=== PATIENT | female | born 1945 | race Caucasian/White ===

== ENCOUNTER 2017-06-11 15:49 | Observation (INO) | payer MEDICARE, MEDICAID, SELFPAY ==
--- NOTE | 2017-06-11 16:01 | XR_ITS ---
XR chest 2V HISTORY: ITS.REASON: cough ORDERING PHYSICIAN: Earl Fung MD PATIENT AGE: 72 years COMPARISON: 02/22/2016 FINDINGS: There is mild cardiomegaly without failure.. The lungs are clear without infiltrates, suspicious nodules, or pleural effusions. No acute bony abnormalities. IMPRESSION: Mild cardiomegaly. No change with no acute finding
[2017-06-11 16:34] VITALS: BMI 22.1
[2017-06-11 16:35] VITALS: BP 109/37; PULSE 67; RESP 20; TEMP 36.6; O2SAT 98
[2017-06-11 17:04] LABS: Adenovirus,PCR Not Detected (NotDetected); Bordetella Pertussis Not Detected (NotDetected); Chlamydophila Pneumoniae, PCR Not Detected (NotDetected); Coronavirus 229E Not Detected (NotDetected); Coronavirus NL63 Not Detected (NotDetected); Coronavirus OC43 Not Detected (NotDetected); Coronovirus HKU1,PCR Not Detected (NotDetected); Human Metapneumovirus Not Detected (NotDetected); Influenza A, PCR Not Detected (NotDetected); Influenza AH1, 2009 Not Detected (NotDetected); Influenza AH1, PCR Not Detected (NotDetected); Influenza AH3,PCR Not Detected (NotDetected); Influenza B, PCR Not Detected (NotDetected); Mycoplasma Pneumoniae, PCR Not Detected (NotDected); Parainfluenza 1, PCR Not Detected (NotDetected); Parainfluenza 2, PCR Not Detected (NotDetected); Parainfluenza 3, PCR Not Detected (NotDetected); Parainfluenza 4, PCR Not Detected (NotDetected); Respiratory Syncytial Virus Not Detected (NotDetected); Rhinovirus/Enterovirus Not Detected (NotDetected)
--- NOTE | 2017-06-11 17:50 | HMH.HP ---
*Admission Date: 06/11/17 *Chief complaint: dizziness, cough *History of present illness: 72 year old female with a significant history of emphysema presented to PCP office with a 3 day history of anterior chest tightness, cough, malaise and dizziness. She reported low blood pressures at home, as well. No fevers. She has had some body aches. In the office, she was found to be orthostatic with SBP 80's. Patient was admitted for IV hydration and further evaluation. [facility] History Medical History: Reports:: Cancer, Congestive Heart Failure, Chronic Obstructive Pulmonary Disease (COPD), Coronary Artery Disease, Hypertension, Myocardial Infarction, Seizures, Transient Ischemic Attacks (TIA) Other Medical History: Reports: Hypothyroidism Laterality Cases: Left: Total Hip Replacement Other Surgeries: Yes: Cancer Surgery, Colonoscopy, Skin Cancer Excision Amputation: No Fractures: No - *Social History Tobacco Type: cigarettes Review of Systems - Constitutional Reports body ache(s), Reports chills, Reports fatigue, Reports malaise, Reports weakness - Eyes Reports double vision, Denies blurry vision, Denies discharge - ENT Reports dizziness, Reports dry mouth, Reports sinus pain, Denies abnormal hearing, Denies ear discharge, Denies ear pain, Denies headache(s), Denies nose pain, Denies sinus pressure, Denies sore throat - *Cardiovascular Denies chest pain with activity, Denies irregular heart rhythm, Denies leg swelling, Denies rapid, pounding, or irregular heartbeat, Denies foot swelling, Denies fast heart rate - *Respiratory Reports cough, Reports wheezing, Denies chest congestion, Denies shortness of breath - *Gastrointestinal Denies change in stools, Denies loose stools, Denies bright, red blood in stools, Denies vomiting - *Genitourinary Reports blood in urine, Denies dribbling after urination - *Musculoskeletal Reports body aches, Denies joint pain, Denies muscle cramps - Integumentary/Breasts Denies rash - *Neurologic Reports unsteadiness, Reports dizziness, Denies abnormal movements, Denies confusion, Denies localized weakness, Denies tingling/numbness/burning sensations, Denies seizure-like activity, Denies fainting - Psychiatric Denies memory loss, Denies mood swings, Denies thoughts of hurting/killing yourself - Endocrine Denies rapid, pounding, or irregular heartbeat - Hematologic/Lymphatic Denies enlarged lymph nodes Meds Allergies Allergy/AdvReac Type Severity Reaction Status Date / Time metoclopramide [From REGLAN] Allergy Unknown Unverified 05/22/17 14:08 Exam Vital signs and Labs for Last 24 Hours: Temp Pulse Resp BP Pulse Ox 97.9 F 67 20 109/37 98 06/11/17 16:35 06/11/17 16:35 06/11/17 16:35 06/11/17 16:35 06/11/17 16:35 Narrative: Pleasant, no acute distress. Alert and oriented x3. Rate and rhythm regular. No LE edema. Pulses 2+ bilaterally. Lung sounds with scattered rhonchi and crackles RLL. TM normal bilaterally. Nose clear. Mucous membranes dry. No dysuria or hematuria. No unilateral weakness of neurological deficits. Abdomen soft and nontender. Normoactive Bowel Sounds. Assessment and Plan (1) Dehydration Current visit: Yes Status: Acute Category: Medical Code(s): E86.0 - Dehydration (2) Orthostatic hypotension Current visit: Yes Status: Acute Category: Medical Code(s): I95.1 - Orthostatic hypotension (3) Acute URI Current visit: Yes Status: Acute Category: Medical Code(s): J06.9 - Acute upper respiratory infection, unspecified - Assessment and plan all Dx Assessment and Plan for all problems:: Admit for IV hydration. Hold antihypertensives and Lasix. CXR, Respiratory PCR and labs. Start Duonebs. Will evaluate labs/x-ray and treat as indicated.
[2017-06-11 17:53] LABS: Basophils % 0.4 % (0.1-2.0); Eosinophils # 0.1 K/mm3 (0.0-0.4); Hematocrit 31.6 % (37.0-47.0); Hemoglobin 10.2 g/dL (12.2-16.2); Lymphocytes # 1.8 K/mm3 (0.7-4.5); Mean Corpuscular HGB Conc 32.2 g/dL (31.8-35.4); Mean Corpuscular Volume 77.4 fl (81-99); Monocytes # 0.3 K/mm3 (0.1-1.0); Neutrophils # 4.2 K/mm3 (1.8-7.8); Neutrophils % 65.6 % (37.0-80.0); Platelet Count 196 K/mm3 (142-424); Red Blood Count 4.08 M/mm3 (4.20-5.40); Red Cell Distribution Width 16.9 % (11.5-17.5); White Blood Count 6.4 K/mm3 (4.8-10.8)
--- NOTE | 2017-06-11 17:54 | P.HP_ITS ---
*Admission Date: 06/11/17 *Chief complaint: dizziness, cough *History of present illness: 72 year old female with a significant history of emphysema presented to PCP office with a 3 day history of anterior chest tightness, cough, malaise and dizziness. She reported low blood pressures at home, as well. No fevers. She has had some body aches. In the office, she was found to be orthostatic with SBP 80's. Patient was admitted for IV hydration and further evaluation. [facility] History Medical History: Reports:: Cancer, Congestive Heart Failure, Chronic Obstructive Pulmonary Disease (COPD), Coronary Artery Disease, Hypertension, Myocardial Infarction, Seizures, Transient Ischemic Attacks (TIA) Other Medical History: Reports: Hypothyroidism Laterality Cases: Left: Total Hip Replacement Other Surgeries: Yes: Cancer Surgery, Colonoscopy, Skin Cancer Excision Amputation: No Fractures: No - *Social History Tobacco Type: cigarettes Review of Systems - Constitutional Reports body ache(s), Reports chills, Reports fatigue, Reports malaise, Reports weakness - Eyes Reports double vision, Denies blurry vision, Denies discharge - ENT Reports dizziness, Reports dry mouth, Reports sinus pain, Denies abnormal hearing, Denies ear discharge, Denies ear pain, Denies headache(s), Denies nose pain, Denies sinus pressure, Denies sore throat - *Cardiovascular Denies chest pain with activity, Denies irregular heart rhythm, Denies leg swelling, Denies rapid, pounding, or irregular heartbeat, Denies foot swelling, Denies fast heart rate - *Respiratory Reports cough, Reports wheezing, Denies chest congestion, Denies shortness of breath - *Gastrointestinal Denies change in stools, Denies loose stools, Denies bright, red blood in stools , Denies vomiting - *Genitourinary Reports blood in urine, Denies dribbling after urination - *Musculoskeletal Reports body aches, Denies joint pain, Denies muscle cramps - Integumentary/Breasts Denies rash - *Neurologic Reports unsteadiness, Reports dizziness, Denies abnormal movements, Denies confusion, Denies localized weakness, Denies tingling/numbness/burning sensations, Denies seizure-like activity, Denies fainting - Psychiatric Denies memory loss, Denies mood swings, Denies thoughts of hurting/killing yourself - Endocrine Denies rapid, pounding, or irregular heartbeat - Hematologic/Lymphatic Denies enlarged lymph nodes Meds Allergies Allergy/AdvReac Type Severity Reaction Status Date / Time metoclopramide [From REGLAN] Allergy Unknown Unverified 05/22/17 14:08 Exam Vital signs and Labs for Last 24 Hours: Temp Pulse Resp BP Pulse Ox 97.9 F 67 20 109/37 98 06/11/17 16:35 06/11/17 16:35 06/11/17 16:35 06/11/17 16:35 06/11/17 16:35 Narrative: Pleasant, no acute distress. Alert and oriented x3. Rate and rhythm regular. No LE edema. Pulses 2+ bilaterally. Lung sounds with scattered rhonchi and crackles RLL. TM normal bilaterally. Nose clear. Mucous membranes dry. No dysuria or hematuria. No unilateral weakness of neurological deficits. Abdomen soft and nontender. Normoactive Bowel Sounds. Assessment and Plan (1) Dehydration Current visit: Yes Status: Acute Category: Medical Code(s): E86.0 - Dehydration (2) Orthostatic hypotension Current visit: Yes Status: Acute Category: Medical Code(s): I95.1 - Orthostatic hypotension (3) Acute URI Current visit: Yes Status: Acute Category: Medical
[2017-06-11 18:05] LABS: Alanine Aminotransferase 10 U/L (12-78); Albumin Level 4.1 gm/dL (3.4-5.0); Alkaline Phosphatase 82 U/L (46-116); Anion Gap 9.7 mEq/L (5-15); Aspartate Amino Transferase 17 U/L (15-37); Bilirubin,Total 0.6 mg/dL (0.2-1.0); Blood Urea Nitrogen 35 mg/dL (7-18); Calcium 9.5 mg/dL (8.5-10.1); Carbon Dioxide 32 mmol/L (21.0-32.0); Chloride 83 mmol/L (98-107); Creatinine Clearance Estimated 27 mL/min (0-300); Creatinine,Serum 1.59 mg/dL (0.55-1.02); Estimated Glomerular Filt Rate 32 ml/min (>60); GFR (African American) 39 ML/MIN (>60); Globulin 4.2 gm/dl (1.3-3.2); Glucose 115 mg/dL (74-106); Potassium 3.7 mmoL/L (3.5-5.1); Sodium 121 mmol/L (136-145); Total Protein,Serum 8.3 gm/dL (6.4-8.2)
[2017-06-11 19:20] VITALS: O2SAT 97
[2017-06-11 21:00] VITALS: BP 145/51; PULSE 73; RESP 18; TEMP 36.4; O2SAT 97
--- NOTE | 2017-06-11 21:03 | PC.NURSE ---
BP OF 145/51 REPORTED TO ALEX
[2017-06-11 23:05] VITALS: PULSE 67; PULSE 69
--- NOTE | 2017-06-12 04:06 | PC.NURSE ---
LAYING IN BED RESTING AT THIS TIME. HAS REST ON AND OFF. IV HAS INFILTRATED IN RIGHT FR, ELEVATED ON A PILLOW. IV OUT, TIP INTACT. HAS RHONCHI BILAT. RESP EVEN AND NONLABORED. HAS BEEN UP TO RESTROOM SEVERAL TIMES. STATES HAS NO NEEDS AT THIS TIME. WILL CONTINUE TO MONITOR. BED LOCKED IN LOW POSITION SIDE RALES UP X 2. CALL LIGHT WITHIN REACH.
--- NOTE | 2017-06-12 04:29 | PC.NURSE ---
PATIENT REFUSED TEDS, EDUCATED ON WHY IT WAS IMPORTANT TO WEAR THEM. PATIENT SAID NO.
[2017-06-12 04:43] VITALS: BP 124/54; BP 130/49; PULSE 60; PULSE 74; RESP 18; TEMP 36.5; O2SAT 95
[2017-06-12 04:44] VITALS: BP 131/53; PULSE 74
[2017-06-12 05:42] VITALS: PULSE 60; PULSE 64
[2017-06-12 08:25] LABS: Blood Urea Nitrogen 29 mg/dL (7-18); Carbon Dioxide 28 mmol/L (21.0-32.0); Creatinine Clearance Estimated 31 mL/min (0-300); Creatinine,Serum 1.39 mg/dL (0.55-1.02); Estimated Glomerular Filt Rate 37 ml/min (>60); GFR (African American) 45 ML/MIN (>60); Glucose 127 mg/dL (74-106)
[2017-06-12 08:27] VITALS: BP 121/54; PULSE 69; RESP 18; TEMP 36.6; O2SAT 95
[2017-06-12 08:34] LABS: Chloride 92 mmol/L (98-107); Sodium 131 mmol/L (136-145)
--- NOTE | 2017-06-12 13:22 | HMH.DCSUM ---
General - General Admission date: 06/11/17 Discharge date: 06/12/17 HPI HPI: 72 year old female with a significant history of emphysema presented to PCP office with a 3 day history of anterior chest tightness, cough, malaise and dizziness. She reported low blood pressures at home, as well. No fevers. She has had some body aches. In the office, she was found to be orthostatic with SBP 80's. Patient was admitted for IV hydration and further evaluation. Objective Vital signs: Temp Pulse Resp BP Pulse Ox 97.9 F 69 18 121/54 95 06/12/17 08:27 06/12/17 08:27 06/12/17 08:27 06/12/17 08:27 06/12/17 08:27 Hospital Course Hospital Course: Patient was admitted for observation. She was found to have + orthostasis and hyponatremia. She was given normal saline infusions. CXR was unremarkable. Upper respiratory PCR was negative. She was re-hydrated through the night with significant improvement of dizziness and hyponatremia. She is tolerating oral intake well and able to ambulate without assistance. Discharge home. D/C HCTZ. Hold Lasix and potassium until FU. See medication reconcilation for complete list. FU with myself in [place] office on Sunday. Results Labs on day of discharge: Labs from last 24 hours 06/12/17 06/11/17 06/11/17 08:00 17:30 17:30 WBC 6.4 RBC 4.08 L Hgb 10.2 L Hct 31.6 L MCV 77.4 L MCH 25.0 L MCHC 32.2 RDW 16.9 Plt Count 196 MPV 9.0 Neut % (Auto) 65.6 Lymph % (Auto) 28.0 [place] % (Auto) 5.0 Eos % (Auto) 1.0 Baso % (Auto) 0.4 Neut # (Auto) 4.2 Lymph # (Auto) 1.8 [place] # (Auto) 0.3 Eos # (Auto) 0.1 Baso # (Auto) 0.0 Sodium 131 L 121 L Potassium 4.0 3.7 Chloride 92 L 83 L Carbon Dioxide 28 32 Anion Gap 15.0 9.7 BUN 29 H 35 H Creatinine 1.39 H 1.59 H Estimated Creat Clear 31 27 Estimated GFR 37 L 32 L Est GFR ( Amer) 45 L 39 L Glucose 127 H 115 H Calcium 9.5 Total Bilirubin 0.6 AST 17 ALT 10 L Alkaline Phosphatase 82 Total Protein 8.3 H Albumin 4.1 Globulin 4.2 H Albumin/Globulin Ratio 1.0 L Chlamy pneumoniae PCR Adenovirus (PCR) B.parapertussis DNA PCR Coronavirus OC43 (PCR) Coronavirus HKU1 (PCR) Coronavirus 229E (PCR) Coronavirus NL63 (PCR) Human Metapneumovir PCR Influenza A (H1) PCR Influ A (H1N1/09) PCR Influenza A (H3) PCR Influenza Type A (PCR) Influenza Type B (PCR) M. pneumoniae (PCR) Parainfluenza 1 (PCR) Parainfluenza 2 (PCR) Parainfluenza 3 (PCR) Parainfluenza 4 (PCR) RSV (PCR) Entero/Rhino (PCR) 06/11/17 17:00 WBC RBC Hgb Hct MCV MCH MCHC RDW Plt Count MPV Neut % (Auto) Lymph % (Auto) [place] % (Auto) Eos % (Auto) Baso % (Auto) Neut # (Auto) Lymph # (Auto) [place] # (Auto) Eos # (Auto) Baso # (Auto) Sodium Potassium Chloride Carbon Dioxide Anion Gap BUN Creatinine Estimated Creat Clear Estimated GFR Est GFR ( Amer) Glucose Calcium Total Bilirubin AST ALT Alkaline Phosphatase Total Protein Albumin Globulin Albumin/Globulin Ratio Chlamy pneumoniae PCR Not detected Adenovirus (PCR) Not detected B.parapertussis DNA PCR Not detected Coronavirus OC43 (PCR) Not detected Coronavirus HKU1 (PCR) Not detected Coronavirus 229E (PCR) Not detected Coronavirus NL63 (PCR) Not detected Human Metapneumovir PCR Not detected Influenza A (H1) PCR Not detected Influ A (H1N1/09) PCR Not detected Influenza A (H3) PCR Not detected Influenza Type A (PCR) Not detected Influenza Type B (PCR) Not detected M. pneumoniae (PCR) Not detected Parainfluenza 1 (PCR) Not detected Parainfluenza 2 (PCR) Not detected Parainfluenza 3 (PCR) Not detected Parainfluenza 4 (PCR) Not detected RSV (PCR) Not detected Entero/Rhino (PCR) Not detected DS: Diagnosis - Discharge Diagnosis (1)
--- NOTE | 2017-06-12 13:26 | P.DS_ITS ---
General - General Admission date: 06/11/17 Discharge date: 06/12/17 HPI HPI: 72 year old female with a significant history of emphysema presented to PCP office with a 3 day history of anterior chest tightness, cough, malaise and dizziness. She reported low blood pressures at home, as well. No fevers. She has had some body aches. In the office, she was found to be orthostatic with SBP 80's. Patient was admitted for IV hydration and further evaluation. Objective Vital signs: Temp Pulse Resp BP Pulse Ox 97.9 F 69 18 121/54 95 06/12/17 08:27 06/12/17 08:27 06/12/17 08:27 06/12/17 08:27 06/12/17 08:27 Hospital Course Hospital Course: Patient was admitted for observation. She was found to have + orthostasis and hyponatremia. She was given normal saline infusions. CXR was unremarkable. Upper respiratory PCR was negative. She was re-hydrated through the night with significant improvement of dizziness and hyponatremia. She is tolerating oral intake well and able to ambulate without assistance. Discharge home. D/C HCTZ. Hold Lasix and potassium until FU. See medication reconcilation for complete list. FU with myself in [place] office on Sunday. Results Labs on day of discharge: Labs from last 24 hours 06/12/17 06/11/17 06/11/17 08:00 17:30 17:30 WBC 6.4 RBC 4.08 L Hgb 10.2 L Hct 31.6 L MCV 77.4 L MCH 25.0 L MCHC 32.2 RDW 16.9 Plt Count 196 MPV 9.0 Neut % (Auto) 65.6 Lymph % (Auto) 28.0 [place] % (Auto) 5.0 Eos % (Auto) 1.0 Baso % (Auto) 0.4 Neut # (Auto) 4.2 Lymph # (Auto) 1.8 [place] # (Auto) 0.3 Eos # (Auto) 0.1 Baso # (Auto) 0.0 Sodium 131 L 121 L Potassium 4.0 3.7 Chloride 92 L 83 L Carbon Dioxide 28 32 Anion Gap 15.0 9.7 BUN 29 H 35 H Creatinine 1.39 H 1.59 H Estimated Creat Clear 31 27 Estimated GFR 37 L 32 L Est GFR ( Amer) 45 L 39 L Glucose 127 H 115 H Calcium 9.5 Total Bilirubin 0.6 AST 17 ALT 10 L Alkaline Phosphatase 82 Total Protein 8.3 H Albumin 4.1 Globulin 4.2 H Albumin/Globulin Ratio 1.0 L Chlamy pneumoniae PCR Adenovirus (PCR) B.parapertussis DNA PCR Coronavirus OC43 (PCR) Coronavirus HKU1 (PCR) Coronavirus 229E (PCR) Coronavirus NL63 (PCR) Human Metapneumovir PCR Influenza A (H1) PCR Influ A (H1N1/09) PCR Influenza A (H3) PCR Influenza Type A (PCR) Influenza Type B (PCR) M. pneumoniae (PCR) Parainfluenza 1 (PCR) Parainfluenza 2 (PCR) Parainfluenza 3 (PCR) Parainfluenza 4 (PCR) RSV (PCR) Entero/Rhino (PCR) 06/11/17 17:00 WBC RBC Hgb Hct MCV MCH MCHC RDW Plt Count MPV Neut % (Auto) Lymph % (Auto) [place] % (Auto) Eos % (Auto) Baso % (Auto) Neut # (Auto) Lymph # (Auto)
== END 2017-06-12 10:55 | disposition home or self-care (01) ==
PROVIDERS: Nurse Practitioner Family; Admitting Provider Internal Medicine Adolescent Medicine; Family Provider Internal Medicine Adolescent Medicine; PCP Internal Medicine Adolescent Medicine; Visit Provider Internal Medicine Adolescent Medicine
DX: E86.0 Dehydration (principal); I95.1 Orthostatic hypotension; I50.9 Heart failure, unspecified; J44.9 Chronic obstructive pulmonary disease, unspecified; R53.83 Other fatigue
CPT/HCPCS: 71046; 80048; 80053; 85025; 87486; 87581; 87633; 87798; 94640; G0378

== ENCOUNTER → 2017-08-10 15:36 | Outpatient (CLI) | payer MEDICARE, MEDICAID, SELFPAY ==
--- NOTE | 2017-08-10 15:55 | XR_ITS ---
XR chest 2V Ordering Physician: Abimbola Shi Patient Age: 72 years: Female HISTORY: ITS.REASON: COPD EXACERBATION TECHNIQUE: PA and lateral chest COMPARISON :PA and lateral chest 06/11/2017. Also February 2016 FINDINGS Hyperexpansion. COPD. Normal pulmonary vascularity Minor focal linear density at left lung base just lateral to the left cardiac apex.. Most likely this reflects linear atelectasis or possibly minimal scarring with this appearance. No focal pneumonia. No pleural effusion. No pneumothorax. No acute cardiothoracic findings otherwise seen. Heart upper normal in size/borderline cardiomegaly. Minor tortuosity of the slightly calcified descending aortaMild apical pleural scarring. Chest wall and T-spine intact. IVC filter incidentally noted at the upper abdomen. IMPRESSION: No focal pneumonia. No significant acute cardiac pulmonary findings. COPD. Hyperexpansion. Minor linear atelectasis or scarring left lung base, most likely accounts for minimal linear density just lateral to the cardiac apex.
[2017-08-10 15:58] LABS: Basophils % 0.1 % (0.1-2.0); Hematocrit 34.7 % (37.0-47.0); Hemoglobin 10.5 g/dL (12.2-16.2); Lymphocytes # 0.7 K/mm3 (0.7-4.5); Lymphocytes % 11.1 K/mm3 (10-50); Mean Corpuscular HGB Conc 30.3 g/dL (31.8-35.4); Mean Corpuscular Hemoglobin 24.6 pg (27.0-31.2); Mean Corpuscular Volume 81.3 fl (81-99); Mean Platelet Volume 8.9 fl (7.4-10.4); Monocytes # 0.1 K/mm3 (0.1-1.0); Monocytes % 1.6 % (1.7-9.3); Neutrophils % 87.1 % (37.0-80.0); Platelet Count 229 K/mm3 (142-424); Red Blood Count 4.27 M/mm3 (4.20-5.40); Red Cell Distribution Width 16.8 % (11.5-17.5); White Blood Count 5.8 K/mm3 (4.8-10.8)
[2017-08-10 16:10] LABS: MANUAL DIFFERENTIAL MANUAL DIFFERENTIAL (MANUAL DIFF)
[2017-08-10 16:41] LABS: Lymphocytes % 11 % (10-50); Monocytes % 1 % (2-9); Neutrophils % 88 % (42-76); Total Cells Counted 100
[2017-08-10 16:43] LABS: Platelet Estimate Normal; RBC Morphology Normal
[2017-08-10 16:49] LABS: Alanine Aminotransferase 14 U/L (12-78); Albumin Level 3.5 gm/dL (3.4-5.0); Albumin/Globulin Ratio 0.7 (1.1-1.8); Alkaline Phosphatase 89 U/L (46-116); Anion Gap 13.2 mEq/L (5-15); Aspartate Amino Transferase 16 U/L (15-37); Bilirubin,Total 0.7 mg/dL (0.2-1.0); Blood Urea Nitrogen 67 mg/dL (7-18); Calcium 9.5 mg/dL (8.5-10.1); Carbon Dioxide 29 mmol/L (21.0-32.0); Chloride 96 mmol/L (98-107); Creatinine,Serum 1.79 mg/dL (0.55-1.02); Estimated Glomerular Filt Rate 28 ml/min (>60); GFR (African American) 34 ML/MIN (>60); Globulin 4.7 gm/dl (1.3-3.2); Glucose 153 mg/dL (74-106); Potassium 3.2 mmoL/L (3.5-5.1); Sodium 135 mmol/L (136-145); Total Protein,Serum 8.2 gm/dL (6.4-8.2)
== END ==
PROVIDERS: Visit Provider Nurse Practitioner Family
DX: J44.1 Chronic obstructive pulmonary disease with (acute) exacerbation (principal)
CPT/HCPCS: 36415; 71046; 80053; 85007; 85025

== ENCOUNTER 2017-08-24 15:00 | Outpatient (RCR) | payer MEDICARE, MEDICAID, SELFPAY | END 2017-09-19 16:52 | disposition home or self-care (01) | LOC: PT 15:00 | PROVIDERS: Family Provider Internal Medicine Adolescent Medicine; PCP Internal Medicine Adolescent Medicine; Visit Provider Orthopaedic Surgery Adult Reconstructive Orthopaedic Surgery | DX: M70.62 Trochanteric bursitis, left hip (principal) | CPT/HCPCS: 97033; 97035; 97110; 97124; 97164 ==

== ENCOUNTER → 2017-10-05 11:32 | Outpatient (CLI) | payer MEDICARE, MEDICAID, SELFPAY ==
[2017-10-05 14:57] LABS: Basophils % 0.3 % (0.1-2.0); Eosinophils # 0.1 K/mm3 (0.0-0.4); Hematocrit 30.3 % (37.0-47.0); Hemoglobin 9.7 g/dL (12.2-16.2); Lymphocytes # 1.6 K/mm3 (0.7-4.5); Lymphocytes % 24.1 K/mm3 (10-50); Mean Corpuscular HGB Conc 32.1 g/dL (31.8-35.4); Mean Corpuscular Hemoglobin 25.1 pg (27.0-31.2); Mean Corpuscular Volume 78.3 fl (81-99); Mean Platelet Volume 8.3 fl (7.4-10.4); Monocytes # 0.4 K/mm3 (0.1-1.0); Monocytes % 5.3 % (1.7-9.3); Neutrophils # 4.5 K/mm3 (1.8-7.8); Neutrophils % 68.3 % (37.0-80.0); Platelet Count 313 K/mm3 (142-424); Red Blood Count 3.87 M/mm3 (4.20-5.40); Red Cell Distribution Width 16.2 % (11.5-17.5); White Blood Count 6.5 K/mm3 (4.8-10.8)
[2017-10-05 16:06] LABS: Alanine Aminotransferase 14 U/L (12-78); Albumin Level 3.8 gm/dL (3.4-5.0); Alkaline Phosphatase 90 U/L (46-116); Anion Gap 14.9 mEq/L (5-15); Aspartate Amino Transferase 20 U/L (15-37); Bilirubin,Total 1.2 mg/dL (0.2-1.0); Blood Urea Nitrogen 39 mg/dL (7-18); Calcium 9.5 mg/dL (8.5-10.1); Carbon Dioxide 33 mmol/L (21.0-32.0); Chloride 85 mmol/L (98-107); Estimated Glomerular Filt Rate 37 ml/min (>60); GFR (African American) 45 ML/MIN (>60); Glucose 92 mg/dL (74-106); Sodium 130 mmol/L (136-145); Total Protein,Serum 7.8 gm/dL (6.4-8.2)
[2017-10-05 16:43] LABS: Potassium 2.9 mmoL/L (3.5-5.1)
== END ==
PROVIDERS: Visit Provider Nurse Practitioner Family
DX: R53.1 Weakness (principal); R29.6 Repeated falls
CPT/HCPCS: 36415; 80053; 85025

== ENCOUNTER → 2017-10-12 10:13 | Outpatient (CLI) | payer MEDICARE, MEDICAID, SELFPAY ==
[2017-10-12 14:22] LABS: Alanine Aminotransferase 11 U/L (12-78); Albumin Level 3.2 gm/dL (3.4-5.0); Albumin/Globulin Ratio 0.9 (1.1-1.8); Alkaline Phosphatase 83 U/L (46-116); Anion Gap 12.8 mEq/L (5-15); Aspartate Amino Transferase 19 U/L (15-37); Bilirubin,Total 0.7 mg/dL (0.2-1.0); Blood Urea Nitrogen 27 mg/dL (7-18); Calcium 9.5 mg/dL (8.5-10.1); Carbon Dioxide 31 mmol/L (21.0-32.0); Chloride 96 mmol/L (98-107); Creatinine,Serum 1.25 mg/dL (0.55-1.02); Estimated Glomerular Filt Rate 42 ml/min (>60); GFR (African American) 51 ML/MIN (>60); Globulin 3.6 gm/dl (1.3-3.2); Glucose 112 mg/dL (74-106); Potassium 3.8 mmoL/L (3.5-5.1); Sodium 136 mmol/L (136-145); Total Protein,Serum 6.8 gm/dL (6.4-8.2)
== END ==
PROVIDERS: Visit Provider Nurse Practitioner Family
DX: E87.6 Hypokalemia (principal)
CPT/HCPCS: 36415; 80053

== ENCOUNTER → 2017-10-19 09:29 | Outpatient (CLI) | payer MEDICARE, MEDICAID, SELFPAY ==
--- NOTE | 2017-10-19 09:35 | US_ITS ---
ULTRASOUND THYROID PROCEDURE: Multiple sagittal & transverse ultrasound images of the thyroid. MW HISTORY: Thyroid enlarged clinically. Difficulty swallowing. COMPARISON: None ----- FINDINGS: RIGHT LOBE:... 3.5 cm length x 1.4 cm wide x 0.8 cm AP. Nodule A: Small mainly cystic area anterior upper pole measuring 3.5 mm length x 3 mm. X 1.5 mm. Tiny target-like echogenic area at its inferior aspect . LEFT LOBE: 3.7 cm length x 1 cm AP x 1.3 cm wide Nodule A: Cystic area 9.4 mm length x 8.3 mm wide and 6 mm AP Nodule B:. Solid nodule lower pole measures 7.3 mm x 4.8 mm. X 6.9 mm. Suggestion slight increased Doppler flow. Consider follow-up 6-9 months. . ISTHMUS: Normal thickness. Measuring 2.5 mm AP. IMPRESSION Thyroid normal in size. . Left lobe with cyst and small solid nodule Right lobe with small cystic area
--- NOTE | 2017-10-19 09:36 | CT_ITS ---
CT lung screening EXAM: CT LUNG LOW DOSE WO CONTRAST HISTORY: Asymptomatic previous smoker ITS.REASON: NICOTINE DEPENDENCE ORDERING PHYSICIAN: Abimbola Shi PATIENT AGE: 72 years COMPARISON: None TECHNIQUE: The exam was performed on a GE Light Speed [address] scanner using 2.90 mGy CTDI. A low dose helical CT CHEST was performed on a multi-detector scanner. All CT scans at the facility use one or more dose reduction, viz: automated exposure control; ma/kV adjustment per patient size (including targeted exams where dose is matched to indication; i.e. head); or iterative reconstruction technique. The LDCT was performed in a facility that meets the criteria for the screening program. Data regarding this exam was submitted to ACR which is an approved registry. The order for this exam indicates that it came as a result of a lung cancer screening counseling shard decision-making visit that included all the elements required of such a visit including smoking cessation. The radiologist interpreting this exam meets the CMS criteria for the LDCT lung cancer screening program. The exam is reported using the Lung-RADS classification scale and reported to the ACR registry. NOTE: This study was performed for the specific purposes of lung cancer screening and is not an alternative to diagnostic chest CT. RADIATION DOSE: CTDI vol(CT dose Index-volume) = 2.90mG DLP (Dose Length Product) = 98.73 mGcm FINDINGS: Centrilobular and paraseptal emphysema. 3 mm subpleural nodule right lower lobe posteriorly. Mild biapical pleural-parenchymal changes. Fibrotic changes present in the lung bases. Calcified granuloma left lower lobe. No obvious suspicious lesions. There are coronary artery calcifications. Small hiatal hernia. IMPRESSION: 1. Lung RADS Category: 2, benign 2. Other findings: Centrilobular emphysema with scattered areas of fibrosis Coronary artery calcification RECOMMENDATIONS: 12 month LDCT follow-up
== END ==
PROVIDERS: Family Provider Internal Medicine Adolescent Medicine; PCP Internal Medicine Adolescent Medicine; Visit Provider Nurse Practitioner Family
DX: E87.6 Hypokalemia (principal); Z87.891 Personal history of nicotine dependence; Z12.2 Encounter for screening for malignant neoplasm of respiratory organs
CPT/HCPCS: 76536

== ENCOUNTER 2017-11-07 13:19 | Inpatient (IN) ==
--- NOTE | 2017-11-07 15:20 | History & Physical Report ---
*Admission Date: 11/07/17 *Chief complaint: Pain and swelling in foot *History of present illness: 72 yr old female with advanced COPD, physical debility, visual disturbance and history of MRSA presented to clinic today with complaint of relatively new onset pain in her right second toe. This has been present for several days but because of her visual impairment she was not aware that a wound was present until her grandaughter inspected the toe for her. She does report multiple falls at home over a several week period, with multiple skin tears and bruising but cannot recall specific injury to the right foot. At time of exam in our office her right second toe was edematous, erythematous, with active discharge and wound that appeared to be tunneling. She was admitted for IV antibiotics, podiatry consult and imaging to evaluate for possible osteomyelitis. She does have a history of amputation of the left second toe which she reports was secondary to chronic/recurring infection due to hammer toe deformity and friction with adjacent toes. [facility] History I have reviewed the patient's past medical history: Yes Medical History: Reports:: Cancer, Congestive Heart Failure, Chronic Obstructive Pulmonary Disease (COPD), Coronary Artery Disease, Deep Vein Thrombosis, Hypertension, Myocardial Infarction, Seizures, Transient Ischemic Attacks (TIA) Denies:: Diabetes Mellitus Type 1, Diabetes Mellitus Type 2, MRSA Other Medical History: Reports: Anemia, Arthritis, Cataracts, Glaucoma, Hypothyroidism, Thyroid Disease Laterality Cases: Left: Total Hip Replacement, Bilateral: Tonsillectomy Other Surgeries: Yes: Angiogram, Cancer Surgery, Cardiac Catheterization, Colonoscopy, Coronary Stent, Hysterectomy-Total, Skin Cancer Excision Amputation: Yes (left second toe) Fractures: No - *Social History Smoking Status: Current some day smoker Tobacco Type: cigarettes # Packs/Day (cigarettes): 1 #Yrs smoked (if former smoker): 57 Alcohol Intake: never Occupational Status: disabled Housing: assisted living facility Household Members: none *Family Hx:: Cancer, Coronary Artery Disease, Diabetes, Heart Attack, Hyperlipidemia, Hypertension, Kidney Disease, Stroke, Thyroid Disorder Review of Systems - Review of Systems Review of systems:: pertinent systems reviewed and negative unless documented below - Constitutional Reports anorexia, Reports weakness, Reports weight loss - Eyes Reports blurry vision Comments: chronic but getting worse, surgery in May and hasn't been able to get to follow-up appointments because of transportation difficulty - *Cardiovascular Reports shortness of breath - *Respiratory Reports cough, Reports shortness of breath Meds Home Medications Medication Instructions Recorded Confirmed Type Brimonidine Tartrate/Timolol 1 drop EYE-BOTH BID 06/11/17 06/11/17 History [Combigan 0.2%-0.5% Eye Drops] Carvedilol [Carvedilol 25mg Tab] 25 mg PO DAILY 06/11/17 06/11/17 History Esomeprazole Magnesium [Nexium] 40 mg PO BID 06/11/17 06/11/17 History Latanoprost [Xalatan 0.005% Ophth 1 drop EYE-BOTH HS 06/11/17 06/11/17 History Soln 2.5mL] Levothyroxine Sodium 50 mcg PO DAILY 06/11/17 06/11/17 History [Levothyroxine 50mcg (0.05mg) Tab] Losartan Potassium 100 mg PO DAILY 06/11/17 06/11/17 History PARoxetine HCl [Paroxetine HCl] 40 mg PO DAILY 06/11/17 06/11/17 History Trazodone HCl 100 mg PO HS MDD 100MG 06/11/17 06/11/17 History Allergies Allergy/AdvReac Type Severity Reaction Status Date / Time metoclopramide [From REGLAN] Allergy Unknown Verified 06/11/17 21:44 Exam I & O for Last 24 hours: Intake & Output 11/05/17 11/06/17 11/07/17 11/08/17 11:59 11:59 11:59 11:59 Weight 104 lb 7 oz Narrative: Pleasant female in no acute distress. She appears chronically ill and ambulates with assistance of a walker. She is alert and oriented, able to move all extremities. ENT exam reveals poor dentition with decay. Heart rhythm is clear, no murmurs appreciated. No peripheral edema. Pedal pulses are palpable. She has poor air movement in her lungs bilaterally with some rhonchi on the left that clear with cough. Abdomen is thin, soft, NT/ND. Lower extremities have palpable pulses, mildly delayed capillary refill. Amputation left second toe noted. Right second toe with diffuse erythema, edema and warmth and wound on the medial aspect that is macerated around the open area, scant discharge, positive for pain with palpation. H&P: Result - Imaging and Cardiology Chest x-ray Status: final report Additional comments: lingular pneumonia TESTING Status: final report Additional comments: right foot with displaced fracture right second toe proximal phalanx, osteoarthritis Assessment and Plan (1) Cellulitis of toe of right foot Current visit: Yes Status: Acute Category: Medical Code(s): L03.031 - Cellulitis of right toe (2) Disp fx proximal phalanx lesser toe right foot w/delayed healing Current visit: Yes Status: Acute Category: Medical Code(s): S92.511G - Displaced fracture of proximal phalanx of right lesser toe(s), subsequent encounter for fracture with delayed healing (3) Lingular pneumonia Current visit: Yes Status: Acute Category: Medical Code(s): J18.9 - Pneumonia, unspecified organism (4) Recurrent falls Current visit: Yes Status: Acute Category: Medical Code(s): R29.6 - Repeated falls (5) Visual disturbance Current visit: Yes Status: Chronic Category: Medical Code(s): H53.9 - Unspecified visual disturbance (6) COPD (chronic obstructive pulmonary disease) Current visit: Yes Status: Acute Category: Medical Code(s): J44.9 - Chronic obstructive pulmonary disease, unspecified - Assessment and plan all Dx Assessment and Plan for all problems:: Blood cultures and inflammatory markers ordered and pending at this time. Consult podiatry Start IV antibiotics with vancomycin and unasyn Nebulizer therapy/pulmonary toilet for COPD with lingular pnuemonia Consult care management to evaluate need for subacute rehabilitation following discharge
--- NOTE | 2017-11-07 15:31 | Pharmacy Consult Notes ---
- Pharmacy Consult Date: 11/07/17 Time: 15:27 Referring provider: DR. MILNER Reason for Consult:: VANCOMYCIN DOSING Allergies and ADEs:: Allergies Allergy/AdvReac Type Severity Reaction Status Date / Time metoclopramide [From REGLAN] Allergy Unknown Verified 06/11/17 21:44 Home Medications:: Home Medications Medication Instructions Recorded Confirmed Type Brimonidine Tartrate/Timolol 1 drop EYE-BOTH BID 06/11/17 06/11/17 History [Combigan 0.2%-0.5% Eye Drops] Carvedilol [Carvedilol 25mg Tab] 25 mg PO DAILY 06/11/17 06/11/17 History Esomeprazole Magnesium [Nexium] 40 mg PO BID 06/11/17 06/11/17 History Latanoprost [Xalatan 0.005% Ophth 1 drop EYE-BOTH HS 06/11/17 06/11/17 History Soln 2.5mL] Levothyroxine Sodium 50 mcg PO DAILY 06/11/17 06/11/17 History [Levothyroxine 50mcg (0.05mg) Tab] Losartan Potassium 100 mg PO DAILY 06/11/17 06/11/17 History PARoxetine HCl [Paroxetine HCl] 40 mg PO DAILY 06/11/17 06/11/17 History Trazodone HCl 100 mg PO HS MDD 100MG 06/11/17 06/11/17 History Height: 1.52 m Weight: 47.372 kg Laboratory Results:: N Medical History: Reports:: Cancer, Congestive Heart Failure, Chronic Obstructive Pulmonary Disease (COPD), Coronary Artery Disease, Deep Vein Thrombosis, Hypertension, Myocardial Infarction, Seizures, Transient Ischemic Attacks (TIA) Denies:: Diabetes Mellitus Type 1, Diabetes Mellitus Type 2, MRSA Assessment and Plan - Assessment and plan all Dx Assessment and Plan for all problems:: BASED ON PATIENT'S FACTORS, RECOMMEND STARTING WITH VANCOMYCIN 1000 MG Q24H AT THIS TIME. PHARMACY WILL FOLLOW DAILY AND ADJUST APPROPRIATE. PADMINI BENDER, EMILYD
[2017-11-07 17:58] LABS: Basophils % 0.1 % (0.1-2.0); Eosinophils % 0.2 % (0.1-12.0); Hematocrit 26.9 % (37.0-47.0); Hemoglobin 8.1 g/dL (12.2-16.2); Lymphocytes # 0.8 K/mm3 (0.7-4.5); Lymphocytes % 15.4 K/mm3 (10-50); Mean Corpuscular HGB Conc 30.2 g/dL (31.8-35.4); Mean Corpuscular Hemoglobin 22.4 pg (27.0-31.2); Mean Corpuscular Volume 74.1 fl (81-99); Monocytes # 0.3 K/mm3 (0.1-1.0); Monocytes % 5.7 % (1.7-9.3); Neutrophils % 78.5 % (37.0-80.0); Platelet Count 194 K/mm3 (142-424); Red Blood Count 3.63 M/mm3 (4.20-5.40); Red Cell Distribution Width 15.5 % (11.5-17.5); White Blood Count 5.1 K/mm3 (4.8-10.8)
[2017-11-07 18:17] LABS: Albumin Level 2.9 gm/dL (3.4-5.0); Albumin/Globulin Ratio 0.7 (1.1-1.8); Anion Gap 9.2 mEq/L (5-15); Bilirubin,Total 0.8 mg/dL (0.2-1.0); Calcium 9.2 mg/dL (8.5-10.1); Globulin 4.2 gm/dl (1.3-3.2); Total Protein,Serum 7.1 gm/dL (6.4-8.2)
[2017-11-07 18:23] LABS: C-Reactive Protein 13.2 mg/L (0.0-0.9); Potassium 2.2 mmoL/L (3.5-5.1)
[2017-11-07 19:06] LABS: Erythrocyte Sedimentation Rate 58 mm/hr (0-30)
[2017-11-07 20:28] LABS: Microscopic, Urine URINE MICROSCOPIC (MICROSCOPIC)
[2017-11-07 20:29] LABS: Appearance,Urine SL CLOUDY (Clear); Bilirubin,Urine Negative (Negative); Blood, Urine Negative (Negative); Color,Urine YELLOW (Yellow); Glucose,Urine (UA) Negative (Negative); Ketones,Urine Negative (Negative); Leukocyte Esterase,Urine Negative (Negative); Protein,Urine Negative (Negative); Urobilinogen,Urine 0.2 EU/dl (0.2)
[2017-11-07 20:38] LABS: Amphetamine/Metha Screen,Urine Negative ng/mL (<1000); Barbiturates Screen,Urine Negative ng/mL (<200); Benzodiazepines Screen,Urine Negative ng/mL (200); Cannabinoid Screen,Urine Negative ng/mL (<50); Cocaine Screen,Urine Negative ng/g (<300); Methadone Screen,Urine Negative ng/mL (<300); Opiate Screen,Urine Positive ng/mL (<300); Phencyclidine Screen,Urine Negative ng/mL (<25)
[2017-11-07 20:49] LABS: Bacteria,Urine 2+ /lpf; Hyaline Casts,Urine Occasional #/lpf (0); RBC,Urine Occasional #/hpf (0-3); Squamous Epithelial Cell,Urine 20-50 #/hpf (0-5); Yeast,Urine 2+ /lpf
[2017-11-08 05:52] LABS: Basophils % 0.3 % (0.1-2.0); Hematocrit 24.3 % (37.0-47.0); Lymphocytes # 0.7 K/mm3 (0.7-4.5); Mean Corpuscular HGB Conc 30.3 g/dL (31.8-35.4); Mean Corpuscular Hemoglobin 22.6 pg (27.0-31.2); Mean Corpuscular Volume 74.6 fl (81-99); Mean Platelet Volume 7.7 fl (7.4-10.4); Monocytes # 0.2 K/mm3 (0.1-1.0); Monocytes % 5.8 % (1.7-9.3); Neutrophils # 2.7 K/mm3 (1.8-7.8); Neutrophils % 72.9 % (37.0-80.0); Platelet Count 180 K/mm3 (142-424); Red Blood Count 3.26 M/mm3 (4.20-5.40); Red Cell Distribution Width 15.5 % (11.5-17.5); White Blood Count 3.7 K/mm3 (4.8-10.8)
[2017-11-08 05:57] LABS: Anion Gap 6.6 mEq/L (5-15)
[2017-11-08 06:01] LABS: Hemoglobin 7.4 g/dL (12.2-16.2); Potassium 2.6 mmoL/L (3.5-5.1)
--- NOTE | 2017-11-08 07:26 | Pharmacy Consult Notes ---
[facility] Pharmacy VTE Monitoring - Patient Demographics Admission date: 11/08/17 Report Date: 11/08/17 Time: 07:26 Allergies/Adverse Reactions: Patient Allergies metoclopramide [From REGLAN] Allergy (Unknown, Verified 06/11/17 21:44) Height: 1.52 m Weight: 52.248 kg Patient Problems: Current Active Problems Cellulitis of toe of right foot (Acute) Disp fx proximal phalanx lesser toe right foot w/delayed healing (Acute) Lingular pneumonia (Acute) Recurrent falls (Acute) Visual disturbance (Chronic) COPD (chronic obstructive pulmonary disease) (Acute) - VTE Risk Labs: VTE Related Lab Results Hgb 7.4 g/dL (12.2-16.2) L* 11/08/17 05:10 Hct 24.3 % (37.0-47.0) L 11/08/17 05:10 Plt Count 180 K/mm3 (142-424) 11/08/17 05:10 BUN 34 mg/dL (7-18) H 11/08/17 05:10 Creatinine 1.29 mg/dL (0.55-1.02) H 11/08/17 05:10 Estimated Creat Clear 30 mL/min (0-300) 11/08/17 05:10 Was VTE Risk Assessment Performed: Yes VTE Score: 2 VTE Risk Level: Low Risk Clinical Trial Participant: No - Prophylaxis VTE Prophylaxis Ordered?: Yes Types of VTE Prophylaxis: TEDS Knee High
--- NOTE | 2017-11-08 07:37 | Consult Report ---
*Admission Date: 11/08/17 *Chief complaint: R 2nd toe cellulitis, open fracture *History of present illness: Ms. Veloz is a 72 yr old female with advanced COPD, physical debility, visual disturbance and history of MRSA presented to clinic yesterday with complaints of relatively new onset pain in her right second toe. This has been present for several days but because of her visual impairment she was not aware that a wound was present until her grandaughter inspected the toe for her. She does report multiple falls at home over a several week period, with multiple skin tears and bruising but cannot recall specific injury to the right foot. At time of exam in our office her right second toe was edematous, erythematous, with active discharge and wound that appeared to be tunneling. She was admitted for IV antibiotics, podiatry consult and imaging to evaluate for possible osteomyelitis. She does have a history of amputation of the left second toe which she reports was secondary to chronic/recurring infection due to hammer toe deformity and friction with adjacent toes. Review of Systems - Review of Systems Review of systems:: pertinent systems reviewed and negative unless documented below - Constitutional Denies chills, Denies fever(s) - Eyes Reports blurry vision, Reports change in vision - ENT Denies abnormal hearing - *Cardiovascular Denies chest pain, Denies shortness of breath with activity - *Respiratory Denies shortness of breath - *Gastrointestinal Denies abdominal pain, Denies bright, red blood in stools - *Genitourinary Reports absent period, Denies abnormal periods - *Musculoskeletal Reports joint pain (right 2nd toe) - Integumentary/Breasts Reports dry skin - *Neurologic Reports weakness, Denies abnormal walking - Endocrine Reports cold intolerance [facility] History I have reviewed the patient's past medical history: Yes Medical History: Reports:: Cancer, Congestive Heart Failure, Chronic Obstructive Pulmonary Disease (COPD), Coronary Artery Disease, Deep Vein Thrombosis, Hypertension, Myocardial Infarction, Seizures, Transient Ischemic Attacks (TIA) Denies:: Diabetes Mellitus Type 1, Diabetes Mellitus Type 2, MRSA Other Medical History: Reports: Anemia, Arthritis, Cataracts, Glaucoma, Hypothyroidism, Thyroid Disease Laterality Cases: Left: Total Hip Replacement, Bilateral: Tonsillectomy Other Surgeries: Yes: Angiogram, Cancer Surgery, Cardiac Catheterization, Colonoscopy, Coronary Stent, Hysterectomy-Total, Skin Cancer Excision Amputation: Yes (left second toe) Fractures: No - *Social History Educational Level: Completed High School Smoking Status: Current some day smoker Tobacco Type: cigarettes # Packs/Day (cigarettes): 1 #Yrs smoked (if former smoker): 57 Alcohol Intake: never Occupational Status: disabled Housing: assisted living facility Household Members: none - Psychiatric History Expresses thoughts of harming self/others: None Suicide Plan Description: No Plan *Family Hx:: Cancer, Coronary Artery Disease, Diabetes, Heart Attack, Hyperlipidemia, Hypertension, Kidney Disease, Stroke, Thyroid Disorder Meds Home Medications Medication Instructions Recorded Confirmed Type Brimonidine Tartrate/Timolol 1 drop EYE-BOTH BID 06/11/17 11/07/17 History [Combigan 0.2%-0.5% Eye Drops] Carvedilol [Carvedilol 25mg Tab] 25 mg PO BID 06/11/17 11/07/17 History Esomeprazole Magnesium [Nexium] 40 mg PO BID 06/11/17 11/07/17 History Latanoprost [Xalatan 0.005% Ophth 1 drop EYE-BOTH HS 06/11/17 11/07/17 History Soln 2.5mL] Levothyroxine Sodium 50 mcg PO DAILY 06/11/17 11/07/17 History [Levothyroxine 50mcg (0.05mg) Tab] PARoxetine HCl [Paroxetine HCl] 40 mg PO DAILY 06/11/17 11/07/17 History Trazodone HCl 100 mg PO HS MDD 100MG 06/11/17 11/07/17 History Allergies Allergy/AdvReac Type Severity Reaction Status Date / Time metoclopramide [From REGLAN] Allergy Unknown Verified 06/11/17 21:44 Exam Vital signs and Labs for Last 24 Hours: Temp Pulse Resp BP Pulse Ox 98.9 F 69 16 93/39 90 L 11/08/17 04:00 11/08/17 04:00 11/08/17 04:00 11/08/17 04:00 11/08/17 04:00 Laboratory Results - last 24 hr 11/07/17 17:45: Plasma/Serum Alcohol 0 11/07/17 17:46: WBC 5.1, RBC 3.63 L, Hgb 8.1 L, Hct 26.9 L, MCV 74.1 L, MCH 22.4 L, MCHC 30.2 L, RDW 15.5, Plt Count 194, MPV 8.0, Neut % (Auto) 78.5, Lymph % (Auto) 15.4, [place]er % (Auto) 5.7, Eos % (Auto) 0.2, Baso % (Auto) 0.1, Neut # (Auto) 4.0, Lymph # (Auto) 0.8, Miner # (Auto) 0.3, Eos # (Auto) 0.0, Baso # (Auto) 0.0, ESR 58 H 11/07/17 17:46: Sodium 123 L, Potassium 2.2 L*, Chloride 82 L, Carbon Dioxide 34 H, Anion Gap 9.2, BUN 33 H, Creatinine 1.28 H, Estimated Creat Clear 30, Estimated GFR 41 L, Est GFR ( Amer) 50 L, Glucose 154 H, Calcium 9.2, Total Bilirubin 0.8, AST 13 L, ALT 8 L, Alkaline Phosphatase 86, C-Reactive Protein 13.2 H, Total Protein 7.1, Albumin 2.9 L, Globulin 4.2 H, Albumin/ Globulin Ratio 0.7 L 11/07/17 20:20: Urine Opiates Screen Positive H, Ur Barbituates Screen Negative , Ur Phencyclidine Scrn Negative, Ur Amphetamines Screen Negative, U Methamphetamines Scrn Negative, U Benzodiazepines Scrn Negative, Urine Cocaine Screen Negative, U Marijuana (THC) Screen Negative 11/07/17 20:20: Urine Color Yellow, Urine Appearance Sl cloudy, Urine pH 6.0, Ur Specific [place] 1.010, Urine Protein Negative, Urine Glucose (UA) Negative, Urine Ketones Negative, Urine Blood Negative, Urine Nitrate Negative, Urine Bilirubin Negative, Urine Urobilinogen 0.2, Ur Leukocyte Esterase Negative, Urine RBC Occasional, Urine WBC 3-5, Ur Squamous Epith Cells 20-50, Urine Bacteria 2+, Hyaline Casts Occasional, Urine Yeast 2+ 11/08/17 05:10: WBC 3.7 L D, RBC 3.26 L, Hgb 7.4 L*, Hct 24.3 L, MCV 74.6 L, MCH 22.6 L, MCHC 30.3 L, RDW 15.5, Plt Count 180, MPV 7.7, Neut % (Auto) 72.9, Lymph % (Auto) 20.0, Miner % (Auto) 5.8, Eos % (Auto) 1.0, Baso % (Auto) 0.3, Neut # (Auto) 2.7, Lymph # (Auto) 0.7, Miner # (Auto) 0.2, Eos # (Auto) 0.0, Baso # (Auto) 0.0 11/08/17 05:10: Sodium 127 L, Potassium 2.6 L*, Chloride 88 L, Carbon Dioxide 35 H, Anion Gap 6.6, BUN 34 H, Creatinine 1.29 H, Estimated Creat Clear 30, Estimated GFR 41 L, Est GFR ( Amer) 49 L, Glucose 87 D, Calcium 9.0 I & O for Last 24 hours: Intake & Output 11/05/17 11/06/17 11/07/17 11/08/17 11:59 11:59 11:59 11:59 Intake Total 700 / 700 Output Total 400 / 400 Balance 300 / 300 Weight 115 lb 3 oz Microbiology Reports for the Last 24 Hours: Microbiology 11/07/17 20:20 Urine,Clean Catch Urine Culture - Preliminary Gram Negative Rods 11/07/17 15:10 Toe,Right Great Gram Stain - Final - *Routine HEENT Exam Head: Present: normocephalic - *Routine Neck Exam Present: supple. Absent: JVD - *Routine Respiratory Exam Absent: respiratory distress - *Routine Cardiovascular Exam Absent: JVD - *Routine Abdominal Exam Present: soft - *Routine Rectal Exam Patient deferred: visual exam - *Routine Exam Patient deferred: external exam - *Routine Extremities Exam Present: edema (R 2nd toe ), pulses intact (b/l DP, PT palpable), amputation ( left 2nd toe). Absent: normal capillary refill (<4 seconds) - *Routine Skin Exam Present: erythema (right 2nd toe), warm, wounds (right 2nd toe). Absent: gangrene - *Routine Neurological Exam Present: alert, oriented X3, moving all extremities - Detailed Lower Extremity Exam Foot/Toes: Left amputation (prior left 2nd toe amp-well healed), Right erythema (right 2nd toe), Right hammer toe, Right swelling (R2), Right tenderness (R2), Right wound (medial R2 at PIPJ), Right decreased ROM, Right pain with active ROM , Right pain with passive ROM, Bilateral bunion Top foot image: 1 - Right 2nd toe medial wound, open displaced fracture Comments: Palpable pedal pulses noted b/l DP and PT. CFT wnl. Skin temp wnl proximal to distal b/l LE. The right 2nd toe has increased warmth. No varicosities noted. Positive erythema and edema noted to right 2nd toe. Right 2nd toe medial wound, open displaced fracture. Wound over PIPJ and probes directly to bone, into proximal phalanx fracture. Minimal purulent drainage expressed. Pain to palpation. Non palpable lymph nodes. Left 2nd toe amputation, well healed incision. B/l hallux valgus with crepitus and decreased 1st MPJ ROM. Results - Labs Result Diagrams: 11/08/17 05:10 11/08/17 05:10 Labs: Abnormal lab results 11/07/17 11/07/17 11/07/17 Range/Units 17:46 17:46 20:20 WBC (4.8-10.8) K/mm3 RBC 3.63 L (4.20-5.40) M/mm3 Hgb 8.1 L (12.2-16.2) g/dL Hct 26.9 L (37.0-47.0) % MCV 74.1 L (81-99) fl MCH 22.4 L (27.0-31.2) pg MCHC 30.2 L (31.8-35.4) g/dL ESR 58 H (0-30) mm/hr Sodium 123 L (136-145) mmol/L Potassium 2.2 L* (3.5-5.1) mmoL/L Chloride 82 L (98-107) mmol/L Carbon Dioxide 34 H (21.0-32.0) mmol/L BUN 33 H (7-18) mg/dL Creatinine 1.28 H (0.55-1.02) mg/dL Estimated GFR 41 L (>60) ml/min Est GFR ( Amer) 50 L (>60) ML/MIN Glucose 154 H (74-106) mg/dL AST 13 L (15-37) U/L ALT 8 L (12-78) U/L C-Reactive Protein 13.2 H (0.0-0.9) mg/L Albumin 2.9 L (3.4-5.0) gm/dL Globulin 4.2 H (1.3-3.2) gm/dl Albumin/Globulin Ratio 0.7 L (1.1-1.8) Urine Opiates Screen Positive H (<300) ng/mL 11/08/17 11/08/17 Range/Units 05:10 05:10 WBC 3.7 L D (4.8-10.8) K/mm3 RBC 3.26 L (4.20-5.40) M/mm3 Hgb 7.4 L* (12.2-16.2) g/dL Hct 24.3 L (37.0-47.0) % MCV 74.6 L (81-99) fl MCH 22.6 L (27.0-31.2) pg MCHC 30.3 L (31.8-35.4) g/dL ESR (0-30) mm/hr Sodium 127 L (136-145) mmol/L Potassium 2.6 L* (3.5-5.1) mmoL/L Chloride 88 L (98-107) mmol/L Carbon Dioxide 35 H (21.0-32.0) mmol/L BUN 34 H (7-18) mg/dL Creatinine 1.29 H (0.55-1.02) mg/dL Estimated GFR 41 L (>60) ml/min Est GFR ( Amer) 49 L (>60) ML/MIN Glucose (74-106) mg/dL AST (15-37) U/L ALT (12-78) U/L C-Reactive Protein (0.0-0.9) mg/L Albumin (3.4-5.0) gm/dL Globulin (1.3-3.2) gm/dl Albumin/Globulin Ratio (1.1-1.8) Urine Opiates Screen (<300) ng/mL H & H 11/07/17 11/08/17 Range/Units 17:46 05:10 Hgb 8.1 L 7.4 L* (12.2-16.2) g/dL Hct 26.9 L 24.3 L (37.0-47.0) % All other labs normal. - Diagnostic results Ankle/Foot x-ray: report reviewed, image reviewed (right 2nd proximal phalanx displaced fracture) Assessment and Plan (1) Cellulitis of toe of right foot Current visit: Yes Status: Acute Category: Medical Code(s): L03.031 - Cellulitis of right toe (2) Disp fx proximal phalanx lesser toe right foot w/delayed healing Current visit: Yes Status: Acute Category: Medical Code(s): S92.511G - Displaced fracture of proximal phalanx of right lesser toe(s), subsequent encounter for fracture with delayed healing (3) Lingular pneumonia Current visit: Yes Status: Acute Category: Medical Code(s): J18.9 - Pneumonia, unspecified organism (4) Recurrent falls Current visit: Yes Status: Acute Category: Medical Code(s): R29.6 - Repeated falls (5) Visual disturbance Current visit: Yes Status: Chronic Category: Medical Code(s): H53.9 - Unspecified visual disturbance (6) COPD (chronic obstructive pulmonary disease) Current visit: Yes Status: Acute Category: Medical Code(s): J44.9 - Chronic obstructive pulmonary disease, unspecified - Assessment and plan all Dx Assessment and Plan for all problems:: Right 2nd proximal phalanx open fracture, cellulitis, wound: X-rays evaluated by myself. 3 views of right foot show a displaced proximal phalanx fracture. X-rays discussed with the patient. Conservative treatment discussed but not recommended. DOI: unknown. We discussed conservative versus surgical treatment options. Conservative treatment options include local wound care, oral and IV antibiotics, change in shoe wear, taping/padding, and off-loading. We discussed surgical intervention for amputation of the right 2nd toe. Patient understands that there is a chance that the toes can migrate to fill the gap or the foot may change shape after surgery. Patient also understands that they could have wound healing complications including delayed healing and infection. We discussed that if the wound does not heal, it is possible that they may need a more proximal amputation and could result in further loss of digits, loss of partial foot or loss of leg. We discussed the risks and benefits in great detail. Other surgical risks include: prolonged pain and swelling, further infection requiring oral or IV antibiotics, delay in healing of soft tissue or bone, nerve or blood vessel damage, CRPS/RSD, DVT, anesthesia complications, and even . All questions were answered. Written and verbal consent given by the patient. Labs reviewed: ESR 58, CRP 13.2, glucose 87, CBC 3.7 (5.1), Na 127, K 2.6 (2.2) , CXR PICC in place Patient granted medical clearance by Dr. Fung 1. NPO since midnight 2. Discussed with Dr. Fung, K+ ordered 3. Stat EKG 4. Continue IV Abx 5. Plan surgery for right 2nd toe amputation today
--- NOTE | 2017-11-08 08:00 | Progress Note ---
Internal Medicine - PN: Subj *Date: 11/08/17 *Time: 07:58 Interval history: Patient did well overnight. Pain noted in the foot. Exam Vital signs and Labs for Last 24 Hours: Temp Pulse Resp BP Pulse Ox 97.2 F L 74 16 102/44 96 11/08/17 07:54 11/08/17 07:54 11/08/17 07:54 11/08/17 07:54 11/08/17 07:54 Laboratory Results - last 24 hr 11/07/17 17:45: Plasma/Serum Alcohol 0 11/07/17 17:46: WBC 5.1, RBC 3.63 L, Hgb 8.1 L, Hct 26.9 L, MCV 74.1 L, MCH 22.4 L, MCHC 30.2 L, RDW 15.5, Plt Count 194, MPV 8.0, Neut % (Auto) 78.5, Lymph % (Auto) 15.4, [place] % (Auto) 5.7, Eos % (Auto) 0.2, Baso % (Auto) 0.1, Neut # (Auto) 4.0, Lymph # (Auto) 0.8, [place] # (Auto) 0.3, Eos # (Auto) 0.0, Baso # (Auto) 0.0, ESR 58 H 11/07/17 17:46: Sodium 123 L, Potassium 2.2 L*, Chloride 82 L, Carbon Dioxide 34 H, Anion Gap 9.2, BUN 33 H, Creatinine 1.28 H, Estimated Creat Clear 30, Estimated GFR 41 L, Est GFR ( Amer) 50 L, Glucose 154 H, Calcium 9.2, Total Bilirubin 0.8, AST 13 L, ALT 8 L, Alkaline Phosphatase 86, C-Reactive Protein 13.2 H, Total Protein 7.1, Albumin 2.9 L, Globulin 4.2 H, Albumin/ Globulin Ratio 0.7 L 11/07/17 20:20: Urine Opiates Screen Positive H, Ur Barbituates Screen Negative , Ur Phencyclidine Scrn Negative, Ur Amphetamines Screen Negative, U Methamphetamines Scrn Negative, U Benzodiazepines Scrn Negative, Urine Cocaine Screen Negative, U Marijuana (THC) Screen Negative 11/07/17 20:20: Urine Color Yellow, Urine Appearance Sl cloudy, Urine pH 6.0, Ur Specific [place] 1.010, Urine Protein Negative, Urine Glucose (UA) Negative, Urine Ketones Negative, Urine Blood Negative, Urine Nitrate Negative, Urine Bilirubin Negative, Urine Urobilinogen 0.2, Ur Leukocyte Esterase Negative, Urine RBC Occasional, Urine WBC 3-5, Ur Squamous Epith Cells 20-50, Urine Bacteria 2+, Hyaline Casts Occasional, Urine Yeast 2+ 11/08/17 05:10: WBC 3.7 L D, RBC 3.26 L, Hgb 7.4 L*, Hct 24.3 L, MCV 74.6 L, MCH 22.6 L, MCHC 30.3 L, RDW 15.5, Plt Count 180, MPV 7.7, Neut % (Auto) 72.9, Lymph % (Auto) 20.0, [place] % (Auto) 5.8, Eos % (Auto) 1.0, Baso % (Auto) 0.3, Neut # (Auto) 2.7, Lymph # (Auto) 0.7, [place] # (Auto) 0.2, Eos # (Auto) 0.0, Baso # (Auto) 0.0 11/08/17 05:10: Sodium 127 L, Potassium 2.6 L*, Chloride 88 L, Carbon Dioxide 35 H, Anion Gap 6.6, BUN 34 H, Creatinine 1.29 H, Estimated Creat Clear 30, Estimated GFR 41 L, Est GFR ( Amer) 49 L, Glucose 87 D, Calcium 9.0 I & O for Last 24 hours: Intake & Output 11/05/17 11/06/17 11/07/17 11/08/17 11:59 11:59 11:59 11:59 Intake Total 700 / 700 Output Total 400 / 400 Balance 300 / 300 Weight 115 lb 3 oz Microbiology Reports for the Last 24 Hours: Microbiology 11/07/17 15:10 Toe,Right Great Gram Stain - Final 11/07/17 15:10 Toe,Right Great Wound Culture - Preliminary 11/07/17 20:20 Urine,Clean Catch Urine Culture - Preliminary Gram Negative Rods Narrative: Lungs have rhonchi, essentially at her baseline however. Heart rate regular. Foot exam as noted per admission H&P and per podiatry. Assessment and Plan (1) Cellulitis of toe of right foot Current visit: Yes Status: Acute Category: Medical Code(s): L03.031 - Cellulitis of right toe (2) Disp fx proximal phalanx lesser toe right foot w/delayed healing Current visit: Yes Status: Acute Category: Medical Code(s): S92.511G - Displaced fracture of proximal phalanx of right lesser toe(s), subsequent encounter for fracture with delayed healing (3) Lingular pneumonia Current visit: Yes Status: Acute Category: Medical Code(s): J18.9 - Pneumonia, unspecified organism (4) Recurrent falls Current visit: Yes Status: Acute Category: Medical Code(s): R29.6 - Repeated falls (5) Visual disturbance Current visit: Yes Status: Chronic Category: Medical Code(s): H53.9 - Unspecified visual disturbance (6) COPD (chronic obstructive pulmonary disease) Current visit: Yes Status: Acute Category: Medical Code(s): J44.9 - Chronic obstructive pulmonary disease, unspecified (7) Hypokalemia Current visit: Yes Status: Acute Category: Medical Code(s): E87.6 - Hypokalemia Replace potassium as noted. Discussed case with podiatry. Agree with surgical approach. Patient may require only local anesthesia. (8) Anemia Current visit: Yes Status: Acute Category: Medical Code(s): D64.9 - Anemia , unspecified Transfuse 1 unit of packed cells today.
--- NOTE | 2017-11-08 13:02 | Operative Note ---
Date of procedure: 11/08/17 Pre-op Diagnosis:: Right 2nd toe cellulitis Right 2nd toe ulcer secondary to open displaced proximal phalanx fracture Right 2nd digit osteomyelitis Post-op Diagnosis:: Right 2nd toe cellulitis Right 2nd toe ulcer secondary to open displaced proximal phalanx fracture Right 2nd digit osteomyelitis Procedure performed:: Right 2nd toe amputation Surgeon:: Gisele Neumann DPM [employer] SUPERVISOR:: Casey Kasper Anesthesia: local (0.5% marcaine plain 20cc), LMA Estimated blood loss (mL): 5 Clinical Note:: Right 2nd proximal phalanx open fracture, cellulitis, wound: X-rays evaluated by myself. 3 views of right foot show a displaced proximal phalanx fracture. X-rays discussed with the patient. Conservative treatment discussed but not recommended. DOI: unknown. We discussed conservative versus surgical treatment options. Conservative treatment options include local wound care, oral and IV antibiotics, change in shoe wear, taping/padding, and off-loading. We discussed surgical intervention for amputation of the right 2nd toe. Patient understands that there is a chance that the toes can migrate to fill the gap or the foot may change shape after surgery. Patient also understands that they could have wound healing complications including delayed healing and infection. We discussed that if the wound does not heal, it is possible that they may need a more proximal amputation and could result in further loss of digits, loss of partial foot or loss of leg. We discussed the risks and benefits in great detail. Other surgical risks include: prolonged pain and swelling, further infection requiring oral or IV antibiotics, delay in healing of soft tissue or bone, nerve or blood vessel damage, CRPS/RSD, DVT, anesthesia complications, and even . All questions were answered. Written and verbal consent given by the patient. Labs reviewed: ESR 58, CRP 13.2, glucose 87, CBC 3.7 (5.1), Na 127, K 2.6 (2.2) , CXR PICC in place Patient granted medical clearance by Dr. Fung 1. NPO since midnight 2. Discussed with Dr. Fung, K+ ordered 3. Stat EKG - wnl 4. Continue IV Abx 5. Plan surgery for right 2nd toe amputation today Operative findings:: Right medial wound noted over the open proximal phalanx fracture site. Bone visible and probes thru the wound. Toe has edema and erythema noted. No signs of deep infection. 2nd met head appeared hard and cartilage intact, normal color. No malodor or purulence expressed. Operative note:: On this date and time patient was deemed an appropriate surgical candidate. With informed consent signed, the patient was taken to the operating theater. The patient was positioned supine. LMA anesthesia was induced. No tourniquet used. Pre-op right second toe block given with 10 cc 0.5% marcaine plain. Right 2nd irrigation and debridement, digit amputation: The right lower extremity was prepped and drapped in normal sterile fashion. Medial ulcer noted over the PIPJ of the 2nd toe. Wound probed directly to the bone and fracture noted. Intra-operatively, no purulence expressed. A fish mouth incision was mapped out. Utilizing a 15 blade dissection was carried down sharply to the level of the bone around the proximal phalanx which was disarticulated from the metatarsal head. The proximal phalanx was fracture into 4 pieces in a spiral oblique fashion. The distal phalanx bone was soft. The head of the proximal phalanx head was transected and sent for bone culture. The proximal phalanx base was sent as bone culture and bone pathology. The 2nd met head was intact with no cortical erosions, discoloration or obvious signs of osteomyelitis. Next 3 L of bacitracin irrigation was used to flush the wound with pulse lavage. The wound was reexplored and no further signs of infection noted. Bleeding controlled. No vessels ligated with electrocautery or tied as there was minimal to no blood loss. 3-0 Prolene was used to close skin in an interrupted simple suture fashion. The wounds were cleansed. Right second toe block given with the remaining 10 cc 0.5% marcaine plain. Xeroform, betadine, dry sterile dressing was then applied to the right foot. The patient was awoken from anesthesia and transferred to recovery with vital signs stable and neurovascular status intact. Materials: 3-0 Prolene Discharge/Plan: Transfer back to the floor. Patient is to maintain dressing clean dry and intact. Continue antibiotics. Partial weight bearing to the right lower extremity with DME assistance (walker , wheelchair). Obtain post op films, right foot, 3 views. Plan for dressing change tomorrow by myself. Tourniquet time (min): 0 Condition: stable Disposition: floor Specimens:: Right 2nd toe wound culture Right 2nd toe distal bone culture Right 2nd toe proximal phalanx bone culture Right 2nd toe proximal phalanx bone path Complications:: None
--- NOTE | 2017-11-08 13:08 | Progress Note ---
[facility] Anesthesia Record Part II Discharge Time: 13:30 Destination: floor PACU nurse assessment reviewed?: Yes Patient Condition:: Good Anesthesia Complications:: None
--- NOTE | 2017-11-08 13:08 | Progress Note ---
[facility] Anesthesia Record Part I Intake, IV Amount: 1,000 Estimated blood loss (mL): 0 Urine output (mL): 0 Blood Pressure: 121/68 SaO2: 100 Pulse Rate: 98 Respiratory Rate: 12 Temperature: 98.6 F Patient is:: Awake, Stable Stable to PACU at:: 13:00
--- NOTE | 2017-11-08 14:21 | Progress Note ---
[facility] Anesthesia Checklist - Structural Data Admitted From: Home Planned Operative Procedure/s: r 2nd toe amputation Consent for Planned Operative Procedure(s) Verified: Yes Verified Documents: Surgical Consent - Airway Assessment C-Spine Mobility Assessed: Yes TMJ Mobility Assessed: Yes Dentition: Partials - Neurological Assessment Level of Consciousness: Awake, Alert, Appropriate - Anesthesia Plan Anesthesia Risk discussed: Yes Anesthesia Plan: Verified ASA Class: II Anesthesia Type: General [facility] Anesthesia HX I have reviewed the patient's past medical history: Yes Medical History: Reports:: Cancer, Congestive Heart Failure, Chronic Obstructive Pulmonary Disease (COPD), Coronary Artery Disease, Deep Vein Thrombosis, Hypertension, Myocardial Infarction, Seizures, Transient Ischemic Attacks (TIA) Denies:: Diabetes Mellitus Type 1, Diabetes Mellitus Type 2, MRSA Other Medical History: Reports: Anemia, Arthritis, Cataracts, Glaucoma, Hypothyroidism, Thyroid Disease Laterality Cases: Left: Total Hip Replacement, Bilateral: Tonsillectomy Other Surgeries: Yes: Angiogram, Cancer Surgery, Cardiac Catheterization, Colonoscopy, Coronary Stent, Hysterectomy-Total, Skin Cancer Excision Amputation: Yes (left second toe) Fractures: No *Family Hx:: Cancer, Coronary Artery Disease, Diabetes, Heart Attack, Hyperlipidemia, Hypertension, Kidney Disease, Stroke, Thyroid Disorder
[2017-11-09 06:41] LABS: Basophils % 0.2 % (0.1-2.0); Eosinophils % 1.1 % (0.1-12.0); Hematocrit 24.6 % (37.0-47.0); Hemoglobin 8.6 g/dL (12.2-16.2); Lymphocytes # 0.9 K/mm3 (0.7-4.5); Lymphocytes % 24.3 K/mm3 (10-50); Mean Corpuscular Hemoglobin 27.7 pg (27.0-31.2); Mean Corpuscular Volume 79.3 fl (81-99); Mean Platelet Volume 7.7 fl (7.4-10.4); Monocytes # 0.2 K/mm3 (0.1-1.0); Monocytes % 5.8 % (1.7-9.3); Neutrophils # 2.4 K/mm3 (1.8-7.8); Neutrophils % 68.6 % (37.0-80.0); Platelet Count 164 K/mm3 (142-424); Red Cell Distribution Width 16.2 % (11.5-17.5); White Blood Count 3.6 K/mm3 (4.8-10.8)
[2017-11-09 06:53] LABS: Albumin/Globulin Ratio 0.6 (1.1-1.8); Anion Gap 7.7 mEq/L (5-15); Bilirubin,Total 0.5 mg/dL (0.2-1.0); Calcium 8.4 mg/dL (8.5-10.1); Globulin 3.4 gm/dl (1.3-3.2); Potassium 3.7 mmoL/L (3.5-5.1); Total Protein,Serum 5.4 gm/dL (6.4-8.2)
--- NOTE | 2017-11-09 08:04 | Progress Note ---
Subjective Date: 11/09/17 Time: 07:40 Principal diagnosis: R 2nd toe osteomyelitis, cellulitis, open proximal phalanx fracture Interval history: Patient was admitted 11/07/17 for right second toe cellulitis and infection workup. Patient is postop day 1 right second toe amputation. Patient is resting comfortably in bed. She states pain is controlled. PN: Obj Ex Vital signs: Temp Pulse Resp BP Pulse Ox 98.5 F 89 16 131/83 93 L 11/09/17 04:00 11/09/17 04:00 11/09/17 04:00 11/09/17 04:00 11/09/17 04:00 - Constitutional no acute distress, thin - Routine HEENT Exam Head: Present: normocephalic - Routine Respiratory Exam Absent: respiratory distress - Detailed Lower Extremity Exam Foot/Toes: Right swelling (resolving), Bilateral amputation (2nd toe) Comments: Dressing clean dry and intact to the right foot. Dressing removed. Sutures are clean dry and intact to the right second toe amputation site. There is no pain to palpation. No ascending cellulitis noted. At the incision line there is no erythema and minimal edema. Nonpalpable lymph nodes. No calf or thigh pain noted bilaterally. Progress Note: A&P (1) Cellulitis of toe of right foot Status: Acute Current Visit: Yes (2) Disp fx proximal phalanx lesser toe right foot w/delayed healing Status: Acute Current Visit: Yes (3) Lingular pneumonia Status: Acute Current Visit: Yes (4) Recurrent falls Status: Acute Current Visit: Yes (5) Visual disturbance Status: Chronic Current Visit: Yes (6) COPD (chronic obstructive pulmonary disease) Status: Acute Current Visit: Yes (7) Hypokalemia Status: Acute Current Visit: Yes (8) Anemia Status: Acute Current Visit: Yes Assessment and Plan for All Diagnoses:: S/p right 2nd toe amputation, 11/08/17 POD # 1 Wound culture 11/07/17: MRSA Intra-Op bone cultures and pathology 11/08/17: Pending The surgical dressing was changed by myself this morning. No new signs of infection. It appears that the infection was isolated to the digit and likely have a surgical cure as the entire proximal phalanx resected. Recommend broad- spectrum antibiotics until bone cultures finalize. I educated patient on postop management. Minimize weightbearing. She can partial weight-bear to the right heel in a postop shoe with a walker. 1. IV antibiotics per Dr. Flores 2. Partial weightbearing to right heel and postop shoe with walker 3. Maintain dressing clean dry and intact 4. Follow up in 5-7 days with podiatry for dressing change The SNF does not need to do dressing changes as it is a closed wound with sutures intact no packing required. If the dressing should get wet or come off , a new dressing would need to be put on. Betadine soaked 4 x 4 followed by a dry sterile dressing is adequate.
--- NOTE | 2017-11-09 08:19 | Progress Note ---
Internal Medicine - PN: Subj *Date: 11/09/17 *Time: 08:18 Interval history: Patient did well with surgery yesterday. Continues to have some pain. Potassium supplementation has succeeded in normalizing her potassium levels this morning. Exam Vital signs and Labs for Last 24 Hours: Temp Pulse Resp BP Pulse Ox 97.9 F 87 18 124/60 99 11/09/17 08:00 11/09/17 08:00 11/09/17 08:00 11/09/17 08:00 11/09/17 08:00 Laboratory Results - last 24 hr 11/08/17 08:50: Blood Type O Positive, Antibody Screen Negative, Crossmatch ([facility] ) See Detail 11/08/17 21:22: Lactic Acid 1.6 11/09/17 06:30: WBC 3.6 L, RBC 3.10 L, Hgb 8.6 L, Hct 24.6 L, MCV 79.3 L, MCH 27.7, MCHC 35.0, RDW 16.2, Plt Count 164, MPV 7.7, Neut % (Auto) 68.6, Lymph % ( Auto) 24.3, [place] % (Auto) 5.8, Eos % (Auto) 1.1, Baso % (Auto) 0.2, Neut # (Auto ) 2.4, Lymph # (Auto) 0.9, [place] # (Auto) 0.2, Eos # (Auto) 0.0, Baso # (Auto) 0.0 11/09/17 06:30: Sodium 136, Potassium 3.7 D, Chloride 99, Carbon Dioxide 33 H, Anion Gap 7.7, BUN 19 H D, Creatinine 0.91 D, Estimated Creat Clear 44, Estimated GFR 61, Est GFR ( Amer) 74 D, Glucose 90, Calcium 8.4 L, Total Bilirubin 0.5, AST 14 L, ALT 7 L, Alkaline Phosphatase 74, Total Protein 5.4 L, Albumin 2.0 L, Globulin 3.4 H, Albumin/Globulin Ratio 0.6 L I & O for Last 24 hours: Intake & Output 11/06/17 11/07/17 11/08/17 11/09/17 11:59 11:59 11:59 11:59 Intake Total 700 / 700 1000 / 1000 Output Total 400 / 400 725 / 725 Balance 300 / 300 275 / 275 Weight 115 lb 3 oz 120 lb 5.958 oz Microbiology Reports for the Last 24 Hours: Microbiology 11/07/17 15:10 Toe,Right Great Gram Stain - Final 11/07/17 15:10 Toe,Right Great Wound Culture - Final Staphylococcus aureus 11/07/17 20:20 Urine,Clean Catch Urine Culture - Final Escherichia coli 11/08/17 22:14 Toe,Second Right Gram Stain - Final Narrative: Dressing on the right foot is clean and dry and intact. Recently changed by podiatry. Second toe is now absent. Heart rate regular, lungs are clear. Patient is alert and pleasant. Assessment and Plan (1) Cellulitis of toe of right foot Current visit: Yes Status: Acute Category: Medical Code(s): L03.031 - Cellulitis of right toe (2) Disp fx proximal phalanx lesser toe right foot w/delayed healing Current visit: Yes Status: Acute Category: Medical Code(s): S92.511G - Displaced fracture of proximal phalanx of right lesser toe(s), subsequent encounter for fracture with delayed healing (3) Lingular pneumonia Current visit: Yes Status: Acute Category: Medical Code(s): J18.9 - Pneumonia, unspecified organism (4) Recurrent falls Current visit: Yes Status: Acute Category: Medical Code(s): R29.6 - Repeated falls (5) Visual disturbance Current visit: Yes Status: Chronic Category: Medical Code(s): H53.9 - Unspecified visual disturbance (6) COPD (chronic obstructive pulmonary disease) Current visit: Yes Status: Acute Category: Medical Code(s): J44.9 - Chronic obstructive pulmonary disease, unspecified (7) Hypokalemia Current visit: Yes Status: Acute Category: Medical Code(s): E87.6 - Hypokalemia (8) Anemia Current visit: Yes Status: Acute Category: Medical Code(s): D64.9 - Anemia , unspecified - Assessment and plan all Dx Assessment and Plan for all problems:: Patient has stabilized. Urine culture shows E. coli, pansensitive. Wound culture showed MRSA. Currently on vancomycin. Plan will be to transfer to patient to skilled care tomorrow for antibiotics and PT. Hopefully antibiotics can be discontinued once cultures from surgical intervention come back and we see if the surgical procedure was curative for her osteomyelitis.
--- NOTE | 2017-11-09 08:24 | Discharge Summary ---
General - General Admission date:: 11/07/17 Discharge date: 11/10/17 HPI HPI: Ms. Veloz is a 72 yr old female with advanced COPD, physical debility, visual disturbance and history of MRSA presented to clinic yesterday with complaints of relatively new onset pain in her right second toe. This has been present for several days but because of her visual impairment she was not aware that a wound was present until her grandaughter inspected the toe for her. She does report multiple falls at home over a several week period, with multiple skin tears and bruising but cannot recall specific injury to the right foot. At time of exam in our office her right second toe was edematous, erythematous, with active discharge and wound that appeared to be tunneling. She was admitted for IV antibiotics, podiatry consult and imaging to evaluate for possible osteomyelitis. She does have a history of amputation of the left second toe which she reports was secondary to chronic/recurring infection due to hammer toe deformity and friction with adjacent toes. Hospital Course Hospital Course: Patient was admitted, placed on vancomycin and Unasyn. She was found to have a urinary tract infection with E. coli, pansensitive to all antibiotics tested. MRSA was cultured from her toe wound. Given her fracture on x-ray and significant evidence of osteomyelitis podiatry was involved and subjected her to toe amputation yesterday, 11/08/17. This went well and she tolerated the procedure well. Cultures from that procedure are pending. PICC line was placed on the night of admission because of poor IV access. She tolerated this well and continues to receive vancomycin and Unasyn through this device. She was found to be hypokalemic, replaced orally and this morning her potassium is normal. If electrolytes and blood counts are acceptable tomorrow, she will be transferred to skilled care for vancomycin and Unasyn for 10 more days at current dosage. She will need PT/OT/dietary consult for her new toe amputation status, weakness and fall risk and poor nutritional status respectively. She will need a CBC, CMP and sed rate in 4 days from admission to the custodial. She will see podiatry next week. Antibiotics may be stopped at that point if intraoperative cultures are negative. Objective Vital signs: Temp Pulse Resp BP Pulse Ox 97.9 F 87 18 124/60 99 11/09/17 08:00 11/09/17 08:00 11/09/17 08:00 11/09/17 08:00 11/09/17 08:00 Narrative: Please see previous physical exam notes. Results Labs on day of discharge: Labs from last 24 hours 11/09/17 11/09/17 11/08/17 06:30 06:30 21:22 WBC 3.6 L RBC 3.10 L Hgb 8.6 L Hct 24.6 L MCV 79.3 L MCH 27.7 MCHC 35.0 RDW 16.2 Plt Count 164 MPV 7.7 Neut % (Auto) 68.6 Lymph % (Auto) 24.3 [place] % (Auto) 5.8 Eos % (Auto) 1.1 Baso % (Auto) 0.2 Neut # (Auto) 2.4 Lymph # (Auto) 0.9 [place] # (Auto) 0.2 Eos # (Auto) 0.0 Baso # (Auto) 0.0 Sodium 136 Potassium 3.7 D Chloride 99 Carbon Dioxide 33 H Anion Gap 7.7 BUN 19 H D Creatinine 0.91 D Estimated Creat Clear 44 Estimated GFR 61 Est GFR ( Amer) 74 D Glucose 90 Lactic Acid 1.6 Calcium 8.4 L Total Bilirubin 0.5 AST 14 L ALT 7 L Alkaline Phosphatase 74 Total Protein 5.4 L Albumin 2.0 L Globulin 3.4 H Albumin/Globulin Ratio 0.6 L Blood Type Antibody Screen Crossmatch ([facility]) 11/08/17 08:50 WBC RBC Hgb Hct MCV MCH MCHC RDW Plt Count MPV Neut % (Auto) Lymph % (Auto) [place] % (Auto) Eos % (Auto) Baso % (Auto) Neut # (Auto) Lymph # (Auto) [place] # (Auto) Eos # (Auto) Baso # (Auto) Sodium Potassium Chloride Carbon Dioxide Anion Gap BUN Creatinine Estimated Creat Clear Estimated GFR Est GFR ( Amer) Glucose Lactic Acid Calcium Total Bilirubin AST ALT Alkaline Phosphatase Total Protein Albumin Globulin Albumin/Globulin Ratio Blood Type O Positive Antibody Screen Negative Crossmatch ([facility]) See Detail DS: Diagnosis - Discharge Diagnosis (1) Cellulitis of toe of right foot Status: Acute (2) Disp fx proximal phalanx lesser toe right foot w/delayed healing Status: Acute (3) Lingular pneumonia Status: Acute (4) Recurrent falls Status: Acute (5) Visual disturbance Status: Chronic (6) COPD (chronic obstructive pulmonary disease) Status: Acute (7) Hypokalemia Status: Acute (8) Anemia Status: Acute Discharge Plan - Patient Discharge Instructions ACTIVITY: Ambulate as tolerated, Limited activity DIET: continue same diet - Follow up Plan Follow up with: Abimbola Shi APRN [Nurse Practitioner] - 1 week Disposition: [facility] Home Medications: Home Medications Medication Instructions Recorded Confirmed Type Brimonidine Tartrate/Timolol 1 drop EYE-BOTH BID 06/11/17 11/07/17 History [Combigan 0.2%-0.5% Eye Drops] Carvedilol [Carvedilol 25mg Tab] 25 mg PO BID 06/11/17 11/07/17 History Esomeprazole Magnesium [Nexium] 40 mg PO BID 06/11/17 11/07/17 History Latanoprost [Xalatan 0.005% Ophth 1 drop EYE-BOTH HS 06/11/17 11/07/17 History Soln 2.5mL] Levothyroxine Sodium 50 mcg PO DAILY 06/11/17 11/07/17 History [Levothyroxine 50mcg (0.05mg) Tab] Trazodone HCl 100 mg PO HS 06/11/17 11/07/17 History Fluoxetine HCl [Prozac 20mg 20 mg PO DAILY 11/08/17 11/08/17 History Capsule] Losartan Potassium 100 mg PO DAILY 11/08/17 11/08/17 History Potassium Chloride [Pot Chlor 20 20 meq PO BID 11/08/17 11/08/17 History mEq Tab] Sucralfate [Carafate 1gm/10ml Oral 10 ml PO QID 11/08/17 11/08/17 History Susp] hydroCHLOROthiazide [HCTZ 25mg 25 mg PO DAILY 11/08/17 11/08/17 History tab] Prescriptions/Medication Reconciliation: New Ampicillin/Sulbactam [Unasyn 3gm Vial] 3 gm IV Q6H #10 vial Vancomycin HCl [Vancomycin 1000mg Adv] 1,000 mg IV Q36H #10 vial.port Hydrocod/Acet 5/325 mg [[place] 5/325mg tablet] 1 - 2 tab PO Q6HP PRN #30 tab PRN Reason: Moderate To Severe Pain Continue Carvedilol [Carvedilol 25mg Tab] 25 mg PO BID Levothyroxine Sodium [Levothyroxine 50mcg (0.05mg) Tab] 50 mcg PO DAILY Latanoprost [Xalatan 0.005% Ophth Soln 2.5mL] 1 drop EYE-BOTH HS Brimonidine Tartrate/Timolol [Combigan 0.2%-0.5% Eye Drops] 1 drop EYE-BOTH BID Esomeprazole Magnesium [Nexium] 40 mg PO BID hydroCHLOROthiazide [HCTZ 25mg tab] 25 mg PO DAILY Fluoxetine HCl [Prozac 20mg Capsule] 20 mg PO DAILY Potassium Chloride [Pot Chlor 20 mEq Tab] 20 meq PO BID Trazodone HCl 100 mg PO HS Sucralfate [Carafate 1gm/10ml Oral Susp] 10 ml PO QID Losartan Potassium 100 mg PO DAILY
--- NOTE | 2017-11-10 07:07 | Progress Note ---
Internal Medicine - PN: Subj *Date: 11/10/17 *Time: 07:06 Interval history: Patient has done well overnight. She complains of some pain originating from the foot but it is tolerable. Her appetite is improving. She denies any shortness of breath this morning. Exam Vital signs and Labs for Last 24 Hours: Temp Pulse Resp BP Pulse Ox 98.8 F 87 18 143/64 95 11/10/17 04:00 11/10/17 04:00 11/10/17 04:00 11/10/17 04:00 11/10/17 04:00 I & O for Last 24 hours: Intake & Output 11/07/17 11/08/17 11/09/17 11/10/17 11:59 11:59 11:59 11:59 Intake Total 700 / 700 1000 / 1000 3236 / 3236 Output Total 400 / 400 2325 / 2325 2420 / 2420 Balance 300 / 300 -1325 / -1325 816 / 816 Weight 115 lb 3 oz 120 lb 5.958 oz 123 lb 10.869 oz Microbiology Reports for the Last 24 Hours: Microbiology 11/08/17 22:14 Toe,Second Right Gram Stain - Final 11/08/17 22:14 Toe,Second Right Surgical Biopsy Culture - Preliminary NO GROWTH AFTER 24 HOURS 11/08/17 22:14 Toe,Second Right Gram Stain - Final 11/08/17 22:14 Toe,Second Right Surgical Biopsy Culture - Preliminary NO GROWTH AFTER 24 HOURS 11/08/17 22:14 Toe,Second Right Gram Stain - Final 11/08/17 22:14 Toe,Second Right Abscess Culture - Preliminary NO GROWTH AFTER 24 HOURS 11/07/17 14:57 Blood Blood Culture - Preliminary NO GROWTH AFTER 24 HOURS 11/07/17 17:46 Blood Blood Culture - Preliminary NO GROWTH AFTER 24 HOURS 11/07/17 15:10 Toe,Right Great Gram Stain - Final 11/07/17 15:10 Toe,Right Great Wound Culture - Final Staphylococcus aureus 11/07/17 20:20 Urine,Clean Catch Urine Culture - Final Escherichia coli Narrative: She is in no distress. Lungs are clear to auscultation. Heart has a regular rate and rhythm. PICC line is in place in the left upper extremity. Foot is heavily bandaged Assessment and Plan (1) Cellulitis of toe of right foot Current visit: Yes Status: Acute Category: Medical Code(s): L03.031 - Cellulitis of right toe (2) Disp fx proximal phalanx lesser toe right foot w/delayed healing Current visit: Yes Status: Acute Category: Medical Code(s): S92.511G - Displaced fracture of proximal phalanx of right lesser toe(s), subsequent encounter for fracture with delayed healing (3) Lingular pneumonia Current visit: Yes Status: Acute Category: Medical Code(s): J18.9 - Pneumonia, unspecified organism (4) Recurrent falls Current visit: Yes Status: Acute Category: Medical Code(s): R29.6 - Repeated falls (5) Visual disturbance Current visit: Yes Status: Chronic Category: Medical Code(s): H53.9 - Unspecified visual disturbance (6) COPD (chronic obstructive pulmonary disease) Current visit: Yes Status: Acute Category: Medical Code(s): J44.9 - Chronic obstructive pulmonary disease, unspecified (7) Hypokalemia Current visit: Yes Status: Acute Category: Medical Code(s): E87.6 - Hypokalemia (8) Anemia Current visit: Yes Status: Acute Category: Medical Code(s): D64.9 - Anemia , unspecified - Assessment and plan all Dx Assessment and Plan for all problems:: Discharge to [facility] today to continue IV antibiotics for osteomyelitis
[2017-11-10 07:24] LABS: Basophils % 0.2 % (0.1-2.0); Eosinophils # 0.1 K/mm3 (0.0-0.4); Eosinophils % 2.2 % (0.1-12.0); Hematocrit 30.1 % (37.0-47.0); Lymphocytes # 0.8 K/mm3 (0.7-4.5); Lymphocytes % 15.9 K/mm3 (10-50); Mean Corpuscular HGB Conc 29.9 g/dL (31.8-35.4); Mean Corpuscular Volume 80.3 fl (81-99); Mean Platelet Volume 7.3 fl (7.4-10.4); Monocytes # 0.2 K/mm3 (0.1-1.0); Monocytes % 4.2 % (1.7-9.3); Neutrophils # 3.7 K/mm3 (1.8-7.8); Neutrophils % 77.4 % (37.0-80.0); Platelet Count 186 K/mm3 (142-424); Red Blood Count 3.76 M/mm3 (4.20-5.40); Red Cell Distribution Width 16.2 % (11.5-17.5); White Blood Count 4.7 K/mm3 (4.8-10.8)
[2017-11-10 07:29] LABS: Anion Gap 9.1 mEq/L (5-15); Calcium 8.5 mg/dL (8.5-10.1); Potassium 4.1 mmoL/L (3.5-5.1)
== END 2017-11-10 08:32 ==
LOC: 2ND 13:19 → INTOOBSV 13:19 → OBSVTOIN 14:15 → 2ND 14:17
PROVIDERS: ADMIT Internal Medicine Adolescent Medicine; ATTEND Internal Medicine Adolescent Medicine

== ENCOUNTER 2017-11-13 13:00 | Outpatient (CLI) | payer MEDICARE, MEDICAID, SELFPAY ==
[2017-11-13 13:45] VITALS: BMI 20.2
--- NOTE | 2017-11-13 13:59 | XR_ITS ---
XR chest portable HISTORY: Evaluate PICC line ITS.REASON: picc line ORDERING PHYSICIAN: Earl Fung MD PATIENT AGE: 72 years COMPARISON: 11/12/2017 FINDINGS: Left upper history PICC line has been inserted. The tip is in good position in the region of the superior vena cava. There are increased markings in the left lower lobe suggesting atelectasis or infiltrate with small effusion once again noted. IMPRESSION: Good placement of PICC line with possible left lower lobe infiltrate with effusion
== END 2017-11-13 14:15 | disposition home or self-care (01) ==
LOC: INF 13:57
PROVIDERS: Family Provider Internal Medicine Adolescent Medicine; PCP Internal Medicine Adolescent Medicine; Visit Provider Internal Medicine Adolescent Medicine
DX: L03.031 Cellulitis of right toe (principal)
CPT/HCPCS: 36569; 71045; C1751

== ENCOUNTER → 2017-11-20 11:24 | Outpatient (CLI) | payer MEDICARE, SELFPAY ==
[2017-11-20 12:38] LABS: Alanine Aminotransferase 13 U/L (12-78); Albumin Level 2.9 gm/dL (3.4-5.0); Albumin/Globulin Ratio 0.7 (1.1-1.8); Alkaline Phosphatase 71 U/L (46-116); Anion Gap 14.6 mEq/L (5-15); Aspartate Amino Transferase 24 U/L (15-37); Bilirubin,Total 0.4 mg/dL (0.2-1.0); Blood Urea Nitrogen 10 mg/dL (7-18); C-Reactive Protein 0.7 mg/L (0.0-0.9); Calcium 9.2 mg/dL (8.5-10.1); Carbon Dioxide 27 mmol/L (21.0-32.0); Chloride 95 mmol/L (98-107); Creatinine,Serum 0.79 mg/dL (0.55-1.02); Estimated Glomerular Filt Rate 72 ml/min (>60); GFR (African American) 87 ML/MIN (>60); Globulin 3.9 gm/dl (1.3-3.2); Glucose 96 mg/dL (74-106); Potassium 3.6 mmoL/L (3.5-5.1); Sodium 133 mmol/L (136-145); Total Protein,Serum 6.8 gm/dL (6.4-8.2)
[2017-11-20 12:43] LABS: Erythrocyte Sedimentation Rate 41 mm/hr (0-30)
== END ==
PROVIDERS: Visit Provider Podiatrist
DX: R06.02 Shortness of breath (principal); R60.0 Localized edema
CPT/HCPCS: 80053; 83880; 85651; 86140; 87070; 87205

== ENCOUNTER 2017-12-09 13:03 | Observation (INO) ==
--- NOTE | 2017-12-09 13:35 | Emergency Department Note ---
ED Disposition Clinical Impression: Cellulitis of foot Disposition: Admitted as Observation Condition on Discharge: Fair Time of Disposition: 17:15 - Critical Care Critical Care Time: No Attestation: On 12/09/17, the high probability of a clinically significant, sudden or life threatening deterioration of the following system(s) required my full and direct attention, intervention and personal management. The time I documented below is in addition to time spent performing reported procedures but includes the following listed in this critical care notation. Medical Decision Making - Medical Records Medical records reviewed: Yes: I reviewed the patient's medical records. - Serg Inquiry Pt receiving controlled substance: Yes Serg was queried for this patient: Yes (9 presc in past year) Reference #:: [id number] Risks and benefits of using a controlled substance: were discussed with pt by me Vital Signs: 12/09/17 13:04 12/09/17 13:53 12/09/17 15:24 Temperature 98.9 F 97.7 F Temperature Source Oral Oral Pulse Rate [Right Radial] 94 H 75 78 Respiratory Rate 20 18 20 Blood Pressure [Right Arm] 125/75 117/66 130/76 Blood Pressure Mean [Right Arm] 91 83 94 Blood Pressure Source [Right Arm] Automatic Cuff Automatic Cuff Automatic Cuff Blood Pressure Position [Right Arm] Sitting Sitting Sitting 02 Sat by Pulse Oximetry 94 L 98 96 Oxygen Delivery Method Room Air Room Air Room Air 12/09/17 16:42 Temperature Temperature Source Pulse Rate [Right Radial] 71 Respiratory Rate 20 Blood Pressure [Right Arm] 135/68 Blood Pressure Mean [Right Arm] 90 Blood Pressure Source [Right Arm] Automatic Cuff Blood Pressure Position [Right Arm] Sitting 02 Sat by Pulse Oximetry 97 Oxygen Delivery Method Room Air - Lab Data Lab results reviewed: Yes: I reviewed the patient's lab results. Lab Results 12/09/17 14:20: WBC 4.4 L, RBC 3.59 L, Hgb 8.5 L, Hct 28.0 L, MCV 78.1 L, MCH 23.6 L, MCHC 30.2 L, RDW 18.4 H, Plt Count 160, MPV 8.2, Neut % (Auto) 64.6, Lymph % (Auto) 26.3, [place] % (Auto) 6.5, Eos % (Auto) 2.5, Baso % (Auto) 0.2, Neut # (Auto) 2.9, Lymph # (Auto) 1.2, [place] # (Auto) 0.3, Eos # (Auto) 0.1, Baso # (Auto) 0.0 12/09/17 14:20: PT 10.7, INR 1.04 12/09/17 14:20: Sodium 141, Potassium 3.3 L, Chloride 103, Carbon Dioxide 29, Anion Gap 12.3, BUN 11, Creatinine 1.01, Estimated Creat Clear 39, Estimated GFR 54 L, Est GFR ( Amer) 65, Glucose 106, Calcium 8.6, Total Bilirubin 0.5, AST 21, ALT 12, Alkaline Phosphatase 69, Total Protein 7.1, Albumin 3.1 L, Globulin 4.0 H, Albumin/Globulin Ratio 0.8 L 12/09/17 15:14: Urine Color Yellow, Urine Appearance Sl cloudy, Urine pH 6.0, Ur Specific [place] 1.010, Urine Protein Negative, Urine Glucose (UA) Negative, Urine Ketones Negative, Urine Blood Negative, Urine Nitrate Negative, Urine Bilirubin Negative, Urine Urobilinogen 0.2, Ur Leukocyte Esterase Negative, Urine WBC Occasional, Ur Squamous Epith Cells Occasional, Urine Bacteria 1+ Result diagrams: 12/09/17 14:20 12/09/17 14:20 Orders (Tests/Meds): ED MEDICATIONS Discontinued Medications Generic Name Dose Route Start Last Admin Trade Name Henryq PRN Reason Stop Dose Admin Sodium Chloride 1,000 mls @ 999 mls/hr 12/09/17 14:00 12/09/17 14:14 Sod Chlor 0.9% 1000ml Bag IV 12/09/17 15:00 999 mls/hr .Q1H1M KAIDEN Administration Morphine Sulfate 4 mg 12/09/17 13:50 12/09/17 14:14 Morphine 4mg/Ml Syringe IV 12/09/17 13:51 4 mg ONCE ONE Administration Morphine Sulfate 4 mg 12/09/17 16:52 Morphine 4mg/Ml Syringe IV 12/09/17 16:53 ONCE ONE Ondansetron HCl 4 mg 12/09/17 13:50 12/09/17 14:14 Zofran 4mg/2ml Vial IV 12/09/17 13:51 4 mg ONCE ONE Administration Potassium Chloride 40 meq 12/09/17 16:51 Klor-Con 20meq Tablet PO 12/09/17 16:52 ONCE ONE ORDERS Category Date Time Status Lactic Acid Stat Lab 12/09/17 13:46 Ordered Blood Culture Stat Micro 12/09/17 13:47 Ordered - Radiology Data #1 Image(s): Tib/Fib, Foot/Toes Image Reviewed: Yes I reviewed the patient's radiology results ? gas producing infection in dorsum of right foot Wound/Laceration HPI - General Chief Complaint: Wound/Laceration Stated Complaint: Swelling legs and feet; ulcer on left knee Time Seen by Provider: 12/09/17 13:31 Mode of Arrival: Wheelchair Limitations: Physical Limitations Description of Symptoms (Recalled from ER Triage Doc. by RN): Pt had second toe on right side amputated two weeks ago and developed osteomylitis of bilateral lower extremities. pt was on iv atb's following surgery for these problems. pt here today with c/o of pain in BLE, swelling and numbness in feet. busted blisters on left foot and single blister on left knee. - History of Present Illness HPI narrative: Pt recently had 2nd toe right foot amputated and had Osteomyelitis and took IV antibiotics at [place] for about 4 weeks. Went home Sunday 1 week ago and now comes to the ED with worsening pain and swelling in both feet and lower legs but denies fever. She has a small blister on left knee and had blisters on left foot also but those seem to be better. Comes to the ED because the pain in her legs is unbearable. She is not running any fever today - Related Data Home Medications Medication Instructions Recorded Confirmed Brimonidine Tartrate/Timolol 1 drop EYE-BOTH BID 06/11/17 11/12/17 [Combigan 0.2%-0.5% Eye Drops] Carvedilol [Carvedilol 25mg Tab] 25 mg PO BID 06/11/17 11/12/17 Esomeprazole Magnesium [Nexium] 40 mg PO BID 06/11/17 11/12/17 Latanoprost [Xalatan 0.005% Ophth 1 drop EYE-BOTH HS 06/11/17 11/12/17 Soln 2.5mL] Levothyroxine Sodium 50 mcg PO DAILY 06/11/17 11/12/17 [Levothyroxine 50mcg (0.05mg) Tab] Trazodone HCl 100 mg PO HS 06/11/17 11/12/17 Fluoxetine HCl [Prozac 20mg 20 mg PO DAILY 11/08/17 11/12/17 Capsule] Losartan Potassium 100 mg PO DAILY 11/08/17 11/12/17 Potassium Chloride [Pot Chlor 20 20 meq PO BID 11/08/17 11/12/17 mEq Tab] Sucralfate [Carafate 1gm/10ml Oral 10 ml PO QID 11/08/17 11/12/17 Susp] hydroCHLOROthiazide [HCTZ 25mg 25 mg PO DAILY 11/08/17 11/12/17 tab] Ampicillin/Sulbactam [Unasyn 3gm 3 gm IV Q6H 11/12/17 11/12/17 Vial] Vancomycin HCl [Vancomycin 1000mg 1,000 mg IV Q36H 11/12/17 11/12/17 Adv] Previous Rx's Medication Instructions Recorded Hydrocod/Acet 5/325 mg [[place] 1 - 2 tab PO Q6HP PRN #30 tab 11/09/17 5/325mg tablet] Allergies Allergy/AdvReac Type Severity Reaction Status Date / Time metoclopramide [From REGLAN] Allergy Unknown Verified 12/09/17 13:17 [facility] History I have reviewed the patient's past medical history: Yes Medical History: Reports:: Cancer (squamous cell carcinoma, ovarian cancer), Congestive Heart Failure, Chronic Obstructive Pulmonary Disease (COPD), Coronary Artery Disease, Deep Vein Thrombosis, Hypertension, Myocardial Infarction, Seizures, Transient Ischemic Attacks (TIA) Denies:: Diabetes Mellitus Type 1, Diabetes Mellitus Type 2, MRSA Other Medical History: Reports: Anemia, Arthritis, Cataracts, Glaucoma, Hypothyroidism, Thyroid Disease Laterality Cases: Left: Total Hip Replacement, Bilateral: Tonsillectomy Other Surgeries: Yes: Angiogram, Cancer Surgery, Cardiac Catheterization, Colonoscopy, Coronary Stent, Hysterectomy-Total, Skin Cancer Excision Amputation: Yes (second toe on bilateral feet) Fractures: No - Social History Smoking Status: Current every day smoker Tobacco Type: cigarettes # Packs/Day (cigarettes): 1 #Yrs smoked (if former smoker): 57 Alcohol Intake: never Alcohol Intake Frequency:: other Occupational Status: disabled Housing: assisted living facility Household Members: spouse - Psychiatric History Expresses thoughts of harming self/others: None Suicide Plan Description: No Plan Family Hx:: Cancer, Coronary Artery Disease, Diabetes, Heart Attack, Hyperlipidemia, Hypertension, Kidney Disease, Stroke, Thyroid Disorder ROS Obtained: Yes All systems reviewed & no additional complaints - Constitutional Constitutional: Reports system reviewed and no additional complaints, except as docu - Musculoskeletal Musculoskeletal: Reports system reviewed and no additional complaints, except as docu - Integumentary/Breasts Skin/Breast: Reports system reviewed and no additional complaints, except as docu - Neurologic Neurologic: Reports system reviewed and no additional complaints, except as docu Physical Exam - General General appearance: alert, in distress - Head Head exam: atraumatic - Eye Eye exam: Present: normal appearance - ENT ENT exam: Present: normal exam - Neck Neck exam: Present: normal inspection - Respiratory Respiratory exam: Present: normal lung sounds bilaterally - Cardiovascular Cardiovascular exam: Present: regular rate, normal rhythm - Abdominal Exam Abdominal exam: Present: soft - Extremities Exam Extremities exam: Present: other (swelling bilaterally) - Neurological Exam Neurological exam: Present: alert, oriented X3 - Psychiatric Psychiatric exam: Present: normal affect
[2017-12-09 14:29] LABS: Basophils % 0.2 % (0.1-2.0); Eosinophils # 0.1 K/mm3 (0.0-0.4); Eosinophils % 2.5 % (0.1-12.0); Hemoglobin 8.5 g/dL (12.2-16.2); Lymphocytes # 1.2 K/mm3 (0.7-4.5); Lymphocytes % 26.3 K/mm3 (10-50); Mean Corpuscular HGB Conc 30.2 g/dL (31.8-35.4); Mean Corpuscular Hemoglobin 23.6 pg (27.0-31.2); Mean Corpuscular Volume 78.1 fl (81-99); Mean Platelet Volume 8.2 fl (7.4-10.4); Monocytes # 0.3 K/mm3 (0.1-1.0); Monocytes % 6.5 % (1.7-9.3); Neutrophils # 2.9 K/mm3 (1.8-7.8); Neutrophils % 64.6 % (37.0-80.0); Platelet Count 160 K/mm3 (142-424); Red Blood Count 3.59 M/mm3 (4.20-5.40); Red Cell Distribution Width 18.4 % (11.5-17.5); White Blood Count 4.4 K/mm3 (4.8-10.8)
[2017-12-09 14:40] LABS: INR 1.04 (0.9-1.1); Prothrombin Time 10.7 seconds (9.4-11.8)
[2017-12-09 14:50] LABS: Albumin Level 3.1 gm/dL (3.4-5.0); Albumin/Globulin Ratio 0.8 (1.1-1.8); Anion Gap 12.3 mEq/L (5-15); Bilirubin,Total 0.5 mg/dL (0.2-1.0); Calcium 8.6 mg/dL (8.5-10.1); Potassium 3.3 mmoL/L (3.5-5.1); Total Protein,Serum 7.1 gm/dL (6.4-8.2)
[2017-12-09 15:16] LABS: Appearance,Urine SL CLOUDY (Clear); Bilirubin,Urine Negative (Negative); Blood, Urine Negative (Negative); Color,Urine YELLOW (Yellow); Glucose,Urine (UA) Negative (Negative); Ketones,Urine Negative (Negative); Leukocyte Esterase,Urine Negative (Negative); Microscopic, Urine URINE MICROSCOPIC (MICROSCOPIC); Protein,Urine Negative (Negative); Urobilinogen,Urine 0.2 EU/dl (0.2)
[2017-12-09 15:24] LABS: Bacteria,Urine 1+ /lpf; Squamous Epithelial Cell,Urine Occasional #/hpf (0-5); WBC,Urine Occasional #/hpf (0-3)
[2017-12-10 06:04] LABS: Basophils % 0.2 % (0.1-2.0); Eosinophils # 0.1 K/mm3 (0.0-0.4); Eosinophils % 3.6 % (0.1-12.0); Lymphocytes # 0.8 K/mm3 (0.7-4.5); Mean Corpuscular HGB Conc 31.7 g/dL (31.8-35.4); Mean Corpuscular Hemoglobin 25.3 pg (27.0-31.2); Mean Corpuscular Volume 79.7 fl (81-99); Mean Platelet Volume 8.6 fl (7.4-10.4); Monocytes # 0.1 K/mm3 (0.1-1.0); Monocytes % 6.1 % (1.7-9.3); Neutrophils # 1.2 K/mm3 (1.8-7.8); Neutrophils % 54.2 % (37.0-80.0); Platelet Count 104 K/mm3 (142-424); Red Blood Count 2.79 M/mm3 (4.20-5.40); Red Cell Distribution Width 18.3 % (11.5-17.5); White Blood Count 2.2 K/mm3 (4.8-10.8)
[2017-12-10 06:09] LABS: Anion Gap 10.2 mEq/L (5-15); Potassium 4.2 mmoL/L (3.5-5.1)
[2017-12-10 06:11] LABS: Hemoglobin 7.1 g/dL (12.2-16.2)
[2017-12-10 06:12] LABS: Hematocrit 22.3 % (37.0-47.0)
--- NOTE | 2017-12-10 07:22 | Pharmacy Consult Notes ---
[facility] Pharmacy VTE Monitoring - Patient Demographics Admission date: 12/09/17 Report Date: 12/10/17 Time: 07:22 Allergies/Adverse Reactions: Patient Allergies metoclopramide [From REGLAN] Allergy (Unknown, Verified 12/09/17 13:17) Height: 1.52 m Weight: 57.663 kg Patient Problems: Current Active Problems Cellulitis of foot (Acute) - VTE Risk Labs: VTE Related Lab Results Hgb 7.1 g/dL (12.2-16.2) L* 12/10/17 05:30 Hct 22.3 % (37.0-47.0) L* 12/10/17 05:30 Plt Count 104 K/mm3 (142-424) L D 12/10/17 05:30 PT 10.7 seconds (9.4-11.8) 12/09/17 14:20 INR 1.04 (0.9-1.1) 12/09/17 14:20 BUN 9 mg/dL (7-18) 12/10/17 05:30 Creatinine 0.93 mg/dL (0.55-1.02) 12/10/17 05:30 Estimated Creat Clear 43 mL/min (0-300) 12/10/17 05:30 VTE Score: 4 VTE Risk Level: Low Risk - Prophylaxis VTE Prophylaxis Ordered?: Yes Types of VTE Prophylaxis: Pharmacological Pharmacologic Type: Enoxaparin - VTE Diagnosis Confirmed Treatment or plan recommended: Continue Current Treatment
--- NOTE | 2017-12-10 07:53 | History & Physical Report ---
*Admission Date: 12/09/17 *Chief complaint: B/l LE edema *History of present illness: Ms. Veloz is a 72 y/o female who presents for b/l LE pain and swelling. Patient states since she left the hospital, both legs have been giving her pain and swelling. She was last seen outpatient in my clinic 11/28/17 and had improving b/ l LE swelling and blisters with no infection noted. 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 Abx d/c and PICC pulled . She was at the SNF in [place]. [facility] History Medical History: Reports:: Cancer (OVARIAN), Congestive Heart Failure, Chronic Obstructive Pulmonary Disease (COPD), Coronary Artery Disease, Deep Vein Thrombosis, Hypertension, Myocardial Infarction, Seizures, Transient Ischemic Attacks (TIA) Denies:: Diabetes Mellitus Type 1, Diabetes Mellitus Type 2, MRSA Other Medical History: Reports: Anemia, Arthritis, Cataracts, Glaucoma, Hypothyroidism, Thyroid Disease Laterality Cases: Left: Total Hip Replacement, Bilateral: Tonsillectomy Other Surgeries: Yes: Angiogram, Cancer Surgery, Cardiac Catheterization, Colonoscopy, Coronary Stent, Hysterectomy-Total, Skin Cancer Excision Amputation: Yes (second toe on bilateral feet) Fractures: No - *Social History Educational Level: Completed High School Smoking Status: Current every day smoker Tobacco Type: cigarettes # Packs/Day (cigarettes): 1 #Yrs smoked (if former smoker): 56 Alcohol Intake: never Alcohol Intake Frequency:: other Occupational Status: disabled Housing: apartment Household Members: none - Psychiatric History Expresses thoughts of harming self/others: None Suicide Plan Description: No Plan *Family Hx:: Cancer, Coronary Artery Disease, Diabetes, Heart Attack, Hyperlipidemia, Hypertension, Kidney Disease, Stroke, Thyroid Disorder Review of Systems - Constitutional Denies anorexia, Denies chills - Eyes Denies blurry vision - *Cardiovascular Denies shortness of breath - *Respiratory Denies shortness of breath - *Gastrointestinal Denies abdominal pain - *Genitourinary Denies abnormal periods - *Musculoskeletal Denies muscle cramps, Denies body aches - *Neurologic Denies confusion - Psychiatric Denies anxiety - Hematologic/Lymphatic Denies easy bleeding Meds Home Medications Medication Instructions Recorded Confirmed Type Brimonidine Tartrate/Timolol 1 drop EYE-BOTH BID 06/11/17 12/09/17 History [Combigan 0.2%-0.5% Eye Drops] Carvedilol [Carvedilol 25mg Tab] 25 mg PO BID 06/11/17 12/09/17 History Esomeprazole Magnesium [Nexium] 40 mg PO BID 06/11/17 12/09/17 History Latanoprost [Xalatan 0.005% Ophth 1 drop EYE-BOTH HS 06/11/17 12/09/17 History Soln 2.5mL] Levothyroxine Sodium 50 mcg PO DAILY 06/11/17 12/09/17 History [Levothyroxine 50mcg (0.05mg) Tab] Fluoxetine HCl [Prozac 20mg 20 mg PO DAILY 11/08/17 12/09/17 History Capsule] Losartan Potassium 100 mg PO DAILY 11/08/17 12/09/17 History Sucralfate [Carafate 1gm/10ml Oral 10 ml PO QID 11/08/17 12/09/17 History Susp] hydroCHLOROthiazide [HCTZ 25mg 25 mg PO DAILY 11/08/17 12/09/17 History tab] Furosemide [Furosemide 20mg Tab] 20 mg PO BID 12/10/17 12/10/17 History Potassium Chloride [Klor-con 20 20 meq PO BID 12/10/17 12/10/17 History mEq tablet] Trazodone HCl 100 mg PO HS 12/10/17 12/10/17 History Allergies Allergy/AdvReac Type Severity Reaction Status Date / Time metoclopramide [From REGLAN] Allergy Unknown Verified 12/09/17 13:17 Exam Vital signs and Labs for Last 24 Hours: Temp Pulse Resp BP Pulse Ox 97.9 F 84 18 158/70 94 L 12/10/17 07:46 12/10/17 07:46 12/10/17 07:46 12/10/17 07:46 12/10/17 07:46 Laboratory Results - last 24 hr 12/09/17 14:20: WBC 4.4 L, RBC 3.59 L, Hgb 8.5 L, Hct 28.0 L, MCV 78.1 L, MCH 23.6 L, MCHC 30.2 L, RDW 18.4 H, Plt Count 160, MPV 8.2, Neut % (Auto) 64.6, Lymph % (Auto) 26.3, [place] % (Auto) 6.5, Eos % (Auto) 2.5, Baso % (Auto) 0.2, Neut # (Auto) 2.9, Lymph # (Auto) 1.2, [place] # (Auto) 0.3, Eos # (Auto) 0.1, Baso # (Auto) 0.0 12/09/17 14:20: PT 10.7, INR 1.04 12/09/17 14:20: Sodium 141, Potassium 3.3 L, Chloride 103, Carbon Dioxide 29, Anion Gap 12.3, BUN 11, Creatinine 1.01, Estimated Creat Clear 39, Estimated GFR 54 L, Est GFR ( Amer) 65, Glucose 106, Calcium 8.6, Total Bilirubin 0.5, AST 21, ALT 12, Alkaline Phosphatase 69, Total Protein 7.1, Albumin 3.1 L, Globulin 4.0 H, Albumin/Globulin Ratio 0.8 L 12/09/17 15:14: Urine Color Yellow, Urine Appearance Sl cloudy, Urine pH 6.0, Ur Specific [place] 1.010, Urine Protein Negative, Urine Glucose (UA) Negative, Urine Ketones Negative, Urine Blood Negative, Urine Nitrate Negative, Urine Bilirubin Negative, Urine Urobilinogen 0.2, Ur Leukocyte Esterase Negative, Urine WBC Occasional, Ur Squamous Epith Cells Occasional, Urine Bacteria 1+ 12/09/17 17:40: Lactic Acid 0.5 12/10/17 05:30: WBC 2.2 L D, RBC 2.79 L, Hgb 7.1 L*, Hct 22.3 L*, MCV 79.7 L, MCH 25.3 L, MCHC 31.7 L, RDW 18.3 H, Plt Count 104 L D, MPV 8.6, Neut % (Auto) 54.2, Lymph % (Auto) 36.0, [place] % (Auto) 6.1, Eos % (Auto) 3.6, Baso % (Auto) 0.2, Neut # (Auto) 1.2 L, Lymph # (Auto) 0.8, [place] # (Auto) 0.1, Eos # (Auto) 0.1, Baso # (Auto) 0.0 12/10/17 05:30: Sodium 145, Potassium 4.2 D, Chloride 112 H, Carbon Dioxide 27 , Anion Gap 10.2, BUN 9, Creatinine 0.93, Estimated Creat Clear 43, Estimated GFR 59, Est GFR ( Amer) 72, Glucose 83 D, Calcium 8.0 L, Magnesium 1.2 L I & O for Last 24 hours: Intake & Output 12/07/17 12/08/17 12/09/17 12/10/17 11:59 11:59 11:59 11:59 Output Total 600 / 600 Balance -600 / -600 Weight 127 lb 2 oz - *Routine HEENT Exam Head: Present: normocephalic - *Routine Neck Exam Absent: JVD - *Routine Respiratory Exam Absent: respiratory distress - *Routine Cardiovascular Exam Present: RRR - *Routine Abdominal Exam Absent: distended, rigid - *Routine Rectal Exam Patient deferred: visual exam - *Routine Exam Patient deferred: external exam - *Routine Extremities Exam Present: pulses intact. Absent: calf tenderness - *Routine Skin Exam Absent: erythema, gangrene - *Routine Neurological Exam Present: alert. Absent: motor deficit, altered mental status - Detailed Lower Extremity Exam Comments: Palpable pedal pulses noted bilaterally. Capillary refill time within normal limits. Skin temperature within normal limits. No varicosities noted. Right 2nd toe amputation site, has no SOI. No drainage noted. Blisters resolved to b/ l feet, no peeling skin with no erythema. No ascending cellulitis or SOI noted. Edema noted to b/l LE. Pain to both feet extending to ankles. Pain to left foot extending to left hip. Abrasions noted to anterior left knee. No crepitus or increased pain directly over right midfoot (the area that was suspicious on the x-ray has no clinical correlation) Results - Labs Result Diagrams: 12/10/17 05:30 12/10/17 05:30 Labs: Abnormal lab results 12/09/17 12/09/17 12/10/17 Range/Units 14:20 14:20 05:30 WBC 4.4 L 2.2 L D (4.8-10.8) K/mm3 RBC 3.59 L 2.79 L (4.20-5.40) M/mm3 Hgb 8.5 L 7.1 L* (12.2-16.2) g/dL Hct 28.0 L 22.3 L* (37.0-47.0) % MCV 78.1 L 79.7 L (81-99) fl MCH 23.6 L 25.3 L (27.0-31.2) pg MCHC 30.2 L 31.7 L (31.8-35.4) g/dL RDW 18.4 H 18.3 H (11.5-17.5) % Plt Count 104 L D (142-424) K/mm3 Neut # (Auto) 1.2 L (1.8-7.8) K/mm3 Potassium 3.3 L (3.5-5.1) mmoL/L Chloride (98-107) mmol/L Estimated GFR 54 L (>60) ml/min Calcium (8.5-10.1) mg/dL Magnesium (1.4-2.2) mg/dL Albumin 3.1 L (3.4-5.0) gm/dL Globulin 4.0 H (1.3-3.2) gm/dl Albumin/Globulin Ratio 0.8 L (1.1-1.8) 12/10/17 Range/Units 05:30 WBC (4.8-10.8) K/mm3 RBC (4.20-5.40) M/mm3 Hgb (12.2-16.2) g/dL Hct (37.0-47.0) % MCV (81-99) fl MCH (27.0-31.2) pg MCHC (31.8-35.4) g/dL RDW (11.5-17.5) % Plt Count (142-424) K/mm3 Neut # (Auto) (1.8-7.8) K/mm3 Potassium (3.5-5.1) mmoL/L Chloride 112 H (98-107) mmol/L Estimated GFR (>60) ml/min Calcium 8.0 L (8.5-10.1) mg/dL Magnesium 1.2 L (1.4-2.2) mg/dL Albumin (3.4-5.0) gm/dL Globulin (1.3-3.2) gm/dl Albumin/Globulin Ratio (1.1-1.8) H & H 12/09/17 12/10/17 Range/Units 14:20 05:30 Hgb 8.5 L 7.1 L* (12.2-16.2) g/dL Hct 28.0 L 22.3 L* (37.0-47.0) % Coagulation 12/09/17 Range/Units 14:20 INR 1.04 (0.9-1.1) All other labs normal. Assessment and Plan (1) Bilateral leg and foot pain Current visit: Yes Status: Acute Category: Medical Code(s): M79.604 - Pain in right leg; M79.605 - Pain in left leg; M79.671 - Pain in right foot; M79.672 - Pain in left foot - Assessment and plan all Dx Assessment and Plan for all problems:: BILATERAL FOOT PAIN: Reviewed Dr. Fung's noted. I agree that from the PE standpoint, the foot looks good, better than last few visits. X-rays reviewed of bilateral foot and ankles. I do not see any evidence of soft tissue gas. There was some increased fluid related to edema noted to the dorsal aspect of the right foot. X-ray report was reviewed which indicated possible gas infection. This does not correlate clinically with the patient's physical exam. There is no increased pain or crepitus over the right foot. In fact the patient complains of more pain to the left foot extending to the hip than the right. However patient is having pain so recommend MRI of the right to rule out any underlying or recurrent osteomyelitis. Agree that the labs also do not seem to be indicative of some type of infection. Unsure of the etiology of the b/l LE pain and swelling. Plan: 1. MRI ordered for right foot with and without contrast to rule out recurrent osteomyelitis 2. No plans for surgery at this time 3. Continue to monitor 4. Await MRI
--- NOTE | 2017-12-10 08:10 | History & Physical Report ---
*Admission Date: 12/09/17 *Chief complaint: Foot pain and swelling *History of present illness: 72-year-old white female with multiple medical problems, including recurrent osteomyelitis with surgical debridement of the second toe of the right foot, and recent debridement of the left fourth toe because of osteomyelitis, who came to the emergency department with significant pain and blistering of her feet. After her most recent debridement she had been at the correction for a couple of weeks, treated for swelling and ongoing cellulitis and physical therapy, and had improved nicely. In fact, I saw her in my office last week and she was doing well with some skin sloughing from swelling resolution but otherwise minimal pain and no redness. Debridement/stump sites look great. She came to the emergency department yesterday with pain, had no fever or white count but the thought from the ER physician was that she might have recurrent infection or osteomyelitis and she was admitted to hospital for IV antibiotics. This morning she complains bitterly of pain in her left foot going up into the ankle. She is "I know something is wrong." [facility] History I have reviewed the patient's past medical history: Yes Medical History: Reports:: Cancer (OVARIAN), Congestive Heart Failure, Chronic Obstructive Pulmonary Disease (COPD), Coronary Artery Disease, Deep Vein Thrombosis, Hypertension, Myocardial Infarction, Seizures, Transient Ischemic Attacks (TIA) Denies:: Diabetes Mellitus Type 1, Diabetes Mellitus Type 2, MRSA Other Medical History: Reports: Anemia, Arthritis, Cataracts, Glaucoma, Hypothyroidism, Thyroid Disease Laterality Cases: Left: Total Hip Replacement, Bilateral: Tonsillectomy Other Surgeries: Yes: Angiogram, Cancer Surgery, Cardiac Catheterization, Colonoscopy, Coronary Stent, Hysterectomy-Total, Skin Cancer Excision Amputation: Yes (second toe on bilateral feet) Fractures: No - *Social History Educational Level: Completed High School Smoking Status: Current every day smoker Tobacco Type: cigarettes # Packs/Day (cigarettes): 1 #Yrs smoked (if former smoker): 56 Alcohol Intake: never Alcohol Intake Frequency:: other Occupational Status: disabled Housing: apartment Household Members: none - Psychiatric History Expresses thoughts of harming self/others: None Suicide Plan Description: No Plan *Family Hx:: Cancer, Coronary Artery Disease, Diabetes, Heart Attack, Hyperlipidemia, Hypertension, Kidney Disease, Stroke, Thyroid Disorder Review of Systems - Review of Systems Review of systems:: pertinent systems reviewed and negative unless documented below - Constitutional Denies anorexia, Denies body ache(s) - Eyes Denies blind spots - ENT Denies abnormal hearing - *Cardiovascular Denies chest pain, Denies chest pain at rest, Denies shortness of breath, Denies irregular heart rhythm - *Respiratory Denies change in phlegm color, Denies chest congestion - *Gastrointestinal Denies abdominal pain - *Musculoskeletal Reports abnormal walking, Reports joint pain, Reports numbness, Reports radiating pain into limb - Integumentary/Breasts Denies acne, Denies hair loss - *Neurologic Denies abnormal walking - Endocrine Denies cold intolerance, Denies excessive sweating Meds Home Medications Medication Instructions Recorded Confirmed Type Brimonidine Tartrate/Timolol 1 drop EYE-BOTH BID 06/11/17 12/09/17 History [Combigan 0.2%-0.5% Eye Drops] Carvedilol [Carvedilol 25mg Tab] 25 mg PO BID 06/11/17 12/09/17 History Esomeprazole Magnesium [Nexium] 40 mg PO BID 06/11/17 12/09/17 History Latanoprost [Xalatan 0.005% Ophth 1 drop EYE-BOTH HS 06/11/17 12/09/17 History Soln 2.5mL] Levothyroxine Sodium 50 mcg PO DAILY 06/11/17 12/09/17 History [Levothyroxine 50mcg (0.05mg) Tab] Fluoxetine HCl [Prozac 20mg 20 mg PO DAILY 11/08/17 12/09/17 History Capsule] Losartan Potassium 100 mg PO DAILY 11/08/17 12/09/17 History Sucralfate [Carafate 1gm/10ml Oral 10 ml PO QID 11/08/17 12/09/17 History Susp] hydroCHLOROthiazide [HCTZ 25mg 25 mg PO DAILY 11/08/17 12/09/17 History tab] Potassium Chloride [Klor-con 20 20 meq PO BID 12/10/17 12/10/17 History mEq tablet] Trazodone HCl 100 mg PO HS 12/10/17 12/10/17 History Allergies Allergy/AdvReac Type Severity Reaction Status Date / Time [facility]oclopramide [[facility]] Allergy Unknown Verified 12/09/17 13:17 Exam Vital signs and Labs for Last 24 Hours: Temp Pulse Resp BP Pulse Ox 97.9 F 84 18 158/70 94 L 12/10/17 07:46 12/10/17 07:46 12/10/17 07:46 12/10/17 07:46 12/10/17 07:46 Laboratory Results - last 24 hr 12/09/17 14:20: WBC 4.4 L, RBC 3.59 L, Hgb 8.5 L, Hct 28.0 L, MCV 78.1 L, MCH 23.6 L, MCHC 30.2 L, RDW 18.4 H, Plt Count 160, MPV 8.2, Neut % (Auto) 64.6, Lymph % (Auto) 26.3, [place] % (Auto) 6.5, Eos % (Auto) 2.5, Baso % (Auto) 0.2, Neut # (Auto) 2.9, Lymph # (Auto) 1.2, [place] # (Auto) 0.3, Eos # (Auto) 0.1, Baso # (Auto) 0.0 12/09/17 14:20: PT 10.7, INR 1.04 12/09/17 14:20: Sodium 141, Potassium 3.3 L, Chloride 103, Carbon Dioxide 29, Anion Gap 12.3, BUN 11, Creatinine 1.01, Estimated Creat Clear 39, Estimated GFR 54 L, Est GFR ( Amer) 65, Glucose 106, Calcium 8.6, Total Bilirubin 0.5, AST 21, ALT 12, Alkaline Phosphatase 69, Total Protein 7.1, Albumin 3.1 L, Globulin 4.0 H, Albumin/Globulin Ratio 0.8 L 12/09/17 15:14: Urine Color Yellow, Urine Appearance Sl cloudy, Urine pH 6.0, Ur Specific [place] 1.010, Urine Protein Negative, Urine Glucose (UA) Negative, Urine Ketones Negative, Urine Blood Negative, Urine Nitrate Negative, Urine Bilirubin Negative, Urine Urobilinogen 0.2, Ur Leukocyte Esterase Negative, Urine WBC Occasional, Ur Squamous Epith Cells Occasional, Urine Bacteria 1+ 12/09/17 17:40: Lactic Acid 0.5 12/10/17 05:30: WBC 2.2 L D, RBC 2.79 L, Hgb 7.1 L*, Hct 22.3 L*, MCV 79.7 L, MCH 25.3 L, MCHC 31.7 L, RDW 18.3 H, Plt Count 104 L D, MPV 8.6, Neut % (Auto) 54.2, Lymph % (Auto) 36.0, [place] % (Auto) 6.1, Eos % (Auto) 3.6, Baso % (Auto) 0.2, Neut # (Auto) 1.2 L, Lymph # (Auto) 0.8, [place] # (Auto) 0.1, Eos # (Auto) 0.1, Baso # (Auto) 0.0 12/10/17 05:30: Sodium 145, Potassium 4.2 D, Chloride 112 H, Carbon Dioxide 27 , Anion Gap 10.2, BUN 9, Creatinine 0.93, Estimated Creat Clear 43, Estimated GFR 59, Est GFR ( Amer) 72, Glucose 83 D, Calcium 8.0 L, Magnesium 1.2 L I & O for Last 24 hours: Intake & Output 12/07/17 12/08/17 12/09/17 12/10/17 11:59 11:59 11:59 11:59 Output Total 600 / 600 Balance -600 / -600 Weight 127 lb 2 oz Narrative: Patient is awake and alert, complains of pain and is very averse to any kind of touching or manipulation of the left foot. Cardiopulmonary exam unchanged. Abdomen soft. She is alert and oriented 3. Right foot is absent the second toe, some exudate on the stump site, left foot has evidence of residual peeling but no active blistering, swelling is vastly improved, and is absent the fourth toe. She has exquisite tenderness in the foot, but the exam of the foot from inspection and palpation actually looks pretty good and is improved from my exam of her 1 week ago. H&P: Result - Labs Labs: Short CBC 12/09/17 12/10/17 Range/Units 14:20 05:30 WBC 4.4 L 2.2 L D (4.8-10.8) K/mm3 Hgb 8.5 L 7.1 L* (12.2-16.2) g/dL Hct 28.0 L 22.3 L* (37.0-47.0) % Plt Count 160 104 L D (142-424) K/mm3 BMP 12/09/17 12/10/17 14:20 05:30 Sodium 141 145 Potassium 3.3 L 4.2 D Chloride 103 112 H Carbon Dioxide 29 27 BUN 11 9 Creatinine 1.01 0.93 Glucose 106 83 D Calcium 8.6 8.0 L Liver Function 12/09/17 Range/Units 14:20 Total Bilirubin 0.5 (0.2-1.0) mg/dL AST 21 (15-37) U/L ALT 12 (12-78) U/L Alkaline Phosphatase 69 (46-116) U/L Albumin 3.1 L (3.4-5.0) gm/dL Urine 12/09/17 Range/Units 15:14 Urine Color Yellow (Yellow) Urine Appearance Sl cloudy (Clear) Urine pH 6.0 (5.0-8.5) Ur Specific [place] 1.010 (1.005-1.030) Urine Protein Negative (Negative) Urine Glucose (UA) Negative (Negative) Assessment and Plan (1) Pain in left foot Current visit: Yes Status: Acute Category: Medical Code(s): M79.672 - Pain in left foot I am unsure of the etiology of this pain. From an exam standpoint the foot looks pretty good. Her labs also do not seem to be indicative of some type of infection, podiatry has seen [id number] ordered for today. (2) Anemia Current visit: No Status: Acute Category: Medical Code(s): D64.9 - Anemia , unspecified History of recurrent anemia from history of chronic gastritis and chronic disease issues. Blood transfusion today. Check labs.
--- NOTE | 2017-12-10 08:57 | Pharmacy Consult Notes ---
- Pharmacy Consult Date: 12/10/17 Time: 08:55 Referring provider: DR. MILNER Reason for Consult:: VANCOMYCIN DOSING Allergies and ADEs:: Allergies Allergy/AdvReac Type Severity Reaction Status Date / Time metoclopramide [From [facility]] Allergy Unknown Verified 12/09/17 13:17 Home Medications:: Home Medications Medication Instructions Recorded Confirmed Type Brimonidine Tartrate/Timolol 1 drop EYE-BOTH BID 06/11/17 12/09/17 History [Combigan 0.2%-0.5% Eye Drops] Carvedilol [Carvedilol 25mg Tab] 25 mg PO BID 06/11/17 12/09/17 History Esomeprazole Magnesium [Nexium] 40 mg PO BID 06/11/17 12/09/17 History Latanoprost [Xalatan 0.005% Ophth 1 drop EYE-BOTH HS 06/11/17 12/09/17 History Soln 2.5mL] Levothyroxine Sodium 50 mcg PO DAILY 06/11/17 12/09/17 History [Levothyroxine 50mcg (0.05mg) Tab] Fluoxetine HCl [Prozac 20mg 20 mg PO DAILY 11/08/17 12/09/17 History Capsule] Losartan Potassium 100 mg PO DAILY 11/08/17 12/09/17 History Sucralfate [Carafate 1gm/10ml Oral 10 ml PO QID 11/08/17 12/09/17 History Susp] hydroCHLOROthiazide [HCTZ 25mg 25 mg PO DAILY 11/08/17 12/09/17 History tab] Potassium Chloride [Klor-con 20 20 meq PO BID 12/10/17 12/10/17 History mEq tablet] Trazodone HCl 100 mg PO HS 12/10/17 12/10/17 History Height: 1.52 m Weight: 57.663 kg Laboratory Results:: Laboratory Results - last 24 hr 12/09/17 14:20: WBC 4.4 L, RBC 3.59 L, Hgb 8.5 L, Hct 28.0 L, MCV 78.1 L, MCH 23.6 L, MCHC 30.2 L, RDW 18.4 H, Plt Count 160, MPV 8.2, Neut % (Auto) 64.6, Lymph % (Auto) 26.3, [place] % (Auto) 6.5, Eos % (Auto) 2.5, Baso % (Auto) 0.2, Neut # (Auto) 2.9, Lymph # (Auto) 1.2, [place] # (Auto) 0.3, Eos # (Auto) 0.1, Baso # (Auto) 0.0 12/09/17 14:20: PT 10.7, INR 1.04 12/09/17 14:20: Sodium 141, Potassium 3.3 L, Chloride 103, Carbon Dioxide 29, Anion Gap 12.3, BUN 11, Creatinine 1.01, Estimated Creat Clear 39, Estimated GFR 54 L, Est GFR ( Amer) 65, Glucose 106, Calcium 8.6, Total Bilirubin 0.5, AST 21, ALT 12, Alkaline Phosphatase 69, Total Protein 7.1, Albumin 3.1 L, Globulin 4.0 H, Albumin/Globulin Ratio 0.8 L 12/09/17 15:14: Urine Color Yellow, Urine Appearance Sl cloudy, Urine pH 6.0, Ur Specific [place] 1.010, Urine Protein Negative, Urine Glucose (UA) Negative, Urine Ketones Negative, Urine Blood Negative, Urine Nitrate Negative, Urine Bilirubin Negative, Urine Urobilinogen 0.2, Ur Leukocyte Esterase Negative, Urine WBC Occasional, Ur Squamous Epith Cells Occasional, Urine Bacteria 1+ 12/09/17 17:40: Lactic Acid 0.5 12/10/17 05:30: WBC 2.2 L D, RBC 2.79 L, Hgb 7.1 L*, Hct 22.3 L*, MCV 79.7 L, MCH 25.3 L, MCHC 31.7 L, RDW 18.3 H, Plt Count 104 L D, MPV 8.6, Neut % (Auto) 54.2, Lymph % (Auto) 36.0, [place] % (Auto) 6.1, Eos % (Auto) 3.6, Baso % (Auto) 0.2, Neut # (Auto) 1.2 L, Lymph # (Auto) 0.8, [place] # (Auto) 0.1, Eos # (Auto) 0.1, Baso # (Auto) 0.0 12/10/17 05:30: Sodium 145, Potassium 4.2 D, Chloride 112 H, Carbon Dioxide 27 , Anion Gap 10.2, BUN 9, Creatinine 0.93, Estimated Creat Clear 43, Estimated GFR 59, Est GFR ( Amer) 72, Glucose 83 D, Calcium 8.0 L, Magnesium 1.2 L Medical History: Reports:: Cancer (OVARIAN), Congestive Heart Failure, Chronic Obstructive Pulmonary Disease (COPD), Coronary Artery Disease, Deep Vein Thrombosis, Hypertension, Myocardial Infarction, Seizures, Transient Ischemic Attacks (TIA) Denies:: Diabetes Mellitus Type 1, Diabetes Mellitus Type 2, MRSA Assessment and Plan - Assessment and plan all Dx Assessment and Plan for all problems:: BASED ON PATIENT'S FACTORS, RECOMMEND PATIENT CONTINUE WITH VANCOMYCIN 1 MG Q24H AT THIS TIME. PHARMACY WILL FOLLOW DAILY AND ADJUST APPROPRIATE. PADMINI BENDER, PHARMD
[2017-12-10 20:47] LABS: Hemoglobin 10.8 g/dL (12.2-16.2)
[2017-12-11 06:08] LABS: Basophils % 0.3 % (0.1-2.0); Eosinophils # 0.1 K/mm3 (0.0-0.4); Eosinophils % 3.5 % (0.1-12.0); Hematocrit 37.3 % (37.0-47.0); Hemoglobin 11.2 g/dL (12.2-16.2); Lymphocytes # 1.1 K/mm3 (0.7-4.5); Lymphocytes % 30.6 K/mm3 (10-50); Mean Corpuscular Hemoglobin 24.6 pg (27.0-31.2); Mean Corpuscular Volume 81.9 fl (81-99); Monocytes # 0.3 K/mm3 (0.1-1.0); Monocytes % 7.8 % (1.7-9.3); Neutrophils # 2.1 K/mm3 (1.8-7.8); Neutrophils % 57.8 % (37.0-80.0); Platelet Count 120 K/mm3 (142-424); Red Blood Count 4.56 M/mm3 (4.20-5.40); Red Cell Distribution Width 17.1 % (11.5-17.5); White Blood Count 3.6 K/mm3 (4.8-10.8)
[2017-12-11 06:51] LABS: Albumin Level 2.9 gm/dL (3.4-5.0); Albumin/Globulin Ratio 0.7 (1.1-1.8); Anion Gap 10.8 mEq/L (5-15); Bilirubin,Total 0.6 mg/dL (0.2-1.0); C-Reactive Protein 1.6 mg/L (0.0-0.9); Potassium 3.8 mmoL/L (3.5-5.1); Total Protein,Serum 6.9 gm/dL (6.4-8.2)
[2017-12-11 07:09] LABS: Calcium 8.9 mg/dL (8.5-10.1)
[2017-12-11 07:36] VITALS: BP 177/85
--- NOTE | 2017-12-11 07:56 | Progress Note ---
Internal Medicine - PN: Subj *Date: 12/11/17 *Time: 16:07 Interval history: Patient states "my feet hurt a lot." Reports bilateral LE pain, left greater than right. She requests hydrocodone be switched to oxycodone as it "works better and doesn't make me itch." Alert and oriented x3. Rate and rhythm regular. Lung sounds with faint scattered wheezes. Abdomen soft and nontender. 1+ BLE edema. Pulses 1+ bilaterally. Right 2nd toe amputation site with no s/s infection. No drainage noted. Blisters healing to bilateral feet Exam Vital signs and Labs for Last 24 Hours: Temp Pulse Resp BP Pulse Ox 98.0 F 82 18 177/85 97 12/11/17 07:33 12/11/17 07:33 12/11/17 07:33 12/11/17 07:33 12/11/17 07:33 Laboratory Results - last 24 hr 12/10/17 08:40: Blood Type O Positive, Antibody Screen Negative, Crossmatch (AHG ) See Detail 12/10/17 20:00: Hgb 10.8 L D, Hct 35.0 L 12/10/17 22:37: POC Glucose 95 12/11/17 05:20: WBC 3.6 L D, RBC 4.56 D, Hgb 11.2 L, Hct 37.3, MCV 81.9, MCH 24.6 L, MCHC 30.0 L, RDW 17.1, Plt Count 120 L, MPV 8.0, Neut % (Auto) 57.8, Lymph % (Auto) 30.6, [place] % (Auto) 7.8, Eos % (Auto) 3.5, Baso % (Auto) 0.3, Neut # (Auto) 2.1, Lymph # (Auto) 1.1, [place] # (Auto) 0.3, Eos # (Auto) 0.1, Baso # (Auto) 0.0 12/11/17 05:20: Sodium 138, Potassium 3.8, Chloride 104, Carbon Dioxide 27, Anion Gap 10.8, BUN 7, Creatinine 0.87, Estimated Creat Clear 44, Estimated GFR 64, Est GFR ( Amer) 78, Glucose 89, Calcium 8.9 D, Total Bilirubin 0.6, AST 41 H D, ALT 25 D, Alkaline Phosphatase 80, C-Reactive Protein 1.6 H, Total Protein 6.9, Albumin 2.9 L, Globulin 4.0 H, Albumin/Globulin Ratio 0.7 L 12/11/17 05:20: ESR 25 12/11/17 06:17: POC Glucose 85 I & O for Last 24 hours: Intake & Output 12/08/17 12/09/17 12/10/17 12/11/17 11:59 11:59 11:59 11:59 Intake Total 0 / 0 1320 / 1320 Output Total 600 / 600 4800 / 4800 Balance -600 / -600 -3480 / -3480 Weight 127 lb 2 oz 120 lb 3 oz Assessment and Plan (1) Bilateral leg and foot pain Status: Acute Category: Medical Code(s): M79.604 - Pain in right leg; M79.605 - Pain in left leg; M79.671 - Pain in right foot; M79.672 - Pain in left foot - Assessment and plan all Dx Assessment and Plan for all problems:: See podiatry note. Discharge home on clindamycin with short term FU with Dr. Fung in [address] Neumann in one week. Wiley 5/325 mg po TID prn severe pain, 15 tablets provided. No further narcotics.
--- NOTE | 2017-12-11 08:02 | Progress Note ---
Subjective Date: 12/11/17 Time: 07:45 Principal diagnosis: B/L LE Edema, foot pain Interval history: Patient is resting comfortably in bed, NAD. She complains of bilateral lower extremity pain and swelling. Still complaining of pain on the left side radiating up to the hip. Patient is upset because she is not getting "my IV pain medication" PN: Obj Ex Vital signs: Temp Pulse Resp BP Pulse Ox 98.0 F 82 18 177/85 97 12/11/17 07:33 12/11/17 07:33 12/11/17 07:33 12/11/17 07:33 12/11/17 07:33 Narrative: Patient denies N/V, F/C, SOB/CP. - Constitutional no acute distress - Routine HEENT Exam Head: Present: normocephalic - Routine Neck Exam Absent: JVD - Routine Respiratory Exam Absent: respiratory distress - Detailed Lower Extremity Exam Comments: Unchanged from yesterday. No open lesions or interdigital macerations. Skin peeling to left dorsal foot from previous blister. No ascending cellulitis. No pain to specific area palpation, no crepitus. There is diffuse non pitting edema noted to b/l LE, improved from 2-3+ pitting at its worst. No blisters or fluid drainage. Progress Note: A&P (1) Bilateral leg and foot pain Status: Acute Current Visit: Yes Assessment and Plan for All Diagnoses:: BILATERAL FOOT PAIN: MRI right foot 12/10/17: no soft tissue gas infection noted. There are some bone edema changes noted to the plantar 2nd met head. Could be suspicious for osteomyelitis. No diffuse 2nd met OM cortical erosions or shaft changes. Discussed with Dr. Fung. I agree that from the PE standpoint, the foot looks good, better than last few visits. X-rays reviewed of bilateral foot and ankles. I do not see any evidence of soft tissue gas. There was some increased fluid related to edema noted to the dorsal aspect of the right foot. X-ray report was reviewed which indicated possible gas infection. This does not correlate clinically with the patient's physical exam. There is no increased pain or crepitus over the right foot. In fact the patient complains of more pain to the left foot extending to the hip than the right. Agree that the labs also do not seem to be indicative of some type of infection. The b/l LE pain and swelling do not correlate with the physical exam or imaging. Patient was very upset when she found out that her morphine had been discontinued. The nurse and I explained that when she goes home she will be on oral medication and it needs to be controlled and IVs are not necessary at this point. Patient was not happy. I explained that if her pain was so severe she may need to be referred to pain management doctor outpatient but I do not recommend her continuing to take scheduled narcotics. Plan: 1. D/c with Dr. Fung 2. No plans for surgery at this time 3. IV Abx prior to discharge 4. Possible pain mgmt evaluation 5. Discussed with the patient doing compression therapy with Berenice Reeves 6. Follow up out patient
--- NOTE | 2017-12-11 13:33 | Pharmacy Consult Notes ---
- Pharmacy Consult Date: 12/11/17 Time: 13:31 Referring provider: ALMA Reason for Consult:: FOLLOW UP ON VANCOMYCIN TROUGH LEVELS Allergies and ADEs:: Allergies Allergy/AdvReac Type Severity Reaction Status Date / Time metoclopramide [From [facility]] Allergy Unknown Verified 12/09/17 13:17 Home Medications:: Home Medications Medication Instructions Recorded Confirmed Type Brimonidine Tartrate/Timolol 1 drop EYE-BOTH BID 06/11/17 12/09/17 History [Combigan 0.2%-0.5% Eye Drops] Carvedilol [Carvedilol 25mg Tab] 25 mg PO BID 06/11/17 12/09/17 History Esomeprazole Magnesium [Nexium] 40 mg PO BID 06/11/17 12/09/17 History Latanoprost [Xalatan 0.005% Ophth 1 drop EYE-BOTH HS 06/11/17 12/09/17 History Soln 2.5mL] Levothyroxine Sodium 50 mcg PO DAILY 06/11/17 12/09/17 History [Levothyroxine 50mcg (0.05mg) Tab] Fluoxetine HCl [Prozac 20mg 20 mg PO DAILY 11/08/17 12/09/17 History Capsule] Losartan Potassium 100 mg PO DAILY 11/08/17 12/09/17 History Sucralfate [Carafate 1gm/10ml Oral 10 ml PO ACHS 11/08/17 12/10/17 History Susp] hydroCHLOROthiazide [HCTZ 25mg 25 mg PO DAILY 11/08/17 12/09/17 History tab] Furosemide [Furosemide 20mg Tab] 20 mg PO BID 12/10/17 12/10/17 History Potassium Chloride [Klor-con 20 20 meq PO BID 12/10/17 12/10/17 History mEq tablet] Trazodone HCl 100 mg PO HS 12/10/17 12/10/17 History Height: 1.52 m Weight: 54.516 kg Laboratory Results:: Laboratory Results - last 24 hr 12/10/17 08:40: Blood Type O Positive, Antibody Screen Negative, Crossmatch (AHG ) See Detail 12/10/17 20:00: Hgb 10.8 L D, Hct 35.0 L 12/10/17 22:37: POC Glucose 95 07/10/18 05:20: WBC 3.6 L D, RBC 4.56 D, Hgb 11.2 L, Hct 37.3, MCV 81.9, MCH 24.6 L, MCHC 30.0 L, RDW 17.1, Plt Count 120 L, MPV 8.0, Neut % (Auto) 57.8, Lymph % (Auto) 30.6, [place] % (Auto) 7.8, Eos % (Auto) 3.5, Baso % (Auto) 0.3, Neut # (Auto) 2.1, Lymph # (Auto) 1.1, [place] # (Auto) 0.3, Eos # (Auto) 0.1, Baso # (Auto) 0.0 12/11/17 05:20: Sodium 138, Potassium 3.8, Chloride 104, Carbon Dioxide 27, Anion Gap 10.8, BUN 7, Creatinine 0.87, Estimated Creat Clear 44, Estimated GFR 64, Est GFR ( Amer) 78, Glucose 89, Calcium 8.9 D, Total Bilirubin 0.6, AST 41 H D, ALT 25 D, Alkaline Phosphatase 80, C-Reactive Protein 1.6 H, Total Protein 6.9, Albumin 2.9 L, Globulin 4.0 H, Albumin/Globulin Ratio 0.7 L 12/11/17 05:20: ESR 25 12/11/17 06:17: POC Glucose 85 12/11/17 12:40: Vancomycin Trough 9.8 L Medical History: Reports:: Cancer (OVARIAN), Congestive Heart Failure, Chronic Obstructive Pulmonary Disease (COPD), Coronary Artery Disease, Deep Vein Thrombosis, Hypertension, Myocardial Infarction, Seizures, Transient Ischemic Attacks (TIA) Denies:: Diabetes Mellitus Type 1, Diabetes Mellitus Type 2, MRSA Assessment and Plan (1) Bilateral leg and foot pain Current visit: Yes Status: Acute Category: Medical Code(s): M79.604 - Pain in right leg; M79.605 - Pain in left leg; M79.671 - Pain in right foot; M79.672 - Pain in left foot - Assessment and plan all Dx Assessment and Plan for all problems:: VANCOMYCIN TROUGH = 9.8. WILL INCREASE DOSE TO 1500MG EVERY 24 HOURS TO TRY AND ACHIEVE SLIGHTLY HIGHER TROUGH. PHARMACY WILL CONTINUE TO MONITOR DAILY. THANKS,
--- NOTE | 2017-12-11 16:14 | Discharge Summary ---
General - General Admission date:: 12/09/17 Discharge date: 12/11/17 HPI HPI: Ms. Veloz is a 72 y/o female who presents for b/l LE pain and swelling. Patient states since she left the hospital, both legs have been giving her pain and swelling. She was last seen outpatient in my clinic 11/28/17 and had improving b/ l LE swelling and blisters with no infection noted. 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 Abx d/c and PICC pulled . She was at the SNF in [place]. Hospital Course Hospital Course: Patient was admitted for IV antibiotics and pain control. Podiatry was consulted who obtained x-ray films and MRI of right foot. See podiatry note from 12/11. Although MRI showed suspected osteo of right 2nd metatarsal head it is not at all consistent with her exam. Patient has had issues with narcotics in the past and become angry when her IV Morphine was discontinued. Discussed POC with Dr. Neumann who agrees with plan to discharge patient home with home health on oral clindamycin based on previous culture. Discharge home on clindamycin 300 mg po TID x 14 days. [place] 5/325 mg po TID prn severe pain, 15 tablets provided. See medication reconciliation for complete list. No further narcotics will be provided. Pain management referral suggested, patient declined. Objective Vital signs: Temp Pulse Resp BP Pulse Ox 98.0 F 82 18 177/85 94 L 12/11/17 07:33 12/11/17 07:33 12/11/17 07:33 12/11/17 07:33 12/11/17 08:00 Narrative: See progress note from this morning. Results Labs on day of discharge: Labs from last 24 hours 12/11/17 12/11/17 12/11/17 12:40 06:17 05:20 WBC RBC Hgb Hct MCV MCH MCHC RDW Plt Count MPV Neut % (Auto) Lymph % (Auto) [place] % (Auto) Eos % (Auto) Baso % (Auto) Neut # (Auto) Lymph # (Auto) [place] # (Auto) Eos # (Auto) Baso # (Auto) ESR 25 Sodium Potassium Chloride Carbon Dioxide Anion Gap BUN Creatinine Estimated Creat Clear Estimated GFR Est GFR ( Amer) Glucose POC Glucose 85 Calcium Total Bilirubin AST ALT Alkaline Phosphatase C-Reactive Protein Total Protein Albumin Globulin Albumin/Globulin Ratio Vancomycin Trough 9.8 L Blood Type Antibody Screen Crossmatch ([facility]) 12/11/17 12/11/17 12/10/17 05:20 05:20 22:37 WBC 3.6 L D RBC 4.56 D Hgb 11.2 L Hct 37.3 MCV 81.9 MCH 24.6 L MCHC 30.0 L RDW 17.1 Plt Count 120 L MPV 8.0 Neut % (Auto) 57.8 Lymph % (Auto) 30.6 [place] % (Auto) 7.8 Eos % (Auto) 3.5 Baso % (Auto) 0.3 Neut # (Auto) 2.1 Lymph # (Auto) 1.1 [place] # (Auto) 0.3 Eos # (Auto) 0.1 Baso # (Auto) 0.0 ESR Sodium 138 Potassium 3.8 Chloride 104 Carbon Dioxide 27 Anion Gap 10.8 BUN 7 Creatinine 0.87 Estimated Creat Clear 44 Estimated GFR 64 Est GFR ( Amer) 78 Glucose 89 POC Glucose 95 Calcium 8.9 D Total Bilirubin 0.6 AST 41 H D ALT 25 D Alkaline Phosphatase 80 C-Reactive Protein 1.6 H Total Protein 6.9 Albumin 2.9 L Globulin 4.0 H Albumin/Globulin Ratio 0.7 L Vancomycin Trough Blood Type Antibody Screen Crossmatch ([facility]) 12/10/17 12/10/17 20:00 08:40 WBC RBC Hgb 10.8 L D Hct 35.0 L MCV MCH MCHC RDW Plt Count MPV Neut % (Auto) Lymph % (Auto) [place] % (Auto) Eos % (Auto) Baso % (Auto) Neut # (Auto) Lymph # (Auto) [place] # (Auto) Eos # (Auto) Baso # (Auto) ESR Sodium Potassium Chloride Carbon Dioxide Anion Gap BUN Creatinine Estimated Creat Clear Estimated GFR Est GFR ( Amer) Glucose POC Glucose Calcium Total Bilirubin AST ALT Alkaline Phosphatase C-Reactive Protein Total Protein Albumin Globulin Albumin/Globulin Ratio Vancomycin Trough Blood Type O Positive Antibody Screen Negative Crossmatch ([facility]) See Detail DS: Diagnosis - Discharge Diagnosis (1) Bilateral leg and foot pain Status: Acute Discharge Plan - Patient Discharge Instructions ACTIVITY: Continue current activity DIET: continue same diet Patient Instructions: DI for Cellulitis -- Adult - Follow up Plan Follow up with: Earl Fung MD [Primary Care Provider] - 2 days Unknown provider or service follow up:: 12/11/17 13:48 Dr. Neumann in one week Disposition: Home Health Service Home Medications: Home Medications Medication Instructions Recorded Confirmed Type Brimonidine Tartrate/Timolol 1 drop EYE-BOTH BID 06/11/17 12/09/17 History [Combigan 0.2%-0.5% Eye Drops] Carvedilol [Carvedilol 25mg Tab] 25 mg PO BID 06/11/17 12/09/17 History Esomeprazole Magnesium [Nexium] 40 mg PO BID 06/11/17 12/09/17 History Latanoprost [Xalatan 0.005% Ophth 1 drop EYE-BOTH HS 06/11/17 12/09/17 History Soln 2.5mL] Levothyroxine Sodium 50 mcg PO DAILY 06/11/17 12/09/17 History [Levothyroxine 50mcg (0.05mg) Tab] Fluoxetine HCl [Prozac 20mg 20 mg PO DAILY 11/08/17 12/09/17 History Capsule] Losartan Potassium 100 mg PO DAILY 11/08/17 12/09/17 History Sucralfate [Carafate 1gm/10ml Oral 10 ml PO ACHS 11/08/17 12/10/17 History Susp] hydroCHLOROthiazide [HCTZ 25mg 25 mg PO DAILY 11/08/17 12/09/17 History tab] Furosemide [Furosemide 20mg Tab] 20 mg PO BID 12/10/17 12/10/17 History Potassium Chloride [Klor-con 20 20 meq PO BID 12/10/17 12/10/17 History mEq tablet] Trazodone HCl 100 mg PO HS 12/10/17 12/10/17 History Prescriptions/Medication Reconciliation: New Hydrocod/Acet 5/325 mg [[place] 5/325mg tablet] 1 tab PO TIDP PRN #15 tablet PRN Reason: Moderate To Severe Pain Clindamycin HCl 300 mg PO TID 14 Days #42 cap Continue Carvedilol [Carvedilol 25mg Tab] 25 mg PO BID Levothyroxine Sodium [Levothyroxine 50mcg (0.05mg) Tab] 50 mcg PO DAILY Latanoprost [Xalatan 0.005% Ophth Soln 2.5mL] 1 drop EYE-BOTH HS Brimonidine Tartrate/Timolol [Combigan 0.2%-0.5% Eye Drops] 1 drop EYE-BOTH BID Esomeprazole Magnesium [Nexium] 40 mg PO BID hydroCHLOROthiazide [HCTZ 25mg tab] 25 mg PO DAILY Fluoxetine HCl [Prozac 20mg Capsule] 20 mg PO DAILY Potassium Chloride [Klor-con 20 mEq tablet] 20 meq PO BID Trazodone HCl 100 mg PO HS Furosemide [Furosemide 20mg Tab] 20 mg PO BID Sucralfate [Carafate 1gm/10ml Oral Susp] 10 ml PO ACHS Losartan Potassium 100 mg PO DAILY
== END 2017-12-11 14:15 | disposition home health service (06) ==
LOC: ER 13:03 → 2ND 13:03
PROVIDERS: ADMIT Family Medicine; ATTEND Internal Medicine Adolescent Medicine
CPT/HCPCS: 36415; 71020; 71046; 73590; 73630; 73718; 80048; 80053; 80202; 81001; 82962; 83605; 83735; 85014; 85018; 85025; 85610; 85651; 86140; 86850; 87040; 96365; 96367; 96375; 96376; 99285; A9576; G0378; J2405; J3370; P9016

== ENCOUNTER → 2018-03-07 08:15 | Outpatient (CLI) | payer MEDICARE, MEDICAID, SELFPAY ==
[2018-03-07 13:47] LABS: Alanine Aminotransferase 11 U/L (12-78); Albumin Level 3.2 gm/dL (3.4-5.0); Albumin/Globulin Ratio 0.9 (1.1-1.8); Alkaline Phosphatase 78 U/L (46-116); Anion Gap 12.2 mEq/L (5-15); Aspartate Amino Transferase 18 U/L (15-37); Bilirubin,Total 0.5 mg/dL (0.2-1.0); Blood Urea Nitrogen 20 mg/dL (7-18); Calcium 8.9 mg/dL (8.5-10.1); Carbon Dioxide 31 mmol/L (21.0-32.0); Chloride 98 mmol/L (98-107); Creatinine,Serum 1.15 mg/dL (0.55-1.02); Estimated Glomerular Filt Rate 47 ml/min (>60); GFR (African American) 56 ML/MIN (>60); Globulin 3.6 gm/dl (1.3-3.2); Glucose 83 mg/dL (74-106); Potassium 3.2 mmoL/L (3.5-5.1); Sodium 138 mmol/L (136-145); Thyroid Stimulating Hormone 0.89 uIU/ml (0.358-3.740); Total Protein,Serum 6.8 gm/dL (6.4-8.2)
[2018-03-07 14:16] LABS: Basophils % 0.2 % (0.1-2.0); Eosinophils # 0.1 K/mm3 (0.0-0.4); Eosinophils % 1.8 % (0.1-12.0); Hematocrit 31.1 % (37.0-47.0); Lymphocytes # 1.1 K/mm3 (0.7-4.5); Lymphocytes % 23.9 K/mm3 (10-50); Mean Corpuscular HGB Conc 32.3 g/dL (31.8-35.4); Mean Corpuscular Hemoglobin 26.8 pg (27.0-31.2); Mean Corpuscular Volume 83.2 fl (81-99); Monocytes # 0.3 K/mm3 (0.1-1.0); Monocytes % 5.7 % (1.7-9.3); Neutrophils # 3.1 K/mm3 (1.8-7.8); Neutrophils % 68.4 % (37.0-80.0); Platelet Count 147 K/mm3 (142-424); Red Blood Count 3.74 M/mm3 (4.20-5.40); Red Cell Distribution Width 15.5 % (11.5-17.5); White Blood Count 4.6 K/mm3 (4.8-10.8)
[2018-03-08 17:29] LABS: Vitamin D 25 Hydroxy 37.1 ng/mL (30.0-100.0)
== END ==
PROVIDERS: PCP Nurse Practitioner Family; Visit Provider Nurse Practitioner Family
DX: I10 Essential (primary) hypertension (principal); R29.6 Repeated falls; E03.9 Hypothyroidism, unspecified; Z86.2 Personal history of diseases of the blood and blood-forming organs and certain disorders involving the immune mechanism; Z68.1 Body mass index [BMI] 19.9 or less, adult
CPT/HCPCS: 36415; 80053; 82652; 84443; 85025

== ENCOUNTER → 2018-03-28 10:30 | Outpatient (CLI) | payer MEDICARE, MEDICAID, SELFPAY ==
--- NOTE | 2018-03-28 10:34 | MM_ITS ---
MM Dig screening mamm BI w/CAD ORDERING PHYSICIAN : Earl Fung MD PATIENT AGE: 72 years GENDER: Female COMPARISON: Outside films from [facility] have arrived-dated October There are also previous studies from 2009 INDICATION: ITS.REASON: SCREENING no hormones. No new complaints Patient has had ovarian cancer. Also squamous cell cancer head. Noncontributory family history TECHNIQUE: Standard CC and MLO images were obtained. R2 CAD reviewed. FINDINGS: Moderate density breast for age. The previous 2014 study is helpful and shows that there is a stable glandular pattern on right and left. No focal new areas of significant concern when the modest differences in technique considered.. Stable skin mole seen at the lateral right breast. . IMPRESSION: . No significant new findings. Moderately breast density for age, age but no new areas of significant concern. Stable mild asymmetry Bilateral follow-up in one year recommended and should be emphasized/encourage to further confirm stability BI-RADS Category: 2 Benign Finding(s) RECOMMENDED FOLLOW-UP: 1YR 1 YEAR FOLLOW-UP (A letter has been sent to the patient regarding results of the study.)
--- NOTE | 2018-03-28 10:34 | XR_ITS ---
XR DEXA axial skeleton HISTORY: ITS.REASON: POST MENOPAUSAL ORDERING PHYSICIAN: Earl Fung MD PATIENT AGE: 72 years COMPARISON: FINDINGS: The BMD measured at the Total femoral neck is 0.599 g/cm squared with a T score of -3.2. This is considered Osteoporotic according to the World Health Organization criteria. Fracture risk is High. Treatment is advised. IMPRESSION: Osteoporosis with high fracture risk. Treatment is advised. Suggest follow-up exam March 2019 to monitor response to treatment
== END ==
PROVIDERS: PCP Internal Medicine Adolescent Medicine; Visit Provider Internal Medicine Adolescent Medicine
DX: Z78.0 Asymptomatic menopausal state (principal); Z13.820 Encounter for screening for osteoporosis; Z12.31 Encounter for screening mammogram for malignant neoplasm of breast
CPT/HCPCS: 77067; 77080

== ENCOUNTER 2018-06-07 13:02 | Observation (INO) ==
[2018-06-07 14:22] LABS: Alanine Aminotransferase 10 U/L (12-78); Albumin/Globulin Ratio 1.1 (1.1-1.8); Alkaline Phosphatase 60 U/L (46-116); Anion Gap 14.6 mEq/L (5-15); Aspartate Amino Transferase 17 U/L (15-37); Bilirubin,Total 1.1 mg/dL (0.2-1.0); Blood Urea Nitrogen 35 mg/dL (7-18); Calcium 7.9 mg/dL (8.5-10.1); Carbon Dioxide 28 mmol/L (21.0-32.0); Chloride 90 mmol/L (98-107); Globulin 3.6 gm/dl (1.3-3.2); Glucose 105 mg/dL (74-106); Sodium 130 mmol/L (136-145); Thyroid Stimulating Hormone 0.45 uIU/ml (0.358-3.740); Total Protein,Serum 7.6 gm/dL (6.4-8.2)
[2018-06-07 14:26] LABS: Basophils % 0.5 % (0.1-2.0); Eosinophils % 0.5 % (0.1-12.0); Lymphocytes # 1.3 K/mm3 (0.7-4.5); Lymphocytes % 25.7 % (10-50); Mean Corpuscular HGB Conc 28.4 g/dL (31.8-35.4); Mean Corpuscular Hemoglobin 21.8 pg (27.0-31.2); Mean Corpuscular Volume 76.8 fl (81-99); Mean Platelet Volume 8.6 fl (7.4-10.4); Monocytes # 0.3 K/mm3 (0.1-1.0); Monocytes % 5.3 % (1.7-9.3); Neutrophils # 3.5 K/mm3 (1.8-7.8); Neutrophils % 68.1 % (37.0-80.0); Platelet Count 223 K/mm3 (142-424); Potassium 2.6 mmoL/L (3.5-5.1); Red Blood Count 3.09 M/mm3 (4.20-5.40); Red Cell Distribution Width 17.3 % (11.5-17.5); White Blood Count 5.2 K/mm3 (4.8-10.8)
[2018-06-07 14:47] LABS: Hemoglobin 6.7 g/dL (12.2-16.2)
[2018-06-07 14:48] LABS: Hematocrit 23.7 % (37.0-47.0)
--- NOTE | 2018-06-07 15:42 | Pharmacy Consult Notes ---
[facility] Pharmacy VTE Monitoring - Patient Demographics Admission date: 06/07/18 Report Date: 06/07/18 Time: 15:42 Allergies/Adverse Reactions: Patient Allergies metoclopramide [From REGLAN] Allergy (Unknown, Verified 12/09/17 13:17) - VTE Risk Labs: VTE Related Lab Results Hgb 6.7 g/dL (12.2-16.2) L* 06/07/18 13:09 Hct 23.7 % (37.0-47.0) L* 06/07/18 13:09 Plt Count 223 K/mm3 (142-424) 06/07/18 13:09 BUN 35 mg/dL (7-18) H 06/07/18 13:09 Creatinine 1.83 mg/dL (0.55-1.02) H 06/07/18 13:09 - Prophylaxis VTE Prophylaxis Ordered?: Yes Types of VTE Prophylaxis: TEDS Knee High Location of Applied Device: Bilateral Lower Extremeties - VTE Diagnosis Confirmed Treatment or plan recommended: Continue Current Treatment
--- NOTE | 2018-06-07 18:58 | History & Physical Report ---
*Admission Date: 06/07/18 *Chief complaint: Fatigue and anemia *History of present illness: Ms. Veloz is a 73-year-old female with recent history of weight loss, fatigue. She presented to clinic yesterday in [place] where she was noted to have lost 13 pounds in 6 weeks. Reported worsening fatigue, shortness of breath with exertion, exercise intolerance, and being very thirsty. Her home health nurse was concerned that she was dehydrated due to some tenting skin. Additionally she reports that for the past month she is having worsening sensation of food getting stuck in her esophagus. Difficulty swallowing solids, missed an EGD last week. Extensive history with GI at for esophageal dilatation, fundoplication. Decision was made to obtain CT chest and abdomen with contrast and lab work prior to imaging. She presented day, due to transportation issues, for for her imaging. Lab work noted to have acute injury, clinically significant anemia, hyponatremia, hypokalemia, hypochloremia. Unable to perform CT. Decision was made to admit for transfusion, fluid resuscitation, and monitoring. Patient denies nausea and vomiting, diarrhea, rash, syncope, confusion, active bleeding per rectum or melenic stools. Complains of worsening thoracic chest wall pain, fatigue. [facility] History I have reviewed the patient's past medical history: Yes Medical History: Reports:: Cancer (skin), Congestive Heart Failure, Chronic Obstructive Pulmonary Disease (COPD), Coronary Artery Disease, Deep Vein Thrombosis, Hypertension, Myocardial Infarction, Seizures, Transient Ischemic Attacks (TIA) Denies:: Diabetes Mellitus Type 1, Diabetes Mellitus Type 2, MRSA Other Medical History: Reports: Anemia, Arthritis, Cataracts, Glaucoma, Hypothyroidism, Thyroid Disease Laterality Cases: Left: Total Hip Replacement, Bilateral: Tonsillectomy Other Surgeries: Yes: Angiogram, Cancer Surgery, Cardiac Catheterization, Colonoscopy, Coronary Stent, Hysterectomy-Total, Skin Cancer Excision Amputation: Yes (second toe on bilateral feet) Fractures: No - *Social History Educational Level: Completed High School Smoking Status: Current every day smoker Tobacco Type: cigarettes # Packs/Day (cigarettes): 15 #Yrs smoked (if former smoker): 56 Alcohol Intake: never Alcohol Intake Frequency:: other Occupational Status: disabled Housing: apartment Household Members: none - Psychiatric History Expresses thoughts of harming self/others: None Suicide Plan Description: No Plan *Family Hx:: Cancer, Coronary Artery Disease, Diabetes, Heart Attack, Hyperlipidemia, Hypertension, Kidney Disease, Stroke, Thyroid Disorder Review of Systems - Review of Systems Review of systems:: pertinent systems reviewed and negative unless documented below Meds Home Medications Medication Instructions Recorded Confirmed Type Brimonidine Tartrate/Timolol 1 drop EYE-BOTH BID 06/11/17 12/09/17 History [Combigan 0.2%-0.5% Eye Drops] Carvedilol [Carvedilol 25mg Tab] 25 mg PO BID 06/11/17 12/09/17 History Esomeprazole Magnesium [Nexium] 40 mg PO BID 06/11/17 12/09/17 History Latanoprost [Xalatan 0.005% Ophth 1 drop EYE-BOTH HS 06/11/17 12/09/17 History Soln 2.5mL] Levothyroxine Sodium 50 mcg PO DAILY 06/11/17 12/09/17 History [Levothyroxine 50mcg (0.05mg) Tab] Fluoxetine HCl [Prozac 20mg 20 mg PO DAILY 11/08/17 12/09/17 History Capsule] Losartan Potassium 100 mg PO DAILY 11/08/17 12/09/17 History Sucralfate [Carafate 1gm/10ml Oral 10 ml PO ACHS 11/08/17 12/10/17 History Susp] hydroCHLOROthiazide [HCTZ 25mg 25 mg PO DAILY 11/08/17 12/09/17 History tab] Furosemide [Furosemide 20mg Tab] 20 mg PO BID 12/10/17 12/10/17 History Potassium Chloride [Klor-con 20 20 meq PO BID 12/10/17 12/10/17 History mEq tablet] Trazodone HCl 100 mg PO HS 12/10/17 12/10/17 History Clindamycin HCl [Clindamycin HCl 300 mg PO TID 14 Days #42 cap 12/11/17 Rx 300mg Cap] Hydrocod/Acet 5/325 mg [[place] 1 tab PO TIDP PRN #15 tablet 12/11/17 Rx 5/325mg tablet] Allergies Allergy/AdvReac Type Severity Reaction Status Date / Time metoclopramide [From REGLAN] Allergy Unknown Verified 12/09/17 13:17 Exam Vital signs and Labs for Last 24 Hours: Temp Pulse Resp BP Pulse Ox 97.5 F L 78 18 143/63 H 99 06/07/18 16:01 06/07/18 16:01 06/07/18 16:01 06/07/18 16:01 06/07/18 16:01 Laboratory Results - last 24 hr 06/07/18 13:09: Sodium 130 L, Potassium 2.6 L*, Chloride 90 L, Carbon Dioxide 28, Anion Gap 14.6, BUN 35 H, Creatinine 1.83 H, Estimated GFR 27 L, Est GFR ( Amer) 33 L, Glucose 105, Calcium 7.9 L, Total Bilirubin 1.1 H, AST 17, ALT 10 L, Alkaline Phosphatase 60, Total Protein 7.6, Albumin 4.0, Globulin 3.6 H, Albumin/Globulin Ratio 1.1, TSH 0.45 D 06/07/18 13:09: WBC 5.2, RBC 3.09 L, Hgb 6.7 L*, Hct 23.7 L*, MCV 76.8 L, MCH 21.8 L, MCHC 28.4 L, RDW 17.3, Plt Count 223, MPV 8.6, Neut % (Auto) 68.1, Lymph % (Auto) 25.7, [place] % (Auto) 5.3, Eos % (Auto) 0.5, Baso % (Auto) 0.5, Neut # (Auto) 3.5, Lymph # (Auto) 1.3, [place] # (Auto) 0.3, Eos # (Auto) 0.0, Baso # (Auto) 0.0 06/07/18 15:50: Blood Type O Positive, Antibody Screen Negative, Crossmatch ([facility]) See Detail I & O for Last 24 hours: Intake & Output 06/04/18 06/05/18 06/06/18 06/07/18 23:59 23:59 23:59 23:59 Intake Total 360 / 360 Balance 360 / 360 Weight 46.975 kg - Constitutional mild distress, cachectic, chronically ill appearing - *Routine HEENT Exam Head: Present: normocephalic, atraumatic Eye: Present: EOMI, PERRL ENT: Present: mucous membranes moist Comments: Bitemporal wasting - *Routine Neck Exam Present: supple. Absent: JVD, carotid bruit Comments: Centimeter nodule right AC chain, firm, slightly mobile - Routine Chest/Breast/Axilla Exam Chest wall: Present: tenderness - *Routine Respiratory Exam Present: CTA bilaterally. Absent: prolonged expiratory phase, wheezes, crackles - *Routine Cardiovascular Exam Present: RRR, Normal S1, Normal S2. Absent: murmur - *Routine Abdominal Exam Present: soft, normoactive bowel sounds. Absent: tenderness - *Routine Rectal Exam Patient deferred: visual exam - *Routine Exam Patient deferred: external exam - *Routine Extremities Exam Absent: cyanosis, clubbing, edema Comments: Muscle wasting, - *Routine Skin Exam Present: intact, dry. Absent: cyanosis, erythema - *Routine Neurological Exam Present: alert, oriented X3. Absent: altered mental status - Routine Psychiatric Exam Present: anxious Assessment and Plan (1) Hyponatremia Current visit: Yes Status: Acute Category: Medical Code(s): E87.1 - Hypo- osmolality and hyponatremia Suspect due to hypovolemia and poor p.o. intake -IV fluid resuscitation, monitor with repeat labs in the (2) Hypokalemia Current visit: Yes Status: Acute Category: Medical Code(s): E87.6 - Hypokalemia Suspect due to dehydration, diuretic use -Replace via IV -Reassess in the morning (3) Acute kidney injury Current visit: Yes Status: Acute Category: Medical Code(s): N17.9 - Acute kidney failure, unspecified Acute on chronic, baseline 1.1 in March -Monitor improvement with fluid resuscitation -If resolves, consider CT chest -Avoid nephrotoxic's and NSAIDs (4) Anemia Current visit: No Status: Acute Qualifiers: Anemia type: unspecified type Qualified Code(s): D64.9 - Anemia, unspecified Category: Medical Code(s): D64.9 - Anemia, unspecified No active bleeding, unclear allergy at this time. Suspect patient has underlying disease process causing blood loss -Typed and screened, transfused 2 units. -Suspect this is directly related to her fatigue as well (5) Atypical chest pain Current visit: No Status: Acute Category: Medical Code(s): R07.89 - Other chest pain Subacute, in current setting unclear etiology, obtain CT chest able. Would prefer with contrast if kidney function resolves. If remains abnormal tomorrow and prohibitive to contrast, will obtain chest CT without contrast. Given patient's history of lung nodules, nodule in neck, concern for malignant process. Chest wall tender on exam, low suspicion for cardiac etiology. Pain control with hydrocodone overnight, wean as tolerated due to history of dependence (6) Dysphagia Current visit: Yes Status: Acute Qualifiers: Dysphagia type: esophageal phase Qualified Code(s): R13.10 - Dysphagia, unspecified Category: Medical Code(s): R13.10 - Dysphagia, unspecified Patient has sensation of food getting stuck, worse with solids. Extensive history of GI issues including need for dilation. With extensive history history of smoking and tobacco dependence, concern for abnormality in the esophagus such as cancer. CT to assess in the morning. If unable to perform CT, will obtain upper GI series. Regular diet as tolerated (7) Fatigue associated with anemia Current visit: Yes Status: Acute Category: Medical Code(s): D64.9 - Anemia, unspecified - Assessment and plan all Dx Assessment and Plan for all problems:: Patient has severe debility. Condition is tenuous. Have strong suspicion for malignant process and overall concern for poor prognosis. Require inpatient management.
[2018-06-08 08:16] LABS: Basophils % 0.3 % (0.1-2.0); Eosinophils % 1.2 % (0.1-12.0); Hematocrit 29.1 % (37.0-47.0); Lymphocytes # 1.1 K/mm3 (0.7-4.5); Mean Corpuscular HGB Conc 30.7 g/dL (31.8-35.4); Mean Corpuscular Hemoglobin 24.2 pg (27.0-31.2); Mean Corpuscular Volume 78.8 fl (81-99); Monocytes # 0.2 K/mm3 (0.1-1.0); Monocytes % 8.2 % (1.7-9.3); Neutrophils # 1.6 K/mm3 (1.8-7.8); Neutrophils % 54.2 % (37.0-80.0); Platelet Count 155 K/mm3 (142-424); Red Blood Count 3.69 M/mm3 (4.20-5.40); Red Cell Distribution Width 17.4 % (11.5-17.5)
[2018-06-08 08:20] LABS: Albumin Level 3.2 gm/dL (3.4-5.0); Albumin/Globulin Ratio 0.9 (1.1-1.8); Bilirubin,Total 1.1 mg/dL (0.2-1.0); Calcium 7.4 mg/dL (8.5-10.1); Globulin 3.4 gm/dl (1.3-3.2); Phosphorous 3.1 mg/dL (2.4-4.9); Total Protein,Serum 6.6 gm/dL (6.4-8.2)
--- NOTE | 2018-06-08 13:19 | Progress Note ---
Internal Medicine - PN: Subj *Date: 06/08/18 *Time: 10:00 Interval history: Improved overnight with blood and lip placement along with fluid repletion. Complains of headache this morning. Had a reaction to second unit of blood prompting cessation of transfusion and cross-matching for another unit. Labs improved today. Creatinine still dated two-point that CT with contrast cannot be performed. Tolerating diet, able to swallow somewhat with her regular diet, however has requested regular diet. Trial, hemodynamically stable Exam Vital signs and Labs for Last 24 Hours: Temp Pulse Resp BP Pulse Ox 98.1 F 66 16 124/59 L 98 06/08/18 07:20 06/08/18 07:20 06/08/18 07:20 06/08/18 07:20 06/08/18 07:52 Laboratory Results - last 24 hr 06/07/18 13:09: Sodium 130 L, Potassium 2.6 L*, Chloride 90 L, Carbon Dioxide 28, Anion Gap 14.6, BUN 35 H, Creatinine 1.83 H, Estimated GFR 27 L, Est GFR ( Amer) 33 L, Glucose 105, Calcium 7.9 L, Total Bilirubin 1.1 H, AST 17, ALT 10 L, Alkaline Phosphatase 60, Total Protein 7.6, Albumin 4.0, Globulin 3.6 H, Albumin/Globulin Ratio 1.1, TSH 0.45 D 06/07/18 13:09: WBC 5.2, RBC 3.09 L, Hgb 6.7 L*, Hct 23.7 L*, MCV 76.8 L, MCH 21.8 L, MCHC 28.4 L, RDW 17.3, Plt Count 223, MPV 8.6, Neut % (Auto) 68.1, Lymph % (Auto) 25.7, [place] % (Auto) 5.3, Eos % (Auto) 0.5, Baso % (Auto) 0.5, Neut # (Auto) 3.5, Lymph # (Auto) 1.3, [place] # (Auto) 0.3, Eos # (Auto) 0.0, Baso # (Auto) 0.0 06/07/18 15:50: Blood Type O Positive, Antibody Screen Negative, Crossmatch ([facility]) See Detail 06/08/18 07:30: WBC 3.0 L D, RBC 3.69 L, Hgb 9.0 L D, Hct 29.1 L, MCV 78.8 L, MCH 24.2 L, MCHC 30.7 L, RDW 17.4, Plt Count 155 D, MPV 9.0, Neut % (Auto) 54.2, Lymph % (Auto) 36.0, [place] % (Auto) 8.2, Eos % (Auto) 1.2, Baso % (Auto) 0.3, Neut # (Auto) 1.6 L, Lymph # (Auto) 1.1, [place] # (Auto) 0.2, Eos # (Auto) 0.0, Baso # (Auto) 0.0 06/08/18 07:30: Sodium 135 L, Potassium 3.0 L, Chloride 99, Carbon Dioxide 29, Anion Gap 10.0, BUN 34 H, Creatinine 1.57 H, Estimated Creat Clear 25, Estimated GFR 32 L, Est GFR ( Amer) 39 L, Glucose 95, Calcium 7.4 L, Phosphorus 3.1, Magnesium 2.0, Total Bilirubin 1.1 H, AST 14 L, ALT 10 L, Alkaline Phosphatase 56, Total Protein 6.6, Albumin 3.2 L D, Globulin 3.4 H, Albumin/Globulin Ratio 0.9 L I & O for Last 24 hours: Intake & Output 06/05/18 06/06/18 06/07/18 06/08/18 23:59 23:59 23:59 23:59 Intake Total 460 / 460 1069 / 1069 Balance 460 / 460 1069 / 1069 Weight 46.975 kg 48.223 kg Narrative: - Constitutional No acute distress, cachectic, chronically ill appearing - *Routine HEENT Exam Head: Present: normocephalic, atraumatic Eye: Present: EOMI, PERRL ENT: Present: mucous membranes moist Comments: Bitemporal wasting - *Routine Neck Exam Present: supple. Absent: JVD, carotid bruit Comments: Centimeter nodule right AC chain, firm, slightly mobile - Routine Chest/Breast/Axilla Exam Chest wall: Present: tenderness - *Routine Respiratory Exam Present: CTA bilaterally. Absent: prolonged expiratory phase, wheezes, crackles - *Routine Cardiovascular Exam Present: RRR, Normal S1, Normal S2. Absent: murmur - *Routine Abdominal Exam Present: soft, normoactive bowel sounds. Absent: tenderness - *Routine Rectal Exam Patient deferred: visual exam - *Routine Exam Patient deferred: external exam - *Routine Extremities Exam Absent: cyanosis, clubbing, edema Comments: Muscle wasting, - *Routine Skin Exam Present: intact, dry. Absent: cyanosis, erythema - *Routine Neurological Exam Present: alert, oriented X3. Absent: altered mental status - Routine Psychiatric Exam Present: anxious Assessment and Plan (1) Hyponatremia Current visit: Yes Status: Resolved Category: Medical Code(s): E87.1 - Hypo-osmolality and hyponatremia (2) Hypokalemia Current visit: Yes Status: Acute Category: Medical Code(s): E87.6 - Hypokalemia Improving, continue repletion repeat labs in the morning (3) Acute kidney injury Current visit: Yes Status: Acute Category: Medical Code(s): N17.9 - Acute kidney failure, unspecified (4) Anemia Current visit: No Status: Acute Qualifiers: Anemia type: unspecified type Qualified Code(s): D64.9 - Anemia, unspecified Category: Medical Code(s): D64.9 - Anemia, unspecified (5) Atypical chest pain Current visit: No Status: Acute Category: Medical Code(s): R07.89 - Other chest pain (6) Dysphagia Current visit: Yes Status: Acute Qualifiers: Dysphagia type: esophageal phase Qualified Code(s): R13.10 - Dysphagia, unspecified Category: Medical Code(s): R13.10 - Dysphagia, unspecified (7) Fatigue associated with anemia Current visit: Yes Status: Acute Category: Medical Code(s): D64.9 - Anemia , unspecified (8) Hypocalcemia Current visit: Yes Status: Acute Category: Medical Code(s): E83.51 - Hypocalcemia Unclear etiology, made worse after blood transfusions. Replete today, repeat labs in the morning. Further workup pending imaging results - Assessment and plan all Dx Assessment and Plan for all problems:: Ms. Veloz continues to remain fragile. Addressing pain with Tylenol and hydrocodone, minimizing doses due to concern for dependence in the past. Avoiding NSAIDs at this time due to kidney injury. Kidney injury improving however not improved enough T with contrast. Continue fluids and electrolyte replacement. Repeat lab work in the morning. Anticipate imaging tomorrow with a contrast pending kidney improvement. Continues to require inpatient management for multiple comorbidities, fragility, electrolyte disturbances.
[2018-06-09 07:01] LABS: Basophils % 0.3 % (0.1-2.0); Eosinophils # 0.1 K/mm3 (0.0-0.4); Eosinophils % 1.6 % (0.1-12.0); Lymphocytes # 0.9 K/mm3 (0.7-4.5); Mean Corpuscular HGB Conc 30.5 g/dL (31.8-35.4); Mean Corpuscular Hemoglobin 24.3 pg (27.0-31.2); Mean Corpuscular Volume 79.6 fl (81-99); Mean Platelet Volume 8.6 fl (7.4-10.4); Monocytes # 0.3 K/mm3 (0.1-1.0); Monocytes % 9.3 % (1.7-9.3); Neutrophils # 1.6 K/mm3 (1.8-7.8); Neutrophils % 55.7 % (37.0-80.0); Platelet Count 163 K/mm3 (142-424); Red Blood Count 3.69 M/mm3 (4.20-5.40); Red Cell Distribution Width 17.4 % (11.5-17.5); White Blood Count 2.8 K/mm3 (4.8-10.8)
[2018-06-09 07:02] LABS: Hematocrit 29.4 % (37.0-47.0)
[2018-06-09 07:15] LABS: Albumin Level 2.9 gm/dL (3.4-5.0); Albumin/Globulin Ratio 0.9 (1.1-1.8); Bilirubin,Total 0.9 mg/dL (0.2-1.0); Globulin 3.1 gm/dl (1.3-3.2); Phosphorous 2.8 mg/dL (2.4-4.9)
[2018-06-09 07:17] LABS: Calcium 8.2 mg/dL (8.5-10.1)
--- NOTE | 2018-06-09 10:44 | Discharge Summary ---
General - General Admission date:: 06/07/18 Discharge date: 06/09/18 HPI HPI: Ms. Veloz is a 73-year-old female with recent history of weight loss, fatigue. She presented to clinic yesterday in [place] where she was noted to have lost 13 pounds in 6 weeks. Reported worsening fatigue, shortness of breath with exertion, exercise intolerance, and being very thirsty. Her home health nurse was concerned that she was dehydrated due to some tenting skin. Additionally she reports that for the past month she is having worsening sensation of food getting stuck in her esophagus. Difficulty swallowing solids, missed an EGD last week. Extensive history with GI at for esophageal dilatation, fundoplication. Decision was made to obtain CT chest and abdomen with contrast and lab work prior to imaging. She presented day, due to transportation issues, for for her imaging. Lab work noted to have acute injury, clinically significant anemia, hyponatremia, hypokalemia, hypochloremia. Unable to perform CT. Decision was made to admit for transfusion, fluid resuscitation, and monitoring. Patient denies nausea and vomiting, diarrhea, rash, syncope, confusion, active bleeding per rectum or melenic stools. Complains of worsening thoracic chest wall pain, fatigue. Objective Vital signs: Temp Pulse Resp BP Pulse Ox 98.7 F 68 18 128/59 L 97 06/09/18 08:00 06/09/18 08:00 06/09/18 08:00 06/09/18 08:00 06/09/18 08:00 Results Labs on day of discharge: Labs from last 24 hours 06/09/18 06/09/18 06:46 06:46 WBC 2.8 L RBC 3.69 L Hgb 9.0 L Hct 29.4 L MCV 79.6 L MCH 24.3 L MCHC 30.5 L RDW 17.4 Plt Count 163 MPV 8.6 Neut % (Auto) 55.7 Lymph % (Auto) 33.0 [place] % (Auto) 9.3 Eos % (Auto) 1.6 Baso % (Auto) 0.3 Neut # (Auto) 1.6 L Lymph # (Auto) 0.9 [place] # (Auto) 0.3 Eos # (Auto) 0.1 Baso # (Auto) 0.0 Sodium 140 Potassium 3.0 L Chloride 102 Carbon Dioxide 29 Anion Gap 12.0 BUN 27 H Creatinine 1.28 H Estimated Creat Clear 31 Estimated GFR 41 L Est GFR ( Amer) 50 L D Glucose 102 Calcium 8.2 L D Phosphorus 2.8 Magnesium 1.6 D Total Bilirubin 0.9 AST 16 ALT 10 L Alkaline Phosphatase 49 Total Protein 6.0 L Albumin 2.9 L Globulin 3.1 Albumin/Globulin Ratio 0.9 L DS: Diagnosis - Discharge Diagnosis (1) Hyponatremia Status: Resolved (2) Hypokalemia Status: Acute (3) Acute kidney injury Status: Acute (4) Anemia Status: Acute (5) Atypical chest pain Status: Acute (6) Dysphagia Status: Acute (7) Fatigue associated with anemia Status: Acute (8) Hypocalcemia Status: Acute Discharge Plan - Patient Discharge Instructions Patient Instructions: Anemia, DI for Blood Transfusion, DI for Fatigue, DI for Hypokalemia, DI for Hyponatremia, Peripherally Inserted Central Catheter, Central Line-Associated Bloodstream Infections, DI for Muscle Weakness - Follow up Plan Home Medications: Home Medications Medication Instructions Recorded Confirmed Type Carvedilol [Carvedilol 25mg Tab] 25 mg PO BID 06/11/17 06/08/18 History Esomeprazole Magnesium [Nexium] 40 mg PO BID 06/11/17 06/08/18 History Latanoprost [Xalatan 0.005% Ophth 1 drop EYE-BOTH 06/11/17 06/08/18 History Soln 2.5mL] Levothyroxine Sodium 50 mcg PO DAILY 06/11/17 06/08/18 History [Levothyroxine 50mcg (0.05mg) Tab] hydroCHLOROthiazide [HCTZ 25mg 25 mg PO DAILY 11/08/17 06/08/18 History tab] Potassium Chloride [Klor-con 20 20 meq PO BID 12/10/17 06/08/18 History mEq tablet] Trazodone HCl 100 mg PO HS 12/10/17 06/08/18 History Furosemide [Furosemide 40MG tAB] 40 mg PO DAILY 06/08/18 06/08/18 History Losartan Potassium 100 mg PO DAILY 06/08/18 06/08/18 History Prescriptions/Medication Reconciliation: No Action Carvedilol [Carvedilol 25mg Tab] 25 mg PO BID Levothyroxine Sodium [Levothyroxine 50mcg (0.05mg) Tab] 50 mcg PO DAILY Latanoprost [Xalatan 0.005% Ophth Soln 2.5mL] 1 drop EYE-BOTH HS Esomeprazole Magnesium [Nexium] 40 mg PO BID hydroCHLOROthiazide [HCTZ 25mg tab] 25 mg PO DAILY Potassium Chloride [Klor-con 20 mEq tablet] 20 meq PO BID Trazodone HCl 100 mg PO HS Losartan Potassium 100 mg PO DAILY Furosemide [Furosemide 40MG tAB] 40 mg PO DAILY
== END 2018-06-09 14:51 | disposition home or self-care (01) ==
LOC: RAD 13:02 → 2ND 14:50 → INTOOBSV 14:50
PROVIDERS: ADMIT Internal Medicine Adolescent Medicine; ATTEND Internal Medicine Adolescent Medicine
DX: Z79.890 Hormone replacement therapy; Z79.899 Other long term (current) drug therapy; E87.6 Hypokalemia; Z82.49 Family history of ischemic heart disease and other diseases of the circulatory system; Z90.710 Acquired absence of both cervix and uterus; I25.10 Atherosclerotic heart disease of native coronary artery without angina pectoris; Z86.73 Personal history of transient ischemic attack (TIA), and cerebral infarction without residual deficits; E03.9 Hypothyroidism, unspecified; I11.0 Hypertensive heart disease with heart failure; Z82.3 Family history of stroke; Z86.718 Personal history of other venous thrombosis and embolism; Z95.5 Presence of coronary angioplasty implant and graft; Z83.438 Family history of other disorder of lipoprotein metabolism and other lipidemia; R07.89 Other chest pain; Z89.421 Acquired absence of other right toe(s); T80.92XA Unspecified transfusion reaction, initial encounter; Z88.8 Allergy status to other drugs, medicaments and biological substances; D64.9 Anemia, unspecified; Z83.49 Family history of other endocrine, nutritional and metabolic diseases; N17.9 Acute kidney failure, unspecified; E83.51 Hypocalcemia; Z80.9 Family history of malignant neoplasm, unspecified; R63.4 Abnormal weight loss; Z89.422 Acquired absence of other left toe(s); Z68.21 Body mass index [BMI] 21.0-21.9, adult; Z83.3 Family history of diabetes mellitus; F17.210 Nicotine dependence, cigarettes, uncomplicated; J44.9 Chronic obstructive pulmonary disease, unspecified; I50.9 Heart failure, unspecified; I25.2 Old myocardial infarction; Z85.828 Personal history of other malignant neoplasm of skin; Z84.1 Family history of disorders of kidney and ureter; R51 Headache; R13.10 Dysphagia, unspecified; E87.1 Hypo-osmolality and hyponatremia; Z79.891 Long term (current) use of opiate analgesic
CPT/HCPCS: 36415; 36569; 70491; 71010; 71045; 71260; 74177; 80053; 83735; 84100; 84443; 85025; 86850; C1751; G0378; P9016; Q9967

== ENCOUNTER → 2018-07-09 10:15 | Outpatient (POV) | payer MEDICARE, MEDICAID, SELFPAY | PROVIDERS: Visit Provider Dermatology | DX: Z00.00 Encounter for general adult medical examination without abnormal findings (principal) ==

== ENCOUNTER 2018-12-24 11:06 | Observation (INO) ==
--- NOTE | 2018-12-24 11:29 | Emergency Department Note ---
ED Disposition Clinical Impression: Anemia Qualifiers: Anemia type: unspecified type Qualified Code(s): D64.9 - Anemia, unspecified UTI (urinary tract infection) Qualifiers: Urinary tract infection type: acute cystitis Hematuria presence: without hematuria Qualified Code(s): N30.00 - Acute cystitis without hematuria CHF (congestive heart failure) Qualifiers: Heart failure type: unspecified Heart failure chronicity: acute on chronic Qualified Code(s): I50.9 - Heart failure, unspecified Disposition: Admitted as Observation Condition on Discharge: Fair - Critical Care Critical Care Time: No Attestation: On , the high probability of a clinically significant, sudden or life threatening deterioration of the following system(s) required my full and direct attention, intervention and personal management. The time I documented below is in addition to time spent performing reported procedures but includes the following listed in this critical care notation. Medical Decision Making - Serg Inquiry Pt receiving controlled substance: Yes Serg was queried for this patient: Yes Reference #:: [id number] Risks and benefits of using a controlled substance: were not discussed with pt by me Comment: 8 rxs. last rx gabapentin Vital Signs: 12/24/18 11:27 Temperature 98.4 F Temperature Source Oral Pulse Rate [Right Brachial] 76 Respiratory Rate 18 Blood Pressure [Right Arm] 134/59 L Blood Pressure Mean [Right Arm] 84 Blood Pressure Source [Right Arm] Automatic Cuff Blood Pressure Position [Right Arm] Supine 02 Sat by Pulse Oximetry 99 Oxygen Delivery Method Room Air - Lab Data Lab Results 12/24/18 12:15: WBC 3.5 L, RBC 3.46 L, Hgb 6.6 L*, Hct 23.8 L*, MCV 68.8 L, MCH 19.0 L, MCHC 27.6 L, RDW 21.2 H, Plt Count 145, MPV 8.1, Neut % (Auto) 67.3, Lymph % (Auto) 23.3, [place] % (Auto) 8.9, Eos % (Auto) 0.4, Baso % (Auto) 0.2, Neut # (Auto) 2.4, Lymph # (Auto) 0.8, [place] # (Auto) 0.3, Eos # (Auto) 0.0, Baso # (Auto) 0.0, ESR 47 H 12/24/18 12:15: Sodium 139, Potassium 3.6, Chloride 102, Carbon Dioxide 29, A nion Gap 11.6, BUN 10, Creatinine 1.03 H, Estimated Creat Clear 38, Estimated GFR 53 L, Est GFR ( Amer) 64, Glucose 99, Calcium 8.3 L, Total Bilirubin 0.6, AST 13 L, ALT 14, Alkaline Phosphatase 67, Troponin I < 0.02, C-Reactive Protein 7.8 H, Total Protein 6.8, Albumin 2.6 L, Globulin 4.2 H, Albumin/Vicky bulin Ratio 0.6 L, TSH 0.42, Free T4 1.57 H 12/24/18 12:15: B-Natriuretic Peptide 831 H 12/24/18 12:25: Urine Color Yellow, Urine Appearance Sl cloudy, Urine pH 6.0, Ur Specific [place] 1.010, Urine Protein Negative, Urine Glucose (UA) Negative, Urine Ketones Negative, Urine Blood Negative, Urine Nitrate Positive, Urine Bilirubin Negative, Urine Urobilinogen 0.2, Ur Leukocyte Esterase 1+ A, Urine RBC Occasional, Urine WBC 10-20, Ur Squamous Epith Cells 5-10, Urine Bacteria 3+ Result diagrams: 12/24/18 12:15 12/24/18 12:15 Orders (Tests/Meds): ED MEDICATIONS Generic Name Dose Route Start Last Admin Trade Name Freq PRN Reason Stop Dose Admin Ceftriaxone Sodium 1 gm/ 50 mls @ 100 mls/hr 12/24/18 14:00 Sodium Chloride IV 01/07/19 13:59 Q24H KAIDEN Protocol Discontinued Medications Generic Name Dose Route Start Last Admin Trade Name Freq PRN Reason Stop Dose Admin Furosemide 40 mg 12/24/18 13:58 Lasix 40mg/4ml Vial IV 12/24/18 13:59 ONCE ONE Morphine Sulfate 4 mg 12/24/18 13:59 Morphine 4mg/Ml Syringe IV 12/24/18 14:00 ONCE ONE ORDERS Category Date Time Status Urine Culture Stat Micro 12/24/18 12:25 Received - Radiology Data #1 Image(s): Chest Image Reviewed: Yes I reviewed the patient's radiology image, Yes I have reviewed radiologist's interpretation IMPRESSION: Persistent stable hazy right lung base density suggests scar. Possible small right lateral posterior pleural effusion. Dictated By: Suleman Belle MD [id number] - ECG Data Tracing #1 EKG interpreted by Amrit Bowman MD: Rhythm: sinus Rate: 76 [place]: normal Ectopy: none Conduction: normal ST Segment Changes: none T Wave Changes: none Q Waves: none No evidence of acute ischemia or injury Poor R wave progression Prior electrocardiagrams reviewed. No change from prior tracings. - Physician Consults Physician Consulted: Haris Time: 12:35 Reason -: Pt condition Comment/Response: He states he did address the patient's concern about "infection" with her at her office visit. If work-up unremarkable, discharged for outpatient follow-up. Additional Consult: Haris Time: 14:00 Reason -: Admission Comment/Response: Agrees to admit the patient to the hospital. We discussed the patient's clinical information, including history, exam, laboratory and radiology results and ED course. Per hospital procedure, I will write temporary bridge inpatient orders on the patient. Specific orders requested by the admitting physician: Lasix 40 mg IV x1, type and cross 2 units, transfuse 1 unit, IV Rocephin. General Adult HPI - General Stated complaint: leg weakness nausea Time Seen by Provider: 12/24/18 11:33 - History of Present Illness HPI narrative: Complains of bilateral leg and feet swelling and pain for a couple months. States she feels swollen all the way up into her abdomen. Has a sore on her right small finger for 3 weeks. Has a sore on her left ear pinna for quite some time, longer than [address] Carballo in the office a couple of weeks ago and she says he diagnosed her with peripheral edema. She is afraid that she has an infection in her bone or in her body. 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 States that she does not remember whether she mentioned the sores on her finger and ear to Dr. Carballo. She takes Lasix 40 mg every other day. - Related Data Home Medications Medication Instructions Recorded Confirmed Esomeprazole Magnesium [Nexium] 40 mg PO BID 06/11/17 12/24/18 Latanoprost [Xalatan 0.005% Ophth 1 drop EYE-BOTH HS 06/11/17 12/24/18 Soln 2.5mL] Levothyroxine Sodium 50 mcg PO DAILY 06/11/17 12/24/18 [Levothyroxine 50mcg (0.05mg) Tab] Potassium Chloride [Klor-con 20 20 meq PO BID 12/10/17 12/24/18 mEq tablet] Trazodone HCl 100 mg PO HS 12/10/17 12/24/18 Losartan Potassium 100 mg PO DAILY 06/08/18 12/24/18 Previous Rx's Medication Instructions Recorded Carvedilol [Carvedilol 25mg Tab] 12.5 mg PO BID #0 06/09/18 Hydrocod/Acet 5/325 mg [[place] 1 tab PO TIDP PRN #9 tablet 06/09/18 5/325mg tablet] Allergies Allergy/AdvReac Type Severity Reaction Status Date / Time brimonidine [From Combigan] Allergy Intermediate Rash Verified 06/08/18 10:51 timolol [From Combigan] Allergy Intermediate Rash Verified 06/08/18 10:51 metoclopramide [From REGLAN] Allergy Unknown Unknown Verified 06/08/18 10:51 allergy reaction [facility] History - Hepatitis A Screen Attestation statement:: This patient has been screened for Hepatitis A risk factors. I have reviewed the patient's past medical history: Yes Medical History: Reports:: Cancer (skin), Congestive Heart Failure, Chronic Obstructive Pulmonary Disease (COPD), Coronary Artery Disease, Deep Vein Thrombosis, Hypertension, Myocardial Infarction, Seizures, Transient Ischemic Attacks (TIA) Denies:: Diabetes Mellitus Type 1, Diabetes Mellitus Type 2, MRSA Other Medical History: Reports: Anemia, Arthritis, Cataracts, Glaucoma, Hypothyroidism, Thyroid Disease Laterality Cases: Left: Total Hip Replacement, Bilateral: Tonsillectomy Other Surgeries: Yes: Angiogram, Cancer Surgery, Cardiac Catheterization, Colonoscopy, Coronary Stent, Hysterectomy-Total, Skin Cancer Excision Amputation: Yes (second toe on bilateral feet) Fractures: No - Social History Smoking Status: Current every day smoker Tobacco Type: cigarettes # Packs/Day (cigarettes): 15 #Yrs smoked (if former smoker): 56 Alcohol Intake: never Alcohol Intake Frequency:: other Occupational Status: disabled Housing: apartment Household Members: none Family Hx:: Cancer, Coronary Artery Disease, Diabetes, Heart Attack, Hyperlipidemia, Hypertension, Kidney Disease, Stroke, Thyroid Disorder ROS Obtained: Yes All systems reviewed & no additional complaints - Constitutional Constitutional: Denies fever(s) - Cardiovascular Cardiovascular: Denies chest pain, Reports edema - Respiratory Respiratory: No dyspnea - Gastrointestinal Gastrointestingal: Reports: nausea. Denies: abdominal pain - Musculoskeletal Musculoskeletal: Reports as per HPI Physical Exam - General General appearance: alert, in no apparent distress, anxious - Head Head exam: atraumatic, normocephalic - Eye Eye exam: Present: normal appearance, EOMI - ENT ENT exam: Present: mucous membranes moist - Neck Neck exam: Present: normal inspection, full ROM, trachea midline - Chest Chest inspection: Present: normal inspection, symmetric chest wall rise - Respiratory Respiratory exam: Present: normal lung sounds bilaterally. Absent: respiratory distress - Cardiovascular Cardiovascular exam: Present: regular rate, normal rhythm, normal heart sounds - Abdominal Exam Abdominal exam: Present: soft, normal bowel sounds. Absent: distention, tenderness - Extremities Exam Extremities exam: Present: other (2-3+ pretibial and pedal edema bilaterally symmetric) - Neurological Exam Neurological exam: Present: alert, oriented X3 - Other Other exam information: 1 cm lesion on right small finger PIP joint area that appears to be a ruptured vesicle without signs of infection. Scab on helix of left pinna, 1 cm.
[2018-12-24 12:32] LABS: Microscopic, Urine URINE MICROSCOPIC (MICROSCOPIC)
[2018-12-24 12:34] LABS: Appearance,Urine SL CLOUDY (Clear); Bilirubin,Urine Negative (Negative); Blood, Urine Negative (Negative); Color,Urine YELLOW (Yellow); Glucose,Urine (UA) Negative (Negative); Ketones,Urine Negative (Negative); Leukocyte Esterase,Urine 1+ (Negative); Protein,Urine Negative (Negative); Urobilinogen,Urine 0.2 EU/dl (0.2)
[2018-12-24 12:44] LABS: Basophils % 0.2 % (0.1-2.0); Eosinophils % 0.4 % (0.1-12.0); Lymphocytes # 0.8 K/mm3 (0.7-4.5); Lymphocytes % 23.3 % (10-50); Mean Corpuscular HGB Conc 27.6 g/dL (31.8-35.4); Mean Corpuscular Volume 68.8 fl (81-99); Mean Platelet Volume 8.1 fl (7.4-10.4); Monocytes # 0.3 K/mm3 (0.1-1.0); Monocytes % 8.9 % (1.7-9.3); Neutrophils # 2.4 K/mm3 (1.8-7.8); Neutrophils % 67.3 % (37.0-80.0); Platelet Count 145 K/mm3 (142-424); Red Blood Count 3.46 M/mm3 (4.20-5.40); Red Cell Distribution Width 21.2 % (11.5-17.5); White Blood Count 3.5 K/mm3 (4.8-10.8)
[2018-12-24 12:49] LABS: Bacteria,Urine 3+ /lpf; RBC,Urine Occasional #/hpf (0-3)
[2018-12-24 12:51] LABS: Hematocrit 23.8 % (37.0-47.0); Hemoglobin 6.6 g/dL (12.2-16.2)
[2018-12-24 12:54] LABS: Alanine Aminotransferase 14 U/L (12-78); Albumin Level 2.6 gm/dL (3.4-5.0); Albumin/Globulin Ratio 0.6 (1.1-1.8); Alkaline Phosphatase 67 U/L (46-116); Anion Gap 11.6 mEq/L (5-15); Aspartate Amino Transferase 13 U/L (15-37); Bilirubin,Total 0.6 mg/dL (0.2-1.0); Blood Urea Nitrogen 10 mg/dL (7-18); C-Reactive Protein 7.8 mg/L (0.0-0.9); Calcium 8.3 mg/dL (8.5-10.1); Carbon Dioxide 29 mmol/L (21.0-32.0); Chloride 102 mmol/L (98-107); Free T4 (Free Thyroxine) 1.57 ng/dl (0.76-1.46); Globulin 4.2 gm/dl (1.3-3.2); Glucose 99 mg/dL (74-106); Sodium 139 mmol/L (136-145); Thyroid Stimulating Hormone 0.42 uIU/ml (0.358-3.740); Total Protein,Serum 6.8 gm/dL (6.4-8.2)
[2018-12-24 13:15] LABS: Erythrocyte Sedimentation Rate 47 mm/hr (0-30)
--- NOTE | 2018-12-24 15:13 | Pharmacy Consult Notes ---
[facility] Pharmacy VTE Monitoring - Patient Demographics Admission date: 12/24/18 Report Date: 12/24/18 Time: 15:12 Allergies/Adverse Reactions: Patient Allergies brimonidine [From Combigan] Allergy (Intermediate, Verified 06/08/18 10:51) Rash timolol [From Combigan] Allergy (Intermediate, Verified 06/08/18 10:51) Rash metoclopramide [From REGLAN] Allergy (Unknown, Verified 06/08/18 10:51) Unknown allergy reaction Height: 1.55 m Weight: 50.349 kg Patient Problems: Current Active Problems (Updated 12/24/18 @ 14:02 by Amrit Bowman MD) Anemia (Acute) UTI (urinary tract infection) (Acute) CHF (congestive heart failure) (Acute) - VTE Risk Labs: VTE Related Lab Results Hgb 6.6 g/dL (12.2-16.2) L* 12/24/18 12:15 Hct 23.8 % (37.0-47.0) L* 12/24/18 12:15 Plt Count 145 K/mm3 (142-424) 12/24/18 12:15 BUN 10 mg/dL (7-18) 12/24/18 12:15 Creatinine 1.03 mg/dL (0.55-1.02) H 12/24/18 12:15 Estimated Creat Clear 38 mL/min (50-200) 12/24/18 12:15 VTE Score: 4 VTE Risk Level: Low Risk - Prophylaxis VTE Prophylaxis Ordered?: Yes Types of VTE Prophylaxis: TEDS Knee High Location of Applied Device: Bilateral Lower Extremeties
--- NOTE | 2018-12-24 17:29 | History & Physical Report ---
*Admission Date: 12/24/18 *Chief complaint: fatigue, patient reports being "concerned for an infection" *History of present illness: Ms. Veloz is a 73-year-old female with extensive medical history including CHF who presents with worsening edema, lower extremity pain, and symptomatic anemia. She came to the ER due to concern for fatigue and worsening swelling in her legs. The swelling is causing significant pain. She was concerned about having an infection and wanted to be assessed which is what brought her to the emergency room. Denies fevers, chest pain, shortness of breath, nausea or vomiting, diarrhea. Has noted swelling worsening even in the setting of taking Lasix every other day. Initial work-up was concerning for hemoglobin of 6.6. Admitted to medicine for further management including transfusion and diuresis [facility] History I have reviewed the patient's past medical history: Yes Medical History: Reports:: Congestive Heart Failure, Chronic Obstructive Pulmonary Disease (COPD), Coronary Artery Disease, Deep Vein Thrombosis, Hypertension, Myocardial Infarction, Seizures, Transient Ischemic Attacks (TIA) Denies:: Cancer, Diabetes Mellitus Type 1, Diabetes Mellitus Type 2, MRSA *Have you ever received a pneumonia vaccine?: Yes *Have you received a flu vaccine this season?: Yes Other Medical History: Reports: Anemia, Arthritis, Cataracts, Glaucoma, Hypothyroidism, Thyroid Disease Laterality Cases: Left: Total Hip Replacement, Bilateral: Tonsillectomy Other Surgeries: Yes: Angiogram, Cancer Surgery, Cardiac Catheterization, Colonoscopy, Coronary Stent, Hysterectomy-Total, Skin Cancer Excision Amputation: Yes (second toe on bilateral feet) Fractures: No - *Social History Educational Level: Completed High School Smoking Status: Current every day smoker Tobacco Type: cigarettes # Packs/Day (cigarettes): 1 #Yrs smoked (if former smoker): 56 Alcohol Intake: never Alcohol Intake Frequency:: other *Occupational Status:: disabled Housing: apartment Household Members: none *Travel in the last 8 weeks: None - Psychiatric History Expresses thoughts of harming self/others: None Suicide Plan Description: No Plan Family Hx:: Cancer, Coronary Artery Disease, Diabetes, Heart Attack, Hyperlipidemia, Hypertension, Kidney Disease, Stroke, Thyroid Disorder Review of Systems - Review of Systems Review of systems:: pertinent systems reviewed and negative unless documented below Meds Home Medications Medication Instructions Recorded Confirmed Type Esomeprazole Magnesium [Nexium] 40 mg PO BID 06/11/17 12/24/18 History Latanoprost [Xalatan 0.005% Ophth 1 drop EYE-BOTH HS 06/11/17 12/24/18 History Soln 2.5mL] Levothyroxine Sodium 50 mcg PO DAILY 06/11/17 12/24/18 History [Levothyroxine 50mcg (0.05mg) Tab] Potassium Chloride [Klor-con 20 40 meq PO BID 12/10/17 12/24/18 History mEq tablet] Trazodone HCl 100 mg PO HS 12/10/17 12/24/18 History Atorvastatin Calcium [Atorvastatin 20 mg PO HS 12/24/18 12/24/18 History 20mg Tab] Carvedilol [Coreg 25mg Tablet] 25 mg PO BID 12/24/18 12/24/18 History Denosumab [Denosumab 60mg/mL 60 mg SQ .EVERY 6 MONTHS 12/24/18 12/24/18 History syringe] Fluoxetine HCl [Prozac 20mg 20 mg PO DAILY 12/24/18 12/24/18 History Capsule] Furosemide [Furosemide 40MG tAB] 40 mg PO Q48H 12/24/18 12/24/18 History Gabapentin [Gabapentin 400mg Cap] 400 mg PO TID 12/24/18 12/24/18 History Sucralfate [Carafate 1gm/10mL 1 gm PO ACHS 12/24/18 12/24/18 History Susp] Allergies Allergy/AdvReac Type Severity Reaction Status Date / Time brimonidine [From Combigan] Allergy Intermediate Rash Verified 06/08/18 10:51 timolol [From Combigan] Allergy Intermediate Rash Verified 06/08/18 10:51 metoclopramide [From REGLAN] Allergy Unknown Unknown Verified 06/08/18 10:51 allergy reaction Exam Vital signs and Labs for Last 24 Hours: Temp Pulse Resp BP Pulse Ox 98.2 F 72 20 158/54 H 100 12/24/18 15:00 12/24/18 15:00 12/24/18 15:00 12/24/18 15:00 12/24/18 15:00 Laboratory Results - last 24 hr 12/24/18 12:15: WBC 3.5 L, RBC 3.46 L, Hgb 6.6 L*, Hct 23.8 L*, MCV 68.8 L, MCH 19.0 L, MCHC 27.6 L, RDW 21.2 H, Plt Count 145, MPV 8.1, Neut % (Auto) 67.3, Lymph % (Auto) 23.3, [place] % (Auto) 8.9, Eos % (Auto) 0.4, Baso % (Auto) 0.2, Neut # (Auto) 2.4, Lymph # (Auto) 0.8, [place] # (Auto) 0.3, Eos # (Auto) 0.0, Baso # (Auto) 0.0, ESR 47 H 12/24/18 12:15: Sodium 139, Potassium 3.6, Chloride 102, Carbon Dioxide 29, Anion Gap 11.6, BUN 10, Creatinine 1.03 H, Estimated Creat Clear 38, Estimated GFR 53 L, Est GFR ( Amer) 64, Glucose 99, Calcium 8.3 L, Total Bilirubin 0.6, AST 13 L, ALT 14, Alkaline Phosphatase 67, Troponin I < 0.02, C-Reactive Protein 7.8 H, Total Protein 6.8, Albumin 2.6 L, Globulin 4.2 H, Albumin/Globulin Ratio 0.6 L, TSH 0.42, Free T4 1.57 H 12/24/18 12:15: B-Natriuretic Peptide 831 H 12/24/18 12:25: Urine Color Yellow, Urine Appearance Sl cloudy, Urine pH 6.0, Ur Specific [place] 1.010, Urine Protein Negative, Urine Glucose (UA) Negative, Urine Ketones Negative, Urine Blood Negative, Urine Nitrate Positive, Urine Bilirubin Negative, Urine Urobilinogen 0.2, Ur Leukocyte Esterase 1+ A, Urine RBC Occasional, Urine WBC 10-20, Ur Squamous Epith Cells 5-10, Urine Bacteria 3+ 12/24/18 15:07: Crossmatch (AHG) See Detail I & O for Last 24 hours: Intake & Output 12/21/18 12/22/18 12/23/18 12/24/18 23:59 23:59 23:59 23:59 Weight 50.349 kg Narrative: - Constitutional No acute distress, cachectic, chronically ill appearing - *Routine HEENT Exam Head: Present: normocephalic, atraumatic Eye: Present: EOMI, PERRL ENT: Present: mucous membranes moist Comments: Bitemporal wasting - *Routine Respiratory Exam Present: Good air entry bilaterally, bibasilar crackles in posterior lung f ields. Absent: prolonged expiratory phase, wheezes - *Routine Cardiovascular Exam Present: RRR, Normal S1, Normal S2. Absent: murmur - *Routine Abdominal Exam Present: soft, normoactive bowel sounds. Absent: tenderness - *Routine Extremities Exam Absent: cyanosis, clubbing Comments: Muscle wasting, 2+ edema to knees bilaterally - *Routine Skin Exam Present: intact, dry. Absent: cyanosis, erythema - *Routine Neurological Exam Present: alert, oriented X3. Absent: altered mental status - Routine Psychiatric Exam Present: anxious Assessment and Plan (1) Edema Current visit: Yes Status: Chronic Category: Medical Code(s): R60.9 - Edema, unspecified Likely due to anemias, poor nutrition, and CHF. Will diuresis. Monitor ins and outs. Will treat associated pain (2) Anemia Current visit: Yes Status: Chronic Qualifiers: Anemia type: iron deficiency Iron deficiency anemia type: unspecified iron deficiency Qualified Code(s): D50.9 - Iron deficiency anemia, unspecified Category: Medical Code(s): D64.9 - Anemia, unspecified Symptomatic anemia. Due to iron deficiency with microcytosis. Cross type two units. Transfuse 1 with repeat H&H afterwards. Monitor for active bleeding. (3) CHF (congestive heart failure) Current visit: Yes Status: Chronic Qualifiers: Heart failure type: unspecified Heart failure chronicity: acute on chronic Qualified Code(s): I50.9 - Heart failure, unspecified Category: Medical Code(s): I50.9 - Heart failure, unspecified (4) UTI (urinary tract infection) Current visit: Yes Status: Acute Qualifiers: Urinary tract infection type: acute cystitis Hematuria presence: without hematuria Qualified Code(s): N30.00 - Acute cystitis without hematuria Category: Medical Code(s): N39.0 - Urinary tract infection, site not specified Ceftriaxone as ordered. Urine culture pending. Incentive to oral therapy when appropriate. (5) Bilateral leg and foot pain Current visit: No Status: Acute Category: Medical Code(s): M79.604 - Pain in right leg; M79.605 - Pain in left leg; M79.671 - Pain in right foot; M79.672 - Pain in left foot Suspected due to edema. Will treat with tramadol and Tylenol for now. Anticipate improvement with diuresis and decrease in edema. Recommended JAYA hose to patient. (6) Fatigue associated with anemia Current visit: No Status: Acute Category: Medical Code(s): D64.9 - Anemia, unspecified - Assessment and plan all Dx Assessment and Plan for all problems:: Monitor for improvement with transfusion and diuresis. Continues to require inpatient management. Will reassess in the morning. His symptoms improving, transition to oral antibiotics and plan for discharge tomorrow.
[2018-12-24 22:14] LABS: Hematocrit 24.2 % (37.0-47.0)
[2018-12-24 22:30] LABS: Hemoglobin 7.3 g/dL (12.2-16.2)
[2018-12-25 07:06] LABS: Anion Gap 10.4 mEq/L (5-15); Calcium 8.1 mg/dL (8.5-10.1)
[2018-12-25 07:12] LABS: Lymphocytes % 34.4 % (10-50)
[2018-12-25 07:30] LABS: Basophils % 0.6 % (0.1-2.0); Eosinophils % 0.6 % (0.1-12.0); Hematocrit 32.2 % (37.0-47.0); Mean Corpuscular HGB Conc 30.9 g/dL (31.8-35.4); Mean Corpuscular Volume 72.7 fl (81-99); Mean Platelet Volume 8.7 fl (7.4-10.4); Monocytes # 0.3 K/mm3 (0.1-1.0); Monocytes % 10.8 % (1.7-9.3); Neutrophils # 1.5 K/mm3 (1.8-7.8); Neutrophils % 53.7 % (37.0-80.0); Platelet Count 130 K/mm3 (142-424); Red Blood Count 4.43 M/mm3 (4.20-5.40); Red Cell Distribution Width 20.6 % (11.5-17.5); White Blood Count 2.8 K/mm3 (4.8-10.8)
--- NOTE | 2018-12-25 08:05 | Discharge Summary ---
General - General Admission date:: 12/24/18 Discharge date: 12/25/18 HPI HPI: Ms. Veloz is a 73-year-old female with extensive medical history including CHF who presents with worsening edema, lower extremity pain, and symptomatic anemia. She came to the ER due to concern for fatigue and worsening swelling in her legs. The swelling is causing significant pain. She was concerned about having an infection and wanted to be assessed which is what brought her to the emergency room. Denies fevers, chest pain, shortness of breath, nausea or vomiting, diarrhea. Has noted swelling worsening even in the setting of taking Lasix every other day. Initial work-up was concerning for hemoglobin of 6.6. Admitted to medicine for further management including transfusion and diuresis Hospital Course Hospital Course: Patient was admitted, found to have severe anemia with dyspnea, and was admitted for transfusion. 1 unit was given which brought her hemoglobin up to 7.8, given her persistent symptoms and ongoing chronic disease it was decided to transfuse the second unit over last night. This morning she is feeling much better, hemoglobin is greater than 10 g and her breathlessness has resolved. She will be discharged home to follow her normal medicines and we will follow her in our office on Sunday. Patient also has evidence of a urinary tract infection, we will discharge on Omnice. Culture pending. Objective Vital signs: Temp Pulse Resp BP Pulse Ox 97.7 F 72 18 136/72 92 L 12/25/18 03:15 12/25/18 03:15 12/25/18 03:15 12/25/18 03:15 12/25/18 03:15 Narrative: Patient smells heavily of nicotine smoke although she denies smoking. Lungs have good air movement, heart rate regular. She is overly tanned as previously noted. Low BMI noted with evidence of her protein calorie malnutrition. No edema or clubbing in the hands. Trace ankle edema. Neurologic exam intact. Abdomen soft and nontender. Results Labs on day of discharge: Labs from last 24 hours 12/25/18 12/25/18 12/24/18 06:13 06:13 22:10 WBC 2.8 L RBC 4.43 D Hgb 10.0 L D 7.3 L* Hct 32.2 L 24.2 L MCV 72.7 L MCH 22.5 L MCHC 30.9 L RDW 20.6 H Plt Count 130 L MPV 8.7 Neut % (Auto) 53.7 Lymph % (Auto) 34.4 Barber % (Auto) 10.8 H Eos % (Auto) 0.6 Baso % (Auto) 0.6 Neut # (Auto) 1.5 L Lymph # (Auto) 1.0 Barber # (Auto) 0.3 Eos # (Auto) 0.0 Baso # (Auto) 0.0 ESR Sodium 141 Potassium 3.4 L Chloride 104 Carbon Dioxide 30 Anion Gap 10.4 BUN 8 Creatinine 0.97 Estimated Creat Clear 36 Estimated GFR 56 L Est GFR ( Amer) 68 Glucose 80 Calcium 8.1 L Total Bilirubin AST ALT Alkaline Phosphatase Troponin I C-Reactive Protein B-Natriuretic Peptide Total Protein Albumin Globulin Albumin/Globulin Ratio TSH Free T4 Urine Color Urine Appearance Urine pH Ur Specific [place] Urine Protein Urine Glucose (UA) Urine Ketones Urine Blood Urine Nitrate Urine Bilirubin Urine Urobilinogen Ur Leukocyte Esterase Urine RBC Urine WBC Ur Squamous Epith Cells Urine Bacteria Blood Type Antibody Screen Crossmatch ([facility]) 12/24/18 12/24/18 12/24/18 15:07 12:25 12:15 WBC RBC Hgb Hct MCV MCH MCHC RDW Plt Count MPV Neut % (Auto) Lymph % (Auto) Barber % (Auto) Eos % (Auto) Baso % (Auto) Neut # (Auto) Lymph # (Auto) Barber # (Auto) Eos # (Auto) Baso # (Auto) ESR Sodium Potassium Chloride Carbon Dioxide Anion Gap BUN Creatinine Estimated Creat Clear Estimated GFR Est GFR ( Amer) Glucose Calcium Total Bilirubin AST ALT Alkaline Phosphatase Troponin I C-Reactive Protein B-Natriuretic Peptide 831 H Total Protein Albumin Globulin Albumin/Globulin Ratio TSH Free T4 Urine Color Yellow Urine Appearance Sl cloudy Urine pH 6.0 Ur Specific [place] 1.010 Urine Protein Negative Urine Glucose (UA) Negative Urine Ketones Negative Urine Blood Negative Urine Nitrate Positive Urine Bilirubin Negative Urine Urobilinogen 0.2 Ur Leukocyte Esterase 1+ A Urine RBC Occasional Urine WBC 10-20 Ur Squamous Epith Cells 5-10 Urine Bacteria 3+ Blood Type O Positive Antibody Screen Negative Crossmatch ([facility]) See Detail 12/24/18 12/24/18 12:15 12:15 WBC 3.5 L RBC 3.46 L Hgb 6.6 L* Hct 23.8 L* MCV 68.8 L MCH 19.0 L MCHC 27.6 L RDW 21.2 H Plt Count 145 MPV 8.1 Neut % (Auto) 67.3 Lymph % (Auto) 23.3 Barber % (Auto) 8.9 Eos % (Auto) 0.4 Baso % (Auto) 0.2 Neut # (Auto) 2.4 Lymph # (Auto) 0.8 Barber # (Auto) 0.3 Eos # (Auto) 0.0 Baso # (Auto) 0.0 ESR 47 H Sodium 139 Potassium 3.6 Chloride 102 Carbon Dioxide 29 Anion Gap 11.6 BUN 10 Creatinine 1.03 H Estimated Creat Clear 38 Estimated GFR 53 L Est GFR ( Amer) 64 Glucose 99 Calcium 8.3 L Total Bilirubin 0.6 AST 13 L ALT 14 Alkaline Phosphatase 67 Troponin I < 0.02 C-Reactive Protein 7.8 H B-Natriuretic Peptide Total Protein 6.8 Albumin 2.6 L Globulin 4.2 H Albumin/Globulin Ratio 0.6 L TSH 0.42 Free T4 1.57 H Urine Color Urine Appearance Urine pH Ur Specific [place] Urine Protein Urine Glucose (UA) Urine Ketones Urine Blood Urine Nitrate Urine Bilirubin Urine Urobilinogen Ur Leukocyte Esterase Urine RBC Urine WBC Ur Squamous Epith Cells Urine Bacteria Blood Type Antibody Screen Crossmatch ([facility]) Preliminary micro results at discharge 12/24/18 12:25 Urine Culture - Preliminary Urine,Random Gram Negative Rods DS: Diagnosis - Discharge Diagnosis (1) Edema Status: Chronic (2) Anemia Status: Chronic (3) CHF (congestive heart failure) Status: Chronic (4) UTI (urinary tract infection) Status: Acute (5) Bilateral leg and foot pain Status: Resolved (6) Fatigue associated with anemia Status: Resolved Discharge Plan - Patient Discharge Instructions ACTIVITY: Continue current activity DIET: continue same diet Patient Instructions: Anemia, DI for Heart Failure, DI for Urinary Tract Infection (UTI) - Follow up Plan Follow up with: Telly Carballo MD [Primary Care Provider] - 12/30/18 Disposition: Home, Self-Senior Living Medications: Home Medications Medication Instructions Recorded Confirmed Type Esomeprazole Magnesium [Nexium] 40 mg PO BID 06/11/17 12/24/18 History Latanoprost [Xalatan 0.005% Ophth 1 drop EYE-BOTH HS 06/11/17 12/24/18 History Soln 2.5mL] Levothyroxine Sodium 50 mcg PO DAILY 06/11/17 12/24/18 History [Levothyroxine 50mcg (0.05mg) Tab] Potassium Chloride [Klor-con 20 40 meq PO BID 12/10/17 12/24/18 History mEq tablet] Trazodone HCl 100 mg PO HS 12/10/17 12/24/18 History Atorvastatin Calcium [Atorvastatin 20 mg PO HS 12/24/18 12/24/18 History 20mg Tab] Carvedilol [Coreg 25mg Tablet] 25 mg PO BID 12/24/18 12/24/18 History Denosumab [Denosumab 60mg/mL 60 mg SQ .EVERY 6 MONTHS 12/24/18 12/24/18 History syringe] Fluoxetine HCl [Prozac 20mg 20 mg PO DAILY 12/24/18 12/24/18 History Capsule] Furosemide [Furosemide 40MG tAB] 40 mg PO Q48H 12/24/18 12/24/18 History Gabapentin [Gabapentin 400mg Cap] 400 mg PO TID 12/24/18 12/24/18 History Sucralfate [Carafate 1gm/10mL 1 gm PO ACHS 12/24/18 12/24/18 History Susp] Cefdinir [Omnicef 300mg Capsule] 300 mg PO BID #14 cap 12/25/18 Rx Prescriptions/Medication Reconciliation: New Cefdinir [Omnicef 300mg Capsule] 300 mg PO BID #14 cap Continued Levothyroxine Sodium [Levothyroxine 50mcg (0.05mg) Tab] 50 mcg PO DAILY Latanoprost [Xalatan 0.005% Ophth Soln 2.5mL] 1 drop EYE-BOTH HS Esomeprazole Magnesium [Nexium] 40 mg PO BID Potassium Chloride [Klor-con 20 mEq tablet] 40 meq PO BID Trazodone HCl 100 mg PO HS Carvedilol [Coreg 25mg Tablet] 25 mg PO BID Denosumab [Denosumab 60mg/mL syringe] 60 mg SQ .EVERY 6 MONTHS Fluoxetine HCl [Prozac 20mg Capsule] 20 mg PO DAILY Furosemide [Furosemide 40MG tAB] 40 mg PO Q48H Atorvastatin Calcium [Atorvastatin 20mg Tab] 20 mg PO HS Gabapentin [Gabapentin 400mg Cap] 400 mg PO TID Sucralfate [Carafate 1gm/10mL Susp] 1 gm PO ACHS
== END 2018-12-25 09:13 | disposition home or self-care (01) ==
LOC: ER 11:06 → 2ND 11:06
PROVIDERS: ADMIT Internal Medicine Adolescent Medicine; ATTEND Internal Medicine Adolescent Medicine
DX: Z79.890 Hormone replacement therapy; L98.9 Disorder of the skin and subcutaneous tissue, unspecified; Z85.828 Personal history of other malignant neoplasm of skin; E03.9 Hypothyroidism, unspecified; I11.0 Hypertensive heart disease with heart failure; Z82.49 Family history of ischemic heart disease and other diseases of the circulatory system; M79.605 Pain in left leg; Z86.718 Personal history of other venous thrombosis and embolism; N30.00 Acute cystitis without hematuria; Z89.422 Acquired absence of other left toe(s); Z84.1 Family history of disorders of kidney and ureter; Z95.5 Presence of coronary angioplasty implant and graft; J44.9 Chronic obstructive pulmonary disease, unspecified; Z96.642 Presence of left artificial hip joint; Z80.9 Family history of malignant neoplasm, unspecified; I50.9 Heart failure, unspecified; Z88.8 Allergy status to other drugs, medicaments and biological substances; H40.9 Unspecified glaucoma; Z79.899 Other long term (current) drug therapy; I25.2 Old myocardial infarction; Z68.1 Body mass index [BMI] 19.9 or less, adult; E46 Unspecified protein-calorie malnutrition; Z82.3 Family history of stroke; M79.604 Pain in right leg; Z90.710 Acquired absence of both cervix and uterus; F17.210 Nicotine dependence, cigarettes, uncomplicated; Z83.3 Family history of diabetes mellitus; Z86.73 Personal history of transient ischemic attack (TIA), and cerebral infarction without residual deficits; D50.9 Iron deficiency anemia, unspecified; Z83.438 Family history of other disorder of lipoprotein metabolism and other lipidemia; Z83.49 Family history of other endocrine, nutritional and metabolic diseases; Z89.421 Acquired absence of other right toe(s); I25.10 Atherosclerotic heart disease of native coronary artery without angina pectoris
CPT/HCPCS: 36415; 71020; 71046; 80048; 80053; 81001; 83880; 84439; 84443; 84484; 85014; 85018; 85025; 85651; 86140; 86850; 87086; 87088; 87186; 93005; 96367; 96374; 96375; 99284; G0378; P9016

== ENCOUNTER → 2019-01-23 08:40 | Outpatient (CLI) | payer MEDICARE, MEDICAID, SELFPAY ==
--- NOTE | 2019-01-23 08:46 | CA_ITS ---
APPROVED REPORT Bilateral Lower Extremity Venous Study for DVT. Executive Administrative Asst: EN Indications Lower Extremity Pain: Bilateral Lower Extremity Edema: Bilateral History of Smoking Risk Factors Current Smoker CAD Vein Imaging CFV (R): compressive, spontaneous, phasic, augmentation FEM (R): compressive, spontaneous, phasic, augmentation POP (R): compressive, spontaneous, phasic, augmentation PTV (R): Compressible GSV (R): Compressible Peroneals (R):Compressible GAS (R): Compressible CFV (L): compressive, spontaneous, phasic, augmentation FEM (L): compressive, spontaneous, phasic, augmentation POP (L): compressive, spontaneous, phasic, augmentation PTV (L): Compressible GSV (L): Compressible Peroneals (L):Compressible GAS (L): Compressible Findings No evidence of DVT or superficial thrombophlebitis in the veins scanned of the right lower extremity. No evidence of DVT or superficial thrombophlebitis in the veins scanned of the left lower extremity. Conclusion NEGATIVE FOR DVT OR SVT Electronically signed by : Shayne Vegas MD 01/23/2019 11:16:14
--- NOTE | 2019-01-23 08:47 | US_ITS ---
APPROVED REPORT Exam Type: Lower Extremity Segmental Pressures Keyboard Operator: Luda Car RDCS Indications Claudication: Rest Pain: Edema Current Smoker History of Smoking CAD Risk Factors CAD Current Smoker Pressures/Indices Right Indices Left Indices Brachial 165.00 mmHg Brachial 178.00 mmHg Low Thigh 181.00 mmHg 1.02 Low Thigh 124.00 mmHg 0.70 Calf 162.00 mmHg 0.91 Calf 188.00 mmHg 1.06 Ankle(PT) 189.00 mmHg 1.06 Ankle(PT) 181.00 mmHg 1.02 Ankle(DP) 176.00 mmHg 0.99 Ankle(DP) 175.00 mmHg 0.98 Digit 147.00 mmHg 0.83 Digit 149.00 mmHg 0.84 Findings R MIKEL 1.1 L MIKEL 1.0 R TBI .8 L TBI .8 DIMINISHED PULSES NORMAL WAVEFORMS Electronically signed by : Shayne Vegas MD 01/23/2019 11:17:11
== END ==
PROVIDERS: PCP Internal Medicine Adolescent Medicine; Visit Provider Internal Medicine Adolescent Medicine
DX: R60.1 Generalized edema (principal); I70.213 Atherosclerosis of native arteries of extremities with intermittent claudication, bilateral legs
CPT/HCPCS: 93923; 93970

== ENCOUNTER → 2019-02-28 08:44 | Outpatient (CLI) | payer MEDICARE, MEDICAID, SELFPAY ==
[2019-02-28 10:01] LABS: Basophils % 0.3 % (0.1-2.0); Eosinophils % 1.1 % (0.1-12.0); Hematocrit 26.9 % (37.0-47.0); Hemoglobin 8.2 g/dL (12.2-16.2); Lymphocytes # 0.9 K/mm3 (0.7-4.5); Lymphocytes % 28.2 % (10-50); Mean Corpuscular HGB Conc 30.3 g/dL (31.8-35.4); Mean Corpuscular Hemoglobin 24.3 pg (27.0-31.2); Mean Corpuscular Volume 80.3 fl (81-99); Mean Platelet Volume 8.6 fl (7.4-10.4); Monocytes # 0.2 K/mm3 (0.1-1.0); Monocytes % 7.3 % (1.7-9.3); Neutrophils % 63.2 % (37.0-80.0); Platelet Count 156 K/mm3 (142-424); Red Blood Count 3.35 M/mm3 (4.20-5.40); Red Cell Distribution Width 22.2 % (11.5-17.5); White Blood Count 3.1 K/mm3 (4.8-10.8)
== END ==
PROVIDERS: Visit Provider Internal Medicine Adolescent Medicine
DX: D64.9 Anemia, unspecified (principal)
CPT/HCPCS: 85025

== ENCOUNTER → 2019-03-04 17:39 | Outpatient (CLI) | payer MEDICARE, MEDICAID, SELFPAY ==
[2019-03-04 18:11] LABS: Basophils % 0.5 % (0.1-2.0); Eosinophils % 1.5 % (0.1-12.0); Lymphocytes # 0.8 K/mm3 (0.7-4.5); Lymphocytes % 33.5 % (10-50); Mean Corpuscular HGB Conc 30.2 g/dL (31.8-35.4); Mean Corpuscular Hemoglobin 24.5 pg (27.0-31.2); Mean Corpuscular Volume 81.3 fl (81-99); Mean Platelet Volume 8.6 fl (7.4-10.4); Monocytes # 0.2 K/mm3 (0.1-1.0); Monocytes % 7.7 % (1.7-9.3); Neutrophils # 1.4 K/mm3 (1.8-7.8); Neutrophils % 56.8 % (37.0-80.0); Platelet Count 150 K/mm3 (142-424); Red Blood Count 2.66 M/mm3 (4.20-5.40); White Blood Count 2.4 K/mm3 (4.8-10.8)
[2019-03-04 18:15] LABS: Hematocrit 21.6 % (37.0-47.0); Hemoglobin 6.5 g/dL (12.2-16.2)
[2019-03-04 18:17] LABS: Anion Gap 10.5 mEq/L (5-15); Blood Urea Nitrogen 17 mg/dL (7-18); Calcium 8.7 mg/dL (8.5-10.1); Carbon Dioxide 29 mmol/L (21.0-32.0); Chloride 104 mmol/L (98-107); Creatinine,Serum 1.13 mg/dL (0.55-1.02); Estimated Glomerular Filt Rate 47 ml/min (>60); GFR (African American) 57 ML/MIN (>60); Glucose 98 mg/dL (74-106); Potassium 4.5 mmoL/L (3.5-5.1); Sodium 139 mmol/L (136-145)
== END ==
PROVIDERS: Visit Provider Internal Medicine Adolescent Medicine
DX: R60.9 Edema, unspecified (principal); E87.6 Hypokalemia; I50.9 Heart failure, unspecified
CPT/HCPCS: 80048; 83880; 85025

== ENCOUNTER 2019-03-05 09:00 | Outpatient (CLI) | payer MEDICARE, MEDICAID, SELFPAY ==
[2019-03-05] VITALS (20 sets, daily range): BP systolic 127–162; BP diastolic 58–79; PULSE 56–86; RESP 17–20; TEMP 36.3–37.1; O2SAT 92–100; BMI 23.0
[2019-03-05 10:05] LABS: Hematocrit 21.9 % (37.0-47.0); Hemoglobin 6.6 g/dL (12.2-16.2)
--- NOTE | 2019-03-05 11:16 | CA_ITS ---
APPROVED REPORT EXAM: Comprehensive 2D, Doppler, and color-flow Echocardiogram Coke Handling Supervisor: Shanae Marshall CRT Ht: 5 ft 0 in Wt: 118lbs BSA: 1.49 BP: 158/54 mmHg Indications: edema, chf, cad, stent, smoker,copd M-Mode Dimensions RVDd 2.80 cm (0.9-2.6) LA Diam 3.70 cm (1.9-4.0) LVDd 5.40 cm (3.5-5.7) Ao Diam 3.30 cm (2.0-3.7) LVDs 3.50 cm (3.5-5.7) AV Cusp 2.00 cm (1.5-2.6) IVSd 1.20 cm (0.6-1.1) PWd 0.60 cm (0.6-1.1) EF (Teich) 63.90% FS 35.20% EDV (Teich) 141.00 mL ESV (Teich) 50.90 mL LV Diastology E/A Ratio 1.20 MED E' 7.80 (< 7 cm/sec) E'/MED E' Ratio 14.50 (>14) LAT E' 8.19 (<10 cm/sec) E/LAT E' Ratio 13.80 (>14) Aortic Valve AoV Peak Brooks. 141.00 (50-130 cm/s) AI PHT 364.00 ms AO Peak GR. 8.00 mmHg Mitral Valve MV E Max Brooks. 113.00 (40-130 cm/s) MV A Velocity 92.30 (40-130 cm/s) E/A Ratio 1.20 Pulmonary Valve MS End VMAX 98.60 cm/s PA Accel Time 92.00 (>120 msec) Tricuspid Valve TR P. Velocity 325.00 cm/s RAP Estimate 10.00 mmHg RVSP 52.00 mmHg Left Ventricle Left atrium is moderately enlarged, left ventricle is normal size, mild concentric left ventricular hypertrophy, visually estimated ejection fraction 55% with no regional wall motion abnormality, diastolic parameters are inconclusive. Right Ventricle Right atrium and right ventricular mildly enlarged with normal contractility. Aortic Valve Aortic valve is thickened and calcified leaflet continue to display mobility. There is no aortic stenosis, there is moderate aortic insufficiency. Mitral Valve Mitral valve leaflets are minimally thickened, there is no mitral stenosis, there is moderate to severe mitral regurgitation present. If clinically indicated a transesophageal echocardiogram is recommended to evaluate the morphology of the mitral valve and severity of the mitral regurgitation. Tricuspid Valve Tricuspid valve is grossly normal, there is moderate tricuspid regurgitation, calculated right ventricular systolic pressure is 55 mmHg which is consistent with moderately elevated right ventricular systolic pressure. Pulmonic Valve Pulmonic valve is poorly visualized. Great Vessels Aortic root is normal size. Pericardium No significant pericardial effusion noted. Conclusion 1. Biatrial enlargement, normal left ventricular size, mild concentric left ventricular hypertrophy, visually estimated ejection fraction 55% with no regional wall motion abnormality, diastolic parameters are inconclusive. 2. Mildly enlarged right ventricle with normal contractility. 3. Moderate aortic, moderate to severe mitral and moderate tricuspid regurgitation, calculated right ventricular systolic pressure is 55 mmHg which is consistent with moderately elevated right ventricular systolic pressure. 4. If clinically indicated transesophageal echocardiogram is recommended as described above. Electronically signed by : Johnny Brown, 03/06/2019 15:43:41
--- NOTE | 2019-03-05 14:26 | XR_ITS ---
PROCEDURE: XR CHEST 2V CLINICAL HISTORY: cough COMPARISON: 12/24/2018 and 06/07/2018. FINDINGS: The cardiomediastinal silhouette and pulmonary vascularity are within normal limits. There are some stable scattered lucent areas in both upper lobes. There is some hazy indistinct density at the right lung base. There is no pleural effusion or pneumothorax. No acute bony abnormalities. IMPRESSION: COPD. Right lung base density could be small peribronchial infiltrate versus atelectasis. Correlate to rule out early developing peribronchial pneumonia. Dictated by: Suleman Belle 03/05/2019 16:15 Electronically signed by Suleman Belle in [place] 03/05/2019 16:15
[2019-03-05 16:54] LABS: Hematocrit 31.2 % (37.0-47.0)
[2019-03-05 17:00] LABS: Hemoglobin 9.9 g/dL (12.2-16.2)
== END 2019-03-05 17:45 | disposition home or self-care (01) ==
LOC: INF 09:01
PROVIDERS: PCP Internal Medicine Adolescent Medicine; Visit Provider Nurse Practitioner Family
DX: R06.00 Dyspnea, unspecified (principal); D64.9 Anemia, unspecified
CPT/HCPCS: 36430; 71046; 85014; 85018; 86850; 93306; 96374; P9016

== ENCOUNTER → 2019-04-07 15:20 | Outpatient (POV) | payer MEDICARE, MEDICAID, SELFPAY | PROVIDERS: PCP Internal Medicine Adolescent Medicine; Visit Provider Nurse Practitioner Family | DX: Z00.00 Encounter for general adult medical examination without abnormal findings (principal) ==

== ENCOUNTER → 2019-04-08 11:08 | Outpatient (CLI) | payer MEDICARE, MEDICAID, SELFPAY ==
--- NOTE | 2019-04-08 | CA_ITS ---
APPROVED REPORT Exam: Pharmacologic Technologist: Isabela Andujar, Ht: 5 ft 0 in Wt: 122 lbs BSA: 1.51 m2 HR: 78 bpm BP: 140/65 mmHg Rhythm: SINUS RHYTHM Indications: ANGINA,SOA,PALPITATIONS,SYNCOPE Medical History Medical History: HTN, Hyperlipidemia Medications: Lisinopril,,,,, Levothyroxine,,,,, Trazadone,,,,, Gabapentin,,,,, Carvedilol,,,,, Lasix,,,,, Ropinirole,,,,, Lipitor,,,,, K,,,,, Loperamide,,,,, Allergies: BRIMONIDINE,TIMOLOL,METOCLOPRAMIDE Cardiac Risk Factors: Hyperlipidemia, HTN, FHX of CAD Stress Test Details Test: LEXISCAN HR Resting HR: 76 bpm Max Heart Rate (APMHR): 148 bpm Max HR Achieved: 83 bpm Target HR (85% APMHR): 125 bpm % of APMHR: 56 Recovery HR: 82 bpm BP Resting BP: 140.0/65.0 mmHg Max BP: 140.0/65.0 mmHg Recovery BP: 123.0/55.0 mmHg ECG Clinical Exercise duration: 04:01 min Highest Stage Achieved: Stress ECG Conclusion LEXISCAN PORTION COMPLETED. PATIENT C/O NAUSEA AT PEAK INFUSION. RESOLVED IN RECOVERY. NO CHEST PAIN OR SOB DURING INFUSION. OCCASIONAL PVC. LESS THAN 1.5MM ST DEPRESSION. IMAGES TO FOLLOW. Test Summary REST . . . . . . . Sitting REST 17:57 . . 76 . 140/ 65 . . Stage 1 01:00 . . 80 . . . . Stage 2 01:00 . . 82 . 137/ 58 . . Stage 3 01:00 . . 76 . 132/ 59 . . Stage 4 01:00 . . 81 . 124/ 56 . . Stage 4 01:01 . . 81 . 124/ 56 . Stop exercise at 04:01 RECOVERY 01:00 . . 76 . 123/ 55 . . RECOVERY 02:00 . . 77 . 127/ 56 . . RECOVERY 03:00 . . 81 . 133/ 60 . . RECOVERY 04:00 . . 81 . 133/ 60 . . RECOVERY 04:03 . . 80 . 133/ 60 . . Electronically signed by : Johnny Brown, 04/09/2019 05:30:04
--- NOTE | 2019-04-08 11:10 | CA_ITS ---
APPROVED REPORT Fern Gatherer: MAYELIN Laterality: Bilateral Study Quality: Good Indications: left bruit Doppler Spectral Velocity Analysis dICA (R) 193.50/48.10 cm/s dICA (L) 83.50/23.80 cm/s Jessica (R) 118.50/29.90 cm/s Jessica (L) 112.20/30.80 cm/s pICA (R) 109.80/32.10 cm/s pICA (L) 83.10/17.20 cm/s dCCA (R) 81.50/16.10 cm/s dCCA (L) 77.70/18.60 cm/s pCCA (R) 60.40/17.10 cm/s pCCA (L) 67.40/10.70 cm/s Vert (R) 51.30/11.50 cm/s Vert (L) 55.70/16.30 cm/s ICA/CCA 2.37 ICA/CCA 1.40 Findings Duplex evaluation demonstrates stenosis of the right proximal internal carotid artery in the range of 20-49%(upper end of scale) with PSV <140 cm/sec, EDV <100 cm/sec, and IC/CC Ratio <4.0.Duplex evaluation demonstrates stenosis of the left proximal internal carotid artery <20% with PSV <140 cm/sec, EDV <100 cm/sec, and IC/CC Ratio <4.0.Antegrade flow seen bilateral vertebral arteries. Conclusion Duplex evaluation demonstrates stenosis of the right proximal internal carotid artery in the range of 20-49%(upper end of scale) with PSV <140 cm/sec, EDV <100 cm/sec, and IC/CC Ratio <4.0.Duplex evaluation demonstrates stenosis of the left proximal internal carotid artery <20% with PSV <140 cm/sec, EDV <100 cm/sec, and IC/CC Ratio <4.0.Antegrade flow seen bilateral vertebral arteries. Electronically signed by : Shayne Vegas MD 04/09/2019 18:56:48
--- NOTE | 2019-04-08 11:48 | NM_ITS ---
APPROVED REPORT Exam: Nuclear Stress Test Indication: chest pain, short of breath,fatigue Patient Location: Outpatient Stress Tech: Marissa Sotonkson [place] Tech:ILYA Spencer RT(R)(N) Ht: 5 ft 0 in Wt: 122 lbs HR: 78 bpm BP: 140/65 mmHg BSA: 1.51 m2 History: chest pain, short of breath,fatigue Procedure: Patient received a 0.4 mg of intravenous Lexiscan, resting heart rate 78 bpm, resting blood pressure 140/65 mmHg, with Lexiscan maximum heart rate achived was 81 bpm which is Less than 85 % of the maximum predicted heart rate and blood pressure was 137/58 mmHg. With Lexiscan, patient denied any complaint of chest pain. Electrocardiogram Resting electrocardiogram showed sinus rhythm nonspecific ST-T changes, with Lexiscan there is less than 1.[address] segment depression noted from the baseline EKG, occasional premature ventricular complexes seen. The EKG portion of the Lexiscan Myoview is nondiagnostic. Cardiac Stress and Resting SPECT Images: Cardiac Stress and Resting SPECT images were obtained using technetium 99m Myoview 32.5 mCi stress and 10.80 mCi at rest. Gated SPECT with analysis of segmental wall motion and calculation of the ejection fraction also done. Cardiac stress and resting SPECT images show uniform myocardial activity without segmental perfusion abnormality, computer derived ejection fraction is over 65% with no regional wall motion abnormality, right ventricle is normal size and contractility. Conclusion: 1. The EKG portion of the Lexiscan Myoview is nondiagnostic. 2. No scintigraphic evidence of reversible ischemia seen, computer derived ejection fraction is over 65% with no regional wall motion abnormality, right ventricle is normal size and contractility. 3. Normal Lexiscan Myoview study. Electronically signed by : Johnny Brown, 04/09/2019 05:32:19
--- NOTE | 2019-04-08 12:45 | HMH.ITSHM ---
Current Home Medications as stated by this patient Batsheva Veloz or associate financial representative. []ODANSETRON ATORVASTATIN FLUOXETINE LEVOTHYROXINE LISINOPRIL LASIX PROLIA ROPINIROLE CARVEDILOL NEXIUM GABAPENTIN CARAFATE TRAZODONE TRAMADOL XIFAXON FIBER CON IMODIUM
== END ==
PROVIDERS: PCP Emergency Medicine; Visit Provider Nurse Practitioner Family
DX: R09.89 Other specified symptoms and signs involving the circulatory and respiratory systems (principal); R42 Dizziness and giddiness; I27.20 Pulmonary hypertension, unspecified; I34.0 Nonrheumatic mitral (valve) insufficiency; R06.02 Shortness of breath
CPT/HCPCS: 78452; 93017; 93880; A9502; J2785

== ENCOUNTER 2019-04-10 12:19 | Inpatient (IN) ==
--- NOTE | 2019-04-10 14:11 | Progress Note ---
[facility] Anesthesia Checklist - Patient Identification Patient Identification: Arm Band, Verbal (Name & ) - Structural Data Admitted From: Home Planned Operative Procedure/s: RACHEL Consent for Planned Operative Procedure(s) Verified: Yes Verified Documents: Surgical Consent, History and Physical - NPO Status Verified Time NPO: 00:00 - Chart Verification Results Verified: CBC, BMP, PT, PTT, INR - Additional verifications Anesthesia Reactions: No - Airway Assessment C-Spine Mobility Assessed: Yes TMJ Mobility Assessed: Yes Dentition: Poor Dentition - Neurological Assessment Level of Consciousness: Awake, Alert, Appropriate, Follows Commands Hx Seizures: No Numbness or tingling in extremities: No - Anesthesia Plan Anesthesia Risk discussed: Yes Anesthesia Plan: Verified ASA Class: III Anesthesia Type: MAC [facility] History I have reviewed the patient's past medical history: Yes Medical History: Reports:: Anxiety, Congestive Heart Failure, Chronic Obstructive Pulmonary Disease (COPD), Coronary Artery Disease, Deep Vein Thrombosis, Depression, Gastroesophageal Reflux Disease(GERD), Hyperlipidemia, Hypertension, Lung Disease, Myocardial Infarction, Transient Ischemic Attacks (TIA) Denies:: Cancer, Diabetes Mellitus Type 1, Diabetes Mellitus Type 2, Internal Pacemaker, MRSA, Seizures *Have you ever received a pneumonia vaccine?: No *Have you received a flu vaccine this season?: No (out of season) Other Medical History: Reports: Anemia, Arthritis, Cataracts, Glaucoma, Hypothyroidism, Thyroid Disease Anesthesia experience/problems:: none Laterality Cases: Other Surgeries: Yes: Angiogram, Cancer Surgery, Cardiac Catheterization, Colonoscopy, Coronary Stent, Hysterectomy-Total, Skin Cancer Excision. 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
--- NOTE | 2019-04-10 15:24 | Cardiology Report ---
APPROVED REPORT EXAM: Comprehensive 2D, Doppler, and color-flow Echocardiogram Turbine Assembler: Luda Car RDCS Ht: 5 ft 0 in Wt: 91lbs BSA: 1.34 BP: 154/60 mmHg Indications: RACHEL MR TR Procedure After obtaining informed consent, patient underwent transesophageal echo in the Nursing Program Chair. Type of Sedation : Conscious Sedation Transesophageal probe was inserted and advanced into esophagus without difficulty by Dr. Carrillo Rodriguez. Throughout the procedure, the blood pressure, pulse oximetry, cardiac rhythm, and rate were monitored. The patient tolerated the procedure without adverse effects. Recovery from conscious sedation was uneventful and vital signs were stable. Left Ventricle Left ventricle is normal size, mild concentric left ventricular hypertrophy, visually estimated ejection fraction 55% with no regional wall motion abnormality. Right Ventricle Right ventricle is moderately enlarged with normal contractility. Atria Left atrium is moderately enlarged, left atrial appendage free of thrombus, there is good appendage flow by spectral Doppler. Right atrium is moderately enlarged. Intra-atrial septum is intact, there is no flow across the interatrial septum, agitated saline contrast study fails to identify intracardiac shunt. Aortic Valve Aortic valve is thickened and calcified leaflet continue to display good mobility, there is no aortic stenosis, there is moderate aortic insufficiency. Mitral Valve Mitral valve leaflets are minimally thickened, there is no mitral valve prolapse or mitral stenosis, there is severe mitral regurgitation, there is systolic flow reversal seen in the pulmonary vein. Degenerative changes seen in both anterior posterior mitral leaflet. Tricuspid Valve Tricuspid valve leaflets are minimally thickened, tricuspid annulus is mildly dilated, there is severe tricuspid regurgitation. Pulmonic Valve Pulmonic valve is grossly normal. Great Vessels Aortic root is normal size. Ascending, arch and descending thoracic aorta there is no aneurysm or dissection, normal bilateral modest plaque seen in the arch and descending thoracic aorta. Pericardium No significant pericardial effusion noted Conclusion 1. Moderate biatrial enlargement, normal left ventricular size, mild concentric left ventricular hypertrophy, visually estimated ejection fraction 55% with no regional wall motion abnormality. 2. Moderately enlarged right ventricle with normal contractility. 3. Severe mitral regurgitation as described above 4. Thickened and calcified aortic valve without aortic stenosis, there is moderate aortic insufficiency. 5. Severe tricuspid regurgitation 6. No significant pericardial effusion noted 7. Agitated saline contrast study fails to identify intracardiac shunt.
--- NOTE | 2019-04-10 15:33 | Progress Note ---
Subjective Date: 04/10/19 Time: 15:29 Principal diagnosis: Anemia, CHF, Severe MR Interval history: 73 yo WF here for RACHEL today. RACHEL revealed severe MR and TR for which pt needs right and left heart cath in preparation for valve surgery. Pt was admitted for blood transfusion and cardiology evaluation. No chest pain. History of normal stress test this year. Recently at for CHF with 22 lb diuresis per patient. Exam Vital signs and Labs for Last 24 Hours: Pulse Resp BP Pulse Ox 71 16 138/66 98 04/10/19 12:41 04/10/19 12:40 04/10/19 12:40 04/10/19 12:40 I & O for Last 24 hours: Intake & Output 04/08/19 04/09/19 04/10/19 04/11/19 11:59 11:59 11:59 11:59 Weight 116 lb - *Routine HEENT Exam Head: Present: normocephalic Eye: Present: EOMI, PERRL ENT: Present: mucous membranes moist. Absent: dentition normal - *Routine Respiratory Exam Present: CTA bilaterally. Absent: accessory muscle use, rales, rhonchi, wheezes - *Routine Cardiovascular Exam Present: RRR, murmur. Absent: gallop, rubs - *Routine Extremities Exam Present: edema. Absent: calf tenderness - *Routine Neurological Exam Present: alert, oriented X3, moving all extremities Progress Note: A&P (1) Anemia Status: Chronic Current Visit: No (2) CHF (congestive heart failure) Status: Chronic Current Visit: No (3) COPD (chronic obstructive pulmonary disease) Status: Chronic Current Visit: No (4) Edema Status: Chronic Current Visit: No (5) Severe mitral valve regurgitation Status: Chronic Current Visit: No (6) Tobacco abuse Status: Chronic Current Visit: No Assessment and Plan for All Diagnoses:: Pt needs blood transfusion to get Hgb >10 before proceeding with R/LHC. Will see in AM and decide on timing of procedure. continue coreg, lasix and lisinopril.
[2019-04-10 15:42] LABS: Basophils % 0.6 % (0.1-2.0); Eosinophils % 0.9 % (0.1-12.0); Lymphocytes # 0.8 K/mm3 (0.7-4.5); Lymphocytes % 36.7 % (10-50); Mean Corpuscular HGB Conc 29.6 g/dL (31.8-35.4); Mean Corpuscular Volume 85.6 fl (81-99); Mean Platelet Volume 11.7 fl (7.4-10.4); Monocytes # 0.2 K/mm3 (0.1-1.0); Monocytes % 7.4 % (1.7-9.3); Neutrophils # 1.2 K/mm3 (1.8-7.8); Neutrophils % 54.4 % (37.0-80.0); Platelet Count 102 K/mm3 (142-424); Red Blood Count 2.72 M/mm3 (4.20-5.40); White Blood Count 2.3 K/mm3 (4.8-10.8)
[2019-04-10 15:45] LABS: Hemoglobin 6.9 g/dL (12.2-16.2)
[2019-04-10 15:46] LABS: Hematocrit 23.3 % (37.0-47.0)
[2019-04-10 15:53] LABS: Albumin Level 2.8 gm/dL (3.4-5.0); Albumin/Globulin Ratio 0.8 (1.1-1.8); Anion Gap 11.2 mEq/L (5-15); Bilirubin,Total 0.8 mg/dL (0.2-1.0); Calcium 8.1 mg/dL (8.5-10.1); Globulin 3.5 gm/dl (1.3-3.2); Total Protein,Serum 6.3 gm/dL (6.4-8.2)
--- NOTE | 2019-04-10 20:22 | History & Physical Report ---
*Admission Date: 04/10/19 *Chief complaint: sob *History of present illness: this wf with hx of lower ext edema which has been progressive over the last few days - pt with known heart failure - she had procedure and was noted to have sig valvular dis and anemia and was admitted for evaluation- and transfusion 3 yo WF here for RACHEL today. RACHEL revealed severe MR and TR for which pt needs right and left heart cath in preparation for valve surgery. Pt was admitted for blood transfusion and cardiology evaluation. No chest pain. History of normal stress test this year. Recently at for CHF with 22 lb diuresis per patient needs blood transfusion to get Hgb >10 before proceeding with R/LHC. Will see in AM and decide on timing of procedure. continue coreg, lasix and lisinopril. [facility] History I have reviewed the patient's past medical history: Yes Medical History: Reports:: Anxiety, Congestive Heart Failure, Chronic Obstructive Pulmonary Disease (COPD), Coronary Artery Disease, Deep Vein Thrombosis, Depression, Gastroesophageal Reflux Disease(GERD), Hyperlipidemia, Hypertension, Lung Disease, Myocardial Infarction, Transient Ischemic Attacks (TIA) Denies:: Cancer, Diabetes Mellitus Type 1, Diabetes Mellitus Type 2, Internal Pacemaker, MRSA, Seizures *Have you ever received a pneumonia vaccine?: Yes *Have you received a flu vaccine this season?: Yes Other Medical History: Reports: Anemia, Arthritis, Cataracts, Glaucoma, Hypothyroidism, Thyroid Disease Anesthesia experience/problems:: none Laterality Cases: Left: Total Hip Replacement, Bilateral: Tonsillectomy Other Surgeries: Yes: Angiogram, Cancer Surgery, Cardiac Catheterization, Colonoscopy, Coronary Stent, Hysterectomy-Total, Skin Cancer Excision. No: Pacemaker Amputation: Yes Fractures: No - *Social History Educational Level: Completed High School Smoking Status: Current every day smoker Tobacco Type: cigarettes # Packs/Day (cigarettes): 1 #Yrs smoked (if former smoker): 56 Alcohol Intake: never Alcohol Intake Frequency:: other Substance Use Type: denies use *Occupational Status:: disabled Housing: senior care Household Members: none *Travel in the last 8 weeks: None - Psychiatric History Pschychiatric History:: Reports:: Anxiety, Depression Family Hx:: Cancer, Coronary Artery Disease, Heart Attack, Hyperlipidemia, Hypertension, Thyroid Disorder Review of Systems - Review of Systems Review of systems:: pertinent systems reviewed and negative unless documented below - Constitutional Denies fever(s) - Eyes Denies change in vision - ENT Denies dizziness, Denies facial pain - *Cardiovascular Reports shortness of breath - *Respiratory Denies cough - *Gastrointestinal Denies abdominal pain - *Genitourinary Denies blood in urine - *Musculoskeletal Denies joint pain - Integumentary/Breasts Denies rash - *Neurologic Denies dizziness, Denies seizure-like activity - Psychiatric Denies anxiety Meds Home Medications Medication Instructions Recorded Confirmed Type Esomeprazole Magnesium [Nexium] 40 mg PO BID 06/11/17 04/10/19 History Latanoprost [Xalatan 0.005% Ophth 1 drp EYE-BOTH HS 06/11/17 04/11/19 History Soln 2.5mL] Levothyroxine Sodium 50 mcg PO DAILY 06/11/17 04/10/19 History [Levothyroxine 50mcg (0.05mg) Tab] Trazodone HCl 100 mg PO HS 12/10/17 04/10/19 History Atorvastatin Calcium [Atorvastatin 20 mg PO HS 12/24/18 04/10/19 History 20mg Tab] Carvedilol [Coreg 25mg Tablet] 25 mg PO BID 12/24/18 04/10/19 History Denosumab [Denosumab 60mg/mL 60 mg SQ .EVERY 6 MONTHS 12/24/18 04/10/19 History syringe] Furosemide [Furosemide 40MG tAB] 80 mg PO DAILY 12/24/18 04/10/19 History Gabapentin [Gabapentin 400mg Cap] 400 mg PO TID 12/24/18 04/10/19 History Sucralfate [Carafate 1gm/10mL 1 gm PO ACHS 12/24/18 04/11/19 History Susp] acetaminophen 500 mg capsule 500 mg PO Q6H PRN 03/26/19 04/10/19 History fluoxetine 40 mg capsule 40 mg PO DAILY 03/26/19 04/10/19 History lisinopril 10 mg tablet 10 mg PO DAILY 03/26/19 04/10/19 History loperamide 2 mg capsule 2 mg PO Q4H 03/26/19 04/10/19 History ondansetron HCl 4 mg tablet 4 mg PO TID PRN 03/26/19 04/10/19 History polyethylene glycol 3350 17 17 g PO DAILY 03/26/19 04/10/19 History gram/dose oral powder potassium chloride ER 20 mEq 40 meq PO BID tab 03/26/19 04/10/19 History tablet,extended release(part/cryst) ropinirole 0.25 mg tablet 0.25 mg PO BID tab 03/26/19 04/10/19 History Tramadol HCl [Tramadol 50mg 50 mg PO BID 04/11/19 04/11/19 History Tab] Allergies Allergy/AdvReac Type Severity Reaction Status Date / Time brimonidine [From Combigan] Allergy Intermediate Rash Verified 03/27/19 13:33 timolol [From Combigan] Allergy Intermediate Rash Verified 03/27/19 13:33 metoclopramide [From REGLAN] Allergy Unknown Unknown Verified 03/27/19 13:33 allergy reaction Exam Vital signs and Labs for Last 24 Hours: Temp Pulse Resp BP Pulse Ox 98.3 F 71 18 132/65 93 L 04/10/19 19:45 04/10/19 19:45 04/10/19 19:45 04/10/19 19:45 04/10/19 19:45 Laboratory Results - last 24 hr 04/10/19 15:10: WBC 2.3 L, RBC 2.72 L, Hgb 6.9 L*, Hct 23.3 L*, MCV 85.6, MCH 25.3 L, MCHC 29.6 L, RDW 16.0, Plt Count 102 L, MPV 11.7 H, Neut % (Auto) 54.4, Lymph % (Auto) 36.7, [place] % (Auto) 7.4, Eos % (Auto) 0.9, Baso % (Auto) 0.6, Neut # (Auto) 1.2 L, Lymph # (Auto) 0.8, [place] # (Auto) 0.2, Eos # (Auto) 0.0, Baso # (Auto) 0.0 04/10/19 15:10: Sodium 142, Potassium 3.2 L, Chloride 105, Carbon Dioxide 29, Anion Gap 11.2, BUN 17, Creatinine 1.02, Estimated Creat Clear 41, Estimated GFR 53 L, Est GFR ( Amer) 64, Glucose 69 L, Calcium 8.1 L, Total Bilirubin 0. 8, AST 30, ALT 21, Alkaline Phosphatase 104, Total Protein 6.3 L, Albumin 2.8 L, Globulin 3.5 H, Albumin/Globulin Ratio 0.8 L 04/10/19 17:00: Blood Type O Positive, Antibody Screen Negative, Crossmatch (AHG) See Detail I & O for Last 24 hours: Intake & Output 04/08/19 04/09/19 04/10/19 04/11/19 11:59 11:59 11:59 11:59 Intake Total 240 / 240 Balance 240 / 240 Weight 127 lb 4 oz - Constitutional no acute distress - *Routine HEENT Exam Head: Present: normocephalic Eye: Present: EOMI, PERRL ENT: Present: mucous membranes dry - *Routine Neck Exam Present: supple - *Routine Respiratory Exam Present: CTA bilaterally - *Routine Cardiovascular Exam Present: RRR, murmur - *Routine Abdominal Exam Present: soft - *Routine Extremities Exam Absent: calf tenderness - *Routine Skin Exam Present: intact - *Routine Neurological Exam Present: alert, CN II-XII intact - Routine Psychiatric Exam Present: normal affect Assessment and Plan (1) Anemia Current visit: No Status: Chronic Qualifiers: Anemia type: iron deficiency Iron deficiency anemia type: unspecified iron deficiency Qualified Code(s): D50.9 - Iron deficiency anemia, unspecified Category: Medical Code(s): D64.9 - Anemia, unspecified (2) CHF (congestive heart failure) Current visit: No Status: Chronic Qualifiers: Heart failure type: unspecified Heart failure chronicity: acute on chronic Qualified Code(s): I50.9 - Heart failure, unspecified Category: Medical Code(s): I50.9 - Heart failure, unspecified (3) COPD (chronic obstructive pulmonary disease) Current visit: No Status: Chronic Category: Medical Code(s): J44.9 - Chronic obstructive pulmonary disease, unspecified (4) Edema Current visit: No Status: Chronic Category: Medical Code(s): R60.9 - Edema, unspecified (5) Severe mitral valve regurgitation Current visit: No Status: Chronic Category: Medical Code(s): I34.0 - Nonrheumatic mitral (valve) insufficiency (6) Tobacco abuse Current visit: No Status: Chronic Category: Medical Code(s): Z72.0 - Tobacco use (7) Pulmonary hypertension Current visit: No Status: Chronic Category: Medical Code(s): I27.20 - Pul monary hypertension, unspecified (8) Hypothyroidism Current visit: Yes Status: Acute Qualifiers: Hypothyroidism type: acquired Qualified Code(s): E03.9 - Hypothyroidism, unspecified Category: Medical Code(s): E03.9 - Hypothyroidism, unspecified
[2019-04-11 02:48] LABS: Hematocrit 29.8 % (37.0-47.0)
[2019-04-11 02:51] LABS: Hemoglobin 9.5 g/dL (12.2-16.2)
--- NOTE | 2019-04-11 07:30 | Pharmacy Consult Notes ---
[facility] Pharmacy VTE Monitoring - Patient Demographics Admission date: 04/10/19 Report Date: 04/11/19 Time: 07:30 Allergies/Adverse Reactions: Patient Allergies brimonidine [From Combigan] Allergy (Intermediate, Verified 03/27/19 13:33) Rash timolol [From Combigan] Allergy (Intermediate, Verified 03/27/19 13:33) Rash metoclopramide [From REGLAN] Allergy (Unknown, Verified 03/27/19 13:33) Unknown allergy reaction Height: 1.52 m Weight: 56.841 kg Patient Problems: Current Active Problems Hypothyroidism (Acute) - VTE Risk Labs: VTE Related Lab Results Hgb 9.5 g/dL (12.2-16.2) L D 04/11/19 02:35 Hct 29.8 % (37.0-47.0) L 04/11/19 02:35 Plt Count 102 K/mm3 (142-424) L 04/10/19 15:10 BUN 17 mg/dL (7-18) 04/10/19 15:10 Creatinine 1.02 mg/dL (0.55-1.02) 04/10/19 15:10 Estimated Creat Clear 41 mL/min (50-200) 04/10/19 15:10 Was VTE Risk Assessment Performed: Yes VTE Score: 7 VTE Risk Level: Moderate Risk Clinical Trial Participant: No - Prophylaxis VTE Prophylaxis Ordered?: Yes Types of VTE Prophylaxis: TEDS Knee High
--- NOTE | 2019-04-11 08:15 | Consult Report ---
History of Present Illness Consult date: 04/11/19 Requesting physician: Hector Ramirez Consult reason: shortness of breath Chief complaint: CP, SOA, severe MR Additional Medical History:: 1. Recurrent congestive heart failure A. Transesophageal echo, 04/10/2019, 1. Moderate biatrial enlargement, normal left ventricular size, mild concentric left ventricular hypertrophy, visually estimated ejection fraction 55% with no regional wall motion abnormality. 2. Moderately enlarged right ventricle with normal contractility. 3. Mitral valve leaflets are minimally thickened, there is no mitral valve prolapse or mitral stenosis, there is severe mitral regurgitation, there is systolic flow reversal seen in the pulmonary vein. Degenerative changes seen in both anterior posterior mitral leaflet 4. Thickened and calcified aortic valve without aortic stenosis, there is moderate aortic insufficiency. 5. Severe tricuspid regurgitation 6. No significant pericardial effusion noted 7. Agitated saline contrast study fails to identify intracardiac shunt. 2. Hypertension 3. Hyperlipidemia 4. COPD with continued tobacco use 5. GERD 6. Hypothyroidism, on replacement therapy History of present illness: 73-year-old white female admitted yesterday for anemia with plans for blood transfusion. Patient has severe mitral regurgitation noted on transesophageal echocardiogram yesterday with recurrent history of congestive heart failure. Patient needs a right and left heart catheterization buy we are waiting until her hemoglobin is greater than 10. Overnight patient developed worsening shortness of breath despite 80mg of Lasix after each unit of blood (currently on the third unit of blood). Patient is unable to sit still due to being short of breath. Oxygen saturation on supplemental oxygen is in the 90s. Blood pressure is elevated at 180/90 and she complains of shortness of breath and chest discomfort despite Nitropaste. [facility] History Medical History: Reports:: Anxiety, Congestive Heart Failure, Chronic Obstructive Pulmonary Disease (COPD), Coronary Artery Disease, Deep Vein Thrombosis, Depression, Gastroesophageal Reflux Disease(GERD), Hyperlipidemia, Hypertension, Lung Disease, Myocardial Infarction, Transient Ischemic Attacks (TIA) Denies:: Cancer, Diabetes Mellitus Type 1, Diabetes Mellitus Type 2, Internal Pacemaker, MRSA, Seizures *Have you ever received a pneumonia vaccine?: Yes *Have you received a flu vaccine this season?: Yes Other Medical History: Reports: Anemia, Arthritis, Cataracts, Glaucoma, Hypothyroidism, Thyroid Disease Anesthesia experience/problems:: none Laterality Cases: Left: Total Hip Replacement, Bilateral: Tonsillectomy Other Surgeries: Yes: Angiogram, Cancer Surgery, Cardiac Catheterization, Colonoscopy, Coronary Stent, Hysterectomy-Total, Skin Cancer Excision. No: Pacemaker Amputation: Yes Fractures: No - *Social History Educational Level: Completed High School Smoking Status: Current every day smoker Tobacco Type: cigarettes # Packs/Day (cigarettes): 1 #Yrs smoked (if former smoker): 56 Alcohol Intake: never Alcohol Intake Frequency:: other Substance Use Type: denies use *Occupational Status:: disabled Housing: jail Household Members: none *Travel in the last 8 weeks: None - Psychiatric History Pschychiatric History:: Reports:: Anxiety, Depression Family Hx:: Cancer, Coronary Artery Disease, Heart Attack, Hyperlipidemia, Hypertension, Thyroid Disorder Meds Home Medications Medication Instructions Recorded Confirmed Type Esomeprazole Magnesium [Nexium] 40 mg PO BID 06/11/17 04/10/19 History Latanoprost [Xalatan 0.005% Ophth 1 drp EYE-BOTH HS 06/11/17 04/11/19 History Soln 2.5mL] Levothyroxine Sodium 50 mcg PO DAILY 06/11/17 04/10/19 History [Levothyroxine 50mcg (0.05mg) Tab] Trazodone HCl 100 mg PO HS 12/10/17 04/10/19 History Atorvastatin Calcium [Atorvastatin 20 mg PO HS 12/24/18 04/10/19 History 20mg Tab] Carvedilol [Coreg 25mg Tablet] 25 mg PO BID 12/24/18 04/10/19 History Denosumab [Denosumab 60mg/mL 60 mg SQ .EVERY 6 MONTHS 12/24/18 04/10/19 History syringe] Furosemide [Furosemide 40MG tAB] 80 mg PO DAILY 12/24/18 04/10/19 History Gabapentin [Gabapentin 400mg Cap] 400 mg PO TID 12/24/18 04/10/19 History Sucralfate [Carafate 1gm/10mL 1 gm PO ACHS 12/24/18 04/11/19 History Susp] acetaminophen 500 mg capsule 500 mg PO Q6H PRN 03/26/19 04/10/19 History fluoxetine 40 mg capsule 40 mg PO DAILY 03/26/19 04/10/19 History lisinopril 10 mg tablet 10 mg PO DAILY 03/26/19 04/10/19 History loperamide 2 mg capsule 2 mg PO Q4H 03/26/19 04/10/19 History ondansetron HCl 4 mg tablet 4 mg PO TID PRN 03/26/19 04/10/19 History polyethylene glycol 3350 17 17 g PO DAILY 03/26/19 04/10/19 History gram/dose oral powder potassium chloride ER 20 mEq 40 meq PO BID tab 03/26/19 04/10/19 History tablet,extended release(part/cryst) ropinirole 0.25 mg tablet 0.25 mg PO BID tab 03/26/19 04/10/19 History Tramadol HCl [Tramadol 50mg 50 mg PO BID 04/11/19 04/11/19 History Tab] Allergies Allergy/AdvReac Type Severity Reaction Status Date / Time brimonidine [From Combigan] Allergy Intermediate Rash Verified 03/27/19 13:33 timolol [From Combigan] Allergy Intermediate Rash Verified 03/27/19 13:33 metoclopramide [From REGLAN] Allergy Unknown Unknown Verified 03/27/19 13:33 allergy reaction Review of Systems - *Cardiovascular Reports chest pain, Reports shortness of breath, Reports shortness of breath with activity - *Respiratory Reports shortness of breath, Reports shortness of breath with activity - *Gastrointestinal Denies abdominal pain, Denies nausea, Denies vomiting - *Genitourinary Denies blood in urine - *Musculoskeletal Reports back pain, Denies joint pain - *Neurologic Denies dizziness, Denies seizure-like activity Exam Vital signs and Labs for Last 24 Hours: Temp Pulse Resp BP Pulse Ox 98.3 F 113 H 22 166/76 H 91 L 04/11/19 06:10 04/11/19 07:26 04/11/19 06:10 04/11/19 06:10 04/11/19 07:26 Laboratory Results - last 24 hr 04/10/19 15:10: WBC 2.3 L, RBC 2.72 L, Hgb 6.9 L*, Hct 23.3 L*, MCV 85.6, MCH 25 .3 L, MCHC 29.6 L, RDW 16.0, Plt Count 102 L, MPV 11.7 H, Neut % (Auto) 54.4, Lymph % (Auto) 36.7, [place] % (Auto) 7.4, Eos % (Auto) 0.9, Baso % (Auto) 0.6, Neut # (Auto) 1.2 L, Lymph # (Auto) 0.8, [place] # (Auto) 0.2, Eos # (Auto) 0.0, Baso # (Auto) 0.0 04/10/19 15:10: Sodium 142, Potassium 3.2 L, Chloride 105, Carbon Dioxide 29, Anion Gap 11.2, BUN 17, Creatinine 1.02, Estimated Creat Clear 41, Estimated GFR 53 L, Est GFR ( Amer) 64, Glucose 69 L, Calcium 8.1 L, Total Bilirubin 0.8, AST 30, ALT 21, Alkaline Phosphatase 104, Total Protein 6.3 L, Albumin 2.8 L, Globulin 3.5 H, Albumin/Globulin Ratio 0.8 L 04/10/19 17:00: Blood Type O Positive, Antibody Screen Negative, Crossmatch (AHG) See Detail 04/11/19 02:35: Hgb 9.5 L D, Hct 29.8 L I & O for Last 24 hours: Intake & Output 04/08/19 04/09/19 04/10/19 04/11/19 11:59 11:59 11:59 11:59 Intake Total 790 / 790 Output Total 1350 / 1350 Balance -560 / -560 Weight 125 lb 5 oz - *Routine HEENT Exam Head: Present: normocephalic Eye: Present: EOMI, PERRL ENT: Present: mucous membranes moist - *Routine Neck Exam Present: supple, JVD. Absent: carotid bruit - *Routine Respiratory Exam Present: rales, rhonchi. Absent: accessory muscle use, wheezes - *Routine Cardiovascular Exam Present: RRR, murmur. Absent: gallop, rubs - *Routine Abdominal Exam Present: soft. Absent: tenderness, distended, guarding - *Routine Extremities Exam Present: edema. Absent: calf tenderness - *Routine Neurological Exam Present: alert, oriented X3, moving all extremities Assessment and Plan (1) Anemia Current visit: No Status: Chronic Qualifiers: Anemia type: iron deficiency Iron deficiency anemia type: unspecified iron deficiency Qualified Code(s): D50.9 - Iron deficiency anemia, unspecified Category: Medical Code(s): D64.9 - Anemia, unspecified (2) CHF (congestive heart failure) Current visit: No Status: Chronic Qualifiers: Heart failure type: unspecified Heart failure chronicity: acute on chronic Qualified Code(s): I50.9 - Heart failure, unspecified Category: Medical Code(s): I50.9 - Heart failure, unspecified (3) COPD (chronic obstructive pulmonary disease) Current visit: No Status: Chronic Category: Medical Code(s): J44.9 - Chronic obstructive pulmonary disease, unspecified (4) Edema Current visit: No Status: Chronic Category: Medical Code(s): R60.9 - Edema, unspecified (5) Severe mitral valve regurgitation Current visit: No Status: Chronic Category: Medical Code(s): I34.0 - Nonrheumatic mitral (valve) insufficiency (6) Tobacco abuse Current visit: No Status: Chronic Category: Medical Code(s): Z72.0 - Tobacco use (7) Pulmonary hypertension Current visit: No Status: Chronic Category: Medical Code(s): I27.20 - Pulmonary hypertension, unspecified (8) Hypothyroidism Current visit: Yes Status: Acute Qualifiers: Hypothyroidism type: acquired Qualified Code(s): E03.9 - Hypothyroidism, unspecified Category: Medical Code(s): E03.9 - Hypothyroidism, unspecified - Assessment and plan all Dx Assessment and Plan for all problems:: 1. Additional Lasix x1 this a.m. with placement of Abraham catheter. 2. If patient's shortness of breath improves and she is able to lie flat, then would recommend proceeding with right and left heart catheterization today. 3. Further recommendations to follow
[2019-04-11 09:18] LABS: Microscopic, Urine URINE MICROSCOPIC (MICROSCOPIC)
[2019-04-11 09:19] LABS: Appearance,Urine CLEAR (Clear); Bilirubin,Urine Negative (Negative); Blood, Urine Negative (Negative); Color,Urine YELLOW (Yellow); Glucose,Urine (UA) Negative (Negative); Ketones,Urine Negative (Negative); Leukocyte Esterase,Urine Negative (Negative); Protein,Urine Negative (Negative); Urobilinogen,Urine 0.2 EU/dl (0.2)
--- NOTE | 2019-04-11 09:31 | Progress Note ---
Internal Medicine - PN: Sanjiv *Date: 04/11/19 *Time: 09:28 Interval history: pt sitting up in bed c/o of soa. receiving blood. Pt states this all started at the senior living and she continues to be soa. Exam Vital signs and Labs for Last 24 Hours: Temp Pulse Resp BP Pulse Ox 98.0 F 114 H 20 180/93 H 99 04/11/19 08:10 04/11/19 08:13 04/11/19 08:10 04/11/19 08:10 04/11/19 08:13 Laboratory Results - last 24 hr 04/10/19 15:10: WBC 2.3 L, RBC 2.72 L, Hgb 6.9 L*, Hct 23.3 L*, MCV 85.6, MCH 25.3 L, MCHC 29.6 L, RDW 16.0, Plt Count 102 L, MPV 11.7 H, Neut % (Auto) 54.4, Lymph % (Auto) 36.7, [place] % (Auto) 7.4, Eos % (Auto) 0.9, Baso % (Auto) 0.6, Neut # (Auto) 1.2 L, Lymph # (Auto) 0.8, [place] # (Auto) 0.2, Eos # (Auto) 0.0, Baso # (Auto) 0.0 04/10/19 15:10: Sodium 142, Potassium 3.2 L, Chloride 105, Carbon Dioxide 29, Anion Gap 11.2, BUN 17, Creatinine 1.02, Estimated Creat Clear 41, Estimated GFR 53 L, Est GFR ( Amer) 64, Glucose 69 L, Calcium 8.1 L, Total Bilirubin 0.8, AST 30, ALT 21, Alkaline Phosphatase 104, Total Protein 6.3 L, Albumin 2.8 L, Globulin 3.5 H, Albumin/Globulin Ratio 0.8 L 04/10/19 17:00: Blood Type O Positive, Antibody Screen Negative, Crossmatch (AHG) See Detail 04/11/19 02:35: Hgb 9.5 L D, Hct 29.8 L 04/11/19 08:00: Urine Color Yellow, Urine Appearance Clear, Urine pH 6.0, Ur Specific [place] 1.010, Urine Protein Negative, Urine Glucose (UA) Negative, Urine Ketones Negative, Urine Blood Negative, Urine Nitrate Negative, Urine Bilirubin Negative, Urine Urobilinogen 0.2, Ur Leukocyte Esterase Negative I & O for Last 24 hours: Intake & Output 04/08/19 04/09/19 04/10/19 04/11/19 11:59 11:59 11:59 11:59 Intake Total 809.23 / 809.23 Output Total 1470 / 1470 Balance -660.77 / -660.77 Weight 125 lb 5 oz - Constitutional mild distress, thin, chronically ill appearing - *Routine HEENT Exam Head: Present: normocephalic Eye: Present: PERRL ENT: Present: mucous membranes moist - *Routine Neck Exam Present: supple. Absent: lymphadenopathy - *Routine Respiratory Exam Present: decreased breath sounds, CTA bilaterally, wheezes - *Routine Cardiovascular Exam Present: RRR, murmur - *Routine Abdominal Exam Present: soft, normoactive bowel sounds. Absent: tenderness - *Routine Extremities Exam Present: normal capillary refill. Absent: cyanosis, clubbing, edema - *Routine Skin Exam Present: warm. Absent: rash - *Routine Neurological Exam Present: alert, oriented X3 - Routine Psychiatric Exam Present: normal affect Assessment and Plan (1) Anemia Current visit: No Status: Chronic Qualifiers: Anemia type: iron deficiency Iron deficiency anemia type: unspecified iron deficiency Qualified Code(s): D50.9 - Iron deficiency anemia, unspecified Category: Medical Code(s): D64.9 - Anemia, unspecified (2) CHF (congestive heart failure) Current visit: No Status: Chronic Qualifiers: Heart failure type: unspecified Heart failure chronicity: acute on chronic Qualified Code(s): I50.9 - Heart failure, unspecified Category: Medical Code(s): I50.9 - Heart failure, unspecified (3) COPD (chronic obstructive pulmonary disease) Current visit: No Status: Chronic Category: Medical Code(s): J44.9 - Chronic obstructive pulmonary disease, unspecified (4) Edema Current visit: No Status: Chronic Category: Medical Code(s): R60.9 - Edema, unspecified (5) Severe mitral valve regurgitation Current visit: No Status: Chronic Category: Medical Code(s): I34.0 - Nonrheumatic mitral (valve) insufficiency (6) Tobacco abuse Current visit: No Status: Chronic Category: Medical Code(s): Z72.0 - Tobacco use (7) Pulmonary hypertension Current visit: No Status: Chronic Category: Medical Code(s): I27.20 - Pulmonary hypertension, unspecified (8) Hypothyroidism Current visit: Yes Status: Acute Qualifiers: Hypothyroidism type: acquired Qualified Code(s): E03.9 - Hypothyroidism, unspecified Category: Medical Code(s): E03.9 - Hypothyroidism, unspecified - Assessment and plan all Dx Assessment and Plan for all problems:: rounded with yesi all orders per yesi left and right heart cath today and possible transfer to [facility] if needs valve surgery
[2019-04-11 09:38] LABS: Bacteria,Urine Trace /lpf; RBC,Urine Occasional #/hpf (0-3)
[2019-04-11 09:58] LABS: Basophils % 0.4 % (0.1-2.0); Eosinophils # 0.1 K/mm3 (0.0-0.4); Eosinophils % 0.6 % (0.1-12.0); Hematocrit 40.4 % (37.0-47.0); Lymphocytes # 0.7 K/mm3 (0.7-4.5); Lymphocytes % 7.9 % (10-50); Mean Corpuscular HGB Conc 31.1 g/dL (31.8-35.4); Mean Corpuscular Volume 84.2 fl (81-99); Mean Platelet Volume 9.7 fl (7.4-10.4); Monocytes # 0.5 K/mm3 (0.1-1.0); Monocytes % 5.3 % (1.7-9.3); Neutrophils # 7.6 K/mm3 (1.8-7.8); Neutrophils % 85.7 % (37.0-80.0); Platelet Count 125 K/mm3 (142-424); Red Cell Distribution Width 16.5 % (11.5-17.5); White Blood Count 8.9 K/mm3 (4.8-10.8)
[2019-04-11 10:04] LABS: Anion Gap 14.5 mEq/L (5-15); Calcium 8.1 mg/dL (8.5-10.1)
[2019-04-11 10:09] LABS: Hemoglobin 12.6 g/dL (12.2-16.2)
[2019-04-11 11:21] LABS: Hypochromasia 2+; Lymphocytes % 10 % (10-50); Monocytes % 2 % (2-9); Neutrophils % 88 % (42-76); Total Cells Counted 100
[2019-04-11 11:22] LABS: Tear Drop Cells 1+
[2019-04-11 11:23] LABS: Anisocytosis 1+
[2019-04-12 06:58] LABS: Basophils % 0.8 % (0.1-2.0); Eosinophils # 0.1 K/mm3 (0.0-0.4); Eosinophils % 0.9 % (0.1-12.0); Hematocrit 38.6 % (37.0-47.0); Hemoglobin 11.8 g/dL (12.2-16.2); Lymphocytes # 0.8 K/mm3 (0.7-4.5); Lymphocytes % 14.2 % (10-50); Mean Corpuscular HGB Conc 30.7 g/dL (31.8-35.4); Mean Platelet Volume 9.8 fl (7.4-10.4); Monocytes # 0.3 K/mm3 (0.1-1.0); Monocytes % 6.3 % (1.7-9.3); Neutrophils # 4.2 K/mm3 (1.8-7.8); Neutrophils % 77.9 % (37.0-80.0); Platelet Count 90 K/mm3 (142-424); Red Blood Count 4.49 M/mm3 (4.20-5.40); Red Cell Distribution Width 16.6 % (11.5-17.5); White Blood Count 5.4 K/mm3 (4.8-10.8)
[2019-04-12 07:07] LABS: Anion Gap 14.3 mEq/L (5-15); Calcium 7.9 mg/dL (8.5-10.1)
--- NOTE | 2019-04-12 07:26 | Electrocardiograph Report ---
APPROVED REPORT Exam: Resting ECG HR:92 bpm ECG Measurements Heart Rate 92 AXES NC 164 P 55 QRSd 84 QRS 73 QT 376 T47 QTc 464 <Conclusion> Sinus rhythm with occasional premature ventricular complexes Old septal changes Abnormal ECG Electronically signed by : Earl Fung, 04/12/2019 07:26:30
--- NOTE | 2019-04-12 07:28 | Electrocardiograph Report ---
APPROVED REPORT Exam: Resting ECG HR:73 bpm ECG Measurements Heart Rate 73 AXES MA 162 P 55 QRSd 80 QRS 40 QT 424 T8 QTc 467 <Conclusion> Normal sinus rhythm Septal infarct, age undetermined Abnormal ECG Electronically signed by : Earl Fung, 04/12/2019 07:27:43
--- NOTE | 2019-04-12 08:41 | Progress Note ---
Internal Medicine - PN: Subj *Date: 04/12/19 *Time: 08:39 Interval history: doing better today -breathing ok - Exam Vital signs and Labs for Last 24 Hours: Temp Pulse Resp BP Pulse Ox 98.8 F 72 17 133/71 96 04/12/19 08:00 04/12/19 08:00 04/12/19 08:00 04/12/19 08:00 04/12/19 08:00 Laboratory Results - last 24 hr 04/10/19 17:00: Crossmatch (AHG) See Detail 04/11/19 08:00: Urine Color Yellow, Urine Appearance Clear, Urine pH 6.0, Ur Specific [place] 1.010, Urine Protein Negative, Urine Glucose (UA) Negative, Urine Ketones Negative, Urine Blood Negative, Urine Nitrate Negative, Urine Bilirubin Negative, Urine Urobilinogen 0.2, Ur Leukocyte Esterase Negative, Urine RBC Occasional, Urine WBC None, Ur Squamous Epith Cells 3-5, Urine Bacteria Trace 04/11/19 09:45: WBC 8.9 D, RBC 4.80 D, Hgb 12.6 D, Hct 40.4, MCV 84.2, MCH 26.2 L, MCHC 31.1 L, RDW 16.5, Plt Count 125 L, MPV 9.7, Neut % (Auto) 85.7 H, Lymph % (Auto) 7.9 L, [place] % (Auto) 5.3, Eos % (Auto) 0.6, Baso % (Auto) 0.4, Neut # (Auto) 7.6, Lymph # (Auto) 0.7, [place] # (Auto) 0.5, Eos # (Auto) 0.1, Baso # (Auto) 0.0, Total Counted 100, Neutrophils % (Manual) 88 H, Lymphocytes % (Manual) 10, Monocytes % (Manual) 2, Platelet Estimate Normal, Hypochromasia 2+, Poikilocytosis 1+, Anisocytosis 1+, Microcytosis 1+, Spherocytes 1+, Tear Drop Cells 1+ 04/11/19 09:45: Sodium 141, Potassium 3.5, Chloride 101, Carbon Dioxide 29, Anion Gap 14.5, BUN 17, Creatinine 1.12 H, Estimated Creat Clear 41, Estimated GFR 48 L, Est GFR ( Amer) 58 L, Glucose 143 H D, Calcium 8.1 L 04/11/19 14:03: ABG O2 Sat (Measured) 63 L, POC VBG O2 Sat ([place]) 65 L 04/12/19 06:50: Sodium 139, Potassium 3.3 L, Chloride 99, Carbon Dioxide 29, Anion Gap 14.3, BUN 15, Creatinine 0.99, Estimated Creat Clear 44, Estimated GFR 55 L, Est GFR ( Amer) 67, Glucose 124 H, Calcium 7.9 L 04/12/19 06:50: WBC 5.4 D, RBC 4.49, Hgb 11.8 L, Hct 38.6, MCV 86.0, MCH 26.4 L , MCHC 30.7 L, RDW 16.6, Plt Count 90 L D, MPV 9.8, Neut % (Auto) 77.9, Lymph % (Auto) 14.2, [place] % (Auto) 6.3, Eos % (Auto) 0.9, Baso % (Auto) 0.8, Neut # (Auto) 4.2, Lymph # (Auto) 0.8, [place] # (Auto) 0.3, Eos # (Auto) 0.1, Baso # (Auto) 0.0 I & O for Last 24 hours: Intake & Output 04/09/19 04/10/19 04/11/19 04/12/19 11:59 11:59 11:59 11:59 Intake Total 809.23 / 809.23 600 / 600 Output Total 1470 / 1470 3900 / 3900 Balance -660.77 / -660.77 -3300 / -3300 Weight 125 lb 5.007 oz 121 lb 5 oz - Constitutional no acute distress - *Routine HEENT Exam Head: Present: normocephalic Eye: Present: EOMI, PERRL ENT: Present: mucous membranes dry - *Routine Neck Exam Absent: JVD - *Routine Respiratory Exam Present: decreased breath sounds - *Routine Cardiovascular Exam Present: RRR, murmur, S4 - *Routine Abdominal Exam Present: soft - *Routine Extremities Exam Absent: calf tenderness - *Routine Skin Exam Present: intact - *Routine Neurological Exam Present: alert, CN II-XII intact - Routine Psychiatric Exam Present: normal affect Assessment and Plan (1) Anemia Current visit: No Status: Chronic Qualifiers: Anemia type: iron deficiency Iron deficiency anemia type: unspecified iron deficiency Qualified Code(s): D50.9 - Iron deficiency anemia, unspecified Category: Medical Code(s): D64.9 - Anemia, unspecified (2) CHF (congestive heart failure) Current visit: No Status: Chronic Qualifiers: Heart failure type: unspecified Heart failure chronicity: acute on chronic Qualified Code(s): I50.9 - Heart failure, unspecified Category: Medical Code(s): I50.9 - Heart failure, unspecified (3) COPD (chronic obstructive pulmonary disease) Current visit: No Status: Chronic Category: Medical Code(s): J44.9 - Chron ic obstructive pulmonary disease, unspecified (4) Edema Current visit: No Status: Chronic Category: Medical Code(s): R60.9 - Edema, unspecified (5) Severe mitral valve regurgitation Current visit: No Status: Chronic Category: Medical Code(s): I34.0 - Nonrheumatic mitral (valve) insufficiency (6) Tobacco abuse Current visit: No Status: Chronic Category: Medical Code(s): Z72.0 - Tobacco use (7) Pulmonary hypertension Current visit: No Status: Chronic Category: Medical Code(s): I27.20 - Pulmonary hypertension, unspecified (8) Hypothyroidism Current visit: Yes Status: Acute Qualifiers: Hypothyroidism type: acquired Qualified Code(s): E03.9 - Hypothyroidism, unspecified Category: Medical Code(s): E03.9 - Hypothyroidism, unspecified (9) Thrombocytopenia Current visit: Yes Status: Acute Category: Medical Code(s): D69.6 - Thrombocytopenia, unspecified
[2019-04-13 06:56] LABS: Basophils % 0.5 % (0.1-2.0); Eosinophils % 0.4 % (0.1-12.0); Hematocrit 34.8 % (37.0-47.0); Lymphocytes # 0.7 K/mm3 (0.7-4.5); Lymphocytes % 14.2 % (10-50); Mean Corpuscular HGB Conc 31.7 g/dL (31.8-35.4); Mean Corpuscular Volume 82.3 fl (81-99); Mean Platelet Volume 11.4 fl (7.4-10.4); Monocytes # 0.4 K/mm3 (0.1-1.0); Monocytes % 7.6 % (1.7-9.3); Neutrophils # 3.9 K/mm3 (1.8-7.8); Neutrophils % 77.3 % (37.0-80.0); Platelet Count 96 K/mm3 (142-424); Red Blood Count 4.23 M/mm3 (4.20-5.40); Red Cell Distribution Width 16.3 % (11.5-17.5); White Blood Count 5.1 K/mm3 (4.8-10.8)
[2019-04-13 07:09] LABS: Anion Gap 10.9 mEq/L (5-15); Calcium 7.9 mg/dL (8.5-10.1)
--- NOTE | 2019-04-13 08:41 | Progress Note ---
Internal Medicine - PN: Subj *Date: 04/13/19 *Time: 08:39 Interval history: doing better - low k today Exam Vital signs and Labs for Last 24 Hours: Temp Pulse Resp BP Pulse Ox 97.7 F 83 18 151/78 H 96 04/13/19 07:53 04/13/19 07:53 04/13/19 07:53 04/13/19 07:53 04/13/19 07:53 Laboratory Results - last 24 hr 04/13/19 06:46: WBC 5.1, RBC 4.23, Hgb 11.0 L, Hct 34.8 L, MCV 82.3, MCH 26.1 L, MCHC 31.7 L, RDW 16.3, Plt Count 96 L, MPV 11.4 H, Neut % (Auto) 77.3, Lymph % (Auto) 14.2, [place] % (Auto) 7.6, Eos % (Auto) 0.4, Baso % (Auto) 0.5, Neut # (Auto) 3.9, Lymph # (Auto) 0.7, [place] # (Auto) 0.4, Eos # (Auto) 0.0, Baso # (Auto) 0.0 04/13/19 06:46: Sodium 140, Potassium 2.9 L*, Chloride 102, Carbon Dioxide 30, Anion Gap 10.9, BUN 11 D, Creatinine 0.98, Estimated Creat Clear 41, Estimated GFR 56 L, Est GFR ( Amer) 68, Glucose 102, Calcium 7.9 L I & O for Last 24 hours: Intake & Output 04/10/19 04/11/19 04/12/19 04/13/19 11:59 11:59 11:59 11:59 Intake Total 809.23 / 809.23 600 / 600 2310 / 2310 Output Total 1470 / 1470 5600 / 5600 3175 / 3175 Balance -660.77 / -660.77 -5000 / -5000 -865 / -865 Weight 125 lb 5.007 oz 121 lb 5 oz 112 lb 2 oz - Constitutional no acute distress - *Routine HEENT Exam Head: Present: normocephalic Eye: Present: EOMI, PERRL ENT: Present: mucous membranes dry - *Routine Neck Exam Absent: JVD - *Routine Respiratory Exam Present: crackles - *Routine Cardiovascular Exam Present: RRR, murmur, S4 - *Routine Abdominal Exam Present: soft - *Routine Extremities Exam Present: edema - *Routine Skin Exam Present: intact - *Routine Neurological Exam Present: alert, oriented X3, CN II-XII intact - Routine Psychiatric Exam Present: normal affect Assessment and Plan (1) Anemia Current visit: No Status: Chronic Qualifiers: Anemia type: iron deficiency Iron deficiency anemia type: unspecified iron deficiency Qualified Code(s): D50.9 - Iron deficiency anemia, unspecified Category: Medical Code(s): D64.9 - Anemia, unspecified (2) CHF (congestive heart failure) Current visit: No Status: Chronic Qualifiers: Heart failure type: unspecified Heart failure chronicity: acute on chronic Qualified Code(s): I50.9 - Heart failure, unspecified Category: Medical Code(s): I50.9 - Heart failure, unspecified (3) COPD (chronic obstructive pulmonary disease) Current visit: No Status: Chronic Category: Medical Code(s): J44.9 - Chronic obstructive pulmonary disease, unspecified (4) Edema Current visit: No Status: Chronic Category: Medical Code(s): R60.9 - Edema, unspecified (5) Severe mitral valve regurgitation Current visit: No Status: Chronic Category: Medical Code(s): I34.0 - Nonrheumatic mitral (valve) insufficiency (6) Tobacco abuse Current visit: No Status: Chronic Category: Medical Code(s): Z72.0 - Tobacco use (7) Pulmonary hypertension Current visit: No Status: Chronic Category: Medical Code(s): I27.20 - Pulmonary hypertension, unspecified (8) Hypothyroidism Current visit: Yes Status: Acute Qualifiers: Hypothyroidism type: acquired Qualified Code(s): E03.9 - Hypothyroidism, unspecified Category: Medical Code(s): E03.9 - Hypothyroidism, unspecified (9) Thrombocytopenia Current visit: Yes Status: Acute Category: Medical Code(s): D69.6 - Thrombocytopenia, unspecified (10) Hypokalemia Current visit: No Status: Acute Category: Medical Code(s): E87.6 - Hypokalemia
[2019-04-13 17:16] LABS: Creatine Kinase 45 U/L (26-192)
--- NOTE | 2019-04-14 08:33 | Progress Note ---
Subjective Date: 04/14/19 Time: 08:29 Principal diagnosis: Anemia, CHF, Severe MR Interval history: 73-year-old white female in bed in no acute distress. States she is feeling much better. Her legs are less swollen and less painful. Discussion guarding treatment for her mitral regurgitation including medical therapy versus surgical therapy undertaken. Exam Vital signs and Labs for Last 24 Hours: Temp Pulse Resp BP Pulse Ox 97.9 F 77 18 143/62 H 96 04/14/19 04:00 04/14/19 04:00 04/14/19 04:00 04/14/19 04:00 04/14/19 04:00 Laboratory Results - last 24 hr 04/11/19 09:45: Haptoglobin 148 04/13/19 16:45: Total Creatine Kinase 45, CK-MB (CK-2) 0.7, CK-MB (CK-2) Rel Index 1.6, Troponin I < 0.02 I & O for Last 24 hours: Intake & Output 04/11/19 04/12/19 04/13/19 04/14/19 11:59 11:59 11:59 11:59 Intake Total 809.23 / 809.23 600 / 600 2310 / 2310 1680 / 1680 Output Total 1470 / 1470 5600 / 5600 3175 / 3175 2300 / 2300 Balance -660.77 / -660.77 -5000 / -5000 -865 / -865 -620 / -620 Weight 125 lb 5.007 oz 121 lb 5 oz 112 lb 2 oz 108 lb 4 oz - *Routine Respiratory Exam Present: rhonchi, diminished air movement. Absent: accessory muscle use, rales, wheezes - *Routine Cardiovascular Exam Present: RRR, murmur. Absent: gallop, rubs - *Routine Extremities Exam Absent: edema, calf tenderness - *Routine Neurological Exam Present: alert, oriented X3, moving all extremities Progress Note: A&P (1) Anemia Status: Chronic Current Visit: No (2) CHF (congestive heart failure) Status: Chronic Current Visit: No (3) COPD (chronic obstructive pulmonary disease) Status: Chronic Current Visit: No (4) Edema Status: Chronic Current Visit: No (5) Severe mitral valve regurgitation Status: Chronic Current Visit: No (6) Tobacco abuse Status: Chronic Current Visit: No (7) Pulmonary hypertension Status: Chronic Current Visit: No (8) Hypothyroidism Status: Acute Current Visit: Yes (9) Thrombocytopenia Status: Acute Current Visit: Yes (10) Hypokalemia Status: Acute Current Visit: No Assessment and Plan for All Diagnoses:: 1. Hypokalemia, on replacement therapy. Repeat labs this a.m. including magnesium pending 2. We will discontinue Abraham catheter in anticipation of discharge back to senior care today 3. Severe mitral regurgitation with recurrent congestive heart failure, patient would be a surgical candidate but would like to try to control this with medical therapy at this time due to patient being a poor surgical candidate. Continue Lasix 40 mg twice daily. Salt restriction. 4. In discussion with patient, it sounds like she has possible bone marrow deterioration as a reason for her recurrent anemia/pancytopenia and transfusions. She has been seen by the [facility] cancer center at in the past and Dr. Kaba of for evaluation. 5. Moderate CAD by cardiac cath last week, stable on medical therapy including beta-[place] and statin therapy. No aspirin due to recurrent anemia 6. Moderate pulmonary hypertension 7. Patient will need close follow-up with appointment in our office next week.
[2019-04-14 09:30] LABS: Anion Gap 11.1 mEq/L (5-15); Calcium 8.1 mg/dL (8.5-10.1)
--- NOTE | 2019-04-14 11:47 | Discharge Summary ---
General - General Admission date:: 04/11/19 Discharge date: 04/14/19 HPI HPI: this wf with hx of lower ext edema which has been progressive over the last few days - pt with known heart failure - she had procedure and was noted to have sig valvular dis and anemia and was admitted for evaluation- and transfusion 3 yo WF here for RACHEL today. RACHEL revealed severe MR and TR for which pt needs right and left heart cath in preparation for valve surgery. Pt was admitted for blood transfusion and cardiology evaluation. No chest pain. History of normal stress test this year. Recently at for CHF with 22 lb diuresis per patient needs blood transfusion to get Hgb >10 before proceeding with R/LHC. Will see in AM and decide on timing of procedure. continue coreg, lasix and lisinopril. Hospital Course Hospital Course: pt with lasix for chf - she was seen by card - yo WF here for RACHEL today. RACHEL revealed severe MR and TR for which pt needs right and left heart cath in preparation for valve surgery. Pt was admitted for blood transfusion and cardiology evaluation. No chest pain. History of normal stress test this year. Recently at for CHF with 22 lb diuresis per patient. pt has did well but has recurrent anemia which has been seen by and dr kaba - perhaps bone marrow issue - she had card eval-current congestive heart failure A. Transesophageal echo, 04/10/2019, 1. Moderate biatrial enlargement, normal left ventricular size, mild concentric left ventricular hypertrophy, visually estimated ejection fraction 55% with no regional wall motion abnormality. 2. Moderately enlarged right ventricle with normal contractility. 3. Mitral valve leaflets are minimally thickened, there is no mitral valve prolapse or mitral stenosis, there is severe mitral regurgitation, there is systolic flow reversal seen in the pulmonary vein. Degenerative changes seen in both anterior posterior mitral leaflet 4. Thickened and calcified aortic valve without aortic stenosis, there is m oderate aortic insufficiency. 5. Severe tricuspid regurgitation 6. No significant pericardial effusion noted 7. Agitated saline contrast study fails to identify intracardiac shunt. 2. Hypertension 3. Hyperlipidemia 4. COPD with continued tobacco use 5. GERD 6. Hypothyroidism, on replacement therapy 73-year-old white female admitted yesterday for anemia with plans for blood transfusion. Patient has severe mitral regurgitation noted on transesophageal echocardiogram yesterday with recurrent history of congestive heart failure. Patient needs a right and left heart catheterization buy we are waiting until her hemoglobin is greater than 10. Overnight patient developed worsening shortness of breath despite 80mg of Lasix after each unit of blood (currently on the third unit of blood). Patient is unable to sit still due to being short of breath. Oxygen saturation on supplemental oxygen is in the 90s. Blood pressure iC revealed non-flow limiting CAD with 4+ severe MR. Recommend diuresing over the weekend and re-assess on Sunday. Pt is not a great candidate for surgery. s elevated at 180/90 and she complains of shortness of breath and chest discomfort despite Nitropaste. o significant pericardial effusion noted Conclusion 1. Moderate biatrial enlargement, normal left ventricular size, mild concentric left ventricular hypertrophy, visually estimated ejection fraction 55% with no regional wall motion abnormality. 2. Moderately enlarged right ventricle with normal contractility. 3. Severe mitral regurgitation as described above 4. Thickened and calcified aortic valve without aortic stenosis, there is moderate aortic insufficiency. 5. Severe tricuspid regurgitation 6. No significant pericardial effusion noted 7. Agitated saline contrast study fails to identify intracardiac shunt. pt had heart cath-GIOGRAPHIC RESULTS The left main artery Normal The left anterior descending artery Has proximal eccentric 20% stenoses in the long tubular 30 to 40% mid vessels stenosis The circumflex artery Is a nondominant vessel and has proximal 20 to 30% [id number] stenoses The right coronary artery Is a large dominant vessel and has very proximal 10% stenosis followed by a mid vessel 40 to 50% eccentric stenosis The CASTELAN ventriculogram reveals Preserved ejection fraction at 55% with +4 mitral regurgitation The left ventricular end-diastolic pressure 25 mmHg Right atrial pressure 12 mmHg Pulmonary artery pressure 47/25 mmHg Pulmonary artery occlusion pressure 25 mmHg Right atrial saturation 65% Pulmonary artery saturation 63% A vena caval interruption filter is identified in the inferior vena cava IMPRESSION Moderate stenosis in the proximal to mid dominant right coronary artery Preserved ejection fraction in the setting of severe mitral regurgitation Moderate pulmonary hypertension Elevated left-sided filling pressures consistent with left-sided congestive heart failure PLAN 1. Decisions will be made by the primary treatment team regarding possible surgical evaluation for the mitral regurgitation pt with good resp to treatment and transfusion and will be d/c to follow closely at [facility], on replacement therapy. Repeat labs this a.m. including magnesium pending 2. We will discontinue Abraham catheter in anticipation of discharge back to group home today 3. Severe mitral regurgitation with recurrent congestive heart failure, patient would be a surgical candidate but would like to try to control this with medical therapy at this time due to patient being a poor surgical candidate. Continue Lasix 40 mg twice daily. Salt restriction. 4. In discussion with patient, it sounds like she has possible bone marrow deterioration as a reason for her recurrent anemia/pancytopenia and transfusions. She has been seen by the [facility] cancer center at in the past and Dr. Kaba of for evaluation. 5. Moderate CAD by cardiac cath last week, stable on medical therapy including beta-alesia and statin therapy. No aspirin due to recurrent anemia 6. Moderate pulmonary hypertension 7. Patient will need close follow-up with appointment in our office next week. I have contacted Dr. Blackman's office to see if they evaluated the patient last month while she was at . If not, then will make arrangements for her to be evaluated in the next 2 wks. OK to discharge to [place] with follow up in our office next week with BMP and CBC. Objective Vital signs: Temp Pulse Resp BP Pulse Ox 98.5 F 68 17 149/74 H 95 04/14/19 09:00 04/14/19 09:00 04/14/19 09:00 04/14/19 09:00 04/14/19 09:00 no acute distress - *Routine HEENT Exam Head: Present: normocephalic Eye: Present: EOMI, PERRL ENT: Present: mucous membranes dry - *Routine Neck Exam Present: supple - *Routine Respiratory Exam Present: CTA bilaterally - *Routine Cardiovascular Exam Present: RRR, murmur, S4 - *Routine Abdominal Exam Present: soft - *Routine Extremities Exam Absent: calf tenderness - *Routine Skin Exam Present: intact - *Routine Neurological Exam Present: alert, oriented X3, CN II-XII intact - Routine Psychiatric Exam Present: normal affect Results Labs on day of discharge: Labs from last 24 hours 04/14/19 04/13/19 04/11/19 09:00 16:45 09:45 Haptoglobin 148 Sodium 138 Potassium 3.1 L Chloride 100 Carbon Dioxide 30 Anion Gap 11.1 BUN 11 Creatinine 1.04 H Estimated Creat Clear 38 Estimated GFR 52 L Est GFR ( Amer) 63 Glucose 103 Calcium 8.1 L Magnesium 1.7 Total Creatine Kinase 45 CK-MB (CK-2) 0.7 CK-MB (CK-2) Rel Index 1.6 Troponin I < 0.02 DS: Diagnosis - Discharge Diagnosis (1) Anemia Status: Chronic (2) CHF (congestive heart failure) Status: Chronic (3) COPD (chronic obstructive pulmonary disease) Status: Chronic (4) Edema Status: Chronic (5) Severe mitral valve regurgitation Status: Chronic (6) Tobacco abuse Status: Chronic (7) Pulmonary hypertension Status: Chronic (8) Hypothyroidism Status: Acute (9) Thrombocytopenia Status: Acute (10) Hypokalemia Status: Acute (11) CAD (coronary artery disease) Status: Chronic Discharge Plan - Patient Discharge Instructions ACTIVITY: Continue current activity DIET: continue same diet Patient Instructions: Anemia, DI for Blood Transfusion, DI for Iron Deficiency Anemia-Adult, Low-Sodium Diet, Lower Sodium Intake Associated with Lower Blood Pressures and Decreased Str - Follow up Plan Disposition: [facility] Home Medications: Home Medications Medication Instructions Recorded Confirmed Type Latanoprost [Xalatan 0.005% Ophth 1 drp EYE-BOTH HS 06/11/17 04/11/19 History Soln 2.5mL] Denosumab [Denosumab 60mg/mL 60 mg SQ .EVERY 6 MONTHS 12/24/18 04/10/19 History syringe] Furosemide [Furosemide 40MG tAB] 80 mg PO DAILY 12/24/18 04/10/19 History Gabapentin [Gabapentin 400mg Cap] 400 mg PO TID 12/24/18 04/10/19 History acetaminophen 500 mg capsule 500 mg PO Q6H PRN 03/26/19 04/10/19 History loperamide 2 mg capsule 2 mg PO Q6HP PRN 03/26/19 04/11/19 History polyethylene glycol 3350 17 17 g PO DAILYP PRN 03/26/19 04/11/19 History gram/dose oral powder Calcium Polycarbophil [FiberCon 2 tab PO DAILY 04/11/19 04/11/19 History 625mg tablet] Rifaximin [Xifaxan] 550 mg PO TID 04/11/19 04/11/19 History Tramadol HCl [Tramadol 50mg 50 mg PO BIDP PRN 04/11/19 04/11/19 History Tab] Atorvastatin Calcium [Atorvastatin 20 mg PO HS #30 tab 04/14/19 Rx 20mg Tab] Carvedilol [Coreg 25mg Tablet] 25 mg PO BID #60 tab 04/14/19 Rx Esomeprazole Magnesium [Nexium] 40 mg PO BID #60 capsule.dr 04/14/19 Rx Fluoxetine HCl 40 mg PO DAILY #30 cap 04/14/19 Rx Furosemide [Lasix 40mg tab] 40 mg PO BID #60 tab 04/14/19 Rx Levothyroxine Sodium 50 mcg PO DAILY #30 tab 04/14/19 Rx [Levothyroxine 50mcg (0.05mg) Tab] Lisinopril [Lisinopril 10mg Tab] 10 mg PO DAILY #30 tab 04/14/19 Rx Ondansetron HCl [Ondansetron 4mg 4 mg PO TID PRN #90 tab 04/14/19 Rx Tablet] Potassium Chloride [Klor-con 20 20 meq PO BID #60 tab 04/14/19 Rx mEq tablet] Ropinirole HCl 0.25 mg PO BID #60 tab 04/14/19 Rx Sucralfate [Carafate 1gm/10mL 1 gm PO ACHS #120 udc 04/14/19 Rx Susp] Trazodone HCl 100 mg PO HS #30 tab 04/14/19 Rx Prescriptions/Medication Reconciliation: New Furosemide [Lasix 40mg tab] 40 mg PO BID #60 tab Continued loperamide 2 mg capsule 2 mg PO Q6HP PRN PRN Reason: Diarrhea polyethylene glycol 3350 17 gram/dose oral powder 17 g PO DAILYP PRN PRN Reason: Constipation Latanoprost [Xalatan 0.005% Ophth Soln 2.5mL] 1 drp EYE-BOTH HS Denosumab [Denosumab 60mg/mL syringe] 60 mg SQ .EVERY 6 MONTHS Gabapentin [Gabapentin 400mg Cap] 400 mg PO TID Tramadol HCl [Tramadol 50mg Tab] 50 mg PO BIDP PRN PRN Reason: PAIN Calcium Polycarbophil [FiberCon 625mg tablet] 2 tab PO DAILY Atorvastatin Calcium [Atorvastatin 20mg Tab] 20 mg PO HS #30 tab Sucralfate [Carafate 1gm/10mL Susp] 1 gm PO ACHS #120 udc Carvedilol [Coreg 25mg Tablet] 25 mg PO BID #60 tab Levothyroxine Sodium [Levothyroxine 50mcg (0.05mg) Tab] 50 mcg PO DAILY #30 tab Lisinopril [Lisinopril 10mg Tab] 10 mg PO DAILY #30 tab Esomeprazole Magnesium [Nexium] 40 mg PO BID #60 capsule. Ondansetron HCl [Ondansetron 4mg Tablet] 4 mg PO TID PRN #90 tab PRN Reason: nausea Ropinirole HCl 0.25 mg PO BID #60 tab Trazodone HCl 100 mg PO HS #30 tab Rifaximin [Xifaxan] 550 mg PO TID Fluoxetine HCl 40 mg PO DAILY #30 cap Changed Potassium Chloride [Klor-con 20 mEq tablet] 20 meq PO BID #60 tab Discontinued acetaminophen 500 mg capsule 500 mg PO Q6H PRN PRN Reason: headache Furosemide [Furosemide 40MG tAB] 80 mg PO DAILY - Problem Reconciliation Problems Reviewed?: Yes
--- OUTSIDE RECORDS SUMMARY | 2019-04-14 15:13 | External Medical Summary | Continuity of Care Document ---
:1945 Author Organization [facility] Address [address] [place] [address] Phone Care Team Providers Name Role Phone Haris Primary Care Provider Haris Attending Provider Michael Kaba Attending Provider Kenton Attending Provider Jose Guadalupe Attending Provider Stephanie Primary Care Provider Stephanie Attending Provider Chino Attending Provider Nahid Silva Attending Provider Unavailable Kenton Primary Care Provider Black Attending Provider Hetal Key Primary Care Provider Naman Attending Provider Hetal Key Attending Provider Allergies, Adverse Reactions, Alerts Allergen Type Severity Reaction Last Verified Status Updated brimonidine Allergy Moderate Rash Yes Active timolol Allergy Moderate Rash Yes Active metoclopramide Allergy Unknown Unknown Yes Activ e allergy reaction Medications Medication Status Dose Units Route Sig Qty Days Start End Instruct ions Date Date Loperamide Hcl Active 2 MG Oral Every 6 March hours , 2018 needed 10:34am Polyethylene Active 17 G Oral Daily March Glycol 335 as 2018 10:36am Latanoprost Active 1 DRP EYE-BOTH At June bedtime 2017 nightly 9:35pm Denosumab Active 60 MG SUBCUTANEO .EVERY December 6 2018 3:18pm Gabapentin Active 400 MG Oral Three December times a 2018 3:18pm Tramadol Hcl Active 50 MG Oral Twice a April day as 2018 needed 3:08am Calcium Active 2 TAB Oral Daily April Polycarbophil 2018 11:52am Rifaximin Active 550 MG Oral Three April UNTIL a 201804/21/19 day 11:52am Furosemide Active 40 MG Oral Twice a 60 April 12:07pm Atorvastatin Active 20 MG Oral At 03 May Calcium bedtime nightly 2018 12:08pm Carvedilol Active 25 MG Oral Twice a 60 April 12:08pm Esomeprazole Active 40 MG Oral Twice a 60 April Magnesium day 2018 12:08pm Fluoxetine Hcl Active 40 MG Oral Daily April 14, 2019 12:08pm Levothyroxine Active 50 MCG Oral Daily 03 May Sodium 2018 12:08pm Lisinopril Active 10 MG Oral Daily April 14, 2019 12:08pm Ondansetron Active 4 MG Oral Three April Hcl times a 2018 12:08pm Potassium Active 20 MEQ Oral Twice a 60 April Chloride day 2018 12:08pm Ropinirole Hcl Active 0.25 MG Oral Twice a 60 April 12:08pm Sucralfate Active 1 GM Oral Before 120 April meals , and at 2018 bedtime 12:08pm Trazodone Hcl Active 100 MG Oral At 03 May bedtime , nightly 2018 12:08pm Problems Active Problems Medical Problem Onset Date Status Acute kidney injury Active History of MD (myocardial infarction) Ac tive UTI (urinary tract infection) Active Moderate tricuspid regurgitation Active Disp fx proximal phalanx lesser toe Acti ve right foot w/delayed healing GERD with esophagitis Active Hip sprain Active SOB (shortness of breath) Active Lingular pneumonia Active Elbow sprain Active CAD (coronary artery disease) Active CHF (congestive heart failure) Active Anemia Active Pulmonary hypertension Active Dysphagia Active Edema Active HLD (hyperlipidemia) Active Hypothyroidism Active Carotid bruit Active Atypical chest pain Active Thrombocytopenia Active Tobacco abuse Active Visual disturbance Active PIC line (peripherally inserted Active central catheter) flush Severe mitral valve regurgitation Active Recurrent falls Active Pain in left foot Active COPD (chronic obstructive pulmonary Acti ve disease) Chest pain Active HTN (hypertension) Active Cellulitis of toe of right foot Active Cellulitis of foot Active Hypokalemia Active Hypokalemia Active Hypocalcemia Active Inactive/Resolved Problems Medical Problem Onset Date Status Fatigue associated with anemia Resolved Acute URI Resolved Orthostatic hypotension Resolved Bilateral leg and foot pain Resolved Hyponatremia Resolved Dehydration Resolved Procedures Procedure Date Performed Status XR chest 2V March 05, 2019 completed US Arterial Lower Ext Rest January 23, 2019 completed NM melquiades perf SPECT rest & str April 08, 2019 completed EGD & Colonoscopy (Not February 17, 2019 12:00pm complete d Applicable) Relevant Diagnostic Tests and/or Laboratory Data Laboratory Results Test Date/Time Result Interpretation Reference Result Perfo rming Range Comment Site White Blood February 3.1 4.8-10.8 [facility], [address] [place] [address] 36 E Count 2018 K/mm3 [place] [address] 8:00am White Blood March 2.4 4.8-10.8 [facility], [address] [place] [address] 36 E Count 2018 K/mm3 [place] [address] 3:50pm Red Blood Count February 3.35 4.20-5.40 [facility], [address] [place] [address] 36 E 2018 M/mm3 [place] [address] 8:00am Red Blood Count March 05.66 4.20-5.[address] 36 E 2018 M/mm3 [place] [address] 3:50pm Hemoglobin February 8.2 g/dL 12.2-16.2 [facility], [address] [place] [address] E 2018 [place] [address] 8:00am Hemoglobin March 6.5 g/dL 12.2-16.2 [place] [address] E 2018 CRITICAL [place] [address] 3:50pm RESULT Results called to:JUAN by Skylar Reyez 1813 on 03/04/19 Hemoglobin March 9.9 g/dL 12.2-16.2 Delta: 6.6 [place] [address] E 2018 on [place] [address] 4:35pm 03/05/19-092 5 Hematocrit February 26.9 % 37.0-47.0 [place] [address] E 2018 [place] [address] 8:00am Hematocrit March 21.6 % 37.0-47.0 [facility], [address] [place] [address] E 2018 CRITICAL [place] [address] 3:50pm RESULT Results called to:JUAN by Skylar Reyez 1814 on 03/04/19 Hematocrit March 31.2 % 37.0-47.0 [place] [address] E 2018 [place] [address] 4:35pm Mean February 80.3 fl 81-99 [facility], [address] [place] [address] E Corpuscular 2018 [place] [address] Volume 8:00am Mean March 81.3 fl 81-99 [facility], [address] [place] [address] E Corpuscular 2018 [place] [address] Volume 3:50pm Mean February 24.3 pg 27.0-31.2 [facility], [address] [place] [address] E Corpuscular 2018 [place] [address] Hemoglobin 8:00am Mean March 24.5 pg 27.0-31.2 [facility], [address] [place] [address] E Corpuscular 2018 [place] [address] Hemoglobin 3:50pm Mean February 30.3 31.8-35.4 [facility], [address] [place] [address] E Corpuscular 2018 g/dL [place] [address] Hemoglobin 8:00am Concent Mean March 30.2 31.8-35.4 [facility], [address] [place] [address] E Corpuscular 2018 g/dL Rehan [place] [address] Hemoglobin 3:50pm Concent Red Cell February 22.2 % 11.5-17.5 [facility], [address] [place] [address] E Distribution 2018 [place] [address] Width 8:00am Red Cell March 22.0 % 11.5-17.5 [facility], [address] [place] [address] E Distribution 2018 Casi [place] [address] Width 3:50pm Platelet Count February 156 142-424 [facility], [address] [place] [address] E 2018 K/mm3 [place] [address] 8:00am Platelet Count March 150 142-424 [facility], [address] [place] [address] E 2018 K/mm3 [place] [address] 3:50pm Mean Platelet February 8.6 fl 7.4-10.4 [facility], [address] [place] [address] E Volume 2018 [place] [address] 8:00am Mean Platelet March 8.6 fl 7.4-10.4 [facility], [address] [place] [address] E Volume 2018 [place] [address] 3:50pm Neutrophils (%) February 63.2 % 37.0-80.0 [facility], [address] [place] [address] E (Auto) 2018 [place] [address] 8:00am Neutrophils (%) March 56.8 % 37.0-80.0 [facility], [address] [place] [address] E (Auto) 2018 [place] [address] 3:50pm Lymphocytes (%) February 28.2 % 10-50 [facility], [address] [place] [address] E (Auto) 2018 [place] [address] 8:00am Lymphocytes (%) March 33.5 % 10-50 [facility], [address] [place] [address] E (Auto) 2018 [place] [address] 3:50pm Monocytes (%) February 7.3 % 1.7-9.3 [facility], [address] [place] [address] E (Auto) 2018 [place] [address] 8:00am Monocytes (%) March 7.7 % 1.7-9.3 [place] [facility], [address] [place] [address] E (Auto) 2018 [place] [address] 3:50pm Eosinophils (%) February 1.1 % 0.1-12.0 [facility], [address] [place] [address] E (Auto) 2018 [place] [address] 8:00am Eosinophils (%) March 1.5 % 0.1-12.0 [facility], [address] [place] [address] E (Auto) 2018 [place] [address] 3:50pm Basophils (%) February 0.3 % 0.1-2.0 [facility], [address] [place] [address] E (Auto) 2018 [place] [address] 8:00am Basophils (%) March 0.5 % 0.1-2.0 [facility], [address] [place] [address] E (Auto) 2018 [place] [address] 3:50pm Neutrophils # February 2.0 1.8-7.8 [facility], [address] [place] [address] E (Auto) 2018 K/mm3 [place] [address] 8:00am Neutrophils # March 1.4 1.8-7.8 [place] [facility], [address] [place] [address] E (Auto) 2018 K/mm3 [place] [address] 3:50pm Lymphocytes # February 0.9 0.7-4.5 [place] [facility], [address] [place] [address] E (Auto) 2018 K/mm3 [place] [address] 8:00am Lymphocytes # March 0.8 0.7-4.5 [facility], [address] [place] [address] E (Auto) 2018 K/mm3 [place] [address] 3:50pm Monocytes # Rhina 0.2 0.1-1.0 [facility], [address] [place] [address] E (Auto) 2018 K/mm3 [place] [address] 8:00am Monocytes # October 0.2 0.1-1.0 [facility], [address] [place] [address] E (Auto) 2018 K/mm3 [place] [address] 3:50pm Eosinophils # Rhina 0.0 0.0-0.4 [facility], [address] [place] [address] E (Auto) 2018 K/mm3 [place] [address] 8:00am Eosinophils # October 0.0 0.0-0.4 [facility], [address] [place] [address] E (Auto) 2018 K/mm3 [place] [address] 3:50pm Basophils # Rhina 0.0 0-0.2 [facility], [address] [place] [address] E (Auto) 2018 K/mm3 [place] [address] 8:00am Basophils # October 0.0 0-0.2 [facility], [address] [place] [address] E (Auto) 2018 K/mm3 [place] [address] 3:50pm Sodium Level March 139 136-145 [facility], [address] [place] [address] E 2018 mmol/L [place] [address] 3:50pm Potassium Level March 4.5 3.5-5.1 [facility], [address] [place] [address] E 2018 mmoL/L [place] [address] 3:50pm Chloride Level March 104 98-107 [facility], [address] [place] [address] E 2018 mmol/L [place] [address] 3:50pm Carbon Dioxide March 29 21.0-32.0 [facility], [address] [place] [address] E Level 2018 mmol/L [place] [address] 3:50pm Anion Gap March 10.5 5-15 [facility], [address] [place] [address] E 2018 mEq/L [place] [address] 3:50pm Blood Urea March 17 mg/dL -18 [facility], [address] [place] [address] E Nitrogen 2018 [place] [address] 3:50pm Creatinine March 1.13 0.55-1.02 [facility], [address] [place] [address] E 2018 mg/[place] [address] 3:50pm Estimated GFR March 57 >59 [facility], [address] ( 2018 ML/[place] [address] Serbian) 3:50pm Estimat March 47 >59 [facility] [address] Glomerular 2018 ml/[place] [address] Filtration Rate 3:50pm Glucose Level March 98 mg/dL 74-106 [facility], [address] [place] [address] 36 E 2018 [place] [address] 3:50pm Calcium Level March 8.7 8.5-10.1 [facility], [address] [place] [address] 36 E 2018 mg/[place] [address] 3:50pm B-Type March 431 0-100 [facility], [address] [place] [address] Highway 36 E Natriuretic 2018 pg/[place] [address] Peptide 3:50pm Diagnostic Imaging Reports Report Dictated Date/Time Dictated By Status Radiology Report January 23, 2019 Shayne Vegas MD completed 9:48am [place] [id number] [place] [address] Ultrasoun d Report Sig geoff Patient: Batsheva Veloz MR#: [id number] : 1945 Acct:[id number] Age/Sex: 73 / F ADM Date: 9 Loc: RT Attending Dr: Telly Carballo MD Ordering Physician: Telly Carballo MD Date of Service: 01/23/19 Procedure(s): US Arterial Lower Ext Rest Accession Number(s): [id number] cc: Shayne Vegas MD; Telly Carballo MD~ APPROVED REPORT -------- ------ Exam Type: Lower Extremity Segmental Pr essures Copy Lathe Operator: Luda Car RD CS Indications Claudication: Rest Pain: Edema Current Smoker History of Smoking CAD Risk Factors CAD Current Smoker Pressures/Indices Right Indices Left Indices Brachial 165.00 mmHg Brachia l 178.00 mmHg Low Thigh 181.00 mmHg 1.02 Lo w Thigh 124.00 mmHg 0.70 Calf 162.00 mmHg 0.91 Calf 188.00 mmHg 1.06 Ankle(PT) 189.00 mmHg 1.06 An kle(PT) 181.00 mmHg 1.02 Ankle(DP) 176.00 mmHg 0.99 An kle(DP) 175.00 mmHg 0.98 Digit 147.00 mmHg 0.83 Dig it 149.00 mmHg 0.84 Findings R MIKEL 1.1 L MIKEL 1.0 R TBI .8 L TBI .8 DIMINISHED PULSES NORMAL WAVEFORMS Electronically signed by : Shayne Vegas MD 01/23/2019 11:17:11 Radiology Report March 05, 2019 Suleman Belle , comp leted 3:46pm [address] [place] [address] XRay R eport Sig geoff Patient: Batsheva Veloz MR#: [id number] : 1945 Acct:[id number] Age/Sex: 73 / F ADM Date: 9 Loc: INF Attending Dr: Abimbola Shi APRN Ordering Physician: Abimbola Shi APRN Date of Service: 03/05/19 Procedure(s): XR chest 2V Accession Number(s): [id number] cc: Telly Carballo MD; Warren Belle MD~ PROCEDURE: XR CHEST 2V CLINICAL HISTORY: cough COMPARISON: 12/24/2018 and 06/07/2018. FINDINGS: The cardiomediastinal silhouette and pu lmonary vascularity are within normal limits. There are some stable scattered lucent areas in both upper lobes. There is some hazy indistinct density a t the right lung base. There is no pleural effusion or pneumothorax. No acute bony abnormalities. IMPRESSION: COPD. Right lung base density could be small peribronchial infiltrate versus atelectasis. Correlate to rule out early developing peribronchial pneumonia. Dictated by: Suleman Belle 16:15 Electronically signed by Suleman Belle in [place] 03/05/2019 16:15 Radiology Report April 08, 2019 Johnny Brown MD complete d 3:10pm [address] [place] [address] Nuclear Medi cine Report Sig geoff Patient: Batsheva Veloz MR#: [id number] : 1945 Acct:[id number] Age/Sex: 73 / F ADM Date: 9 Loc: RT Attending Dr: Sameera Magana APRN Ordering Physician: Sameera Magana APRN Date of Service: 04/08/19 Procedure(s): NM melquiades perf SPECT rest & s tr Accession Number(s): [id number] cc: Hector Key MD; Johnny Brown MD~ APPROVED REPORT -------- ------ Exam: Nuclear Stress Test Indication: chest pain, short of breath ,fatigue Patient Location: Outpatient Stress Tech: Marissa Andujar NM Tech:ILYA Spencer RT(R)( N) Ht: 5 ft 0 in Wt: 122 lbs HR: 78 bpm BP: 140/65 mmHg BSA: 1.51 m2 History: chest pain, short of breath,fatigue Procedure: Patient received a 0.4 mg of intravenou s Lexiscan, resting heart rate 78 bpm, resting blood pressure 140/65 m mHg, with Lexiscan maximum heart rate achived was 81 bpm which is Less than 85 % of the maximum predicted heart rate and blood pressure was 137/58 mmHg. With Lexiscan, patient denied any compl aint of chest pain. Electrocardiogram Resting electrocardiogram showed sinus rhythm nonspecific ST-T changes, with Lexiscan there is less th an 1.[address] segment depression noted from the baseline EKG, occasional premature ventricular complexes seen. The EKG po rtion of the Lexiscan Myoview is nondiagnostic. Cardiac Stress and Resting SPECT Images : Cardiac Stress and Resting SPECT images were obtained using technetium 99m Myoview 32.5 mCi stress and 10.80 mCi at rest. Gated SPECT with analysis of segmental wall motion and calculation of the ejection fraction also done. Cardi ac stress and resting SPECT images show uniform myocardial activity without segmental perfusion abnormality, computer derived ejection fraction is over 65% with no regional wall motion abnormality, right ventricle is normal size and contractility. Conclusion: 1. The EKG portion of the Lexiscan Melquiades view is nondiagnostic. 2. No scintigraphic evidence of revers ible ischemia seen, computer derived ejection fraction is over 65% w ith no regional wall motion abnormality, right ventricle is normal size and contractility. 3. Normal Lexiscan Myoview study. Electronically signed by : Johnny kaur, 04/09/2019 05:32:19 Advance Directives Advance Directive Response Recorded Date/Time Living Will No April 10, 2019 2 :32pm Chief Complaint and Reason for Visit Chief Complaint bilateral claudication i70.2 13 cws r10.10,r11.0 cws LAB WORK LAB WORK blood transfusion echo edema f/u angina,car bruit herminio i20.8,r 09.89 cws stress super anemia admitted by dr key obs kerline skinner Reason for Visit Hypothyroidism Thrombocytopenia Encounters Encounter Location(s) Arrival/Admit Date Discharge/Depart Provi katya(s) Date Registered [facility] Physician January 23, 2019 Telly aldana , Clinical Group-Respiratory 8:40am MD Therapy Departed [facility] Physician February 17, February 17, 2019 Pepe Kaba [facility]-Outpatient 2018 10:22am 1:15pm , Care Procedures Registered [facility] Physician February 28, Earl cruz Clinical Group-Lab Drop 2018 8:44am , Off to [facility] Registered [facility] Physician March 04, 2019 Earl li Clinical Group-Lab Drop 5:39pm , Off to [facility] Departed [facility] Physician March 05, 2019 March 05, 2019 Parrish Shi , Clinical Group-Infusion 9:00am 5:45pm [employer] Therapy ChemoTherapy Registered [facility] Physician March 05, 2019 Johnny morin Inpatient Group-Cardiology- 11:59pm MD Macias Departed [facility] Physician March 27, 2019 March 27, 2019 As bridgette Magana , Physician/Provi Group-Cardiology- 1:16pm 2:08pm [employer] katya Office [place] Visit Registered [facility] Physician April 07, 2019 Sameera Whitfield Physician/Provi Group-Specialty 3:20pm Trisha Silva PRN katya Office Clinic [facility] Visit Registered [facility] Physician April 08, 2019 Sameera ryan Clinical Group-Respiratory 11:08am [employer] Therapy Registered [facility] Physician April 08, 2019 Ayde Inpatient Group-Cardiology- 11:59pm Ana Maria Macias APRN Registered [facility] Physician April 11, 2019 Hector Fong Inpatient Group-Primary 3:30pm MD Ashley [facility] Registered [facility] Physician April 14, Hector Fong Inpatient Group- 2019 3:07pm MD Ashley Recent Diagnosis Onset Date Hypothyroidism Thrombocytopenia Assessments Diagnosis Onset Date Resolution Status Hypothyroidism acute Thrombocytopenia acute Functional Status Observation Response Date Recorded Ambulation Ability Standby Assistance March 05, 2019 5: 43pm Ambulation Ability Standby Assistance February 17, 2019 1:15pm Functional status ambulatory March 27, 2019 2 :08pm Goals Acute Goals Nursing Diagnosis: Knowledge Deficit D isease/Condition Goal(s): Education of di sease process Instruction(s): Follow provider p ayan/instructions (See attached discharge education) Follow/up with primary care provider as instructed in discharge packet Ambulatory Goals Pt verbalizes understanding of Disease p rocess.Pt to follow plan of care. Education provided. Immunizations Immunization Event Date Not Given Dose Sr[employer] Lot Vac cine Reason Number Number Informatio n Statement (VIS) Deta il Fluzone March High-Dose 65YR+ 2017 Quadrivalent March Influenza 2016 Td, adsorbed March 27, 2003 Td (adult), 5Lf September 04, tetanus toxoid, 2012 PF, adsorbed Mental Status Observation Response Date Recorded Ability to Follow Directions Excellent February 022018 10:31am Medical Equipment No Medical Equipment Information available Insurance Providers Guarantor Batsheva Veloz Address [place] [address] Contact Info. Home Phone: Payer Policy Id Coverage Id Subscriber's Subscriber Effective Expi ration Name Id Date Date [employer] [id number] Batsheva Veloz [id number] Medicare Medicaid [id number] Batsheva Veloz [id number] Self Pay Self N/A Plan of Treatment Pt is here today as new pt for edema and abnormal ECHO ECHO showing-Conclusion 1. Biatrial enlargement, normal left ventricular size, mild concentric left ventricular hypertrophy, visually estimated ejection fraction 55% with no regional wall motion abnormality, diastolic parameters are inconclusive. 2. Mildly enlarged right ventricle with normal contractility. 3. Moderate aortic, moderate to severe mitral and moderate tricuspid regurgitation, calculated right ventricular systolic pressure is 55 mmHg which is consistent with moderately elevated right ventricular systolic pressure. 4. If clinically indicated transesophageal echocardiogram is recommended as described above. She is a former pt of [email or web address] in [place]. She is currently in the assisted and needing to establish with cardiology care closer to home. Pt has known CHF, HTN, HLD, anemia, pulmonary HTN, CAD, and a history of 3 MIs per pt report. Denies DM. SOB is worsening. She states she is more SOB than she was a few weeks ago. with rest and with exertion. this can be pretty bad. Associated with BLE edema. she states this is worsening as well. taking Lasix and edema is not improving. She states she was recently in [facility] with CHF. She was diuresed 22 pounds and felt good. Her baseline weight is 91 pounds. Over the last few weeks she has been symptomatic and weight continues to increase. Increase Lasix to 80 mg daily for diuresis. Increase KCL to 40 mEq BID. BMP/BNP in 1 week. RACHEL to evaluate moderate to severe MR to see if pt requires surgical intervention of mitral valve. Pt is also having CP. please see HPI. Will set the patient up for a lexiscan myoview stress test to rule out ischemia. pt unable to walk on a treadmill as she ambulates with a walker. CAD is present per pt report. BP is higher than I would like. should improve with diuresis. LDL goal is < 55. pt is smoker. Tobacco cessation is advised and counseled. L carotid bruit noted. Will get a CNI to rule out KERMIT. EKG is SR with PVCs and old septal MD pattern. f/u in 2-3 weeks This note was scribed by Americo Butler RN for Mel Magana APRN, [employer]. Provider Attestation I was present during all of the critical components of the office visit. The patient was seen, evaluated, and examined by me. I have read the office note that was documented by the scribe and agree with the documentation. Future Tests Future scheduled test information is unavailable Pending Tests Pending diagnostic test information is unavailable Future Visits Future appointment information is unavailable Referrals to Other Providers Reason for Referral Start Provider Provider Contact Provider Address Referral Date Information Admission to [facility] April 14, Tacos Guerrero APRIL 23 AT 11:[address]. [address] [place] [address] Future Procedures Future procedure information is unavailable Future Medications Future medication information is unavailable Patient Instructions High Triglycerides Heart Failure Coronary Artery Disease Heart Valve Replacement Essential Hypertension Heart-Healthy Diet Fat-Restricted Diet Effectiveness of Diets for Weight Loss DI for Shortness of Breath DI for Chest Pain How to Quit Tobacco Products Anemia DI for Blood Transfusion DI for Iron Deficiency Anemia-Adult Low-Sodium Diet Lower Sodium Intake Associated with Lowe r Blood Pressures and Decreased Str Social History Assigned Sex Female Vital Signs Vital Reading Result Reference Range Collection Date/ Time Height 152.4 cm February 11, 2019 2:05pm Weight 40.82 kg February 11, 2019 2:05pm Body Temperature 97 [degF] 97.6-99.6 February 17, 2019 1:15pm Heart Rate 85 /min 60-90 February 17, 2019 1:15pm Respiratory rate 18 /min -February 17, 2019 1:15pm Oxygen saturation by 95 % 95-100 February 022018 Pulse oximetry 1:15pm BP Systolic 121 mm[Hg] 110-140 February 17, 2019 1:15pm BP Diastolic 50 mm[Hg] 60-90 February 17, 2019 1:15pm BMI (Body Mass Index) 17.6 kg/m2 February 11, 2019 2:05pm Height 152.4 cm March 05 9:02am Weight 53.52 kg March 05 9:02am Body Temperature 97.3 [degF] 97.6-99.6 March 05 5:43pm Heart Rate 86 /min -March 05 9 5:43pm Respiratory rate 20 /min -March 05 5:43pm Oxygen saturation by 96 % 95-100 March Pulse oximetry 5:43pm BP Systolic 162 mm[Hg] 110-140 March 05 9 5:43pm BP Diastolic 63 mm[Hg] 60-90 March 05 9 5:43pm BMI (Body Mass Index) 23.0 kg/m2 March 9:02am Height 154.94 cm March 27 1:37pm Weight 52.61 kg March 27 1:37pm Heart Rate 77 /min -March 27 1:37pm Oxygen saturation by 100 % 95-100 March Pulse oximetry 1:37pm BP Systolic 155 mm[Hg] 110-140 March 27 1:37pm BP Diastolic 59 mm[Hg] 60-90 March 27 1:37pm BMI (Body Mass Index) 21.9 kg/m2 March 272018 1:37pm Height 152 cm April 14, 2 019 5:38am Weight 49.10 kg April 14, 2 019 5:38am Body Temperature 98.2 [degF] 97.6-99.6 April 14, 2019 12:00pm Heart Rate 68 /min -April 14, 2 019 12:00pm Respiratory rate 16 /min -April 14, 2019 1:12pm Oxygen saturation by 97 % 95-100 April 142018 Pulse oximetry 12:00pm BP Systolic 149 mm[Hg] 110-140 April 14, 2 019 12:00pm BP Diastolic 78 mm[Hg] 60-90 April 14, 2 019 12:00pm BMI (Body Mass Index) 21.2 kg/m2 April 042018 5:38am Inhaled oxygen 24 % April 13 019 concentration 8:36pm
== END 2019-04-14 14:19 | DRG 287 ==
LOC: CATHLAB 12:19 → 2ND 12:19
PROVIDERS: ADMIT Emergency Medicine; ATTEND Emergency Medicine
DX: J44.9 Chronic obstructive pulmonary disease, unspecified; Z79.899 Other long term (current) drug therapy; I50.9 Heart failure, unspecified; Z95.5 Presence of coronary angioplasty implant and graft; Z72.0 Tobacco use; E03.9 Hypothyroidism, unspecified; I34.0 Nonrheumatic mitral (valve) insufficiency; I27.20 Pulmonary hypertension, unspecified; I25.2 Old myocardial infarction; Z82.49 Family history of ischemic heart disease and other diseases of the circulatory system; D69.6 Thrombocytopenia, unspecified; I11.0 Hypertensive heart disease with heart failure
CPT/HCPCS: 36415; 71020; 71046; 78452; 80048; 80053; 81001; 82550; 82553; 82810; 83010; 83735; 84484; 85007; 85014; 85018; 85025; 86850; 93005; 93017; 93312; 93460; 93880; 94640; 99152; 99153; A9502; C1725; C1769; C1894; G0378; J1644; J2785; P9016; Q9967

== ENCOUNTER 2019-06-09 13:00 | Outpatient (RCR) | payer MEDICARE, MEDICAID, SELFPAY ==
--- NOTE | 2019-04-16 14:32 | HMH.PTOPWND ---
Rehab Outpt Wound Evaluation Rehab OP Wound Evaluation Start: 04/16/19 14:21 Freq: Status: Active Protocol: Document 04/16/19 14:22 MEET (Rec: 04/16/19 14:32 PHORNE [id number]) Electronically Signed By Luís Ravi, PT 04/16/19 14:22 Subjective/History History History Pt is 73 yowf who presents with 3-4 mos of increased B LE edema with insidious onset of symptoms. She reports severe pain with increased edema which she reports does not decrease with elevation of her legs. SHe reports she was recently hospitalized and the treatment she received did help decrease her edema, but it is returning. She also reports she is on fluid restrictions along with diruretics. SHe has PMH of CHF , COPD, polyneuropathy, HTN, CAD, pulmonary HTN and recen leukemia diagnosis. She also reports she is currently being scheduled for an open heart procedure to replace 3 heart valves. Subjective Subjective Pt c/o pain 8/10 with increased edema in B LE. Lymphedema Eval Classification of Lymphedema Secondary Lymphedema Yes Stemmer's sign Stemmer's Sign no Stage of Lymphedema Lymphedema stages Stage I (Pitting edema, reduces w/ elevation, no fibrosis) Skin Changes Dry Skin Yes Redness Yes Brittle Uneven Nails Yes Discoloration of Skin Yes Other Changes Yes Pain Scale Pain Scale (0-10) 8 Affected Extremities Areas Affected by Lymphedema/Edema Right Lower Extremity,Left Lower Extremity Manual Lymphatic Drainage Treatment Area MLD Treatment Area Right Lower Extremity,Left Lower Extremity Wound Problems/Impairments Impairments Problems/Impairmments Palpation Tenderness,Increased Edema,Lymphedema Present, Subjective C/O Pain,Impaired Self Care/Self Management Prognosis Rehab Potential Fair Clinical Impression Consistent with Diagnosis Yes Short Term Goals Nu
== END 2019-06-09 13:05 | disposition home or self-care (01) ==
LOC: PT 13:00
PROVIDERS: PCP Emergency Medicine; Visit Provider Emergency Medicine
DX: I89.0 Lymphedema, not elsewhere classified (principal); R60.0 Localized edema
CPT/HCPCS: 97140; 97163

== ENCOUNTER 2019-07-17 08:15 | Outpatient (CLI) | payer OTHER, MEDICARE, MEDICAID, SELFPAY ==
[2019-07-17] VITALS (19 sets, daily range): BP systolic 115–160; BP diastolic 57–83; PULSE 72–85; RESP 16–18; TEMP 36.1–36.8; O2SAT 93; BMI 21.4
[2019-07-17 08:53] LABS: Hemoglobin 6.7 g/dL (12.2-16.2)
[2019-07-17 08:54] LABS: Hematocrit 23.4 % (37.0-47.0)
[2019-07-17 15:18] LABS: Hemoglobin 9.6 g/dL (12.2-16.2)
== END 2019-07-17 15:10 | disposition home or self-care (01) ==
LOC: INF 08:20
PROVIDERS: Visit Provider Emergency Medicine
DX: D64.9 Anemia, unspecified (principal)
CPT/HCPCS: 36430; 85014; 85018; 86850; P9016

== ENCOUNTER 2020-05-11 20:18 | Observation (INO) | payer MEDICARE, MEDICAID, SELFPAY ==
[2020-05-11] VITALS (7 sets, daily range): BP systolic 127–144; BP diastolic 37–61; PULSE 78–100; RESP 15–18; TEMP 36.7–36.8; O2SAT 97–100; BMI 18.9; BMI 17.6
--- NOTE | 2020-05-11 20:35 | PC.NURSE ---
spoke with wendy the seconds handler nurse for hospice to get more information on what hospice sent the pt to the ER for. wendy stated they wanted to have the pt hydrated with fluids and to have a GI consult for a possible esophageal stricture either inpatient or out pt whatever the ER MD saw fit.
[2020-05-11 21:09] LABS: Basophils % 0.7 % (0.1-2.0); Eosinophils % 0.5 % (0.1-12.0); Lymphocytes # 1.2 K/mm3 (0.7-4.5); Lymphocytes % 24.8 % (10-50); Mean Corpuscular HGB Conc 27.2 g/dL (31.8-35.4); Mean Corpuscular Hemoglobin 17.8 pg (27.0-31.2); Mean Corpuscular Volume 65.3 fl (81-99); Mean Platelet Volume 8.8 fl (7.4-10.4); Monocytes # 0.3 K/mm3 (0.1-1.0); Monocytes % 5.8 % (1.7-9.3); Neutrophils # 3.2 K/mm3 (1.8-7.8); Neutrophils % 68.3 % (37.0-80.0); Platelet Count 215 K/mm3 (142-424); Red Blood Count 3.82 M/mm3 (4.20-5.40); White Blood Count 4.8 K/mm3 (4.8-10.8)
[2020-05-11 21:10] LABS: Chloride 96 mmol/L (98-107); Potassium 4.2 mmoL/L (3.5-5.1); Sodium 137 mmol/L (136-145)
[2020-05-11 21:12] LABS: Blood Urea Nitrogen 24 mg/dl (7-17); Creatinine Clearance Estimated 29 mL/min (50-200); Estimated Glomerular Filt Rate 44 ml/min (>60); GFR (African American) 53 ML/MIN (>60)
[2020-05-11 21:13] LABS: Alanine Aminotransferase 12 U/L (12-78); Albumin Level 4.7 g/dl (3.5-5.0); Albumin/Globulin Ratio 1.2 (1.1-1.8); Alkaline Phosphatase 119 U/L (38-126); Anion Gap 14.2 mEq/L (5-15); Aspartate Amino Transferase 28 U/L (14-36); Bilirubin,Total 0.9 mg/dl (0.2-1.3); Calcium 10.3 mg/dl (8.4-10.2); Carbon Dioxide 31 mmol/L (22.0-30.0); Globulin 3.9 g/dL (1.3-3.2); Glucose 100 mg/dl (74-100); Total Protein,Serum 8.6 g/dl (6.3-8.2)
[2020-05-11 21:14] LABS: Hemoglobin 6.8 g/dL (12.2-16.2)
--- NOTE | 2020-05-11 21:15 | HMH.EDNVD ---
ED Disposition Clinical Impression: Esophageal stricture, Tobacco abuse, Renal insufficiency, Low body mass index (BMI) COPD (chronic obstructive pulmonary disease) Qualifiers: COPD type: unspecified COPD Qualified Code(s): J44.9 - Chronic obstructive pulmonary disease, unspecified Anemia Qualifiers: Anemia type: unspecified type Qualified Code(s): D64.9 - Anemia, unspecified Disposition: Admitted as Observation Condition on Discharge: Fair - Critical Care Critical Care Time: No Attestation: On 05/11/20, the high probability of a clinically significant, sudden or life threatening deterioration of the following system(s) required my full and direct attention, intervention and personal management. The time I documented below is in addition to time spent performing reported procedures but includes the following listed in this critical care notation. Medical Decision Making - Medical Records Medical records reviewed: Yes: I reviewed the patient's medical records. - Serg Inquiry Pt receiving controlled substance: No Vital Signs: 05/11/20 20:20 05/11/20 21:00 Temperature 98.3 F Temperature Source Oral Pulse Rate [Left Radial] 83 78 Respiratory Rate 16 17 Blood Pressure [Right Arm] 144/37 H 144/56 H Blood Pressure Mean [Right Arm] 72 85 Blood Pressure Source [Right Arm] Automatic Cuff Automatic Cuff Blood Pressure Position [Right Arm] Sitting Supine 02 Sat by Pulse Oximetry 100 99 Oxygen Delivery Method Room Air Room Air - Lab Data Lab results reviewed: Yes: I reviewed the patient's lab results. Lab Results 05/11/20 20:45: WBC 4.8, RBC 3.82 L, Hgb 6.8 L*, Hct 25.0 L, MCV 65.3 L, MCH 17.8 L, MCHC 27.2 L, RDW 20.0 H, Plt Count 215, MPV 8.8, Neut % (Auto) 68.3, Lymph % (Auto) 24.8, [place] % (Auto) 5.8, Eos % (Auto) 0.5, Baso % (Auto) 0.7, Neut # (Auto) 3.2, Lymph # (Auto) 1.2, [place] # (Auto) 0.3, Eos # (Auto) 0.0, Baso # (Auto) 0.0 05/11/20 20:45: Sodium 137, Potassium 4.2, Chloride 96 L, Carbon Dioxide 31 H, Anion Gap 14.2, BUN 24 H, Creatinine 1.20 H, Estimated Creat Clear 29, Estimated GFR 44 L, Est GFR ( Amer) 53 L, Glucose 100, Calcium 10.3 H, Total Bilirubin 0.9, AST 28, ALT 12, Alkaline Phosphatase 119, Total Protein 8.6 H, Albumin 4.7, Globulin 3.9 H, Albumin/Globulin Ratio 1.2 Result diagrams: 05/11/20 20:45 05/11/20 20:45 Orders (Tests/Meds): ED MEDICATIONS Generic Name Dose Route Start Last Admin Trade Name Freq PRN Reason Stop Dose Admin Sodium Chloride 1,000 mls @ 999 mls/hr 05/11/20 21:00 05/11/20 21:01 Sod Chlor 0.9% 1000ml Bag IV 05/11/20 22:00 999 mls/hr .Q1H1M KAIDEN Administration Sodium Chloride 250 mls @ 25 mls/hr 05/11/20 22:15 Sod Chlor 0.9% 250ml Bag IV 05/12/20 22:14 .Q10H KAIDEN Discontinued Medications Generic Name Dose Route Start Last Admin Trade Name Freq PRN Reason Stop Dose Admin Morphine Sulfate 2 mg 05/11/20 20:59 05/11/20 21:01 Morphine 2mg/Ml Syringe IV 05/11/20 21:00 2 mg ONCE ONE Administration Ondansetron HCl 4 mg 05/11/20 20:58 05/11/20 21:02 Ondansetron 4mg/2ml Vial IV 05/11/20 20:59 4 mg ONCE ONE Administration ORDERS Category Date Time Status Packed Red Cells [Red Blood Cells] Stat BBK 05/11/20 22:05 Ordered Type and Screen Stat BBK 05/11/20 22:05 Ordered Covid-19 IgG/IgM ([facility]) Stat Lab 05/11/20 20:45 Received - Physician Consults Physician Consulted: rocky Reason -: Pt condition Medical Decision Narrative: pt with prev esophageal dilatation in 02/20 has had fundoplication in past - will need transfusion to prepare for procedure Nausea/Vomiting/Diarrhea HPI - General Chief complaint: Nausea/Vomiting/Diarrhea Stated complaint: can't eat or drinking Time Seen by Provider: 05/11/20 20:40 Mode of Arrival: Ambulatory Source of Information: Patient, Relative, Medical Record Limitations: No Limitations Description of Symptoms (Recalled from ER Triage Doc. by RN): pt is on hospice
--- NOTE | 2020-05-11 21:47 | PC.NURSE ---
pt requested 2L NC oxygen for comfort
--- NOTE | 2020-05-11 21:55 | PC.NURSE ---
speaking with Dr. Kaba
--- NOTE | 2020-05-11 22:25 | PC.NURSE ---
spoke with Julianne the hospice nurse paper production engineer for the pt and informed her that the pt was being admitted and is on the schedule to have her esophagus stretched by Dr. Kaba on sunday.
--- NOTE | 2020-05-11 22:26 | PC.NURSE ---
unable to do med rec at this time. pt is a poor historian and is unable to confirm the medications she takes at home. pt stated to try and call her daughter and confirm with her.
[2020-05-11 22:46] LABS: Coronavirus 19 IgG Antibody Negative (Negative); Coronavirus 19 IgM Antibody Negative (Negative)
--- NOTE | 2020-05-11 23:14 | PC.NURSE ---
patient requested that no information to be given out to any family.
--- NOTE | 2020-05-11 23:22 | PC.NURSE ---
pt daughter left to go home. pt stated she didnt want any of her family members updated on her condition and the only people the hospital staff could update is her hospice team. will notify admitting nurse of this conversation
--- NOTE | 2020-05-11 23:31 | PC.NURSE ---
patient up to floor via wheelchair.
[2020-05-12] VITALS (25 sets, daily range): BP systolic 130–165; BP diastolic 57–93; PULSE 67–98; RESP 13–22; TEMP 36.4–37.3; O2SAT 90–100; BMI 17.6; BMI 17.7
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
--- NOTE | 2020-05-12 08:17 | PC.WOUNDNOTE ---
Wound Location: RIGHT FA Length: 2.5 CM Width: 1 CM Depth: Undermining Y/N: N Tunneling cm: N Granulation %: Slough/necrotic tissue %: N Inflammation/swelling Y/N: N Pain and/or tenderness Y/N: Y, TENDER Exudate: SEROSANGUINOUS Serosanguinous Sanguinous Serosanguinous Seropurulent Purulent Color: PINK/RED Clear Geovanna Cloudy/milky Fulda Red Green Yellow Brown Martin Blue Consistency: THIN Thick Thin Amount: SMALL None Scant Small Moderate Large Odor Y/N: N
--- NOTE | 2020-05-12 09:40 | P.CONPHA_ITS ---
[facility] Pharmacy VTE Monitoring - Patient Demographics Admission date: 05/11/20 Report Date: 05/12/20 Time: 09:40 Allergies/Adverse Reactions: Patient Allergies brimonidine [From Combigan] Allergy (Intermediate, Verified 08/18/19 11:58) Rash timolol [From Combigan] Allergy (Intermediate, Verified 08/18/19 11:58) Rash metoclopramide [From REGLAN] Allergy (Unknown, Verified 08/18/19 11:58) Unknown allergy reaction Height: 1.52 m Weight: 40.823 kg Patient Problems: Current Active Problems COPD (chronic obstructive pulmonary disease) (Chronic) Anemia (Chronic) Esophageal stricture (Acute) Renal insufficiency (Acute) Low body mass index (BMI) (Acute) Tobacco abuse (Chronic) - VTE Risk Labs: VTE Related Lab Results Hgb 6.8 g/dL (12.2-16.2) L* 05/11/20 20:45 Hct 25.0 % (37.0-47.0) L 05/11/20 20:45 Plt Count 215 K/mm3 (142-424) 05/11/20 20:45 BUN 24 mg/dl (7-17) H 05/11/20 20:45 Creatinine 1.20 mg/dl (0.52-1.04) H 05/11/20 20:45 Estimated Creat Clear 29 mL/min (50-200) 05/11/20 20:45 Was VTE Risk Assessment Performed: Yes VTE Score: 13 VTE Risk Level: Moderate Risk Clinical Trial Participant: No - Prophylaxis VTE Prophylaxis Ordered?: Yes Types of VTE Prophylaxis: TEDS Knee High Location of Applied Device: Bilateral Lower Extremeties
--- NOTE | 2020-05-12 10:51 | HMH.HP ---
*Admission Date: 05/11/20 *Chief complaint: Choking on meds *History of present illness: 74-year-old female patient into the emergency department with complaints of dysphagia and not being able to swallow her meds. She reports her meds are getting stuck in her throat and she is not been able to tolerate food and only some liquids since yesterday. She denies any abdominal pain, nausea, vomiting, or diarrhea. She has a history of esophageal strictures in the past and has had to have the stretching procedure done by GI in 2019. She is currently under hospice care at this time In the emergency department white blood cell count 4.8, H/H 6.8/25.0, platelets 215. 2 units of packed red blood cells were ordered Sodium 137, potassium 4.2 BUN elevated at 24, and creatinine elevated at 1.2. In the emergency department she received a bolus of normal saline, morphine IV, ondansetron IV, Currently she is lying in bed, she does report she has pain all over she is questioning her pain medicine regimen we we will have pharmacy compare pain regimen at home versus here and will adjust accordingly. [facility] History Medical History: Reports:: Anxiety, Cancer (Ovarian and skin), Congestive Heart Failure, Chronic Obstructive Pulmonary Disease (COPD), Coronary Artery Disease, Deep Vein Thrombosis, Depression, Gastroesophageal Reflux Disease(GERD), Hyperlipidemia, Hypertension, Lung Disease, Myocardial Infarction, Transient Ischemic Attacks (TIA) Denies:: Diabetes Mellitus Type 1, Diabetes Mellitus Type 2, Internal Pacemaker, MRSA, Seizures *Have you ever received a pneumonia vaccine?: No *Have you received a flu vaccine this season?: No Other Medical History: Reports: Anemia, Arthritis, Cataracts, Glaucoma, Hypothyroidism, Thyroid Disease Laterality Cases: Left: Total Hip Replacement, Bilateral: Tonsillectomy Other Surgeries: Yes: Angiogram, Cancer Surgery, Cardiac Catheterization, Colonoscopy, Coronary Stent, Hernia Repair, Hysterectomy-Total, Skin Cancer Excision, Other Valve Replacement. No: Pacemaker Amputation: Yes Fractures: No - *Social History Last grade of school completed: 11th or 12th Smoking Status: Current every day smoker Tobacco Type: cigarettes # Packs/Day (cigarettes): 1 #Yrs smoked (if former smoker): 56 Alcohol Intake: never Alcohol Intake Frequency:: other Substance Use Type: denies use *Occupational Status:: retired Housing: house Household Members: family *Travel in the last 8 weeks: None - Psychiatric History Pschychiatric History:: Reports:: Anxiety, Depression Family Hx:: Cancer, Heart Attack Review of Systems - Constitutional Reports weakness, Denies fever(s) - Eyes Denies change in vision, Denies sensitivity to light - ENT Reports difficulty swallowing, Denies dizziness, Denies nasal obstruction - *Cardiovascular Denies chest pain, Denies shortness of breath - *Respiratory Denies chest congestion, Denies shortness of breath - *Gastrointestinal Reports abdominal pain, Reports difficulty swallowing, Denies bright, red blood in stools - *Musculoskeletal Denies joint pain, Denies body aches - Integumentary/Breasts Denies change in skin color - *Neurologic Reports weakness, Denies localized weakness, Denies tingling/numbness/burning sensations - Psychiatric Denies hearing things others do not hear, Denies behavioral changes - Endocrine Denies cold intolerance, Denies rapid, pounding, or irregular heartbeat - Hematologic/Lymphatic Denies easy bleeding, Denies easy bruising - Allergic/Immunologic Denies GI upset with certain foods, Denies wheezing Meds Home Medications Medication Instructions Recorded Confirmed Type Latanoprost [Xalatan 0.005% Ophth 1 drp EYE-BOTH HS 06/11/17 05/12/20 History Soln 2.5mL] loperamide 2 mg capsule 2 mg PO Q6HP PRN 03/26/19 05/12/20 History polyethylene glycol 3350 17 17 g PO DAILYP PRN 03/26/19 05/12/20 History gram/dose oral powder Levothyroxine Sodium 50 mcg
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
[2020-05-12 11:03] LABS: Basophils % 0.6 % (0.1-2.0); Eosinophils % 0.2 % (0.1-12.0); Lymphocytes # 0.6 K/mm3 (0.7-4.5); Lymphocytes % 12.6 % (10-50); Mean Corpuscular HGB Conc 30.6 g/dL (31.8-35.4); Mean Corpuscular Hemoglobin 23.5 pg (27.0-31.2); Mean Corpuscular Volume 76.8 fl (81-99); Mean Platelet Volume 8.7 fl (7.4-10.4); Monocytes # 0.2 K/mm3 (0.1-1.0); Monocytes % 5.1 % (1.7-9.3); Neutrophils # 3.9 K/mm3 (1.8-7.8); Neutrophils % 81.5 % (37.0-80.0); Platelet Count 145 K/mm3 (142-424); White Blood Count 4.8 K/mm3 (4.8-10.8)
[2020-05-12 11:04] LABS: Red Cell Distribution Width 25.4 % (11.5-17.5)
[2020-05-12 11:09] LABS: Chloride 99 mmol/L (98-107); Sodium 137 mmol/L (136-145)
[2020-05-12 11:10] LABS: Potassium 3.7 mmoL/L (3.5-5.1)
[2020-05-12 11:12] LABS: Blood Urea Nitrogen 21 mg/dl (7-17); Creatinine Clearance Estimated 29 mL/min (50-200); Estimated Glomerular Filt Rate 49 ml/min (>60); GFR (African American) 59 ML/MIN (>60)
[2020-05-12 11:13] LABS: Anion Gap 12.7 mEq/L (5-15); Carbon Dioxide 29 mmol/L (22.0-30.0); Glucose 82 mg/dl (74-100)
[2020-05-12 11:14] LABS: Calcium 9.1 mg/dl (8.4-10.2)
[2020-05-12 11:39] LABS: Hemoglobin 10.2 g/dL (12.2-16.2)
--- NOTE | 2020-05-12 13:20 | HMH.PHAINT ---
MEDICATION RECONCILIATION COMPLETED ON PATIENT USING MAR FROM HOSPICE. -DANIELLA FORD, EMILYD
--- NOTE | 2020-05-12 16:35 | PC.NURSE ---
Routine reassessment completed. Lungs with wheezes and crackles throughout. Heart at RR. BS present x4. Pt. reports denies pain, and denies needs, will continue to monitor.
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
--- NOTE | 2020-05-12 19:55 | PC.NURSE ---
Report given to Honey Griffith RN.
[2020-05-13 04:00] VITALS: BP 136/54; PULSE 69; RESP 14; TEMP 37.2; O2SAT 95
[2020-05-13 06:59] VITALS: BMI 17.6
--- NOTE | 2020-05-13 07:57 | PC.NURSE ---
Pt is A&Ox4 and has ambulated to [facility] and tolerated well. Pt has c/o pain to throat and upper chest at rest and worsens with swallowing. Medicated x2 with Morphine with good response. Pt has tolerated clears and reports she is starving, I haven't ate in weeks. I need mashed potatoes! Pt educated on clear liquid diet. Pt denies any N/V/D. Continues on 3LPM NC with sats 90-95%. VSS. call light within reach.
[2020-05-13 08:00] VITALS: BP 152/68; PULSE 68; RESP 18; TEMP 36.8; O2SAT 98
--- NOTE | 2020-05-13 08:04 | HMH.ACPN2 ---
Internal Medicine - PN: Subj *Date: 05/13/20 *Time: 14:51 Interval history: 74-year-old female patient sitting up in bed oxygenation is currently 94% on 2 L per nasal cannula. She denies any respiratory distress. She is concerned with her pain medicine regimen we will discuss that with pharmacy. Behavioral health: Simona Evans is seen and recommends: RECOMMENDATIONS: 1. No changes at this time. -she states that she doesn't think changing medicines will help her mood -cause of her medical siltation -I do agree with this 2. Ensure she has follow-up at discharge to continue psychotropic medications; either with PCP or with HOSPICE doctor. Exam Vital signs and Labs for Last 24 Hours: Temp Pulse Resp BP Pulse Ox 98.9 F 69 14 136/54 L 95 05/13/20 04:00 05/13/20 04:00 05/13/20 04:00 05/13/20 04:00 05/13/20 04:00 Laboratory Results - last 24 hr 05/11/20 22:20: Crossmatch (AHG) See Detail 05/12/20 10:45: WBC 4.8, RBC 4.30, Hgb 10.2 L D, Hct 33.0 L, MCV 76.8 L, MCH 23.5 L D, MCHC 30.6 L, RDW 25.4 H* D, Plt Count 145 D, MPV 8.7, Neut % (Auto) 81.5 H, Lymph % (Auto) 12.6, [place] % (Auto) 5.1, Eos % (Auto) 0.2, Baso % (Auto) 0.6, Neut # (Auto) 3.9, Lymph # (Auto) 0.6 L, [place] # (Auto) 0.2, Eos # (Auto) 0.0, Baso # (Auto) 0.0 05/12/20 10:45: Sodium 137, Potassium 3.7, Chloride 99, Carbon Dioxide 29, Anion Gap 12.7, BUN 21 H, Creatinine 1.10 H, Estimated Creat Clear 29, Estimated GFR 49 L, Est GFR ( Amer) 59, Glucose 82, Calcium 9.1 D I & O for Last 24 hours: Intake & Output 05/10/20 05/11/20 05/12/20 05/13/20 23:59 23:59 23:59 23:59 Intake Total 1650 / 1650 Output Total 600 / 600 Balance 1650 / 1050 -600 / -600 Weight 90 lb 90 lb 6.232 oz 90 lb - Constitutional no acute distress, thin, chronically ill appearing - *Routine HEENT Exam Head: Present: normocephalic Eye: Present: EOMI ENT: Present: mucous membranes moist - *Routine Neck Exam Present: trachea midline. Absent: tracheal deviation - *Routine Respiratory Exam Present: decreased breath sounds. Absent: accessory muscle use, patient mechanically ventilated - *Routine Cardiovascular Exam Present: RRR, murmur - *Routine Abdominal Exam Present: soft, normoactive bowel sounds. Absent: tenderness, firm - *Routine Extremities Exam Present: full ROM, pulses intact. Absent: clubbing, edema, calf tenderness - *Routine Skin Exam Present: intact, dry, warm. Absent: cyanosis, jaundice - *Routine Neurological Exam Present: alert, oriented X3. Absent: altered mental status - Routine Psychiatric Exam Present: normal affect, normal thought process, cooperative. Absent: suicidal ideation, visual hallucinations Assessment and Plan (1) Esophageal stricture Status: Acute Category: Medical Code(s): K22.2 - Esophageal obstruction (2) Low body mass index (BMI) Status: Acute Category: Medical (3) Renal insufficiency Status: Acute Category: Medical Code(s): N28.9 - Disorder of kidney and ureter, unspecified (4) Anemia Status: Chronic Qualifiers: Anemia type: unspecified type Qualified Code(s): D64.9 - Anemia, unspecified Category: Medical Code(s): D64.9 - Anemia, unspecified (5) COPD (chronic obstructive pulmonary disease) Status: Chronic Qualifiers: COPD type: unspecified COPD Qualified Code(s): J44.9 - Chronic obstructive pulmonary disease, unspecified Category: Medical Code(s): J44.9 - Chronic obstructive pulmonary disease, unspecified (6) Tobacco abuse Status: Chronic Category: Medical Code(s): Z72.0 - Tobacco use (7) Acute kidney injury Status: Acute Category: Medical Code(s): N17.9 - Acute kidney failure, unspecified - Assessment and plan all Dx Assessment and Plan for all problems:: Rounded with Dr. Hernandez, all orders per Dr. Hernandez: 1. Pain medication regimen discussed with pharmacy and ordered 2. We will leave liquid diet and not advance
--- NOTE | 2020-05-13 13:42 | PC.NURSE ---
did verify with md that patient was to only have clear liquids
[2020-05-13 16:00] VITALS: BP 141/55; PULSE 57; RESP 18; TEMP 36.5; O2SAT 99
[2020-05-13 17:20] LABS: POC Glucose,Bedside 90 (70-110)
--- NOTE | 2020-05-13 17:40 | PC.NURSE ---
patient has done well this shift. multiple complaints of diet, this was relayed to md who wished to hold off on food until she see rocky tomorrow. she rings out as needed. morphine q4hrs. has felt better since her tessalon perals. independent in room vitals stable. did check fsbs after some complaints of being delirious or weak. it was within normal limits. patient stated she felt it was because she was hungry. she did drink a chicken broth and tolerating well. takes pills one at a time with minimal difficulty. will continue to monitor. vitals stable
--- NOTE | 2020-05-13 19:30 | PC.NURSE ---
report received from Marshall Jiang RN
--- NOTE | 2020-05-13 19:51 | PC.NURSE ---
PT ARRIVED TO THE FLOOR VIA STRETCHER FROM ED/STAFF AT 1950
[2020-05-13 20:00] VITALS: BP 145/60; PULSE 58; RESP 14; TEMP 36.8; O2SAT 95
[2020-05-13 21:02] VITALS: O2SAT 96
[2020-05-14] VITALS (14 sets, daily range): BP systolic 122–166; BP diastolic 53–91; PULSE 60–78; RESP 14–22; TEMP 36.4–36.8; O2SAT 91–100; BMI 17.2
--- NOTE | 2020-05-14 02:00 | PC.NURSE ---
report given to Jacek Mccall RN
--- NOTE | 2020-05-14 02:01 | PC.NURSE ---
Report handoff received from CURTIS Parker at this time
--- NOTE | 2020-05-14 02:30 | PC.NURSE ---
Pt assessment completed at this time. Pt requesting something to drink at this time, informed patient she was NPO for her scheduled procedure with Dr. Kaba at 10am. Pt agreeable, stated I forgot . BSC emptied, patient medicated for pain per MAR, and assisted with blankets/repositioning at this time. No further needs voiced at this time, will continue to monitor.
--- NOTE | 2020-05-14 06:25 | PC.NURSE ---
Care of this patient assumed by this RN at approx 0145. Since then, patient has slept intermittently, and has been up to [facility] to void independently. Pt remains alert and oriented x4. LS clear t/o, with diminished bases, currently wearing 3L NC. Pt has had a slight cough this shift, she states this is chronic in nature for her. Pt denies any abdominal pain or GI/ complaints at this time. No BM noted this shift. Pt has c/o generalized pain multiple times this shift, and has been medicated with Morphine per AUG. Pt does get relief with pain medication. Pt has been NPO for Dr. Kaba consult and planned EGD today. VSS. No fevers this shift. IV remains patent, infusing NS at @50ml/hr. No s/s of distress noted, will continue to monitor.
[2020-05-14 06:35] LABS: Basophils # 0.1 K/mm3 (0-0.2); Basophils % 1.2 % (0.1-2.0); Eosinophils # 0.1 K/mm3 (0.0-0.4); Eosinophils % 1.9 % (0.1-12.0); Hematocrit 36.1 % (37.0-47.0); Hemoglobin 11.2 g/dL (12.2-16.2); Lymphocytes % 23.9 % (10-50); Mean Corpuscular HGB Conc 31.1 g/dL (31.8-35.4); Mean Corpuscular Hemoglobin 23.3 pg (27.0-31.2); Mean Corpuscular Volume 74.9 fl (81-99); Mean Platelet Volume 7.7 fl (7.4-10.4); Monocytes # 0.3 K/mm3 (0.1-1.0); Neutrophils # 2.9 K/mm3 (1.8-7.8); Neutrophils % 67.1 % (37.0-80.0); Platelet Count 154 K/mm3 (142-424); Red Blood Count 4.82 M/mm3 (4.20-5.40); Red Cell Distribution Width 24.7 % (11.5-17.5); White Blood Count 4.3 K/mm3 (4.8-10.8)
[2020-05-14 06:40] LABS: Chloride 97 mmol/L (98-107); Potassium 3.2 mmoL/L (3.5-5.1); Sodium 138 mmol/L (136-145)
[2020-05-14 06:43] LABS: Blood Urea Nitrogen 18 mg/dl (7-17); Creatinine Clearance Estimated 32 mL/min (50-200); Estimated Glomerular Filt Rate 61 ml/min (>60); GFR (African American) 74 ML/MIN (>60)
[2020-05-14 06:44] LABS: Anion Gap 10.2 mEq/L (5-15); Calcium 9.4 mg/dl (8.4-10.2); Carbon Dioxide 34 mmol/L (22.0-30.0); Glucose 74 mg/dl (74-100)
--- NOTE | 2020-05-14 10:32 | HMH.ANESCL ---
[facility] Anesthesia Checklist - Structural Data Admitted From: Inpatient Planned Operative Procedure/s: egd Consent for Planned Operative Procedure(s) Verified: Yes - Additional verifications Anesthesia Reactions: No - Airway Assessment C-Spine Mobility Assessed: Yes TMJ Mobility Assessed: Yes Dentition: Edentulous - Neurological Assessment Level of Consciousness: Awake, Alert, Appropriate - Anesthesia Plan Anesthesia Risk discussed: Yes Anesthesia Plan: Verified ASA Class: III Anesthesia Type: MAC [facility] History I have reviewed the patient's past medical history: Yes Medical History: Reports:: Anxiety, Cancer (Ovarian and skin), Congestive Heart Failure, Chronic Obstructive Pulmonary Disease (COPD), Coronary Artery Disease, Deep Vein Thrombosis, Depression, Gastroesophageal Reflux Disease(GERD), Hyperlipidemia, Hypertension, Lung Disease, Myocardial Infarction, Transient Ischemic Attacks (TIA) Denies:: Diabetes Mellitus Type 1, Diabetes Mellitus Type 2, Internal Pacemaker, MRSA, Seizures *Have you ever received a pneumonia vaccine?: No *Have you received a flu vaccine this season?: No Other Medical History: Reports: Anemia, Arthritis, Cataracts, Glaucoma, Hypothyroidism, Thyroid Disease Anesthesia experience/problems:: none Laterality Cases: Left: Total Hip Replacement, Bilateral: Tonsillectomy Other Surgeries: Yes: Angiogram, Cancer Surgery, Cardiac Catheterization, Colonoscopy, Coronary Stent, Hernia Repair, Hysterectomy-Total, Skin Cancer Excision, Other Valve Replacement. No: Pacemaker Amputation: Yes Fractures: No - *Social History Last grade of school completed: 11th or 12th Smoking Status: Current every day smoker Tobacco Type: cigarettes # Packs/Day (cigarettes): 1 #Yrs smoked (if former smoker): 56 Alcohol Intake: never Alcohol Intake Frequency:: other Substance Use Type: denies use *Occupational Status:: retired Housing: house Household Members: family *Travel in the last 8 weeks: None - Psychiatric History Pschychiatric History:: Reports:: Anxiety, Depression Family Hx:: Cancer, Heart Attack
--- NOTE | 2020-05-14 10:35 | P.PCN_ITS ---
[facility] Procedure Note Procedure Note:: Upper Endoscopy Procedure Report: Esophagogastroduodenoscopy with cold biopsies and TTS balloon dilation Endoscopost: Travis Kaba II, MD Referring Physician: Hector Ramirez MD/Tyra Gutierrez Date of Procedure: May 14, 2020 Equipment: Olympus GIF 180 standard upper endoscope Sedation: MAC sedation Indications: Mrs. Veloz is a 74-year-old female with longstanding dysphagia. She has had 2 prior fundoplication surgeries (Dr. Bernabe Sanabria) and her last one was in 2014. She did have an EGD with me in February 2019 and had a distal esophageal stricture that was originally 6 mm and dilated up to 15 mm. She did have marked improvement of her swallowing. More recently, she has had more symptoms of dysphagia to most solid foods and sometimes to liquids. She also has had belching and esophageal chest pain. This is often relieved by the belching. She is having ongoing heartburn and reflux. Procedure: Prior to the procedure, a history and physical exam was performed, and patient's medications and allergies were reviewed. The risks, benefits and alternatives of the sedation and procedure were discussed with the patient. All questions were answered and informed consent was obtained. The patient was brought to the procedure room. Patient identification and proposed procedure were verified by the physician and the nurse. The patient was placed in a left lateral decubitus position and the scope was passed under direct vision. Throughout the procedure, the patient's blood pressure, pulse, and oxygen saturations were monitored continuously. The upper GI endoscopy was accomplished without difficulty. The patient tolerated the procedure well. Findings: The scope was passed directly into the upper esophagus and advanced to the third portion of the duodenum. The post bulbar duodenum and duodenal bulb were normal with normal mucosa and conniventes. Cold biopsies were taken from the duodenum to rule out celiac disease. The scope was withdrawn through a normal duodenal bulb and pylorus into the stomach. There was bile reflux and there was some retained gastric material/liquid and solid food content suggestive of some gastric dysmotility. There was some linear reactive gastropathy. The remainder of the antrum, body and fundus of the stomach were grossly normal. Upon retroflexion there was an intact fundoplication with no hiatal hernia. The scope was then withdrawn into the esophagus. Originally, the endoscope could not pass the distal esophageal stricture and this was approximately 6 mm originally. This was dilated up to 15 mm with a TTS hydrostatic balloon. There was minor reflux esophagitis. There was no Renteria's esophagus. Cold biopsies were taken distally. The remainder of the esophageal mucosa was normal. Impression: 1. Distal esophageal stricture dilated from original diameter of 6 mm up to 15 mm 2. Intact fundoplication 3. Gastric dysmotility and mild reactive gastropathy Plan: I will follow-up the biopsies. I do feel that she still has some functional GERD. We will discuss additional treatment options. I would consider repeating an EGD in 3 months with serial dilation.
--- NOTE | 2020-05-14 12:16 | HMH.DCSUM ---
General - General Admission date:: 05/11/20 Discharge date: 05/14/20 HPI HPI: 74-year-old female patient into the emergency department with complaints of dysphagia and not being able to swallow her meds. She reports her meds are getting stuck in her throat and she is not been able to tolerate food and only some liquids since yesterday. She denies any abdominal pain, nausea, vomiting, or diarrhea. She has a history of esophageal strictures in the past and has had to have the stretching procedure done by GI in 2019. She is currently under hospice care at this time In the emergency department white blood cell count 4.8, H/H 6.8/25.0, platelets 215. 2 units of packed red blood cells were ordered Sodium 137, potassium 4.2 BUN elevated at 24, and creatinine elevated at 1.2. In the emergency department she received a bolus of normal saline, morphine IV, ondansetron IV, Currently she is lying in bed, she does report she has pain all over she is questioning her pain medicine regimen we we will have pharmacy compare pain regimen at home versus here and will adjust accordingly. Hospital Course Hospital Course: pt has did well with blood transfusion in preparation for gi procedure -hgb was stable at 11.2 and had procedure per dr hidalgo -dications: Mrs. Veloz is a 74-year-old female with longstanding dysphagia. She has had 2 prior fundoplication surgeries (Dr. Bernabe Sanabria) and her last one was in 2014. She did have an EGD with me in February 2019 and had a distal esophageal stricture that was originally 6 mm and dilated up to 15 mm. She did have marked improvement of her swallowing. More recently, she has had more symptoms of dysphagia to most solid foods and sometimes to liquids. She also has had belching and esophageal chest pain. This is often relieved by the belching. She is having ongoing heartburn and reflux. Procedure: Prior to the procedure, a history and physical exam was performed, and patient's medications and allergies were reviewed. The risks, benefits and alternatives of the sedation and procedure were discussed with the patient. All questions were answered and informed consent was obtained. The patient was brought to the procedure room. Patient identification and proposed procedure were verified by the physician and the nurse. The patient was placed in a left lateral decubitus position and the scope was passed under direct vision. Throughout the procedure, the patient's blood pressure, pulse, and oxygen saturations were monitored continuously. The upper GI endoscopy was accomplished without difficulty. The patient tolerated the procedure well. Findings: The scope was passed directly into the upper esophagus and advanced to the third portion of the duodenum. The post bulbar duodenum and duodenal bulb were normal with normal mucosa and conniventes. Cold biopsies were taken from the duodenum to rule out celiac disease. The scope was withdrawn through a normal duodenal bulb and pylorus into the stomach. There was bile reflux and there was some retained gastric material/liquid and solid food content suggestive of some gastric dysmotility. There was some linear reactive gastropathy. The remainder of the antrum, body and fundus of the stomach were grossly normal. Upon retroflexion there was an intact fundoplication with no hiatal hernia. The scope was then withdrawn into the esophagus. Originally, the endoscope could not pass the distal esophageal stricture and this was approximately 6 mm originally. This was dilated up to 15 mm with a TTS hydrostatic balloon. There was minor reflux esophagitis. There was no Renteria's esophagus. Cold biopsies were taken distally. The remainder of the esophageal mucosa was normal. Impression: 1. Distal esophageal stricture dilated from original diameter of 6 mm up to 15 mm 2. Intact fundoplication 3. Gastric dysmotility and mild reactive gastropathy Plan: I will follow-up the biops
--- NOTE | 2020-05-14 13:21 | SW/DCPLANNER ---
PATIENT IS DISCHARGING LATER THIS AFTERNOON AND DAUGHTER IS TRANSPORTING HER HOME.... SHE WILL DISCHARGE HOME WITH HOSPICE TO FOLLOW...
== END 2020-05-14 13:50 | disposition hospice, home (50) ==
LOC: ER 20:35 → 2ND 22:13
PROVIDERS: Internal Medicine Gastroenterology; Nurse Practitioner Family; Admitting Provider Emergency Medicine; Emergency Provider Emergency Medicine; PCP Internal Medicine; Visit Provider Emergency Medicine
PROC: 0DJ08ZZ Inspection of Upper Intestinal Tract, Via Natural or Artificial Opening Endoscopic (ICD-10-PCS; CPT 43235; principal; 2020-05-14 10:00)
DX: K22.2 Esophageal obstruction (principal); D64.9 Anemia, unspecified; I11.0 Hypertensive heart disease with heart failure; I50.9 Heart failure, unspecified; J44.9 Chronic obstructive pulmonary disease, unspecified; I25.10 Atherosclerotic heart disease of native coronary artery without angina pectoris; Z72.0 Tobacco use; I25.2 Old myocardial infarction; E03.9 Hypothyroidism, unspecified; Z95.5 Presence of coronary angioplasty implant and graft; Z88.8 Allergy status to other drugs, medicaments and biological substances; Z79.51 Long term (current) use of inhaled steroids; Z23 Encounter for immunization; R13.19 Other dysphagia
CPT/HCPCS: 43239; 43249; G0008; 36415; 80048; 80053; 82962; 85025; 86328; 86850; 88305; 90686; 94761; 96365; 96375; 96376; 99284; C1726; G0378; J2405; P9016

== ENCOUNTER → 2020-11-22 07:33 | Outpatient (CLI) | payer MEDICARE, MEDICAID, SELFPAY ==
[2020-11-22 13:59] LABS: Basophils % 0.1 % (0.1-2.0); Eosinophils # 0.1 K/mm3 (0.0-0.4); Eosinophils % 1.2 % (0.1-12.0); Hematocrit 31.2 % (37.0-47.0); Hemoglobin 9.6 g/dL (12.2-16.2); Lymphocytes % 24.4 % (10-50); Mean Corpuscular HGB Conc 30.7 g/dL (31.8-35.4); Mean Corpuscular Hemoglobin 26.8 pg (27.0-31.2); Mean Corpuscular Volume 87.4 fl (81-99); Mean Platelet Volume 9.4 fl (7.4-10.4); Monocytes # 0.3 K/mm3 (0.1-1.0); Neutrophils # 2.8 K/mm3 (1.8-7.8); Neutrophils % 67.2 % (37.0-80.0); Platelet Count 140 K/mm3 (142-424); Red Blood Count 3.57 M/mm3 (4.20-5.40); Red Cell Distribution Width 19.3 % (11.5-17.5); White Blood Count 4.2 K/mm3 (4.8-10.8)
[2020-11-22 14:01] LABS: Alanine Aminotransferase 20 U/L (12-78); Albumin Level 3.4 g/dl (3.5-5.0); Alkaline Phosphatase 182 U/L (38-126); Aspartate Amino Transferase 39 U/L (14-36); Bilirubin,Total 0.8 mg/dl (0.2-1.3); Blood Urea Nitrogen 23 mg/dl (7-17); Calcium 8.9 mg/dl (8.4-10.2); Carbon Dioxide 31 mmol/L (22.0-30.0); Chloride 98 mmol/L (98-107); Estimated Glomerular Filt Rate 49 ml/min (>60); GFR (African American) 59 ML/MIN (>60); Globulin 3.3 g/dL (1.3-3.2); Glucose 86 mg/dl (74-100); Sodium 137 mmol/L (136-145); Total Protein,Serum 6.7 g/dl (6.3-8.2)
== END ==
PROVIDERS: Visit Provider Nurse Practitioner Family
DX: I10 Essential (primary) hypertension (principal)
CPT/HCPCS: 36415; 80053; 85025

== ENCOUNTER 2020-12-03 02:59 | Emergency (ER) | payer MEDICARE, MEDICAID, SELFPAY ==
[2020-12-03] VITALS (13 sets, daily range): BP systolic 114–152; BP diastolic 63–80; PULSE 73–101; RESP 16–18; TEMP 36.6–36.7; O2SAT 97–100; BMI 19.8
--- NOTE | 2020-12-03 02:55 | CT_ITS ---
PROCEDURE INFORMATION: Exam: CT Head Without Contrast Exam date and time: 12/03/2020 2:55 AM Age: 75 years old Clinical indication: Pain; Headache; Additional info: Fall, trauma TECHNIQUE: Imaging protocol: Computed tomography of the head without contrast. 3D rendering (Not supervised by radiologist): MIP and/or 3D reconstructed images were created by the technologist. Radiation optimization: All CT scans at this facility use at least one of these dose optimization techniques: automated exposure control; mA and/or kV adjustment per patient size (includes targeted exams where dose is matched to clinical indication); or iterative reconstruction. COMPARISON: [facility] CT HEAD W/O CONTRAST 02/18/2016 4:36 PM FINDINGS: Brain: There is no acute intracranial hemorrhage or mass effect. Mild diffuse volume loss is within the range of normal for patient age. There are small vessel ischemic changes within the periventricular and subcortical white matter, but the normal lomas/white matter delineation is maintained. Cerebral ventricles: No ventriculomegaly. Paranasal sinuses: There is mild right maxillary sinus mucosal thickening. No fluid levels. Mastoid air cells: Visualized mastoid air cells are well aerated. Bones/joints: Unremarkable. No acute fracture. Soft tissues: Unremarkable. IMPRESSION: No acute hemorrhage or calvarial fracture.
--- NOTE | 2020-12-03 02:56 | CT_ITS ---
PROCEDURE INFORMATION: Exam: CT Cervical Spine Without Contrast Exam date and time: 12/03/2020 2:56 AM Age: 75 years old Clinical indication: Neck pain; Additional info: Trauma, neck pain TECHNIQUE: Imaging protocol: Computed tomography images of the cervical spine without contrast. Radiation optimization: All CT scans at this facility use at least one of these dose optimization techniques: automated exposure control; mA and/or kV adjustment per patient size (includes targeted exams where dose is matched to clinical indication); or iterative reconstruction. COMPARISON: [facility] CT CERVICAL SPINE W/O CONT 02/18/2016 4:41 PM FINDINGS: Image quality is degraded by motion. Bones/joints: There is 3 mm of grade 1 anterolisthesis of C4 with respect to C5. Normal vertebral body alignment is otherwise preserved. Vertebral body heights are within normal limits. Discs/Spinal canal/Neural foramina: There is severe intervertebral disc space loss at C5/6 and C6/7. There is multilevel facet hypertrophy asymmetric to the right. Lungs: There is biapical intra lobular septal thickening. Pleural spaces: There is a small right pleural effusion. Soft tissues: Unremarkable. IMPRESSION: No fracture.
--- NOTE | 2020-12-03 02:56 | XR_ITS ---
PROCEDURE INFORMATION: Exam: XR Right Shoulder Exam date and time: 12/03/2020 2:56 AM Age: 75 years old Clinical indication: Pain; Upper arm; Right; Additional info: Fall TECHNIQUE: Imaging protocol: XR Right shoulder. Views: 2 or more views. COMPARISON: [facility] XR CHEST 2V 07/18/2019 1:09 AM FINDINGS: Bones/joints: There is no evidence of fracture, dislocation, or other acute bony abnormality. Degenerative changes of the glenohumeral joint and acromioclavicular joint. Soft tissues: Normal. IMPRESSION: There is no evidence of fracture, dislocation, or other acute bony abnormality.
--- NOTE | 2020-12-03 02:57 | XR_ITS ---
PROCEDURE INFORMATION: Exam: XR Chest Exam date and time: 12/03/2020 2:57 AM Age: 75 years old Clinical indication: Pain; Angina pectoris; Additional info: Fall TECHNIQUE: Imaging protocol: XR of the chest. Views: 1 view. COMPARISON: CR XR CHEST 2V 07/18/2019 1:09 AM FINDINGS: Lungs: See Heart/Mediastinum finding. Pleural spaces: See Heart/Mediastinum finding. Heart/Mediastinum: There is cardiomegaly with pulmonary vascular congestion, interstitial edema, and a small right pleural effusion consistent with CHF/fluid overload. Bones/joints: There are degenerative changes of the spine and shoulders. IMPRESSION: Mild congestive heart failure/fluid overload.
--- NOTE | 2020-12-03 02:57 | XR_ITS ---
PROCEDURE INFORMATION: Exam: XR Right Humerus Exam date and time: 12/03/2020 2:57 AM Age: 75 years old Clinical indication: Pain; Upper arm; Right; Additional info: Fall, trauma TECHNIQUE: Imaging protocol: XR Right humerus. Views: 2 or more views. COMPARISON: CR XR CHEST 2V 07/18/2019 1:09 AM FINDINGS: Bones/joints: There is no evidence of fracture, dislocation, or other acute bony abnormality. Degenerative changes of the shoulder. Soft tissues: Normal. IMPRESSION: There is no evidence of fracture, dislocation, or other acute bony abnormality.
--- NOTE | 2020-12-03 02:57 | HMH.EDGENADL ---
ED Disposition Clinical Impression: Fall Qualifiers: Encounter type: initial encounter Qualified Code(s): W19.XXXA - Unspecified fall, initial encounter Contusion of right shoulder Qualifiers: Encounter type: initial encounter Qualified Code(s): S40.011A - Contusion of right shoulder, initial encounter Disposition: Home, Self-Care Condition on Discharge: Fair Instructions: DI for Contusion, How to Prevent Falls, DI for Shoulder Sprain Additional Instructions: You have been evaluated for fall, head injury and shoulder injury. No fracture identified. No other injuries seen on CT scan and xrays. Please take Tylenol and Motrin for pain. Use heat and ice. Take care to avoid falls. Follow-up with your primary care doctor. Return to the emergency department for any new or worsening symptoms. Referrals: Hector Ramirez MD [Primary Care Provider] - Time of Disposition: 05:49 - Critical Care Critical Care Time: No Attestation: On , the high probability of a clinically significant, sudden or life threatening deterioration of the following system(s) required my full and direct attention, intervention and personal management. The time I documented below is in addition to time spent performing reported procedures but includes the following listed in this critical care notation. Medical Decision Making - Medical Records Medical records reviewed: Yes: I reviewed the patient's medical records. - Serg Inquiry Pt receiving controlled substance: No Vital Signs: 12/03/20 02:54 12/03/20 03:00 12/03/20 03:30 Temperature 98.1 F Temperature Source Oral Pulse Rate 101 H 79 Pulse Rate [Right Brachial] 101 H Respiratory Rate 17 17 Blood Pressure 138/74 140/80 Blood Pressure [Right Arm] 147/80 H Blood Pressure Mean 105 Blood Pressure Mean [Right Arm] 102 Blood Pressure Source Automatic Cuff Blood Pressure Source [Right Arm] Automatic Cuff Blood Pressure Position Sitting Blood Pressure Position [Right Arm] Sitting 02 Sat by Pulse Oximetry 100 100 99 Oxygen Delivery Method Room Air Nasal Cannula Nasal Cannula Oxygen Flow Rate (LPM) 2 2 12/03/20 04:00 12/03/20 04:30 12/03/20 05:00 Temperature Temperature Source Pulse Rate 81 85 73 Pulse Rate [Right Brachial] Respiratory Rate 18 18 Blood Pressure 152/74 H 144/71 H 132/75 Blood Pressure [Right Arm] Blood Pressure Mean Blood Pressure Mean [Right Arm] Blood Pressure Source Automatic Cuff Automatic Cuff Automatic Cuff Blood Pressure Source [Right Arm] Blood Pressure Position Sitting Sitting Sitting Blood Pressure Position [Right Arm] 02 Sat by Pulse Oximetry 98 99 97 Oxygen Delivery Method Nasal Cannula Nasal Cannula Nasal Cannula Oxygen Flow Rate (LPM) 2 2 2 12/03/20 05:30 12/03/20 06:09 12/03/20 06:11 Temperature Temperature Source Pulse Rate 94 H 95 H 95 H Pulse Rate [Right Brachial] Respiratory Rate 16 16 Blood Pressure 127/80 125/66 125/66 Blood Pressure [Right Arm] Blood Pressure Mean 83 Blood Pressure Mean [Right Arm] Blood Pressure Source Automatic Cuff Automatic Cuff Blood Pressure Source [Right Arm] Blood Pressure Position Sitting Sitting Blood Pressure Position [Right Arm] 02 Sat by Pulse Oximetry 99 100 100 Oxygen Delivery Method Nasal Cannula Oxygen Flow Rate (LPM) 2 12/03/20 06:30 12/03/20 07:00 12/03/20 07:30 Temperature Temperature Source Pulse Rate 94 H 88 90 Pulse Rate [Right Brachial] Respiratory Rate Blood Pressure 120/65 114/63 122/67 Blood Pressure [Right Arm] Blood Pressure Mean 80 Blood Pressure Mean [Right Arm] Blood Pressure Source Blood Pressure Source [Right Arm] Blood Pressure Position Blood Pressure Position [Right Arm] 02 Sat by Pulse Oximetry 100 100 99 Oxygen Delivery Method Nasal Cannula Oxygen Flow Rate (LPM) - Lab Data Lab Results 12/03/20 04:15: WBC 3.8 L, RBC 3.59 L, Hgb 9.8 L, Hct 31.9 L, MCV 8
--- NOTE | 2020-12-03 02:58 | XR_ITS ---
PROCEDURE INFORMATION: Exam: XR Right Hip Exam date and time: 12/03/2020 2:58 AM Age: 75 years old Clinical indication: Hip pain; Right hip; Additional info: Fall TECHNIQUE: Imaging protocol: XR Right hip. Views: 2 or 3 views hip with pelvis when performed. COMPARISON: ABDPELW CT abdomen pelvis w con 06/09/2018 12:22 PM FINDINGS: Tubes, catheters and devices: There is a vena cava filter. Bones/joints: There is a compression screw in the left hip. There are degenerative changes of the spine. No fracture. Soft tissues: Unremarkable. IMPRESSION: No evidence of acute abnormality.
--- NOTE | 2020-12-03 03:00 | PC.NURSE ---
c-collar removed per md after exam of patient.
--- NOTE | 2020-12-03 04:10 | PC.NURSE ---
multiple venipunctures attempted by lab and nursing. no successful IV initiation despite multiple attempts.
[2020-12-03 04:24] LABS: Basophils % 0.3 % (0.1-2.0); Eosinophils # 0.1 K/mm3 (0.0-0.4); Eosinophils % 1.9 % (0.1-12.0); Hematocrit 31.9 % (37.0-47.0); Hemoglobin 9.8 g/dL (12.2-16.2); Lymphocytes % 25.9 % (10-50); Mean Corpuscular HGB Conc 30.8 g/dL (31.8-35.4); Mean Corpuscular Hemoglobin 27.4 pg (27.0-31.2); Mean Corpuscular Volume 88.8 fl (81-99); Mean Platelet Volume 10.4 fl (7.4-10.4); Monocytes # 0.3 K/mm3 (0.1-1.0); Monocytes % 8.4 % (1.7-9.3); Neutrophils # 2.4 K/mm3 (1.8-7.8); Neutrophils % 63.5 % (37.0-80.0); Platelet Count 136 K/mm3 (142-424); Red Blood Count 3.59 M/mm3 (4.20-5.40); Red Cell Distribution Width 18.9 % (11.5-17.5); White Blood Count 3.8 K/mm3 (4.8-10.8)
[2020-12-03 04:27] LABS: Chloride 103 mmol/L (98-107); Sodium 137 mmol/L (136-145)
[2020-12-03 04:28] LABS: Potassium 5.1 mmoL/L (3.5-5.1)
[2020-12-03 04:30] LABS: Alanine Aminotransferase 19 U/L (12-78); Albumin Level 3.5 g/dl (3.5-5.0); Albumin/Globulin Ratio 0.9 (1.1-1.8); Alkaline Phosphatase 167 U/L (38-126); Anion Gap 12.1 mEq/L (5-15); Aspartate Amino Transferase 56 U/L (14-36); Bilirubin,Total 0.9 mg/dl (0.2-1.3); Blood Urea Nitrogen 31 mg/dl (7-17); Carbon Dioxide 27 mmol/L (22.0-30.0); Creatinine Clearance Estimated 34 mL/min (50-200); Estimated Glomerular Filt Rate 49 ml/min (>60); GFR (African American) 59 ML/MIN (>60); Globulin 3.7 g/dL (1.3-3.2); Total Protein,Serum 7.2 g/dl (6.3-8.2)
[2020-12-03 04:31] LABS: Calcium 8.9 mg/dl (8.4-10.2); Glucose 85 mg/dl (74-100)
--- NOTE | 2020-12-03 04:40 | PC.NURSE ---
able to obtain purple and green blood tubes for lab. unable to obtain IV despite 3 attempts by this nurse. vss. pt reports pain. md aware. no new orders at this time.
--- NOTE | 2020-12-03 05:06 | PC.NURSE ---
pt to CT & xrays
--- NOTE | 2020-12-03 05:55 | PC.NURSE ---
return from radiology.
--- NOTE | 2020-12-03 06:55 | PC.NURSE ---
Contacted manager of radiology regarding ct and xr reports have still not been read.
--- NOTE | 2020-12-03 07:42 | PC.NURSE ---
Spoke with nursing staff at [facility], [facility] family will need to transport pt. spoke with pts daughter Berenice at this time r/t pt discharge and transport back to [facility]. States she will contact her brother and let us know who will come get pt.
--- NOTE | 2020-12-03 07:47 | PC.NURSE ---
spoke with pts daughter Berenice again at this time, states she will be coming to get pt.
== END 2020-12-03 08:56 | disposition home or self-care (01) ==
PROVIDERS: Emergency Provider Emergency Medicine; PCP Emergency Medicine
DX: S40.011A Contusion of right shoulder, initial encounter (principal); S00.83XA Contusion of other part of head, initial encounter; W01.0XXA Fall on same level from slipping, tripping and stumbling without subsequent striking against object, initial encounter; Y92.019 Unspecified place in single-family (private) house as the place of occurrence of the external cause; J44.9 Chronic obstructive pulmonary disease, unspecified; I50.9 Heart failure, unspecified; I25.10 Atherosclerotic heart disease of native coronary artery without angina pectoris; E78.5 Hyperlipidemia, unspecified; I10 Essential (primary) hypertension; F17.210 Nicotine dependence, cigarettes, uncomplicated; Z96.642 Presence of left artificial hip joint; E03.9 Hypothyroidism, unspecified; I25.2 Old myocardial infarction; K21.9 Gastro-esophageal reflux disease without esophagitis; F41.8 Other specified anxiety disorders; Z79.899 Other long term (current) drug therapy; Z88.8 Allergy status to other drugs, medicaments and biological substances
CPT/HCPCS: 70450; 71045; 72125; 73030; 73060; 73502; 80053; 85025; 99282; 99283

== ENCOUNTER → 2020-12-09 07:10 | Outpatient (CLI) | payer MEDICARE, MEDICAID, SELFPAY ==
[2020-12-09 07:15] LABS: Microscopic, Urine URINE MICROSCOPIC (MICROSCOPIC)
[2020-12-09 14:26] LABS: Appearance,Urine CLEAR (Clear); Bilirubin,Urine Negative (Negative); Blood, Urine Negative (Negative); Color,Urine YELLOW (Yellow); Glucose,Urine (UA) Negative (Negative); Ketones,Urine TRACE (Negative); Leukocyte Esterase,Urine TRACE (Negative); Nitrate,Urine Negative (Negative); Protein,Urine TRACE (Negative); Specific Gravity, Urine 1.025 (1.005-1.030); Urobilinogen,Urine 0.2 EU/dl (0.2)
[2020-12-09 17:17] LABS: Amorphous Sediment,Urine 1+ /lpf; Bacteria,Urine 1+ /lpf
== END ==
PROVIDERS: Visit Provider Nurse Practitioner Family
DX: R41.0 Disorientation, unspecified (principal)
CPT/HCPCS: 81001; 87086

== ENCOUNTER 2020-12-11 03:29 | Emergency (ER) | payer MEDICARE, MEDICAID, SELFPAY ==
[2020-12-11] VITALS (11 sets, daily range): BP systolic 109–132; BP diastolic 45–71; PULSE 74–91; RESP 14–18; TEMP 36.4; O2SAT 99–100; BMI 19.5
--- NOTE | 2020-12-11 03:31 | CT_ITS ---
PROCEDURE INFORMATION: Exam: CT Lumbar Spine Without Contrast Exam date and time: 12/11/2020 3:31 AM Age: 75 years old Clinical indication: Injury or trauma; Fall; Blunt trauma (contusions or hematomas); Additional info: Fell into door handle, abrasion with severe pain TECHNIQUE: Imaging protocol: Computed tomography images of the lumbar spine without contrast. Radiation optimization: All CT scans at this facility use at least one of these dose optimization techniques: automated exposure control; mA and/or kV adjustment per patient size (includes targeted exams where dose is matched to clinical indication); or iterative reconstruction. COMPARISON: ABDPELW CT abdomen pelvis w con 06/09/2018 12:22 PM FINDINGS: Vertebrae: Multiple marginal osteophytes are noted. Discs/Spinal canal/Neural foramina: Mild diffuse degenerative changes are seen. Vacuum disc phenomena is seen at L2-L3. No significant neural foraminal narrowing is noted. Vasculature: Extensive aortic calcifications are noted without aneurysm. Soft tissues: Unremarkable. An IVC filter is present. There is diffuse ascites present within the pelvis this is new from the prior study. IMPRESSION: Mild degenerative changes. No evidence of acute fracture or dislocation. Ascites is present in the pelvis, the etiology of this is unclear.
--- NOTE | 2020-12-11 03:31 | CT_ITS ---
PROCEDURE INFORMATION: Exam: CT Thoracic Spine Without Contrast Exam date and time: 12/11/2020 3:31 AM Age: 75 years old Clinical indication: Injury or trauma; Fall; Blunt trauma (contusions or hematomas); Additional info: Fell into door handle, abrasion with severe pain TECHNIQUE: Imaging protocol: Computed tomography images of the thoracic spine without contrast. Radiation optimization: All CT scans at this facility use at least one of these dose optimization techniques: automated exposure control; mA and/or kV adjustment per patient size (includes targeted exams where dose is matched to clinical indication); or iterative reconstruction. COMPARISON: CT CERVICAL SPINE WO CON 12/11/2020 4:28 AM FINDINGS: Vertebrae: No acute fracture. Normal alignment. Discs/Spinal canal/Neural foramina: No significant disc protrusion. No severe spinal canal stenosis. No significant neural foraminal narrowing. Soft tissues: Unremarkable. Lungs: Some patchy parenchymal opacity seen bilaterally most prominently in the lung bases. The etiology of these is unclear. Pleural spaces: A moderate right and a small left-sided pleural effusion are noted. IMPRESSION: 1. No acute fracture or dislocation noted. 2. Moderate right and small left-sided pleural effusions. 3. Patchy airspace disease
--- NOTE | 2020-12-11 03:31 | XR_ITS ---
PROCEDURE INFORMATION: Exam: XR Pelvis Exam date and time: 12/11/2020 3:31 AM Age: 75 years old Clinical indication: Injury or trauma; Fall; Blunt trauma (contusions or hematomas); Bilateral; Pelvic region; Prior surgery; Surgery date: 6+ months; Surgery type: Left femur; Additional info: Fall, back pain TECHNIQUE: Imaging protocol: XR pelvis. Views: 1 or 2 view. COMPARISON: CR XR HIP RT 2-3V W/PELVIS 12/03/2020 5:26 AM FINDINGS: Bones/joints: The patient is status post prior ORIF of left femur fracture. Patient is diffusely osteopenic. Soft tissues: Unremarkable. IMPRESSION: No acute change identified.
--- NOTE | 2020-12-11 03:31 | CT_ITS ---
PROCEDURE INFORMATION: Exam: CT Chest Without Contrast; Diagnostic Exam date and time: 12/11/2020 3:31 AM Age: 75 years old Clinical indication: Injury or trauma; Fall; Blunt trauma (contusions or hematomas); Additional info: Fell into door handle, abrasion with severe pain TECHNIQUE: Imaging protocol: Diagnostic computed tomography of the chest without contrast. 3D rendering (Not supervised by radiologist): MIP and/or 3D reconstructed images were created by the technologist. Radiation optimization: All CT scans at this facility use at least one of these dose optimization techniques: automated exposure control; mA and/or kV adjustment per patient size (includes targeted exams where dose is matched to clinical indication); or iterative reconstruction. COMPARISON: CHESTW CT chest w con 06/09/2018 12:22 PM FINDINGS: Lungs: Some patchy airspace disease is seen in the lung bases bilaterally. Pleural spaces: Moderate right and small left-sided effusion are seen. Heart: The heart is diffusely enlarged. Extensive coronary athero sclero is seen. Aorta: The ascending aorta measures a maximum of 3.8 cm. Lymph nodes: Unremarkable. No enlarged lymph nodes. Stomach and bowel: Postsurgical changes to the stomach are noted. Intraperitoneal space: Ascites is seen in the upper abdomen. Bones/joints: A healed fracture of the sternum is again identified Soft tissues: Unremarkable. IMPRESSION: 1. No acute traumatic injury identified. 2. Patchy bibasilar airspace disease early infiltrate or aspiration suspected. 3. Moderate right and small left-sided pleural effusion. 4. Cardiomegaly with extensive coronary atherosclerosis. 5. Abdominal ascites. 6. Healed fracture of the sternum
--- NOTE | 2020-12-11 03:31 | CT_ITS ---
PROCEDURE INFORMATION: Exam: CT Cervical Spine Without Contrast Exam date and time: 12/11/2020 3:31 AM Age: 75 years old Clinical indication: Injury or trauma; Fall; Blunt trauma; Additional info: Fell into door handle, abrasion with severe pain TECHNIQUE: Imaging protocol: Computed tomography images of the cervical spine without contrast. Radiation optimization: All CT scans at this facility use at least one of these dose optimization techniques: automated exposure control; mA and/or kV adjustment per patient size (includes targeted exams where dose is matched to clinical indication); or iterative reconstruction. COMPARISON: CT CERVICAL SPINE WO CON 12/03/2020 5:17 AM FINDINGS: Bones/joints: The patient is diffusely osteopenic. There is a grade 1 anterolisthesis C4 over C5. Unchanged from the prior study from 12/03/2020. Multiple marginal osteophytes are present. Discs/Spinal canal/Neural foramina: Diffuse facet hypertrophy is noted. Prevertebral Space: No prevertebral collections Lungs: Interstitial changes are seen in the lungs bilaterally. Vasculature: Extensive carotid artery calcifications are noted. Soft tissues: Unremarkable. IMPRESSION: 1. No acute fracture or dislocation noted. 2. Diffuse moderately severe spondylolysis as described. 3. Dense carotid artery calcification, carotid stenosis not evaluated on this noncontrast study.
--- NOTE | 2020-12-11 04:10 | XR_ITS ---
PROCEDURE INFORMATION: Exam: XR Chest Exam date and time: 12/11/2020 4:10 AM Age: 75 years old Clinical indication: Injury or trauma; Fall; Blunt trauma (contusions or hematomas) TECHNIQUE: Imaging protocol: XR of the chest. Views: 1 view. COMPARISON: CT CHEST WO CON 12/11/2020 4:37 AM FINDINGS: Lungs: The pulmonary vasculature is prominent. Some patchy airspace disease is. Pleural spaces: Unremarkable. No pleural effusion. No pneumothorax. Heart/Mediastinum: The heart is enlarged. Bones/joints: No bony fractures are identified. IMPRESSION: Cardiomegaly and patchy airspace disease.
--- NOTE | 2020-12-11 06:51 | HMH.EDFALL ---
ED Disposition Clinical Impression: Severe mitral valve regurgitation, Moderate tricuspid regurgitation, Abrasion Lumbar contusion Qualifiers: Encounter type: initial encounter Qualified Code(s): S30.0XXA - Contusion of lower back and pelvis, initial encounter Fall Qualifiers: Encounter type: initial encounter Qualified Code(s): W19.XXXA - Unspecified fall, initial encounter CHF (congestive heart failure) Qualifiers: Heart failure type: end stage Qualified Code(s): I50.84 - End stage heart failure Disposition: Home, Self-Care Condition on Discharge: Fair Instructions: DI for Low Back Pain Additional Instructions: resume meds at [facility] Referrals: Hector Ramirez MD [Primary Care Provider] - - Critical Care Critical Care Time: No Attestation: On 12/11/20, the high probability of a clinically significant, sudden or life threatening deterioration of the following system(s) required my full and direct attention, intervention and personal management. The time I documented below is in addition to time spent performing reported procedures but includes the following listed in this critical care notation. Medical Decision Making - Medical Records Medical records reviewed: Yes: I reviewed the patient's medical records. - Serg Inquiry Pt receiving controlled substance: No Vital Signs: 12/11/20 03:29 12/11/20 04:00 12/11/20 05:14 Temperature 97.6 F Temperature Source Oral Pulse Rate 84 86 Pulse Rate [Left] 85 Respiratory Rate 15 16 14 Blood Pressure 118/65 121/60 Blood Pressure [Left Arm] 132/63 Blood Pressure Mean [Left Arm] 86 Blood Pressure Source [Left Arm] Automatic Cuff 02 Sat by Pulse Oximetry 100 99 100 Oxygen Delivery Method Nasal Cannula Nasal Cannula Nasal Cannula Oxygen Flow Rate (LPM) 2 2 2 12/11/20 05:15 12/11/20 06:00 12/11/20 06:30 Temperature Temperature Source Pulse Rate 87 74 82 Pulse Rate [Left] Respiratory Rate Blood Pressure 115/55 L 109/45 L 109/71 L Blood Pressure [Left Arm] Blood Pressure Mean [Left Arm] Blood Pressure Source [Left Arm] 02 Sat by Pulse Oximetry 100 100 100 Oxygen Delivery Method Oxygen Flow Rate (LPM) 12/11/20 07:00 12/11/20 07:30 Temperature Temperature Source Pulse Rate 91 H 91 H Pulse Rate [Left] Respiratory Rate Blood Pressure 116/59 L 127/58 L Blood Pressure [Left Arm] Blood Pressure Mean [Left Arm] Blood Pressure Source [Left Arm] 02 Sat by Pulse Oximetry 100 100 Oxygen Delivery Method Oxygen Flow Rate (LPM) - Radiology Data #1 Image(s): Chest, Pelvis Image Reviewed: Yes I have reviewed radiologist's interpretation Preliminary Findings: No Fracture Seen - CT Data CT Scan: C-Spine, Chest, T-Spine, L-Spine Time Received: 07:[address] Reviewed: Yes: I have viewed the radiologist's interpretation Preliminary Findings: Abnormal (see reports ), No Fracture Seen Medical Decision Narrative: has abrasion but no fx seen on ct - has chronic changes Fall HPI - General Chief Complaint: Fall Stated Complaint: Fall, pain and and abrasion to Left, mid back Time Seen by Provider: 12/11/20 04:00 Mode of Arrival: EMS Source of Information: Patient, EMS, Medical Record Limitations: Physical Limitations Description of Symptoms (Recalled from ER Triage Doc. by RN): Per [place] nurse, Viviane, pt got up on her own to use the bathroom at ~2am and lost her balance, falling into the door handle. This caused an abrasion to the left side at the middle of her back. Pt reports severe pain 9/10 on [employer]. She denies hitting her head, no LOC or dizziness. Pt states it hurts to take a deep breath. She wears 2LPM NC O2 at baseline, current SaO2 100%. There is an abrasion to the pt's back, and the [place] nurse dressed it with a polymen window dressing, slight bleeding noted. - History of Present Illness HPI Narrative: pt from [facility] and hit back this am after fall - no other c/o MD complaint: fall Onset (
--- NOTE | 2020-12-11 07:13 | PC.NURSE ---
pt on bed jimenez at this time.
--- NOTE | 2020-12-11 07:21 | PC.NURSE ---
Dr Ramirez at bedside
--- NOTE | 2020-12-11 07:40 | PC.NURSE ---
Called Dillon Morejon, notified that pt will be d/c and coming back to [facility]. S/W Amy. [facility] notified for need of transfer.
--- NOTE | 2020-12-11 07:47 | PC.NURSE ---
Ordered pt tray and she states she does not want it.
== END 2020-12-11 09:01 | disposition home or self-care (01) ==
PROVIDERS: Emergency Provider Emergency Medicine; PCP Emergency Medicine
DX: S30.0XXA Contusion of lower back and pelvis, initial encounter (principal); W01.198A Fall on same level from slipping, tripping and stumbling with subsequent striking against other object, initial encounter; Y92.129 Unspecified place in nursing home as the place of occurrence of the external cause; I50.84 End stage heart failure; K21.9 Gastro-esophageal reflux disease without esophagitis; I10 Essential (primary) hypertension; F41.8 Other specified anxiety disorders; J44.9 Chronic obstructive pulmonary disease, unspecified; E78.5 Hyperlipidemia, unspecified; I25.2 Old myocardial infarction; Z96.642 Presence of left artificial hip joint; F17.210 Nicotine dependence, cigarettes, uncomplicated; Z79.899 Other long term (current) drug therapy
CPT/HCPCS: 71045; 71250; 72125; 72128; 72131; 72170; 99282; 99283

== ENCOUNTER → 2020-12-14 10:24 | Outpatient (CLI) | payer MEDICARE, MEDICAID, SELFPAY ==
[2020-12-14 11:33] LABS: Chloride 98 mmol/L (98-107)
[2020-12-14 11:34] LABS: Potassium 4.3 mmoL/L (3.5-5.1); Sodium 137 mmol/L (136-145)
[2020-12-14 11:36] LABS: Blood Urea Nitrogen 28 mg/dl (7-17); Estimated Glomerular Filt Rate 70 ml/min (>60); GFR (African American) 85 ML/MIN (>60)
[2020-12-14 11:37] LABS: Anion Gap 12.3 mEq/L (5-15); Calcium 8.4 mg/dl (8.4-10.2); Carbon Dioxide 31 mmol/L (22.0-30.0); Glucose 92 mg/dl (74-100)
[2020-12-14 11:45] LABS: NT Pro Brain Natriuretic Pep. 8020 pg/mL (0-125)
== END ==
PROVIDERS: Visit Provider Urology
DX: E78.2 Mixed hyperlipidemia (principal); I07.1 Rheumatic tricuspid insufficiency; I25.118 Atherosclerotic heart disease of native coronary artery with other forms of angina pectoris; I25.2 Old myocardial infarction; I27.20 Pulmonary hypertension, unspecified; I34.0 Nonrheumatic mitral (valve) insufficiency; I35.1 Nonrheumatic aortic (valve) insufficiency; I50.20 Unspecified systolic (congestive) heart failure; I50.33 Acute on chronic diastolic (congestive) heart failure; I50.84 End stage heart failure; R60.9 Edema, unspecified; I11.0 Hypertensive heart disease with heart failure
CPT/HCPCS: 36415; 80048; 83880

== ENCOUNTER → 2020-12-21 17:03 | Outpatient (CLI) | payer MEDICARE, MEDICAID, SELFPAY ==
[2020-12-21 18:08] LABS: Chloride 99 mmol/L (98-107)
[2020-12-21 18:09] LABS: Potassium 4.6 mmoL/L (3.5-5.1); Sodium 137 mmol/L (136-145)
[2020-12-21 18:12] LABS: Anion Gap 13.6 mEq/L (5-15); Blood Urea Nitrogen 33 mg/dl (7-17); Calcium 8.8 mg/dl (8.4-10.2); Carbon Dioxide 29 mmol/L (22.0-30.0); Estimated Glomerular Filt Rate 40 ml/min (>60); GFR (African American) 48 ML/MIN (>60); Glucose 59 mg/dl (74-100)
[2020-12-21 18:21] LABS: NT Pro Brain Natriuretic Pep. 6770 pg/mL (0-125)
== END ==
LOC: LAB.DROPOF 17:04 → HMH.JM 12-22 12:44
PROVIDERS: Visit Provider Emergency Medicine
DX: R06.02 Shortness of breath (principal)
CPT/HCPCS: 80048; 83880

== ENCOUNTER → 2021-01-13 07:28 | Outpatient (CLI) | payer MEDICARE, MEDICAID, SELFPAY ==
[2021-01-13 14:49] LABS: Basophils % 0.2 % (0.1-2.0); Lymphocytes % 28.2 % (10-50); Mean Corpuscular HGB Conc 29.5 g/dL (31.8-35.4); Mean Corpuscular Hemoglobin 25.2 pg (27.0-31.2); Mean Corpuscular Volume 85.6 fl (81-99); Mean Platelet Volume 9.1 fl (7.4-10.4); Monocytes # 0.3 K/mm3 (0.1-1.0); Monocytes % 7.8 % (1.7-9.3); Neutrophils # 2.2 K/mm3 (1.8-7.8); Neutrophils % 62.8 % (37.0-80.0); Platelet Count 181 K/mm3 (142-424); Red Cell Distribution Width 16.4 % (11.5-17.5); White Blood Count 3.5 K/mm3 (4.8-10.8)
[2021-01-13 14:50] LABS: Alanine Aminotransferase 16 U/L (12-78); Albumin Level 3.4 g/dl (3.5-5.0); Alkaline Phosphatase 194 U/L (38-126); Anion Gap 13.6 mEq/L (5-15); Aspartate Amino Transferase 31 U/L (14-36); Bilirubin,Total 0.6 mg/dl (0.2-1.3); Blood Urea Nitrogen 25 mg/dl (7-17); Calcium 8.7 mg/dl (8.4-10.2); Carbon Dioxide 27 mmol/L (22.0-30.0); Chloride 100 mmol/L (98-107); Estimated Glomerular Filt Rate 49 ml/min (>60); GFR (African American) 59 ML/MIN (>60); Globulin 3.4 g/dL (1.3-3.2); Glucose 86 mg/dl (74-100); Potassium 4.6 mmoL/L (3.5-5.1); Sodium 136 mmol/L (136-145); Total Protein,Serum 6.8 g/dl (6.3-8.2)
[2021-01-13 15:42] LABS: Hemoglobin 7.1 g/dL (12.2-16.2)
== END ==
PROVIDERS: Visit Provider Emergency Medicine
DX: I10 Essential (primary) hypertension (principal); E03.9 Hypothyroidism, unspecified; E78.5 Hyperlipidemia, unspecified
CPT/HCPCS: 36415; 80053; 85025

== ENCOUNTER 2021-01-15 10:00 | Outpatient (CLI) | payer MEDICARE, MEDICAID, SELFPAY ==
[2021-01-15] VITALS (18 sets, daily range): BP systolic 117–152; BP diastolic 60–81; PULSE 85–107; RESP 16–18; TEMP 36.6–36.9; O2SAT 94–100; BMI 17.2
--- NOTE | 2021-01-15 11:30 | PC.NURSE ---
Notified lab that no one has came to type and screen patient as of yet. She said they will send someone up as soon as possible.
--- NOTE | 2021-01-15 13:15 | PC.NURSE ---
Notified by lab that blood is ready
--- NOTE | 2021-01-15 13:19 | PC.NURSE ---
Assisted patient to bedside commode, she tolerated well
--- NOTE | 2021-01-15 13:51 | PC.NURSE ---
Pt currently resting w/her eyes closed in the recliner.
--- NOTE | 2021-01-15 15:45 | PC.NURSE ---
1540 - 1st unit of prb's complete. Pt denies any complaints. Lungs are clear. She requests coffee. She is currently reclining in the chair sipping her coffee.
--- NOTE | 2021-01-15 16:05 | PC.NURSE ---
Pt given cup of ice and spoon per request. Bedside table cleaned off at this time.
--- NOTE | 2021-01-15 17:13 | PC.NURSE ---
PT RESTING W/HER EYES CLOSED
--- NOTE | 2021-01-15 18:09 | PC.NURSE ---
Attempted to call report x 2 with no answer.
--- NOTE | 2021-01-15 18:35 | PC.NURSE ---
Attempted to call report x2 again with no answer.
--- NOTE | 2021-01-15 18:48 | PC.NURSE ---
Spoke with Russ from the [facility], he states he will be her in 5-7 minutes. Attmpted to call Dillon cheung with no answer.
[2021-01-15 19:06] LABS: Hemoglobin 10.7 g/dL (12.2-16.2)
== END 2021-01-15 18:59 ==
PROVIDERS: PCP Emergency Medicine; Visit Provider Emergency Medicine
DX: D64.9 Anemia, unspecified (principal)
CPT/HCPCS: 36415; 36430; 85014; 85018; 86850; P9016

== ENCOUNTER → 2021-01-25 08:40 | Outpatient (CLI) | payer MEDICARE, MEDICAID, SELFPAY ==
[2021-01-25 11:53] LABS: Thyroid Stimulating Hormone 3.64 uIU/mL (0.465-4.68)
== END ==
PROVIDERS: Visit Provider Nurse Practitioner Family
DX: E03.9 Hypothyroidism, unspecified (principal)
CPT/HCPCS: 36415; 84443

== ENCOUNTER 2021-01-28 10:27 | Day surgery (SDC) | payer MEDICARE, MEDICAID, SELFPAY ==
[2021-01-27 13:31] VITALS: BMI 18.0
[2021-01-28] VITALS (9 sets, daily range): BP systolic 86–130; BP diastolic 47–96; PULSE 78–94; RESP 16–18; TEMP 36.4–36.6; O2SAT 99–100
--- NOTE | 2021-01-28 11:31 | HMH.ANESCL ---
[facility] Anesthesia Checklist - Patient Identification Patient Identification: Arm Band - Structural Data Admitted From: Home Planned Operative Procedure/s: EGD Consent for Planned Operative Procedure(s) Verified: Yes - NPO Status Verified Time NPO: 00:00 - Additional verifications Anesthesia Reactions: No Blood Transfusion Reaction: Yes - Airway Assessment C-Spine Mobility Assessed: Yes TMJ Mobility Assessed: Yes Dentition: Partials - Neurological Assessment Level of Consciousness: Awake Hx Seizures: No Numbness or tingling in extremities: No - Anesthesia Plan Anesthesia Risk discussed: Yes Anesthesia Plan: Verified ASA Class: III Anesthesia Type: MAC [facility] History Medical History: Reports:: Anxiety, Atherosclerotic Heart Disease, Cancer (squa cell), Congestive Heart Failure, Chronic Obstructive Pulmonary Disease (COPD), Coronary Artery Disease, Deep Vein Thrombosis, Depression, Gastroesophageal Reflux Disease(GERD), Heart Murmur, Hyperlipidemia, Hypertension, Lung Disease, MRSA, Myocardial Infarction, Peripheral Artery Disease, Transient Ischemic Attacks (TIA) Denies:: Diabetes Mellitus Type 1, Diabetes Mellitus Type 2, Internal Pacemaker, Seizures *Have you ever received a pneumonia vaccine?: Yes *Have you received a flu vaccine this season?: Yes Other Medical History: Reports: Anemia, Arthritis, Blood Transfusion Reaction, Cataracts, Glaucoma, Hypothyroidism, Thyroid Disease Anesthesia experience/problems:: None Laterality Cases: Left: Total Hip Replacement, Bilateral: Tonsillectomy Other Surgeries: Yes: Angiogram, Cancer Surgery, Cardiac Catheterization, Colonoscopy, Coronary Stent, Hernia Repair, Hysterectomy-Total, Skin Cancer Excision, Other Valve Replacement. No: Pacemaker Amputation: Yes (herminio toes removed) Fractures: No - *Social History Last grade of school completed: High school graduate Smoking Status: Current every day smoker Tobacco Type: cigarettes # Packs/Day (cigarettes): 1 #Yrs smoked (if former smoker): 56 Alcohol Intake: never Alcohol Intake Frequency:: other Substance Use Type: denies use *Occupational Status:: disabled Housing: detention Household Members: none *Travel in the last 8 weeks: None - Psychiatric History Pschychiatric History:: Reports:: Anxiety, Depression Family Hx:: Cancer, Heart Attack
--- NOTE | 2021-01-28 11:55 | P.PCN_ITS ---
[facility] Procedure Note Procedure Note:: Upper Endoscopy Procedure Report: Esophagogastroduodenoscopy with TTS balloon dilation Endoscopost: Traivs Kaba II, MD Referring Physician: Hector Ramirez MD Date of Procedure: January 28, 2021 Equipment: Olympus GIF 190 standard upper endoscope Sedation: MAC sedation Indications: Mrs. Veloz is a 75-year-old female with longstanding dysphagia after her fundoplication surgeries. Her last fundoplication was in 2014. She had dilations with me in February 2019, May 2020 and September 2020. Her last dilation was at [facility] and she was dilated up to 15 mm. She had been dilated up to 15 mm on her prior endoscopy as well. The patient has had recurrent symptoms of dysphagia. She also has had anemia. She has been on erythromycin as a promotility/prokinetic medication. Procedure: Prior to the procedure, a history and physical exam was performed, and patient's medications and allergies were reviewed. The risks, benefits and alternatives of the sedation and procedure were discussed with the patient. All questions were answered and informed consent was obtained. The patient was brought to the procedure room. Patient identification and proposed procedure were verified by the physician and the nurse. The patient was placed in a left lateral decubitus position and the scope was passed under direct vision. Throughout the procedure, the patient's blood pressure, pulse, and oxygen saturations were monitored continuously. The upper GI endoscopy was accomplished without difficulty. The patient tolerated the procedure well. Findings: The scope was passed directly into the upper esophagus and advanced to the third portion of the duodenum. The post bulbar duodenum and duodenal bulb were normal with normal mucosa and conniventes. The scope was withdrawn through a normal duodenal bulb and pylorus into the stomach. There was some retained solid food content within the stomach suggestive of gastric dysmotility/gastroparesis. There was some very mild reactive gastropathy of the antrum and mild chronic gastritis. Upon retroflexion there was evidence of pr ior fundoplication. The scope was then withdrawn into the esophagus. There was a ringlike stricture that was originally 6 mm within the distal esophagus and this was dilated up to 18 mm with a TTS hydrostatic balloon. There was no evidence of reflux esophagitis or Renteria's. The remainder of the esophageal mucosa was normal. Impression: 1. 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 I was able to dilate further then she has had previously today. At the time of her next dilation, I would consider adding Kenalog and up to 20 mm.
== END 2021-01-28 13:30 | disposition home or self-care (01) ==
LOC: OUTP 10:30
PROVIDERS: PCP Emergency Medicine; Visit Provider Internal Medicine Gastroenterology
PROC: 0DJ08ZZ Inspection of Upper Intestinal Tract, Via Natural or Artificial Opening Endoscopic (ICD-10-PCS; CPT 43235; principal; 2021-01-28 12:00)
DX: K22.2 Esophageal obstruction (principal); K31.9 Disease of stomach and duodenum, unspecified; F41.9 Anxiety disorder, unspecified; I25.10 Atherosclerotic heart disease of native coronary artery without angina pectoris; I50.9 Heart failure, unspecified; J44.9 Chronic obstructive pulmonary disease, unspecified; I73.9 Peripheral vascular disease, unspecified; F32.9 Major depressive disorder, single episode, unspecified; K21.9 Gastro-esophageal reflux disease without esophagitis; I10 Essential (primary) hypertension; I25.2 Old myocardial infarction; M19.90 Unspecified osteoarthritis, unspecified site
CPT/HCPCS: 43249; C1726

== ENCOUNTER 2021-03-31 06:48 | Outpatient (CLI) | payer MEDICARE, MEDICAID, SELFPAY ==
[2021-03-31] VITALS (34 sets, daily range): BP systolic 92–160; BP diastolic 45–85; PULSE 78–108; RESP 14–20; TEMP 36.3–37; O2SAT 96–98; BMI 18.5
[2021-03-31 08:26] LABS: Basophils % 0.3 % (0.1-2.0); Eosinophils % 1.1 % (0.1-12.0); Lymphocytes # 0.5 K/mm3 (0.7-4.5); Mean Corpuscular HGB Conc 27.1 g/dL (31.8-35.4); Mean Corpuscular Hemoglobin 22.3 pg (27.0-31.2); Mean Corpuscular Volume 82.3 fl (81-99); Mean Platelet Volume 9.6 fl (7.4-10.4); Monocytes # 0.3 K/mm3 (0.1-1.0); Monocytes % 8.8 % (1.7-9.3); Neutrophils # 2.1 K/mm3 (1.8-7.8); Neutrophils % 72.8 % (37.0-80.0); Platelet Count 228 K/mm3 (142-424); Red Blood Count 2.31 M/mm3 (4.20-5.40); Red Cell Distribution Width 17.9 % (11.5-17.5); White Blood Count 2.9 K/mm3 (4.8-10.8)
[2021-03-31 08:55] LABS: Alanine Aminotransferase 30 U/L (12-78); Albumin Level 3.7 g/dl (3.5-5.0); Albumin/Globulin Ratio 1.1 (1.1-1.8); Alkaline Phosphatase 149 U/L (38-126); Anion Gap 19.2 mEq/L (5-15); Aspartate Amino Transferase 43 U/L (14-36); Bilirubin,Total 0.6 mg/dl (0.2-1.3); Blood Urea Nitrogen 49 mg/dl (7-17); Calcium 9.2 mg/dl (8.4-10.2); Carbon Dioxide 22 mmol/L (22.0-30.0); Chloride 101 mmol/L (98-107); Estimated Glomerular Filt Rate 34 ml/min (>60); GFR (African American) 41 ML/MIN (>60); Globulin 3.5 g/dL (1.3-3.2); Glucose 88 mg/dl (74-100); Potassium 4.2 mmoL/L (3.5-5.1); Sodium 138 mmol/L (136-145); Total Protein,Serum 7.2 g/dl (6.3-8.2)
[2021-03-31 10:54] LABS: Hemoglobin 5.2 g/dL (12.2-16.2)
--- NOTE | 2021-03-31 13:03 | PC.NURSE ---
spoke with Deedee in lab who stated that we now have 4 units available for pt today. per house pt will be getting blood in infusion then will be going to 2nd floor to continue the rest of her infusion
--- NOTE | 2021-03-31 14:31 | PC.NURSE ---
pt up to the bathroom via walker with assistance. tolerated well
--- NOTE | 2021-03-31 14:45 | PC.NURSE ---
1445- PTS TRANSFUSION STARTED AT 100 ML/HR AT THIS TIME
--- NOTE | 2021-03-31 15:15 | PC.NURSE ---
1515-PT INFUSION RATE INCREASED TO 150 ML/HR. NO COMPLAINTS AT THIS TIME
--- NOTE | 2021-03-31 15:30 | PC.NURSE ---
1530- INFUSION RATE INCREASED TO 175 ML/HR AT THIS TIME. PT TOLERATING WELL.
--- NOTE | 2021-03-31 16:30 | PC.NURSE ---
1545- INFUSION RATE INCREASED TO 200ML/HR. NO COMPLAINTS AT THIS TIME. GAVE REPORT TO CURTIS LR AND AUGUST AHUMADA REPORT CALLED TO CURTIS MORALES
[2021-04-01 00:03] VITALS: BP 134/59; PULSE 106; RESP 18; TEMP 36.9; O2SAT 98
--- NOTE | 2021-04-01 00:23 | PC.NURSE ---
ALL 4 UNITS ARE NOW COMPLETED. PT HAS TOLERATED WELL. NO C/O, OTHER THAN REQUESTING HER HOME MEDICATIONS. GIVEN PER MD UNGER. PT RESTING COMFORTABLY IN BED AT THIS TIME. 1 HR POST H&H ORDERED FOR 0103. VSS WILL CONTINUE TO MONITOR.
[2021-04-01 01:03] VITALS: BP 153/80; PULSE 103; RESP 19; TEMP 36.8; O2SAT 98
[2021-04-01 01:23] LABS: Hematocrit 37.6 % (37.0-47.0); Hemoglobin 11.3 g/dL (12.2-16.2)
[2021-04-01 01:43] VITALS: BP 153/80; PULSE 103; RESP 19; TEMP 36.8; O2SAT 98
--- NOTE | 2021-04-01 01:45 | PC.NURSE ---
PT LEAVING THE FLOOR VIA STRETCHER WITH OCTAVIO AT 0141
== END 2021-04-01 01:41 ==
LOC: HMH.JM 12:18 → INF 14:11
PROVIDERS: Visit Provider Emergency Medicine
DX: D50.9 Iron deficiency anemia, unspecified (principal)
CPT/HCPCS: 36415; 36430; 80053; 85014; 85018; 85025; 86850; P9016

== ENCOUNTER → 2021-04-11 07:10 | Outpatient (CLI) | payer MEDICARE, MEDICAID, SELFPAY ==
[2021-04-11 14:04] LABS: Chloride 101 mmol/L (98-107); Potassium 4.9 mmoL/L (3.5-5.1); Sodium 139 mmol/L (136-145)
[2021-04-11 14:07] LABS: Anion Gap 10.9 mEq/L (5-15); Blood Urea Nitrogen 27 mg/dl (7-17); Carbon Dioxide 32 mmol/L (22.0-30.0); Estimated Glomerular Filt Rate 61 ml/min (>60); GFR (African American) 74 ML/MIN (>60)
[2021-04-11 14:08] LABS: Calcium 9.6 mg/dl (8.4-10.2); Glucose 95 mg/dl (74-100)
== END ==
PROVIDERS: Visit Provider Nurse Practitioner Family
DX: I10 Essential (primary) hypertension (principal)
CPT/HCPCS: 36415; 80048

== ENCOUNTER → 2021-04-25 07:43 | Outpatient (CLI) | payer MEDICARE, MEDICAID, SELFPAY ==
[2021-04-25 14:26] LABS: Basophils % 0.3 % (0.1-2.0); Eosinophils # 0.1 K/mm3 (0.0-0.4); Eosinophils % 2.6 % (0.1-12.0); Hematocrit 25.6 % (37.0-47.0); Hemoglobin 7.9 g/dL (12.2-16.2); Lymphocytes # 0.8 K/mm3 (0.7-4.5); Lymphocytes % 14.9 % (10-50); Mean Corpuscular HGB Conc 30.7 g/dL (31.8-35.4); Mean Corpuscular Hemoglobin 27.9 pg (27.0-31.2); Mean Corpuscular Volume 90.8 fl (81-99); Mean Platelet Volume 8.9 fl (7.4-10.4); Monocytes # 0.3 K/mm3 (0.1-1.0); Monocytes % 6.2 % (1.7-9.3); Neutrophils # 3.9 K/mm3 (1.8-7.8); Platelet Count 270 K/mm3 (142-424); Red Blood Count 2.82 M/mm3 (4.20-5.40); Red Cell Distribution Width 19.2 % (11.5-17.5); White Blood Count 5.1 K/mm3 (4.8-10.8)
== END ==
PROVIDERS: Visit Provider Nurse Practitioner Family
DX: D64.9 Anemia, unspecified (principal)
CPT/HCPCS: 36415; 85025

== ENCOUNTER 2021-04-27 08:42 | Outpatient (CLI) | payer MEDICARE, MEDICAID, SELFPAY ==
[2021-04-27] VITALS (21 sets, daily range): BP systolic 114–146; BP diastolic 48–74; PULSE 68–91; RESP 18–20; TEMP 36.1–36.9; O2SAT 95; BMI 19.1
--- NOTE | 2021-04-27 15:26 | PC.NURSE ---
spoke with Ana at [facility] for pt transport back to [facility].
[2021-04-27 16:12] LABS: Hematocrit 30.3 % (37.0-47.0); Hemoglobin 9.7 g/dL (12.2-16.2)
== END 2021-04-27 16:36 | disposition home or self-care (01) ==
LOC: INF 08:44
PROVIDERS: PCP Emergency Medicine; Visit Provider Emergency Medicine
DX: D50.9 Iron deficiency anemia, unspecified (principal); D63.8 Anemia in other chronic diseases classified elsewhere
CPT/HCPCS: 36430; 85014; 85018; 86850; P9016

== ENCOUNTER → 2021-05-05 14:18 | Outpatient (CLI) | payer MEDICARE, MEDICAID, SELFPAY ==
[2021-05-05 14:43] LABS: Basophils % 0.7 % (0.1-2.0); Eosinophils # 0.2 K/mm3 (0.0-0.4); Eosinophils % 3.8 % (0.1-12.0); Hematocrit 31.5 % (37.0-47.0); Hemoglobin 9.9 g/dL (12.2-16.2); Lymphocytes # 1.1 K/mm3 (0.7-4.5); Lymphocytes % 19.8 % (10-50); Mean Corpuscular HGB Conc 31.5 g/dL (31.8-35.4); Mean Corpuscular Hemoglobin 28.5 pg (27.0-31.2); Mean Corpuscular Volume 90.3 fl (81-99); Mean Platelet Volume 9.5 fl (7.4-10.4); Monocytes # 0.4 K/mm3 (0.1-1.0); Neutrophils # 3.6 K/mm3 (1.8-7.8); Neutrophils % 68.6 % (37.0-80.0); Platelet Count 174 K/mm3 (142-424); Red Blood Count 3.48 M/mm3 (4.20-5.40); Red Cell Distribution Width 18.2 % (11.5-17.5); White Blood Count 5.3 K/mm3 (4.8-10.8)
[2021-05-05 15:28] LABS: Iron 100 ug/dL (37-170)
[2021-05-05 15:38] LABS: Total Iron Binding Capacity 586 ug/dL (265-497)
[2021-05-05 15:50] VITALS: BMI 19.3
[2021-05-05 16:05] LABS: Ferritin 22.5 ng/ml (11.1-264)
[2021-05-07 16:08] LABS: Peripheral Smear Review Scanned Result
== END ==
PROVIDERS: Visit Provider Internal Medicine Medical Oncology
DX: D64.9 Anemia, unspecified (principal)
CPT/HCPCS: 36415; 82728; 83540; 83550; 85025

== ENCOUNTER → 2021-05-12 15:36 | Outpatient (CLI) | payer MEDICARE, MEDICAID, SELFPAY ==
[2021-05-12 16:29] LABS: Basophils % 0.5 % (0.1-2.0); Eosinophils # 0.1 K/mm3 (0.0-0.4); Eosinophils % 2.5 % (0.1-12.0); Hematocrit 28.5 % (37.0-47.0); Hemoglobin 9.3 g/dL (12.2-16.2); Lymphocytes # 1.1 K/mm3 (0.7-4.5); Lymphocytes % 28.3 % (10-50); Mean Corpuscular HGB Conc 32.6 g/dL (31.8-35.4); Mean Corpuscular Hemoglobin 29.3 pg (27.0-31.2); Mean Corpuscular Volume 89.8 fl (81-99); Mean Platelet Volume 8.3 fl (7.4-10.4); Monocytes # 0.3 K/mm3 (0.1-1.0); Monocytes % 8.1 % (1.7-9.3); Neutrophils # 2.4 K/mm3 (1.8-7.8); Neutrophils % 60.7 % (37.0-80.0); Platelet Count 196 K/mm3 (142-424); Red Blood Count 3.17 M/mm3 (4.20-5.40); Red Cell Distribution Width 18.5 % (11.5-17.5)
[2021-05-12 19:12] LABS: Iron 52 ug/dL (37-170)
[2021-05-12 19:22] LABS: Total Iron Binding Capacity 495 ug/dL (265-497)
[2021-05-12 19:49] LABS: Ferritin 21.5 ng/ml (11.1-264)
[2021-05-16 15:14] LABS: Erythropoietin 24.8 mIU/mL (2.6-18.5)
== END ==
PROVIDERS: Visit Provider Internal Medicine Medical Oncology
DX: D50.9 Iron deficiency anemia, unspecified (principal)
CPT/HCPCS: 36415; 82668; 82728; 83540; 83550; 85025

== ENCOUNTER → 2021-05-16 07:24 | Outpatient (CLI) | payer MEDICARE, MEDICAID, SELFPAY ==
[2021-05-16 14:00] LABS: Basophils % 0.6 % (0.1-2.0); Eosinophils # 0.1 K/mm3 (0.0-0.4); Eosinophils % 3.8 % (0.1-12.0); Hematocrit 27.3 % (37.0-47.0); Hemoglobin 8.5 g/dL (12.2-16.2); Lymphocytes # 0.8 K/mm3 (0.7-4.5); Lymphocytes % 21.2 % (10-50); Mean Corpuscular HGB Conc 30.9 g/dL (31.8-35.4); Mean Corpuscular Hemoglobin 28.8 pg (27.0-31.2); Mean Corpuscular Volume 93.2 fl (81-99); Mean Platelet Volume 8.5 fl (7.4-10.4); Monocytes # 0.3 K/mm3 (0.1-1.0); Monocytes % 7.8 % (1.7-9.3); Neutrophils # 2.5 K/mm3 (1.8-7.8); Neutrophils % 66.6 % (37.0-80.0); Platelet Count 248 K/mm3 (142-424); Red Blood Count 2.93 M/mm3 (4.20-5.40); Red Cell Distribution Width 18.1 % (11.5-17.5); White Blood Count 3.8 K/mm3 (4.8-10.8)
== END ==
PROVIDERS: Visit Provider Emergency Medicine
DX: D50.9 Iron deficiency anemia, unspecified (principal)
CPT/HCPCS: 36415; 85025

== ENCOUNTER → 2021-05-24 07:08 | Outpatient (CLI) | payer MEDICARE, MEDICAID, SELFPAY | PROVIDERS: Visit Provider Emergency Medicine | DX: R06.02 Shortness of breath (principal) | CPT/HCPCS: 36415 ==

== ENCOUNTER → 2021-05-26 06:22 | Outpatient (CLI) | payer MEDICARE, MEDICAID, SELFPAY ==
[2021-05-26 14:07] LABS: Basophils % 0.7 % (0.1-2.0); Eosinophils # 0.1 K/mm3 (0.0-0.4); Eosinophils % 3.1 % (0.1-12.0); Hematocrit 26.6 % (37.0-47.0); Hemoglobin 8.2 g/dL (12.2-16.2); Mean Corpuscular HGB Conc 30.8 g/dL (31.8-35.4); Mean Corpuscular Hemoglobin 28.9 pg (27.0-31.2); Mean Corpuscular Volume 93.7 fl (81-99); Mean Platelet Volume 9.2 fl (7.4-10.4); Monocytes # 0.3 K/mm3 (0.1-1.0); Monocytes % 8.1 % (1.7-9.3); Neutrophils % 59.1 % (37.0-80.0); Platelet Count 255 K/mm3 (142-424); Red Blood Count 2.83 M/mm3 (4.20-5.40); Red Cell Distribution Width 18.6 % (11.5-17.5); White Blood Count 3.3 K/mm3 (4.8-10.8)
== END ==
PROVIDERS: Visit Provider Emergency Medicine
DX: D69.6 Thrombocytopenia, unspecified (principal)
CPT/HCPCS: 36415; 85025

== ENCOUNTER → 2021-05-30 06:57 | Outpatient (CLI) | payer MEDICARE, MEDICAID, SELFPAY ==
[2021-05-30 08:24] LABS: Basophils % 0.4 % (0.1-2.0); Eosinophils # 0.1 K/mm3 (0.0-0.4); Eosinophils % 1.5 % (0.1-12.0); Hematocrit 22.9 % (37.0-47.0); Lymphocytes # 0.7 K/mm3 (0.7-4.5); Lymphocytes % 18.5 % (10-50); Mean Corpuscular HGB Conc 30.4 g/dL (31.8-35.4); Mean Corpuscular Hemoglobin 28.1 pg (27.0-31.2); Mean Corpuscular Volume 92.5 fl (81-99); Mean Platelet Volume 8.3 fl (7.4-10.4); Monocytes # 0.3 K/mm3 (0.1-1.0); Monocytes % 7.2 % (1.7-9.3); Neutrophils # 2.8 K/mm3 (1.8-7.8); Neutrophils % 72.4 % (37.0-80.0); Platelet Count 235 K/mm3 (142-424); Red Blood Count 2.47 M/mm3 (4.20-5.40); Red Cell Distribution Width 18.3 % (11.5-17.5); White Blood Count 3.9 K/mm3 (4.8-10.8)
[2021-05-30 08:37] LABS: Hemoglobin 6.9 g/dL (12.2-16.2)
[2021-05-30 12:58] VITALS: BMI 20.2
== END ==
LOC: HMH.JM 06:57 → INF 12:34
PROVIDERS: PCP Emergency Medicine; Visit Provider Emergency Medicine
DX: D50.9 Iron deficiency anemia, unspecified (principal)
CPT/HCPCS: 36415; 85025; 86850

== ENCOUNTER 2021-05-31 08:22 | Outpatient (CLI) | payer MEDICARE, MEDICAID, SELFPAY ==
[2021-05-31] VITALS (11 sets, daily range): BP systolic 117–138; BP diastolic 52–74; PULSE 72–82; RESP 16; TEMP 36.3–36.6; O2SAT 97–98; BMI 20.2
[2021-05-31 12:20] LABS: Hematocrit 23.7 % (37.0-47.0); Hemoglobin 7.4 g/dL (12.2-16.2)
== END 2021-05-31 12:30 | disposition home or self-care (01) ==
LOC: INF 08:23
PROVIDERS: PCP Emergency Medicine; Visit Provider Emergency Medicine
DX: D50.9 Iron deficiency anemia, unspecified (principal)
CPT/HCPCS: 36430; 85014; 85018; P9016

== ENCOUNTER 2021-06-03 10:22 | Outpatient (CLI) | payer MEDICARE, MEDICAID, SELFPAY ==
[2021-06-03 10:54] VITALS: BP 141/68; PULSE 77; RESP 20; TEMP 36.9; O2SAT 95
[2021-06-03 11:20] VITALS: BP 144/74; PULSE 68; RESP 20; TEMP 36.9; O2SAT 95
--- NOTE | 2021-06-07 15:10 | DIET.NUTRFU ---
This RD received consult from infusion, she is receiving blood transfusions at hospital. [facility] at [facility], they provide meals but she dislikes most of them. She claims she has lost some weight, CBW 95#, last one on file was 100#. RD reviewed menu and alternate choices at [facility] and she likes limited items. Son does bring some food over and her other son takes her out to eat at times. RD recommended son stock her fridge with proteins and foods she likes. Encouraged her to call back if she had any further dietary concerns
== END 2021-06-03 12:40 | disposition home or self-care (01) ==
LOC: INF 10:22
PROVIDERS: PCP Emergency Medicine; Visit Provider Surgery
DX: D50.9 Iron deficiency anemia, unspecified (principal)
CPT/HCPCS: 96365; J1439

== ENCOUNTER 2021-06-10 10:03 | Outpatient (CLI) | payer MEDICARE, MEDICAID, SELFPAY ==
[2021-06-10 10:14] VITALS: BMI 19.3
[2021-06-10 10:30] VITALS: BP 115/54; PULSE 65; RESP 18; TEMP 36.7; O2SAT 98
[2021-06-10 10:37] LABS: Basophils % 0.7 % (0.1-2.0); Eosinophils # 0.1 K/mm3 (0.0-0.4); Eosinophils % 1.6 % (0.1-12.0); Hematocrit 26.8 % (37.0-47.0); Hemoglobin 8.1 g/dL (12.2-16.2); Lymphocytes # 0.7 K/mm3 (0.7-4.5); Lymphocytes % 16.6 % (10-50); Mean Corpuscular HGB Conc 30.4 g/dL (31.8-35.4); Mean Corpuscular Hemoglobin 29.4 pg (27.0-31.2); Mean Corpuscular Volume 96.7 fl (81-99); Monocytes # 0.2 K/mm3 (0.1-1.0); Monocytes % 5.4 % (1.7-9.3); Neutrophils % 75.9 % (37.0-80.0); Platelet Count 214 K/mm3 (142-424); Red Blood Count 2.77 M/mm3 (4.20-5.40); Red Cell Distribution Width 18.8 % (11.5-17.5)
[2021-06-10 10:44] LABS: Alanine Aminotransferase 17 U/L (12-78); Albumin Level 4.3 g/dl (3.5-5.0); Albumin/Globulin Ratio 1.3 (1.1-1.8); Alkaline Phosphatase 140 U/L (38-126); Anion Gap 13.7 mEq/L (5-15); Aspartate Amino Transferase 37 U/L (14-36); Bilirubin,Total 0.5 mg/dl (0.2-1.3); Blood Urea Nitrogen 45 mg/dl (7-17); Calcium 9.4 mg/dl (8.4-10.2); Carbon Dioxide 27 mmol/L (22.0-30.0); Chloride 96 mmol/L (98-107); Creatinine Clearance Estimated 25 mL/min (50-200); Estimated Glomerular Filt Rate 37 ml/min (>60); GFR (African American) 44 ML/MIN (>60); Globulin 3.2 g/dL (1.3-3.2); Glucose 91 mg/dl (74-100); Potassium 4.7 mmoL/L (3.5-5.1); Sodium 132 mmol/L (136-145); Total Protein,Serum 7.5 g/dl (6.3-8.2)
[2021-06-10 11:05] VITALS: BP 127/56; PULSE 66; RESP 18; TEMP 36.7; O2SAT 98
== END 2021-06-10 11:12 | disposition home or self-care (01) ==
LOC: INF 10:05
PROVIDERS: Surgery; PCP Emergency Medicine; Visit Provider Internal Medicine Medical Oncology
DX: I35.1 Nonrheumatic aortic (valve) insufficiency (principal); D50.9 Iron deficiency anemia, unspecified; Z01.812 Encounter for preprocedural laboratory examination; Z11.52 Encounter for screening for COVID-19
CPT/HCPCS: 80053; 85025; 96365; C9803; J1439; U0003; U0005

== ENCOUNTER → 2021-06-13 06:25 | Outpatient (CLI) | payer MEDICARE, MEDICAID, SELFPAY ==
[2021-06-13 08:01] LABS: Basophils % 0.3 % (0.1-2.0); Eosinophils # 0.1 K/mm3 (0.0-0.4); Eosinophils % 3.2 % (0.1-12.0); Hematocrit 28.3 % (37.0-47.0); Hemoglobin 8.9 g/dL (12.2-16.2); Lymphocytes # 0.8 K/mm3 (0.7-4.5); Lymphocytes % 25.3 % (10-50); Mean Corpuscular HGB Conc 31.4 g/dL (31.8-35.4); Mean Corpuscular Hemoglobin 29.8 pg (27.0-31.2); Mean Corpuscular Volume 94.8 fl (81-99); Mean Platelet Volume 8.5 fl (7.4-10.4); Monocytes # 0.2 K/mm3 (0.1-1.0); Neutrophils # 2.2 K/mm3 (1.8-7.8); Neutrophils % 65.2 % (37.0-80.0); Platelet Count 224 K/mm3 (142-424); Red Blood Count 2.99 M/mm3 (4.20-5.40); Red Cell Distribution Width 19.2 % (11.5-17.5); White Blood Count 3.3 K/mm3 (4.8-10.8)
== END ==
PROVIDERS: Visit Provider Emergency Medicine
DX: D50.9 Iron deficiency anemia, unspecified (principal)
CPT/HCPCS: 36415; 85025

== ENCOUNTER 2021-06-14 09:23 | Day surgery (SDC) | payer MEDICARE, MEDICAID, SELFPAY ==
[2021-06-10 09:09] VITALS: BMI 19.8
[2021-06-14] VITALS (7 sets, daily range): BP systolic 127–148; BP diastolic 58–68; PULSE 76–83; RESP 16–18; TEMP 36.1–36.2; O2SAT 93–100
--- NOTE | 2021-06-14 10:41 | HMH.ANESCL ---
[facility] Anesthesia Checklist - Patient Identification Patient Identification: Arm Band - Structural Data Admitted From: Long-term Nursing Facility Planned Operative Procedure/s: Port A Cath Consent for Planned Operative Procedure(s) Verified: Yes Verified Documents: Surgical Consent - NPO Status Verified Time NPO: 00:00 - Chart Verification Results Verified: CBC, BMP - Additional verifications Anesthesia Reactions: No Hx Blood Transfusions: Yes Blood Transfusion Reaction: No - Airway Assessment C-Spine Mobility Assessed: Yes TMJ Mobility Assessed: Yes Dentition: Edentulous - Neurological Assessment Level of Consciousness: Awake, Alert, Appropriate, Drowsy - Anesthesia Plan Anesthesia Risk discussed: Yes ASA Class: III Anesthesia Type: General [facility] History Medical History: Reports:: Anxiety, Atherosclerotic Heart Disease, Congestive Heart Failure, Chronic Obstructive Pulmonary Disease (COPD), Coronary Artery Disease, Deep Vein Thrombosis, Depression, Gastroesophageal Reflux Disease(GERD), Heart Murmur, Hyperlipidemia, Hypertension, Lung Disease, Myocardial Infarction, Peripheral Artery Disease, Transient Ischemic Attacks (TIA) Denies:: Cancer, Diabetes Mellitus Type 1, Diabetes Mellitus Type 2, Internal Pacemaker, MRSA, Seizures *Have you ever received a pneumonia vaccine?: Yes *Have you received a flu vaccine this season?: Yes Other Medical History: Reports: Anemia, Arthritis, Cataracts, Glaucoma, Hypothyroidism, Thyroid Disease. Denies: Blood Transfusion Reaction Anesthesia experience/problems:: none Laterality Cases: Left: Total Hip Replacement, Bilateral: Tonsillectomy Other Surgeries: Yes: Angiogram, Cancer Surgery, Cardiac Catheterization, Colonoscopy, Coronary Stent, Hernia Repair, Hysterectomy-Total, Skin Cancer Excision, Other Valve Replacement. No: Pacemaker Amputation: Yes (herminio toes removed) Fractures: No - *Social History Last grade of school completed: High school graduate Smoking Status: Current every day smoker Tobacco Type: cigarettes # Packs/Day (cigarettes): 2 #Yrs smoked (if former smoker): 56 Alcohol Intake: never Alcohol Intake Frequency:: other Substance Use Type: denies use *Occupational Status:: retired Housing: care home Household Members: none *Travel in the last 8 weeks: None - Psychiatric History Pschychiatric History:: Reports:: Anxiety, Depression Family Hx:: Cancer, Heart Attack
--- NOTE | 2021-06-14 11:54 | P.OP_ITS ---
Date of procedure: 06/14/21 Pre-op Diagnosis:: Need for venous access Post-op Diagnosis:: Same Procedure performed:: Placement of 8 Divehi open ended catheter with implantable reservoir port right subclavian vein (PowerPort) Surgeon:: Bright George MD UROGYNAECOLOGIST:: Other Anesthesia: MAC, local Estimated blood loss (mL): 15 Clinical Note:: Patient is a 76-year-old female who is a long-term patient who is stretcher bound with history of aortic insufficiency, mitral valve regurgitation, tricuspid regurgitation, congestive heart failure, coronary artery disease, previous myocardial infarction, gastroesophageal reflux disease, history of TIAs, hypertension, COPD, and several other medical conditions. She has chronic anemia. She has seen Dr. Oksana Woo. It has been recommended she undergo regular blood draws at least every 2 weeks and transfuse when needed. Due to the need for frequent blood draws and transfusions she was sent for surgical c onsultation for port placement Operative findings:: Apparent attenuated vein left subclavian Operative note:: Patient was taken to the operating room. She was given preoperative intravenous antibiotics. She was positioned in supine position. Adequate sedation was achieved. Bilateral upper chest and neck were prepped and draped in the standa rd surgical fashion. Patient was positioned in Trendelenburg position. Local anesthetic was infiltrated inferior to the left clavicle. 18-gauge needle was inserted. Several passes were made and there was return of blood flow. However this appeared arterial. Needle was withdrawn. The SonoSite device was used. The vein and artery were identified. However, the vein could not be cannulated. Therefore attention was turned to the right side. Local anesthetic was infiltrated. 18-gauge needle was inserted and the right subclavian vein was cannulated. Guidewire was inserted. Small incision was made at the guidewire insertion site. Subcutaneous tissues were dilated. Dilator with breakaway sheath was then advanced started over the guidewire. Dilator with guidewire removed. 8 Divehi open-ended catheter was threaded through the breakaway sheath. Breakaway sheath was then removed. Fluoroscopy was used to confirm positioning. The third are actually threaded into the right internal jugular vein. Under fluoroscopy it was manipulated to the superior vena cava. Under fluoroscopy the catheter was manipulated so that the tip was near the atriocaval junction. Skin was marked with a skin marker for planned subcutaneous tunneling and pocket. Local anesthetic was infiltrated. Incision was made for subcutaneous pocket. Using electrocautery subcutaneous pocket was created disse cting down to the pectoralis muscle. Catheter was tunneled subcutaneously to the pocket. It was then cut to the appropriate length. The port was secured to the catheter. Port was secured in the subcutaneous pocket with several interrupted 2-0 PDS sutures. Port aspirated and flushed without difficulty. Fluoroscopy was used once again to confirm positioning. It was flushed with heparinized saline. There was good hemostasis. Subdermal tissues were closed with running 2-0 Vicryl. Skin incisions closed with 4-0 Monocryl in a subcuticular fashion. Clean dry sterile dressing was applied. Condition: stable Disposition: PACU Complications:: None immediate
--- NOTE | 2021-06-14 12:13 | XR_ITS ---
FINAL REPORT CLINICAL HISTORY: postop Port a Cath placement COMPARISON: December 11, 2020 FINDINGS: SINGLE VIEW CHEST. A right subclavian chest port is present with the tip in the mid SVC. The heart is normal in size. The mediastinum is unremarkable. There is mild bibasilar atelectasis or scarring. There is no pneumothorax. IMPRESSION: Right subclavian chest port with tip in the mid SVC. Mild bibasilar atelectasis or scarring. Reviewed, Interpreted and Dictated by Bright Salter III, MD Transcribed by Rosario Arizmendi Authenticated by Bright Salter III, MD on 06/14/2021 12:54:19 PM [facility]
--- NOTE | 2021-06-14 13:55 | XR_ITS ---
FINAL REPORT CLINICAL HISTORY: PORT A CATH in OR fluoro time 0.25 FINDINGS: Single, fluoroscopic film was obtained demonstrating placement of a right-sided Port-A-Cath. 0.25 seconds of fluoroscopy time is reported. IMPRESSION: Right Port-A-Cath placement. Reviewed, Interpreted and Dictated by Bright Salter III, MD Transcribed by Mindy Oneill Authenticated by Bright Salter III, MD on 06/14/2021 03:14:11 PM [facility]
== END 2021-06-14 13:40 | disposition home or self-care (01) ==
LOC: OR 09:27
PROVIDERS: PCP Emergency Medicine; Visit Provider Surgery
DX: D50.9 Iron deficiency anemia, unspecified (principal); I35.1 Nonrheumatic aortic (valve) insufficiency; I34.0 Nonrheumatic mitral (valve) insufficiency; I07.1 Rheumatic tricuspid insufficiency; I25.10 Atherosclerotic heart disease of native coronary artery without angina pectoris; I25.2 Old myocardial infarction; K21.9 Gastro-esophageal reflux disease without esophagitis; Z86.73 Personal history of transient ischemic attack (TIA), and cerebral infarction without residual deficits; I11.0 Hypertensive heart disease with heart failure; I50.9 Heart failure, unspecified; J44.9 Chronic obstructive pulmonary disease, unspecified; E78.5 Hyperlipidemia, unspecified
CPT/HCPCS: 36561; 77001; 71045; 76000; 96374; C1788; J1642

== ENCOUNTER → 2021-06-21 07:23 | Outpatient (CLI) | payer MEDICARE, MEDICAID, SELFPAY ==
[2021-06-21 13:58] LABS: Hematocrit 28.7 % (37.0-47.0); Hemoglobin 8.8 g/dL (12.2-16.2)
== END ==
PROVIDERS: Visit Provider Emergency Medicine
DX: R79.1 Abnormal coagulation profile (principal)
CPT/HCPCS: 36415; 85014; 85018

== ENCOUNTER → 2021-06-27 06:55 | Outpatient (CLI) | payer MEDICARE, MEDICAID, SELFPAY ==
[2021-06-27 16:25] LABS: Basophils % 0.4 % (0.1-2.0); Eosinophils # 0.1 K/mm3 (0.0-0.4); Eosinophils % 2.7 % (0.1-12.0); Hematocrit 29.6 % (37.0-47.0); Hemoglobin 8.9 g/dL (12.2-16.2); Lymphocytes # 0.6 K/mm3 (0.7-4.5); Mean Corpuscular HGB Conc 30.2 g/dL (31.8-35.4); Mean Corpuscular Hemoglobin 32.1 pg (27.0-31.2); Mean Corpuscular Volume 106.3 fl (81-99); Mean Platelet Volume 8.7 fl (7.4-10.4); Monocytes # 0.2 K/mm3 (0.1-1.0); Monocytes % 6.9 % (1.7-9.3); Neutrophils # 1.8 K/mm3 (1.8-7.8); Neutrophils % 67.9 % (37.0-80.0); Platelet Count 192 K/mm3 (142-424); Red Blood Count 2.79 M/mm3 (4.20-5.40); Red Cell Distribution Width 19.2 % (11.5-17.5); White Blood Count 2.7 K/mm3 (4.8-10.8)
== END ==
PROVIDERS: Visit Provider Emergency Medicine
DX: D50.9 Iron deficiency anemia, unspecified (principal)
CPT/HCPCS: 36415; 85025

== ENCOUNTER → 2021-07-05 07:58 | Outpatient (CLI) | payer MEDICARE, MEDICAID, SELFPAY ==
[2021-07-05 14:02] LABS: Hematocrit 33.2 % (37.0-47.0); Hemoglobin 10.3 g/dL (12.2-16.2)
== END ==
PROVIDERS: Visit Provider Emergency Medicine
DX: D64.9 Anemia, unspecified (principal)
CPT/HCPCS: 36415; 85014; 85018

== ENCOUNTER 2021-07-21 08:35 | Day surgery (SDC) | payer MEDICARE, MEDICAID, SELFPAY ==
[2021-07-21 09:21] VITALS: BMI 19.5
[2021-07-21 09:29] VITALS: BP 108/67; PULSE 95; RESP 18; TEMP 36.5; O2SAT 98
--- NOTE | 2021-07-21 09:44 | HMH.ANESCL ---
[facility] Anesthesia Checklist - Patient Identification Patient Identification: Arm Band - Structural Data Admitted From: Home Planned Operative Procedure/s: EGD Consent for Planned Operative Procedure(s) Verified: Yes - NPO Status Verified Time NPO: 00:00 - Additional verifications Anesthesia Reactions: No Hx Blood Transfusions: Yes Blood Transfusion Reaction: No - Airway Assessment C-Spine Mobility Assessed: Yes TMJ Mobility Assessed: Yes Dentition: Poor Dentition - Neurological Assessment Level of Consciousness: Awake Hx Seizures: No Numbness or tingling in extremities: No - Anesthesia Plan Anesthesia Risk discussed: Yes Anesthesia Plan: Verified ASA Class: III Anesthesia Type: MAC [facility] History I have reviewed the patient's past medical history: Yes Medical History: Reports:: Anxiety, Atherosclerotic Heart Disease, Congestive Heart Failure, Chronic Obstructive Pulmonary Disease (COPD), Coronary Artery Disease, Deep Vein Thrombosis, Depression, Gastroesophageal Reflux Disease(GERD), Heart Murmur, Hyperlipidemia, Hypertension, Myocardial Infarction, Peripheral Artery Disease, Transient Ischemic Attacks (TIA) Denies:: Cancer, Diabetes Mellitus Type 1, Diabetes Mellitus Type 2, Internal Pacemaker, MRSA, Seizures *Have you ever received a pneumonia vaccine?: Yes *Have you received a flu vaccine this season?: Yes Other Medical History: Reports: Anemia, Arthritis, Cataracts, Glaucoma, Hypothyroidism, Thyroid Disease. Denies: Blood Transfusion Reaction Anesthesia experience/problems:: None Laterality Cases: Left: Total Hip Replacement, Bilateral: Tonsillectomy Other Surgeries: Yes: Angiogram, Cancer Surgery, Cardiac Catheterization, Colonoscopy, Coronary Stent, Hernia Repair, Hysterectomy-Total, Skin Cancer Excision, Other Valve Replacement. No: Pacemaker Amputation: Yes (herminio toes removed) Fractures: No - *Social History Last grade of school completed: High school graduate Smoking Status: Current every day smoker Tobacco Type: cigarettes # Packs/Day (cigarettes): 2 #Yrs smoked (if former smoker): 56 Alcohol Intake: never Alcohol Intake Frequency:: other Substance Use Type: denies use *Occupational Status:: disabled Housing: [facility] Household Members: none *Travel in the last 8 weeks: None - Psychiatric History Pschychiatric History:: Reports:: Anxiety, Depression Family Hx:: Cancer, Heart Attack
[2021-07-21 10:02] VITALS: O2SAT 97
--- NOTE | 2021-07-21 10:12 | HMH.SCOPE ---
- Procedure: Date: 07/21/21 Patient Date of :: 1945 Procedure Performed:: EGD with Dilation Indications:: Dysphagia Performing Provider:: Fabienne Soto MD Referring Provider:: Matias Ramirez Sedation:: Propofol Procedure:: The gastroscope was gently passed through the incisoral orifice into the oral cavity and under direct visualization the esophagus was intubated. The endoscope was passed down the esophagus, through the stomach, and into the duodenum. Color, texture, mucosa, and anatomy of the esophagus, stomach, and duodenum were carefully examined with the scope. Findings:: Oropharynx: normal Esophagus: normal EG Junction: intact at 40 cm, peptic stricture noted Stricture treated with 18-20 mm balloon dilation under direct vision Cardia: normal Fundus: normal Body: normal but with moderate amount of retained food material noted Antrum: normal Duodenal bulb: normal Duodenum (second and third portion): normal Impression: Peptic stricture treated with balloon dilation Recommendations:: Repeat dilation in about 3 years or so, sooner if symptomatic again Complications:: None Estimated blood obtained (mL): 0
[2021-07-21 10:15] VITALS: BP 96/51; PULSE 75; RESP 18; TEMP 36.3; O2SAT 95
[2021-07-21 10:30] VITALS: BP 103/53; PULSE 74; RESP 18; O2SAT 96
[2021-07-21 10:45] VITALS: BP 112/54; PULSE 71; RESP 18; O2SAT 96
[2021-07-21 11:00] VITALS: BP 108/56; PULSE 70; RESP 18; TEMP 36.1; O2SAT 96
== END 2021-07-21 11:26 | disposition home or self-care (01) ==
LOC: OUTP 08:38
PROVIDERS: PCP Emergency Medicine; Visit Provider Internal Medicine Gastroenterology
PROC: 0DJ08ZZ Inspection of Upper Intestinal Tract, Via Natural or Artificial Opening Endoscopic (ICD-10-PCS; CPT 43235; principal; 2021-07-21 10:00)
DX: K22.2 Esophageal obstruction (principal); F41.9 Anxiety disorder, unspecified; I25.10 Atherosclerotic heart disease of native coronary artery without angina pectoris; J44.9 Chronic obstructive pulmonary disease, unspecified; I73.9 Peripheral vascular disease, unspecified; F32.A Depression, unspecified; K21.9 Gastro-esophageal reflux disease without esophagitis; R01.1 Cardiac murmur, unspecified; I11.0 Hypertensive heart disease with heart failure; I50.9 Heart failure, unspecified; I25.2 Old myocardial infarction; E78.5 Hyperlipidemia, unspecified
CPT/HCPCS: 43249; C1726

== ENCOUNTER → 2021-07-22 11:21 | Outpatient (REF) | payer MEDICARE, MEDICAID, SELFPAY ==
[2021-07-22 11:48] LABS: Basophils % 0.2 % (0.1-2.0); Eosinophils # 0.1 K/mm3 (0.0-0.4); Eosinophils % 1.4 % (0.1-12.0); Hematocrit 28.9 % (37.0-47.0); Hemoglobin 9.6 g/dL (12.2-16.2); Lymphocytes # 0.7 K/mm3 (0.7-4.5); Lymphocytes % 18.9 % (10-50); Mean Corpuscular HGB Conc 33.1 g/dL (31.8-35.4); Mean Corpuscular Hemoglobin 32.8 pg (27.0-31.2); Mean Corpuscular Volume 99.1 fl (81-99); Mean Platelet Volume 7.8 fl (7.4-10.4); Monocytes # 0.2 K/mm3 (0.1-1.0); Monocytes % 5.9 % (1.7-9.3); Neutrophils # 2.8 K/mm3 (1.8-7.8); Neutrophils % 73.7 % (37.0-80.0); Platelet Count 156 K/mm3 (142-424); Red Blood Count 2.91 M/mm3 (4.20-5.40); Red Cell Distribution Width 15.5 % (11.5-17.5); White Blood Count 3.8 K/mm3 (4.8-10.8)
[2021-07-22 12:32] LABS: Chloride 99 mmol/L (98-107)
[2021-07-22 12:33] LABS: Potassium 4.4 mmoL/L (3.5-5.1); Sodium 128 mmol/L (136-145)
[2021-07-22 12:35] LABS: Alanine Aminotransferase 19 U/L (12-78); Alkaline Phosphatase 113 U/L (38-126); Aspartate Amino Transferase 36 U/L (14-36); Bilirubin,Total 0.5 mg/dl (0.2-1.3); Blood Urea Nitrogen 67 mg/dl (7-17); Estimated Glomerular Filt Rate 31 ml/min (>60); GFR (African American) 38 ML/MIN (>60)
[2021-07-22 12:36] LABS: Albumin/Globulin Ratio 1.4 (1.1-1.8); Anion Gap 12.4 mEq/L (5-15); Calcium 8.6 mg/dl (8.4-10.2); Carbon Dioxide 21 mmol/L (22.0-30.0); Globulin 2.8 g/dL (1.3-3.2); Glucose 101 mg/dl (74-100); Total Protein,Serum 6.8 g/dl (6.3-8.2)
== END ==
LOC: HMH.JM 11:21
PROVIDERS: Visit Provider Emergency Medicine
DX: D50.9 Iron deficiency anemia, unspecified (principal)
CPT/HCPCS: 80053; 85025

== ENCOUNTER → 2021-07-24 15:22 | Outpatient (CLI) | payer MEDICARE, MEDICAID, SELFPAY ==
[2021-07-24 16:24] LABS: Chloride 97 mmol/L (98-107); Potassium 4.3 mmoL/L (3.5-5.1); Sodium 127 mmol/L (136-145)
[2021-07-24 16:27] LABS: Alanine Aminotransferase 20 U/L (12-78); Albumin Level 3.7 g/dl (3.5-5.0); Albumin/Globulin Ratio 1.3 (1.1-1.8); Alkaline Phosphatase 137 U/L (38-126); Anion Gap 12.3 mEq/L (5-15); Aspartate Amino Transferase 33 U/L (14-36); Bilirubin,Total 0.4 mg/dl (0.2-1.3); Blood Urea Nitrogen 64 mg/dl (7-17); Calcium 8.2 mg/dl (8.4-10.2); Carbon Dioxide 22 mmol/L (22.0-30.0); Estimated Glomerular Filt Rate 29 ml/min (>60); GFR (African American) 35 ML/MIN (>60); Globulin 2.8 g/dL (1.3-3.2); Glucose 168 mg/dl (74-100); Total Protein,Serum 6.5 g/dl (6.3-8.2)
== END ==
PROVIDERS: Visit Provider Emergency Medicine
DX: I10 Essential (primary) hypertension (principal)
CPT/HCPCS: 80053

== ENCOUNTER 2021-10-27 10:52 | Day surgery (SDC) | payer MEDICARE, MEDICAID, SELFPAY ==
[2021-10-27 10:35] VITALS: O2SAT 93
[2021-10-27 11:13] VITALS: BMI 19.5
[2021-10-27 11:20] VITALS: BP 129/53; PULSE 91; RESP 18; TEMP 36.2; O2SAT 93
--- NOTE | 2021-10-27 11:33 | HMH.ANESCL ---
[facility] Anesthesia Checklist - Patient Identification Patient Identification: Arm Band - Structural Data Admitted From: Long-term Nursing Facility Planned Operative Procedure/s: egd Consent for Planned Operative Procedure(s) Verified: Yes Verified Documents: Surgical Consent, History and Physical - NPO Status Verified Time NPO: 00:00 - Additional verifications Anesthesia Reactions: No Hx Blood Transfusions: Yes Blood Transfusion Reaction: No - Airway Assessment C-Spine Mobility Assessed: Yes (mp2) TMJ Mobility Assessed: Yes Dentition: Edentulous - Neurological Assessment Level of Consciousness: Awake, Alert - Anesthesia Plan Anesthesia Risk discussed: Yes Anesthesia Plan: Verified ASA Class: III Anesthesia Type: MAC [facility] History I have reviewed the patient's past medical history: Yes Medical History: Reports:: Anxiety, Atherosclerotic Heart Disease, Cancer (cervial, ovarian), Congestive Heart Failure, Chronic Obstructive Pulmonary Disease (COPD), Coronary Artery Disease, Deep Vein Thrombosis, Depression, Gastroesophageal Reflux Disease(GERD), Heart Murmur, Hyperlipidemia, Hypertension, Lung Disease, Myocardial Infarction, Peripheral Artery Disease, Transient Ischemic Attacks (TIA) Denies:: Diabetes Mellitus Type 1, Diabetes Mellitus Type 2, Internal Pacemaker, MRSA, Seizures *Have you ever received a pneumonia vaccine?: Yes *Have you received a flu vaccine this season?: Yes Other Medical History: Reports: Anemia, Arthritis, Cataracts, Glaucoma, Hypothyroidism, Thyroid Disease. Denies: Blood Transfusion Reaction Anesthesia experience/problems:: nac Laterality Cases: Left: Total Hip Replacement, Bilateral: Tonsillectomy Other Surgeries: Yes: Angiogram, Cancer Surgery, Cardiac Catheterization, Colonoscopy, Coronary Stent, Hernia Repair, Hysterectomy-Total, Skin Cancer Excision, Other Valve Replacement. No: Pacemaker Amputation: Yes (herminio toes removed) Fractures: No (jaw) - *Social History Last grade of school completed: High school graduate Smoking Status: Current every day smoker Tobacco Type: cigarettes # Packs/Day (cigarettes): 1 #Yrs smoked (if former smoker): 56 Alcohol Intake: never Alcohol Intake Frequency:: other Substance Use Type: denies use *Occupational Status:: disabled Housing: [employer] Household Members: none *Travel in the last 8 weeks: None - Psychiatric History Pschychiatric History:: Reports:: Anxiety, Depression Family Hx:: Cancer, Heart Attack
--- NOTE | 2021-10-27 11:53 | HMH.SCOPE ---
- Procedure: Date: 10/27/21 Patient Date of :: 1945 Procedure Performed:: EGD with Balloon dilation Indications:: Esophageal dysphagia Performing Provider:: Fabienne Soto MD Referring Provider:: Hector Ramirez MD Sedation:: Propofol Procedure:: The gastroscope was gently passed through the incisoral orifice into the oral cavity and under direct visualization the esophagus was intubated. The endoscope was passed down the esophagus, through the stomach, and into the duodenum. Color, texture, mucosa, and anatomy of the esophagus, stomach, and duodenum were carefully examined with the scope. Findings:: Oropharynx: normal Esophagus: Stricture/stenosis noted at distal esophagus adjacent diverticulum noted EG Junction: intact at 40 cm Cardia: normal Fundus: normal Body: normal with some residual food noted Antrum: normal Duodenal bulb: normal Duodenum (second and third portion): normal Stricture treated with 18-20 mm Balloon dilation under direct vision Impression: Distal esophageal stenosis treated with balloon dilation Esophageal diverticulum Recommendations:: Repeat dilation in about 2-3 years or so, sooner if clinically indicated. Complications:: None Estimated blood obtained (mL): 0
[2021-10-27 11:54] VITALS: BP 94/46; PULSE 76; RESP 18; TEMP 36.6; O2SAT 97
[2021-10-27 12:04] VITALS: BP 107/53; PULSE 78; RESP 16; O2SAT 96
--- NOTE | 2021-10-27 12:13 | SUR.PHASEII ---
Detailed report called to Jaqueline @ [facility] at this time.
[2021-10-27 12:14] VITALS: BP 104/64; PULSE 76; RESP 16; O2SAT 96
[2021-10-27 12:24] VITALS: BP 102/50; PULSE 77; RESP 16; TEMP 36.6; O2SAT 98
== END 2021-10-27 12:27 | disposition home or self-care (01) ==
LOC: OUTP 10:57
PROVIDERS: PCP Emergency Medicine; Visit Provider Internal Medicine Gastroenterology
PROC: 0DJ08ZZ Inspection of Upper Intestinal Tract, Via Natural or Artificial Opening Endoscopic (ICD-10-PCS; CPT 43235; principal; 2021-10-27 11:30)
DX: K22.2 Esophageal obstruction (principal); Q39.6 Congenital diverticulum of esophagus; Z87.19 Personal history of other diseases of the digestive system; F41.9 Anxiety disorder, unspecified; I25.10 Atherosclerotic heart disease of native coronary artery without angina pectoris; I50.9 Heart failure, unspecified; J44.9 Chronic obstructive pulmonary disease, unspecified; F32.A Depression, unspecified; K21.9 Gastro-esophageal reflux disease without esophagitis; E78.5 Hyperlipidemia, unspecified; I10 Essential (primary) hypertension; I25.2 Old myocardial infarction; Z86.718 Personal history of other venous thrombosis and embolism; Z85.43 Personal history of malignant neoplasm of ovary; Z85.41 Personal history of malignant neoplasm of cervix uteri
CPT/HCPCS: 43249; C1726; J1642

== ENCOUNTER → 2021-11-24 14:31 | Outpatient (CLI) | payer MEDICARE, MEDICAID, SELFPAY ==
--- NOTE | 2021-11-24 14:33 | CA_ITS ---
APPROVED REPORT EXAM: Comprehensive 2D, Doppler, and color-flow Echocardiogram Informatics Educator: MARYANA Nguyen, RVS Ht: 5 ft 1 in Wt: 102lbs BSA: 1.42 BP: 122/56 mmHg Indications: Known severe mitral and tricuspid regurgitation, SOA, COPD, Smoker, Acute anemia, PHTN, Hx- NM Echo Enhancing Agent Comments: Poor acoustics with lung impedence 2D Dimensions IVSd 1.12 cm LVEF (Visual) 46.80 % PWd 0.99 cm LA Volume 81.00 mL LVDd 4.82 cm LA Volume Index 57.00 mL/m2 (M/F) 16-34 LVDs 3.69 cm Aortic Root 2.80 cm Left Atrium 4.73 cm LVOT 2.06 cm (M/F) 1.5-2.5 M-Mode Dimensions RVDd 2.42 cm (0.9-2.6) LA Diam 4.46 cm (1.9-4.0) LVDd 5.75 cm (3.5-5.7) Ao Diam 2.93 cm (2.0-3.7) LVDs 4.00 cm (3.5-5.7) IVSd 1.18 cm (0.6-1.1) PWd 0.94 cm (0.6-1.1) EF (Teich) 57.10% EPSs 1.10 cm FS 30.40% EDV (Teich) 163.30 mL TAPSE 1.69 (<1.7) ESV (Teich) 70.00 mL LV Diastology E Decel Time 173.00 (160-240 msec) E/A Ratio 0.60 MED E' 3.50 (< 7 cm/sec) MED A' 9.50 cm/s E'/MED E' Ratio 16.43 (>14) LAT E' 6.40 (<10 cm/sec) LAT A' 10.60 cm/s E/LAT E' Ratio 8.98 (>14) Pulm Vein s 33.00 cm/sec Pulm Vein d 24.00 cm/sec Ar-A Duration 130.00 msec Aortic Valve LVOT Max 78.00 (70-110 cm/s) LVOT VTI 17.25 cm AoV Peak Brooks. 122.00 (50-130 cm/s) AI PHT 492.00 ms AO Peak GR. 6.00 mmHg AO Mean GR. 3.10 (<5 mmHg) AO VTI 27.25 (18-25 cm) AYAKA (VTI) 2.11 (2.5-4.5 cm2) Mitral Valve MV A Velocity 95.00 (40-130 cm/s) E/A Ratio 0.60 MV Decel. Time 173.00 (160-240 ms) MV Mean Gr. 2.20 (<2mmHg) MV PHT 50.00 ms Pulmonary Valve PV Peak Velocity 85.00 (50-150 cm/s) MO End VMAX 156.00 cm/s Tricuspid Valve TR P. Velocity 320.00 cm/s RAP Estimate 10.00 mmHg RVSP 51.00 mmHg Left Ventricle Left atrium is moderately enlarged, left ventricle is normal size, mild concentric left ventricular hypertrophy, estimated ejection fraction 55% with no regional wall motion abnormality, grade 1 diastolic dysfunction seen without tissue Doppler evidence of raise left atrial pressure. Right Ventricle Right atrium and right ventricle are mildly enlarged with normal contractility. Aortic Valve Aortic valve is thickened and calcified with mild aortic insufficiency. Mitral Valve Mitral valve leaflets are minimally thickened, there is moderate to severe mitral regurgitation. Tricuspid Valve Tricuspid valve leaflets are minimally thickened, there is moderate tricuspid regurgitation, calculated right ventricular systolic pressure is 51 mmHg. Pulmonic Valve Pulmonic valve is poorly visualized. Great Vessels Aortic root is normal size. Inferior vena cava normal size with normal inspiratory collapse. Pericardium No significant pericardial effusion noted. Conclusion 1. Biatrial enlargement, normal left ventricular size, mild concentric left ventricular hypertrophy, estimated ejection fraction 55% with no regional wall motion abnormality, grade 1 diastolic dysfunction seen without tissue Doppler evidence of reduced left atrial pressure. 2. Mild aortic, moderate to severe mitral and moderate tricuspid regurgitation, calculated right ventricular systolic pressure is 51 mmHg. 3. No significant pericardial effusion repeat 4. Inferior vena cava normal size with normal inspiratory collapse. Electronical
== END ==
PROVIDERS: PCP Family Medicine; Visit Provider Nurse Practitioner
DX: I07.1 Rheumatic tricuspid insufficiency (principal); I25.118 Atherosclerotic heart disease of native coronary artery with other forms of angina pectoris; I34.0 Nonrheumatic mitral (valve) insufficiency; R06.02 Shortness of breath
CPT/HCPCS: 93306

== ENCOUNTER 2023-06-12 15:02 | Outpatient (CLI) | payer MEDICARE, MEDICAID, SELFPAY ==
--- NOTE | 2023-06-12 15:05 | CA_ITS ---
APPROVED REPORT EXAM: Comprehensive 2D, Doppler, and color-flow Echocardiogram Demurrage Man: Janie Gonzalez, RCS, RVS Ht: 5 ft 1 in Wt: 104lbs BSA: 1.43 BP: 184/78 mmHg Indications: Pre-op, Severe Mitral regugitation, AI, TR, PI, COPD, ASCVD, PHTN 2D Dimensions IVSd 0.88 cm F: 0.6-1.0 LVEF (Visual) 59.60 % PWd 1.21 cm F: 0.6 - 1.0 LA Volume 85.90 mL LVDd 4.62 cm F: 3.9 - 5.3 LA Volume Index 60.07 mL/m2 (M/F) 16-34 LVDs 3.16 cm F: 2.2 - 3.5 Left Atrium 4.02 cm F: 2.7 - 3.8 M-Mode Dimensions RVDd 2.58 cm (0.9-2.6) LA Diam 4.71 cm (1.9-4.0) LVDd 4.65 cm (3.5-5.7) LVDs 3.71 cm (3.5-5.7) IVSd 1.20 cm (0.6-1.1) PWd 1.14 cm (0.6-1.1) EF (Teich) 41.40% EPSs 1.41 cm FS 20.20% EDV (Teich) 99.80 mL TAPSE 1.85 (<1.7) ESV (Teich) 58.50 mL LV Diastology E Decel Time 180 (160-240 msec) E/A Ratio 0.61 MED A' 14.10 cm/s LAT A' 20.30 cm/s Aortic Valve AYAKA Index 1.69 cm2/m2 AoV Peak Brooks. 145.0 (50-130 cm/s) AI PHT 232.00 ms AO Peak GR. 8.40 mmHg AO Mean GR. 4.20 (<5 mmHg) AO VTI 28.6 (18-25 cm) AYAKA (VTI) 2.48 (2.5-4.5 cm2) Mitral Valve MV A Velocity 149.0 (40-130 cm/s) E/A Ratio 0.61 Tricuspid Valve TR P. Velocity 308.00 cm/s RAP Estimate 10.00 mmHg RVSP 47.90 mmHg Left Ventricle The left ventricle is normal size. The left ventricular systolic function is normal. The left ventricular ejection fraction is within the normal range. There is increased LV wall thickness. There is normal LV segmental wall motion. Grade 2 diastolic dysfunction is present. LVEF is 65%. Right Ventricle The right ventricle is normal size. The right ventricular systolic function is normal. Atria The left atrium is moderately dilated. The right atrium size is normal. Aortic Valve The aortic valve is mildly thickened. There is no aortic valvular stenosis. Moderate aortic regurgitation. Mitral Valve The mitral valve is mildly thickened. No evidence of mitral valve stenosis. Moderate to severe mitral regurgitation. The MR jet is eccentric and is posteriorly directed. Tricuspid Valve The tricuspid valve leaflets are thin and pliable. Moderate tricuspid regurgitation. RVSP is 40-45 mmHg. Pulmonic Valve The pulmonary valve is normal in structure. Mild pulmonic regurgitation. Great Vessels The aortic root is normal in size. The ascending aorta is not well-visualized. IVC is normal in size and collapses >50% with inspiration. Pericardium There is no pericardial effusion. Other Information Study Quality: Fair Conclusion Normal biventricular systolic function. Grade 2 diastolic dysfunction. Moderate LA dilation. Moderate AI. Moderate to severe MR. The MR jet is eccentric and posteriorly directed. Moderate TR. Elevated RVSP 40-45 mmHg. Further evaluation for the severity and mechanism of severe MR is recommended with RACHEL. Electronically signed by : Nancy Pollard MD 06/15/2023 23:30:27
== END 2023-06-12 23:59 ==
LOC: RT 15:05
PROVIDERS: Visit Provider Physician Assistant
DX: I34.0 Nonrheumatic mitral (valve) insufficiency (principal); R07.89 Other chest pain; Z01.810 Encounter for preprocedural cardiovascular examination
CPT/HCPCS: 93306

== ENCOUNTER 2023-06-21 11:49 | Outpatient (CLI) | payer MEDICARE, MEDICAID, SELFPAY ==
[2023-06-21 12:18] LABS: Basophils % 0.2 % (0.1-2.0); Eosinophils # 0.1 K/mm3 (0.0-0.4); Hematocrit 34.2 % (37.0-47.0); Lymphocytes % 12.3 % (10-50); Mean Corpuscular Hemoglobin 31.2 pg (27.0-31.2); Mean Corpuscular Volume 97.4 fl (81-99); Mean Platelet Volume 7.7 fl (7.4-10.4); Monocytes # 0.3 K/mm3 (0.1-1.0); Monocytes % 3.7 % (1.7-9.3); Neutrophils # 6.5 K/mm3 (1.8-7.8); Neutrophils % 82.8 % (37.0-80.0); Platelet Count 211 K/mm3 (142-424); Red Blood Count 3.51 M/mm3 (4.20-5.40); Red Cell Distribution Width 14.7 % (11.5-17.5); White Blood Count 7.9 K/mm3 (4.8-10.8)
[2023-06-21 12:46] LABS: Chloride 101 mmol/L (98-107); Sodium 133 mmol/L (136-145)
[2023-06-21 12:47] LABS: Potassium 4.5 mmoL/L (3.5-5.1)
[2023-06-21 12:50] LABS: Anion Gap 11.5 mEq/L (5-15); Blood Urea Nitrogen 44 mg/dl (7-17); Calcium 9.1 mg/dl (8.4-10.2); Carbon Dioxide 25 mmol/L (22.0-30.0); Estimated Glomerular Filt Rate 31 ml/min (>60); GFR (African American) 38 ML/MIN (>60); Glucose 92 mg/dl (74-100)
[2023-06-21 13:02] LABS: Troponin I < 0.01 ng/ml (0.00-0.034)
== END 2023-06-21 23:59 ==
LOC: LAB 11:51
PROVIDERS: Visit Provider Physician Assistant
DX: E78.5 Hyperlipidemia, unspecified (principal); I07.1 Rheumatic tricuspid insufficiency; I11.0 Hypertensive heart disease with heart failure; I25.10 Atherosclerotic heart disease of native coronary artery without angina pectoris; I50.32 Chronic diastolic (congestive) heart failure; I34.0 Nonrheumatic mitral (valve) insufficiency; R07.89 Other chest pain; Z72.0 Tobacco use
CPT/HCPCS: 36415; 80048; 84484; 85025

== ENCOUNTER 2023-07-26 15:10 | Observation (INO) | payer MEDICARE, MEDICAID, SELFPAY ==
[2023-07-26] VITALS (15 sets, daily range): BP systolic 114–163; BP diastolic 57–85; PULSE 71–90; RESP 16–18; TEMP 36.1–36.9; O2SAT 90–100; BMI 20.5; BMI 22.3
--- NOTE | 2023-07-26 08:31 | CA_ITS ---
APPROVED REPORT EXAM: Comprehensive 2D, Doppler, and color-flow Echocardiogram [employer]: Radha Bolden RVT Ht: 5 ft 1 in Wt: 110lbs BSA: 1.47 BP: 059/57 mmHg Indications: SEVERE MR ,,PHTN,SMOKER,MURMUR,CP,HTN Procedure After obtaining informed consent, patient underwent transesophageal echo in the [facility]. Type of Sedation : MAC Sedation was administered by Get Negrete C.R.N.A. Sedation start time: 11:20 Case end Time: 11:35 Sedation was achieved intravenously with: Propofol () The RACHEL was performed without complications. Throughout the procedure, the blood pressure, pulse oximetry, cardiac rhythm, and rate were monitored. The patient tolerated the procedure without adverse effects. Recovery from conscious sedation was uneventful and vital signs were stable. Left Ventricle The left ventricle is normal size. The left ventricular systolic function is normal. The left ventricular ejection fraction is within the normal range. There is increased LV wall thickness. There is normal LV segmental wall motion. LVEF is 60%. Right Ventricle Right ventricle is mildly dilated. The right ventricular systolic function is normal. Atria The left atrium is dilated. There is no evidence of thrombus in the left atrium or the left atrial appendage. The right atrium is dilated. Interatrial septum is intact without evidence of ASD or PFO. Aortic Valve The aortic valve is mildly thickened. There is no aortic valvular stenosis. Moderate aortic regurgitation. Vena contractor which is 0.4 cm. Mitral Valve There is mild prolapse of the anterior leaflet of the mitral valve. Flail segment is also highly suspected. No evidence of mitral valve stenosis. Severe mitral regurgitation. The mechanism of MR is likely primary due to prolapse and flail of the anterior leaflet (Nolberto class II). the MR jet is eccentric and posteriorly directed. EROA is 0.27 cm2 (may be underestimated in the setting of eccentric jet). regurgitant volume is 55 mL. Tricuspid Valve The tricuspid valve leaflets are thin and pliable. Moderate tricuspid regurgitation. Pulmonic Valve The pulmonary valve is normal in structure. Trace pulmonic regurgitation. Great Vessels The aortic root is normal in size. The ascending aorta is normal in size. There is calcification present in the descending aorta and aortic arch. Pericardium There is no pericardial effusion. Other Information Study Quality: Fair Conclusion Normal biventricular systolic function. Mild RV dilation. Biatrial dilation. Moderate A (VCW=0.4 cm). Mild anterior prolapse of the MV leaflets with high suspicion of flail segment. Severe mitral regurgitation. The mechanism of MR is likely primary due to prolapse and possible flail of the anterior leaflet (Nolberto class II). MR jet is eccentric and posteriorly directed. EROA is 0.27 cm2 (may be underestimated in the setting of eccentric jet). Regurgitant volume is 55 mL. Moderate TR. RVSP 27 mmHg + RA pressure. Calcification in the descending aorta and aortic arch. The procedural course was overall uncomplicated. However, at the end of the procedure, there was blood noted at the tip of the probe at the time of probe discontinuation. Considering the patient's history of known esophageal strictures (s/p dilation), prompt evaluation with CT neck and chest was performed to rule out esophageal laceration and/or perforation. The patient was also planned for admission for overnight observation to rule out any complications. Electronically signed by : Nancy Pollard MD 07/29/2023 01:05:09
--- NOTE | 2023-07-26 08:34 | ECG_ITS ---
APPROVED REPORT Exam: Resting ECG HR:74 bpm ECG Measurements Heart Rate 74 AXES DC 183 P 67 QRSd 94 QRS 51 QT 367 T 55 QTc 394 Conclusion SINUS RHYTHM ANTEROSEPTAL MYOCARDIAL INFARCTION , OF INDETERMINATE AGE [40+ ms Q WAVE IN V1-V4] ABNORMAL ECG UNCONFIRMED REPORT Electronically signed by : Earl Fung MD 07/26/2023 16:33:37
[2023-07-26 08:53] LABS: Basophils % 0.1 % (0.1-2.0); Eosinophils % 1.3 % (0.1-12.0); Hematocrit 25.5 % (37.0-47.0); Hemoglobin 8.1 g/dL (12.2-16.2); Lymphocytes # 0.5 K/mm3 (0.7-4.5); Lymphocytes % 22.3 % (10-50); Mean Corpuscular HGB Conc 31.5 g/dL (31.8-35.4); Mean Corpuscular Hemoglobin 33.1 pg (27.0-31.2); Mean Corpuscular Volume 105.1 fl (81-99); Monocytes # 0.2 K/mm3 (0.1-1.0); Monocytes % 7.5 % (1.7-9.3); Neutrophils # 1.7 K/mm3 (1.8-7.8); Neutrophils % 68.8 % (37.0-80.0); Platelet Count 129 K/mm3 (142-424); Red Blood Count 2.43 M/mm3 (4.20-5.40); White Blood Count 2.4 K/mm3 (4.8-10.8)
[2023-07-26 08:59] LABS: Anion Gap 11.2 mEq/L (5-15); Blood Urea Nitrogen 42 mg/dl (7-17); Calcium 9.3 mg/dl (8.4-10.2); Carbon Dioxide 30 mmol/L (22.0-30.0); Chloride 99 mmol/L (98-107); Creatinine Clearance Estimated 30 mL/min (50-200); Estimated Glomerular Filt Rate 44 ml/min (>60); GFR (African American) 53 ML/MIN (>60); Glucose 103 mg/dl (74-100); Potassium 4.2 mmoL/L (3.5-5.1); Sodium 136 mmol/L (136-145)
[2023-07-26 09:07] LABS: INR 1.05 (0.9-1.1); Prothrombin Time 11.3 seconds (10.1-12.5)
[2023-07-26] MEDS: LACTATED RINGERS 1000ML 1,000 ML 25 ML IV (09:18)
--- NOTE | 2023-07-26 09:41 | EXP.ANES.CKL ---
[facility] Disclaimer: The information contained in this section may have been updated after the patient was seen, as this information can be updated by other users. Medical History Atherosclerotic heart disease of [place] coronary artery without angina pectoris Carotid bruit Dysphagia following cerebral infarction Dyspnea and respiratory abnormality Esophageal stricture Gastro-esophageal reflux disease without esophagitis Hypertension with goal to be determined Hypothyroidism Insomnia, unspecified Iron deficiency anemia, unspecified Low body mass index (BMI) Moderate mitral valve regurgitation Nicotine dependence, unspecified, uncomplicated Other specified anxiety disorders Polyneuropathy, unspecified Preop cardiovascular exam Recurrent falls Renal insufficiency Restless legs syndrome Surgical History (Updated 07/26/23 @ 08:55 by Simona Chowdhury RN) H/O bilateral oophorectomy H/O hernia repair H/O: hysterectomy History of left hip replacement History of mandibular surgery Family History (Updated 07/26/23 @ 08:56 by Simona Chowdhury RN) Other Family history of glaucoma Family history of myocardial infarction Stomach cancer Social History Smoking Status: Current every day smoker tobacco type: cigarettes packs per day: 1 second hand exposure: No alcohol intake: never substance use type: denies use current occupational status: disabled Travel in the last 8 weeks: Inside the [place] household members: none housing: retirement current occupational exposures/hazards: No caffeine: Yes [facility] [place] Anesthesia Checklist Patient Identification Patient Identification: Arm Band Structural Data Admitted From: Home Planned Operative Procedure/s: RACHEL Consent for Planned Operative Procedure(s) Verified: Yes Verified Documents: Surgical Consent and History and Physical NPO Status Verified Time NPO: 00:00 Additional verifications Anesthesia Reactions: No Hx Blood Transfusions: Yes Blood Transfusion Reaction: No Airway Assessment Mallampati Score:: Class II C-Spine Mobility Assessed: Yes TMJ Mobility Assessed: Yes Dentition: Edentulous Neurological Assessment Level of Consciousness: Awake and Alert Anesthesia Plan Anesthesia Risk discussed: Yes Anesthesia Plan: Verified ASA Class: III Anesthesia Type: MAC
--- NOTE | 2023-07-26 11:39 | CT_ITS ---
FINAL REPORT TECHNIQUE: Thin section axial CT images with coronal and sagittal reformats were performed through the neck. This study was performed with techniques to keep radiation doses as low as reasonably achievable (ALARA). Individualized dose reduction techniques using automated exposure control or adjustment of mA and/or kV according to the patient's size were employed. CLINICAL HISTORY: s/p mirza COMPARISON: None FINDINGS: CT SOFT TISSUES NECK: There is degenerative change of the cervical spine identified, with significant disc space narrowing at the C5-6 and C6-7 levels, mild anterolisthesis of C4 on C5, and multilevel neural foraminal narrowing. The nasopharynx, oropharynx, and larynx are unremarkable in appearance. There is dense calcification noted in the right carotid bifurcation which likely produces severe narrowing of the right carotid artery. No significant cervical adenopathy is identified. No focal mass or fluid collection is seen. There are several subcentimeter low densities in the thyroid gland consistent with thyroid nodules. IMPRESSION: Dense right carotid calcification, likely produces severe narrowing of the right cervical carotid artery. Several subcentimeter low-density is in the thyroid gland consistent with thyroid nodules. Cervical spine degenerative change as described. Reviewed, Interpreted and Dictated by Josemanuel Sinha MD Transcribed by Lily Lim Authenticated and [facility]
--- NOTE | 2023-07-26 11:40 | CT_ITS ---
FINAL REPORT TECHNIQUE: Axial images were obtained through the chest without contrast. CLINICAL HISTORY: s/p mirza COMPARISON: None FINDINGS: There is a right subclavian chest port present with its tip in the superior vena cava. Moderate vascular calcifications are noted in the mediastinum. There are 2 spiculated masses in the right upper lobe, the largest measuring 9 mm in size, both seen on axial images #35 through 49 of series 3. These are worrisome for malignancy. There is thickening of the mucosa in the distal esophagus, a finding of uncertain significance. The heart size is normal. There is no pericardial or pleural effusion. Limited images of the upper abdomen are unremarkable. No suspicious infiltrate or nodule identified. IMPRESSION: 2 spiculated masses in the right upper lobe, the largest measuring 9 mm as described above, worrisome for malignancy. Thickening of mucosa in the distal esophagus, a nonspecific finding. Reviewed, Interpreted and Dictated by Josemanuel Sinha MD Transcribed by Lily Lim Authenticated and . [facility]
--- NOTE | 2023-07-26 11:46 | SUR.PHASEII ---
pt going to radiology. Dr. Pollard states he wants pt to be admitted overnight. speaking with PARVEEN Trejo and states he will talk to the hospitalist.
--- NOTE | 2023-07-26 11:49 | SUR.PHASEII ---
Dr. Pollard states he wants pt to have 3.375 gm of Zosyn at this time.
--- NOTE | 2023-07-26 12:19 | SUR.PHASEII ---
1200- pt returned from CT scan at this time with radiology staff 1207- anesthesia at bedside medicating for esophagus pain and headache. see anesthesia charting for med rec.
--- NOTE | 2023-07-26 12:23 | SUR.PHASEII ---
1212- per Dr. Pollard, hold off on Zosyn at this time.
--- NOTE | 2023-07-26 16:22 | P.CONPHA_ITS ---
Pharmacy Intervention Comments: MEDICATION RECONCILIATION COMPLETE USING MAR FROM [facility].
--- NOTE | 2023-07-26 16:22 | HMH.PHAINT1 ---
Pharmacy Intervention Comments: MEDICATION RECONCILIATION COMPLETE USING MAR FROM [facility].
[2023-07-26] MEDS: SUCRALFATE 1GM/10ML SUSP UDC 1 GM PO ×2 (16:25→21:11)
[2023-07-26] MEDS: HYDROCODONE/APAP 5/325 MG TABLET 1 TAB PO ×2 (16:25→21:41)
[2023-07-26] MEDS: BELLADONNA ALKALOIDS 60 ML ML PO (16:39)
--- NOTE | 2023-07-26 16:49 | EXP.HP ---
History of Present Illness *Admission Date: 07/26/23 *Reason for visit:: hemoptysis *History of present illness: Ms. eVloz is a 78-year-old female with history of transfusion dependent anemia, severe mitral regurgitation, hyperlipidemia, CHF, hypertension, carotid artery stenosis, COPD, GERD, and tobacco dependence. Presented as an outpatient for elective RACHEL to evaluate her mitral valve disease due to frequent episodes of syncope and chest discomfort. Procedure tolerated well but noted to have hemoptysis and some hematemesis after completing procedure. CT of chest and neck were obtained that showed no free air. Labs however showed significant anemia with hemoglobin of 8. Imaging also noted to have spiculated lung nodules. Medicine was consulted to admit patient for monitoring overnight, serial hemoglobin in the morning, and treatment of esophageal pain. Medicine agreed to admit for further management. On evaluation, patient stable on room air. Further history obtained showing that she has had severe mitral regurgitation for many years. Previously saw cardiology at who recommended against surgery due to her comorbidities and high risk procedure. 3 years ago patient was placed on hospice for a year because of her valvular disease and was discharged from hospice due to surviving for over a year. Has subsequently gone blind, lives in a longterm in [place] at this time. Is concerned because of more frequent syncopal events happening several times a month. Currently complains of chest discomfort when she swallows, would like to have something to drink. Denies any nausea or vomiting. Previously transfusion dependent for her anemia, last transfusion more than 6 months ago to her recollection. Does have a port in place because she is a difficult venipuncture access patient. Patient is afebrile and hemodynamically stable. Denies any clemente dizziness at this time. States her sons are her surrogate decision makers. Discussion about goals of care, would like to be DNR. Also reports history of esophageal stricture, was seen by GI in [place] recently. Question as to whether her esophagus was stretched. Will attempt to get records from Dr. French with GI in [place]. [facility] Disclaimer: The information contained in this section may have been updated after the patient was seen, as this information can be updated by other users. Medical History Atherosclerotic heart disease of rincon coronary artery without angina pectoris Carotid bruit Dysphagia following cerebral infarction Dyspnea and respiratory abnormality Esophageal stricture Gastro-esophageal reflux disease without esophagitis Hypertension with goal to be determined Hypothyroidism Insomnia, unspecified Iron deficiency anemia, unspecified Low body mass index (BMI) Moderate mitral valve regurgitation Nicotine dependence, unspecified, uncomplicated Other specified anxiety disorders Polyneuropathy, unspecified Preop cardiovascular exam Recurrent falls Renal insufficiency Restless legs syndrome Surgical History H/O bilateral oophorectomy H/O hernia repair H/O: hysterectomy History of left hip replacement History of mandibular surgery Family History Stomach cancer Family history of glaucoma Family history of myocardial infarction Social History Smoking Status: Current every day smoker tobacco type: cigarettes packs per day: 1 second hand exposure: No alcohol intake: never substance use type: denies use current occupational status: disabled Travel in the last 8 weeks: Inside the [place] household members: none housing: longterm current occupational exposures/hazards: No caffeine: Yes Review of Systems Review of Systems Review of systems (narrative): 14 point review of systems performed, pertinent positives and negatives as per HPI Meds Home Medications and Allergies Home Medications Medication Instructions Recorded Confirmed Type sennosides 8.6 mg capsule 17.2 mg PO Q8HP PRN Constipation 05/12/20 07/26/23 History tizanidine 4 mg tablet 4 mg PO Q12HP PRN Muscle Spasm 05/12/20 07/26/23 History trazodone 100 mg tablet 100 mg PO HS SLEEP 05/12/20 07/26/23 History gabapentin 100 mg capsule 100 mg PO TID neuropathy #90 caps 04/06/21 07/26/23 Rx acetaminophen 500 mg tablet 500 mg PO Q6HP PRN Mild Pain 06/10/21 07/26/23 History (Scale Score 1-4) buspirone 15 mg tablet 30 mg PO BID Anxiety 05/17/22 07/26/23 History fluticasone furoate 27.5 1 spray intranasal DAILY Allergy 05/17/22 07/26/23 History mcg/actuation nasal Symptoms spray,suspension duloxetine 30 mg capsule,delayed 30 mg PO DAILY Depression 05/22/23 07/26/23 History release esomeprazole magnesium 20 mg 20 mg PO DAILY GERD 06/12/23 07/26/23 History capsule,delayed release isosorbide mononitrate 30 mg 30 mg PO DAILY Chest Pain 06/12/23 07/26/23 History tablet,extended release 24 hr oxcarbazepine 300 mg tablet 300 mg PO BID Anxiety 06/12/23 07/26/23 History ropinirole 0.25 mg tablet 0.25 mg PO BID Restless leg 06/12/23 07/26/23 History spironolactone 25 mg tablet 25 mg PO DAILY Edema 06/12/23 07/26/23 History tiotropium bromide 2.5 1 puff inhalation DAILY Copd 06/12/23 07/26/23 History mcg/actuation mist for inhalation (Spiriva Respimat) aspirin 81 mg chewable tablet 81 mg PO DAILY CAD 07/26/23 07/26/23 History bisacodyl 10 mg rectal suppository 10 mg RI DAILYP PRN Constipation 07/26/23 07/26/23 History (Dulcolax (bisacodyl)) brimonidine 0.15 % eye drops 1 drp ophthalmic (eye) BID Glaucoma 07/26/23 07/26/23 History cyanocobalamin (vitamin B-12) 1,000 mcg IM MONTHLY Supplement 07/26/23 07/26/23 History 1,000 mcg/mL injection solution ferrous sulfate 325 mg (65 mg 325 mg PO BID Supplement 07/26/23 07/26/23 History iron) tablet (Iron (ferrous sulfate)) furosemide 20 mg tablet 60 mg PO DAILY Edema 07/26/23 07/26/23 History hydrocodone 5 mg-acetaminophen 325 1 tab PO Q6HP PRN Moderate Pain 07/26/23 07/26/23 History mg tablet (Scale Score 5-6) levothyroxine 50 mcg tablet 50 mcg PO DAILYDM THYROID 07/26/23 07/26/23 History lidocaine 4 % topical patch 1 patch topical BID LOWER BACK PAIN 07/26/23 07/26/23 History lidocaine-prilocaine 2.5 %-2.5 % 1 applic topical Q12HP PRN RIGHT 07/26/23 07/26/23 History topical cream CHEST PAIN melatonin 3 mg tablet 6 mg PO HS Insomnia 07/26/23 07/26/23 History menthol 4 % topical gel (Biofreeze 1 applic topical BID MILD PAIN 07/26/23 07/26/23 History (menthol)) methylcellulose (laxative) 500 mg 1,000 mg PO DAILY Constipation 07/26/23 07/26/23 History tablet (Citrucel) naloxegol 12.5 mg tablet (Movantik) 12.5 mg PO DAILY Constipation 07/26/23 07/26/23 History netarsudil 0.02 %-latanoprost 2 drp ophthalmic (eye) DAILY 07/26/23 07/26/23 History 0.005 % eye drops (Rocklatan) Glaucoma paroxetine HCl 20 mg tablet (Paxil) 20 mg PO DAILY Depression 07/26/23 07/26/23 History polyethylene glycol 3350 17 17 g PO DAILY Constipation 07/26/23 07/26/23 History gram/dose oral powder (Miralax) sodium phosphates 19 gram-7 118 ml RI DAILYP PRN Constipation 07/26/23 07/26/23 History gram/118 mL enema (Fleet Enema) New Prescriptions to Start Prescriptions: Allergies Allergy/AdvReac Type Severity Reaction Status Date / Time metoclopramide [From REGLAN] Allergy Unknown Unknown Verified 07/26/23 17:17 allergy reaction Exam Data for Last 24 hours Vital signs and Labs for Last 24 Hours: Temp Pulse Resp BP Pulse Ox O2 Del Method O2 Flow Rate 97.9 F 87 18 163/85 H 99 Room Air 1 07/26/23 15:49 07/26/23 15:49 07/26/23 15:49 07/26/23 15:49 07/26/23 15:49 07/26/23 15:49 07/26/23 13:30 Laboratory Results - last 24 hr 07/26/23 08:40: WBC 2.4 L, RBC 2.43 L, Hgb 8.1 L, Hct 25.5 L, MCV 105.1 H, MCH 33.1 H, MCHC 31.5 L, RDW 15.0, Plt Count 129 L, MPV 9.0, Neut % (Auto) 68.8, Lymph % (Auto) 22.3, [place] % (Auto) 7.5, Eos % (Auto) 1.3, Baso % (Auto) 0.1, Neut # (Auto) 1.7 L, Lymph # (Auto) 0.5 L, [place] # (Auto) 0.2, Eos # (Auto) 0.0, Baso # (Auto) 0.0, PT 11.3, INR 1.05, Sodium 136, Potassium 4.2, Chloride 99, Carbon Dioxide 30, Anion Gap 11.2, BUN 42 H, Creatinine 1.20 H, Estimated Creat Clear 30, Estimated GFR 44 L, Est GFR ( Amer) 53 L, Glucose 103 H, Calcium 9.3 I & O for Last 24 hours: Intake & Output 07/23/23 07/24/23 07/25/23 07/26/23 23:59 23:59 23:59 23:59 Weight 51.795 kg Constitutional Constitutional: no acute distress, thin, chronically ill appearing and cooperative *Routine HEENT Exam Head: Present normocephalic Eye: Present EOMI and PERRL ENT: Present mucous membranes moist *Routine Neck Exam Neck: Present supple; Absent lymphadenopathy *Routine Respiratory Exam Respiratory: Present prolonged expiratory phase; Absent rhonchi, wheezes or crackles *Routine Cardiovascular Exam Cardiovascular: Present RRR and murmur *Routine Abdominal Exam Abdominal: Present soft and normoactive bowel sounds; Absent tenderness *Routine Rectal Exam Rectal:: deferred *Routine Genitalia Exam Genitalia:: deferred *Routine Extremities Exam Extremities: Absent cyanosis, clubbing or edema *Routine Skin Exam Skin: Present warm; Absent rash *Routine Neurological Exam Neurological: Present alert, oriented X3 and moving all extremities; Absent altered mental status Comments: Visually impaired, does not make eye contact Assessment and Plan *Assessment and plan (1) Severe mitral valve regurgitation: Status: Chronic Category: Medical Code(s): I34.0 - Nonrheumatic mitral (valve) insufficiency (2) Anemia: Status: Chronic Qualifiers: Anemia type: unspecified type Qualified Code(s): D64.9 - Anemia, unspecified Category: Medical Code(s): D64.9 - Anemia, unspecified (3) COPD (chronic obstructive pulmonary disease): Status: Chronic Qualifiers: COPD type: unspecified COPD Qualified Code(s): J44.9 - Chronic obstructive pulmonary disease, unspecified Category: Medical Code(s): J44.9 - Chronic obstructive pulmonary disease, unspecified (4) CHF (congestive heart failure): Status: Chronic Qualifiers: Heart failure type: end stage Qualified Code(s): I50.84 - End stage heart failure Category: Medical Code(s): I50.9 - Heart failure, unspecified (5) Pulmonary hypertension: Status: Chronic Category: Medical Code(s): I27.20 - Pulmonary hypertension, unspecified (6) Tobacco abuse: Status: Chronic Category: Medical Code(s): Z72.0 - Tobacco use (7) HTN (hypertension): Status: Chronic Qualifiers: Hypertension type: essential hypertension Qualified Code(s): I10 - Essential (primary) hypertension Category: Medical Code(s): I10 - Essential (primary) hypertension (8) CAD (coronary artery disease): Status: Chronic Qualifiers: Associated angina: with other forms of angina Coronary Disease-Associated Artery/Lesion type: rincon artery [place] vs. transplanted heart: rincon heart Qualified Code(s): I25.118 - Atherosclerotic heart disease of rincon coronary artery with other forms of angina pectoris Category: Medical Code(s): I25.10 - Atherosclerotic heart disease of rincon coronary artery without angina pectoris (9) HLD (hyperlipidemia): Status: Chronic Qualifiers: Hyperlipidemia type: mixed hyperlipidemia Qualified Code(s): E78.2 - Mixed hyperlipidemia Category: Medical Code(s): E78.5 - Hyperlipidemia, unspecified (10) History of [place] (myocardial infarction): Status: Chronic Category: Medical Code(s): I25.2 - Old myocardial infarction (11) Hypothyroidism: Status: Chronic Qualifiers: Hypothyroidism type: acquired Qualified Code(s): E03.9 - Hypothyroidism, unspecified Category: Medical Code(s): E03.9 - Hypothyroidism, unspecified Plan This is a 78-year-old female with extensive past medical history of tobacco use, hypertension, COPD, CHF, severe mitral valve regurgitation, among other conditions. Was brought in for outpatient RACHEL today with cardiology. Noted to have hemoptysis after procedure. Cardiology discussed case with medicine, requested admission for monitoring overnight and serial labs given severe anemia and concern for irritation of esophagus. Medicine agreed to admit for further management. Hemodynamically stable. Hemoglobin of 8 on admission. On room air. Plan for further goals of care discussion in the morning. Problems addressed as follows: Esophageal irritation/bleed Microcytic anemia - status post RACHEL, having chest/esophageal pain. Noted to have severe anemia with hemoglobin of 8, white cell count of 2.5. Repeat CBC ordered for the morning. Holding anticoagulation. -Initiate pantoprazole 40 mg twice daily, sucralfate ACHS, GI cocktail x 1. -No active signs of hematemesis or instability on initial assessment. -Personally reviewed CT of chest and neck, no air in mediastinum or subcutaneous emphysema. Does have concern for spiculated nodules in right upper lung however, highly suspicious given her smoking history. -Transfusion threshold hemoglobin less than 7 Severe mitral regurgitation Heart failure preserved ejection fraction -Cardiology consulted, per assistance care. Will have further goals of given her high risk status for surgery. Patient open to considering hospice again. -Will continue for 91 mg daily, Lasix 60 daily, isosorbide 30 mg daily, spironolactone 25 mg daily. -Further management pending formal RACHEL results Chronic pain and mood disorder Sleep disorder -Continue home medications including trazodone 100 mg nightly for sleep, ropinirole 0.25 mg twice daily for restless leg, Paxil 20 mg daily, oxcarbazepine 300 mg twice daily, melatonin 6 mg nightly -Continue gabapentin 100 mg 3 times a day and hydrocodone 1 tablet every 6 hours as needed for pain -buspirone 30 mg twice daily, Continue Cymbalta 30mg daily Hypothyroid: Can levothyroxine 50 mcg daily DNR Cardiac diet Holding anticoagulation in the setting of possible esophageal irritation/bleed.
--- NOTE | 2023-07-26 18:24 | PC.NURSE ---
aox4, patient reports that see is legally blind. received prn norco and gi cocktail for esophageal pain with good effectiveness. she is not requiring o2 support. x1 assist to the restroom r/t visual impairment.
[2023-07-26] MEDS: IPRATROPIUM/ALBUTEROL 3 ML NEB IH (18:44)
[2023-07-26] MEDS: ROPINIROLE HCL 0.25 MG TABLET PO (21:10)
[2023-07-26] MEDS: MELATONIN 5MG TABLET 5 MG PO (21:10)
[2023-07-26] MEDS: BUSPIRONE HCL 10 MG TABLET 30 MG PO (21:11)
[2023-07-26] MEDS: GABAPENTIN 100MG CAPSULE 100 MG PO (21:11)
[2023-07-26] MEDS: PANTOPRAZOLE 40MG VIAL 40 MG IV (21:11)
[2023-07-26] MEDS: TRAZODONE 50MG TABLET 100 MG PO (21:11)
[2023-07-26] MEDS: SENNA 8.6MG TABLET 17.1999999999999993 MG PO (21:11)
[2023-07-26] MEDS: LATANOPROST 0.005% OPTH SOLN 2.5ML OP (21:12)
[2023-07-27] VITALS: PULSE 90
[2023-07-27 04:00] VITALS: BP 124/54; PULSE 75; RESP 16; TEMP 37.3; O2SAT 92; BMI 22.6
[2023-07-27] MEDS: HYDROCODONE/APAP 5/325 MG TABLET 1 TAB PO ×2 (04:02→10:17)
[2023-07-27] MEDS: ACETAMINOPHEN 500MG TAB 500 MG PO (05:39)
[2023-07-27] MEDS: SUCRALFATE 1GM/10ML SUSP UDC 1 GM PO ×2 (05:43→12:01)
[2023-07-27 05:45] VITALS: PULSE 78; PULSE 80; O2SAT 90
[2023-07-27] MEDS: IPRATROPIUM/ALBUTEROL 3 ML NEB IH (05:45)
[2023-07-27 05:57] VITALS: PULSE 80
[2023-07-27] MEDS: LEVOTHYROXINE 50MCG (0.05MG) TAB 50 MCG PO (06:44)
[2023-07-27 06:51] LABS: Basophils % 0.1 % (0.1-2.0); Eosinophils % 1.6 % (0.1-12.0); Lymphocytes # 0.7 K/mm3 (0.7-4.5); Lymphocytes % 28.2 % (10-50); Mean Corpuscular HGB Conc 35.6 g/dL (31.8-35.4); Mean Corpuscular Hemoglobin 36.9 pg (27.0-31.2); Mean Corpuscular Volume 103.9 fl (81-99); Mean Platelet Volume 8.2 fl (7.4-10.4); Monocytes # 0.2 K/mm3 (0.1-1.0); Monocytes % 6.5 % (1.7-9.3); Neutrophils # 1.6 K/mm3 (1.8-7.8); Neutrophils % 63.6 % (37.0-80.0); Platelet Count 119 K/mm3 (142-424); Red Cell Distribution Width 14.7 % (11.5-17.5); White Blood Count 2.5 K/mm3 (4.8-10.8)
[2023-07-27 06:59] LABS: Hemoglobin 9.6 g/dL (12.2-16.2)
[2023-07-27 07:06] LABS: Chloride 101 mmol/L (98-107); Sodium 132 mmol/L (136-145)
[2023-07-27 07:08] LABS: Blood Urea Nitrogen 28 mg/dl (7-17); Creatinine Clearance Estimated 39 mL/min (50-200); Estimated Glomerular Filt Rate 61 ml/min (>60); GFR (African American) 73 ML/MIN (>60)
[2023-07-27 07:09] LABS: Alanine Aminotransferase 14 U/L (12-78); Albumin Level 3.2 g/dl (3.5-5.0); Albumin/Globulin Ratio 1.3 (1.1-1.8); Alkaline Phosphatase 79 U/L (38-126); Aspartate Amino Transferase 25 U/L (14-36); Bilirubin,Total 0.3 mg/dl (0.2-1.3); Calcium 8.6 mg/dl (8.4-10.2); Carbon Dioxide 32 mmol/L (22.0-30.0); Globulin 2.5 g/dL (1.3-3.2); Glucose 74 mg/dl (74-100); Magnesium 1.9 mg/dl (1.6-2.3); Total Protein,Serum 5.7 g/dl (6.3-8.2)
--- NOTE | 2023-07-27 07:32 | P.DS_ITS ---
General Admission date:: 07/26/23 Discharge date: 07/27/23 HPI HPI HPI: Ms. Veloz is a 78-year-old female with history of transfusion dependent anemia, severe mitral regurgitation, hyperlipidemia, CHF, hypertension, carotid artery stenosis, COPD, GERD, and tobacco dependence. Presented as an outpatient for elective RACHEL to evaluate her mitral valve disease due to frequent episodes of syncope and chest discomfort. Procedure tolerated well but noted to have hemoptysis and some hematemesis after completing procedure. CT of chest and neck were obtained that showed no free air. Labs however showed significant anemia with hemoglobin of 8. Imaging also noted to have spiculated lung nodules. Medicine was consulted to admit patient for monitoring overnight, serial hemoglobin in the morning, and treatment of esophageal pain. Medicine agreed to admit for further management. On evaluation, patient stable on room air. Further history obtained showing that she has had severe mitral regurgitation for many years. Previously saw cardiology at who recommended against surgery due to her comorbidities and high risk procedure. 3 years ago patient was placed on hospice for a year because of her valvular disease and was discharged from hospice due to surviving for over a year. Has subsequently gone blind, lives in a prison in [place] at this time. Is concerned because of more frequent syncopal events happening several times a month. Currently complains of chest discomfort when she swallows, would like to have something to drink. Denies any nausea or vomiting. Previously transfusion dependent for her anemia, last transfusion more than 6 months ago to her recollection. Does have a port in place because she is a difficult venipuncture access patient. Patient is afebrile and hemodynamically stable. Denies any clemente dizziness at this time. States her sons are her surrogate decision makers. Discussion about goals of care, would like to be DNR. Also reports history of esophageal stricture, was seen by GI in [place] recently. Question as to whether her esophagus was stretched. Will attempt to get records from Dr. French with GI in [place]. Hospital Course Hospital Course Hospital Course: This is a 78-year-old female with extensive past medical history of tobacco use, hypertension, COPD, CHF, severe mitral valve regurgitation, among other conditions. Was brought in for outpatient RACHEL today with cardiology. Noted to have hemoptysis after procedure. Cardiology discussed case with medicine, requested admission for monitoring overnight and serial labs given severe anemia and concern for irritation of esophagus. Medicine agreed to admit for further management. Patient remained hemodynamically stable. Hemoglobin improved by morning, no overt signs of bleeding or hemorrhage. Stable for discharge back to prison. Extensive discussion with patient about goals of care. Given her severe mitral disease, new findings of lung nodules, multiple comorbidities, patient interested in reconsulting hospice. Recommend hospice consultation after returning back to nursing facility to evaluate for admission. Stable for discharge. Problems addressed as follows during admission: Esophageal irritation/bleed Microcytic anemia - status post RACHEL, having chest/esophageal pain. Noted to have severe anemia with hemoglobin of 8, white cell count of 2.5. Repeat CBC the following morning with stable white count of 2.5, hemoglobin 9.6. Platelets 119. No overt signs of bleeding. Held her aspirin, no anticoagulation during admission. Treated with pantoprazole twice daily during admission, initiated sucralfate ACHS. Continue sucralfate at discharge and resume home esomeprazole. Personally reviewed CT of chest and neck, no air in mediastinum or subcutaneous emphysema. Does have concern for spiculated nodules in right upper lung however, highly suspicious given her smoking history. Will refer to pulmonology for evaluation and discussion about further management. If patient chooses to proceed with hospice admission, would recommend canceling pulmonology appointment. Severe mitral regurgitation Heart failure preserved ejection fraction -Cardiology consulted.assisted with care. RACHEL performed on day of admission. Has severe mitral valve regurgitation. Recommend continuing her home medications however for blood pressure and fluid management. Patient appears stable at this time. No other adjustments. Would be a complicated surgical p atient. Per goals of care, has been seen for this condition before and told that she is not a surgical candidate by cardiology at . That was over 3 years ago. Was previously on hospice for her heart disease. Is interested in resuming hospice. Chronic pain and mood disorder Sleep disorder -Continue home medications including trazodone 100 mg nightly for sleep, ropinirole 0.25 mg twice daily for restless leg, Paxil 20 mg daily, oxcarbazepine 300 mg twice daily, melatonin 6 mg nightly -Continue gabapentin 100 mg 3 times a day and hydrocodone 1 tablet every 6 hours as needed for pain -buspirone 30 mg twice daily, Continue Cymbalta 30mg daily Hypothyroid: Continue levothyroxine 50 mcg daily Stable for discharge to her nursing facility. Recommend hospice consult after arrival. Spent 30 minutes in discharge counseling, documentation, chart review, and direct care with patient. Exam Data for Last 24 hours Vital signs and Labs for Last 24 Hours: Temp Pulse Resp BP Pulse Ox O2 Del Method O2 Flow Rate 99.2 F 80 16 124/54 L 90 L Nasal Cannula 2 07/27/23 04:00 07/27/23 05:57 07/27/23 04:00 07/27/23 04:00 07/27/23 05:45 07/27/23 05:45 07/27/23 05:45 Laboratory Results - last 24 hr 07/26/23 08:40: WBC 2.4 L, RBC 2.43 L, Hgb 8.1 L, Hct 25.5 L, MCV 105.1 H, MCH 33.1 H, MCHC 31.5 L, RDW 15.0, Plt Count 129 L, MPV 9.0, Neut % (Auto) 68.8, Lymph % (Auto) 22.3, Harrison % (Auto) 7.5, Eos % (Auto) 1.3, Baso % (Auto) 0.1, Neut # (Auto) 1.7 L, Lymph # (Auto) 0.5 L, Harrison # (Auto) 0.2, Eos # (Auto) 0.0, Baso # (Auto) 0.0, PT 11.3, INR 1.05, Sodium 136, Potassium 4.2, Chloride 99, Carbon Dioxide 30, Anion Gap 11.2, BUN 42 H, Creatinine 1.20 H, Estimated Creat Clear 30, Estimated GFR 44 L, Est GFR ( Amer) 53 L, Glucose 103 H, Calcium 9.3 07/27/23 05:30: WBC 2.5 L, RBC 2.60 L, Hgb 9.6 L D, Hct 27.0 L, MCV 103.9 H, MCH 36.9 H, MCHC 35.6 H, RDW 14.7, Plt Count 119 L, MPV 8.2, Neut % (Auto) 63.6, Lymph % (Auto) 28.2, Harrison % (Auto) 6.5, Eos % (Auto) 1.6, Baso % (Auto) 0.1, Neut # (Auto) 1.6 L, Lymph # (Auto) 0.7, Harrison # (Auto) 0.2, Eos # (Auto) 0.0, Baso # (Auto) 0.0, Sodium 132 L, Potassium 4.0, Chloride 101, Carbon Dioxide 32 H, Anion Gap 3.0 L, BUN 28 H D, Creatinine 0.90 D, Estimated Creat Clear 39, Estimated GFR 61, Est GFR ( Amer) 73 D, Glucose 74 D, Calcium 8.6, Magnesium 1.9, Total Bilirubin 0.3, AST 25, ALT 14, Alkaline Phosphatase 79, Total Protein 5.7 L, Albumin 3.2 L, Globulin 2.5, Albumin/Globulin Ratio 1.3 I & O for Last 24 hours: Intake & Output 07/24/23 07/25/23 07/26/23 07/27/23 23:59 23:59 23:59 23:59 Intake Total 340 / 520 180 / 180 Output Total 0 / 0 0 / 0 Balance 340 / 520 180 / 180 Weight 51.795 kg 52.299 kg Constitutional Constitutional: no acute distress, average body habitus, chronically ill appearing and cooperative *Routine HEENT Exam Head: Present normocephalic Eye: Present EOMI and PERRL ENT: Present mucous membranes moist Comments: vision impaired *Routine Neck Exam Neck: Present supple and lymphadenopathy Comments: Bruit on right side *Routine Respiratory Exam Respiratory: Present CTA bilaterally; Absent rhonchi, wheezes or crackles *Routine Cardiovascular Exam Cardiovascular: Present RRR *Routine Abdominal Exam Abdominal: Present soft and normoactive bowel sounds; Absent tenderness *Routine Rectal Exam Patient deferred: visual exam *Routine Exam Patient deferred: external exam *Routine Extremities Exam Extremities: Absent cyanosis, clubbing or edema *Routine Skin Exam Skin: Present warm; Absent rash *Routine Neurological Exam Neurological: Present alert, oriented X3 and moving all extremities; Absent altered mental status Comments: Visually impaired Results Data Completed and Pending Labs on day of discharge: Labs from last 24 hours 07/27/23 07/26/23 05:30 08:40 WBC 2.5 L 2.4 L RBC 2.60 L 2.43 L Hgb 9.6 L D 8.1 L Hct 27.0 L 25.5 L MCV 103.9 H 105.1 H MCH 36.9 H 33.1 H MCHC 35.6 H 31.5 L RDW 14.7 15.0 Plt Count 119 L 129 L MPV 8.2 9.0 Neut % (Auto) 63.6 68.8 Lymph % (Auto) 28.2 22.3 Harrison % (Auto) 6.5 7.5 Eos % (Auto) 1.6 1.3 Baso % (Auto) 0.1 0.1 Neut # (Auto) 1.6 L 1.7 L Lymph # (Auto) 0.7 0.5 L Harrison # (Auto) 0.2 0.2 Eos # (Auto) 0.0 0.0 Baso # (Auto) 0.0 0.0 PT 11.3 INR 1.05 Sodium 132 L 136 Potassium 4.0 4.2 Chloride 101 99 Carbon Dioxide 32 H 30 Anion Gap 3.0 L 11.2 BUN 28 H D 42 H Creatinine 0.90 D 1.20 H Estimated Creat Clear 39 30 Estimated GFR 61 44 L Est GFR ( Amer) 73 D 53 L Glucose 74 D 103 H Calcium 8.6 9.3 Magnesium 1.9 Total Bilirubin 0.3 AST 25 ALT 14 Alkaline Phosphatase 79 Total Protein 5.7 L Albumin 3.2 L Globulin 2.5 Albumin/Globulin Ratio 1.3 DS: Diagnosis Discharge Diagnosis (1) Severe mitral valve regurgitation: Status: Chronic Code(s): I34.0 - Nonrheumatic mitral (valve) insufficiency (2) Anemia: Status: Chronic Code(s): D64.9 - Anemia, unspecified Qualifiers: Anemia type: unspecified type Qualified Code(s): D64.9 - Anemia, unspecified (3) COPD (chronic obstructive pulmonary disease): Status: Chronic Code(s): J44.9 - Chronic obstructive pulmonary disease, unspecified Qualifiers: COPD type: unspecified COPD Qualified Code(s): J44.9 - Chronic obstructive pulmonary disease, unspecified (4) CHF (congestive heart failure): Status: Chronic Code(s): I50.9 - Heart failure, unspecified Qualifiers: Heart failure type: end stage Qualified Code(s): I50.84 - End stage heart failure (5) Pulmonary hypertension: Status: Chronic Code(s): I27.20 - Pulmonary hypertension, unspecified (6) Tobacco abuse: Status: Chronic Code(s): Z72.0 - Tobacco use (7) HTN (hypertension): Status: Chronic Code(s): I10 - Essential (primary) hypertension Qualifiers: Hypertension type: essential hypertension Qualified Code(s): I10 - Essential (primary) hypertension (8) CAD (coronary artery disease): Status: Chronic Code(s): I25.10 - Atherosclerotic heart disease of [place] coronary artery without angina pectoris Qualifiers: Associated angina: with other forms of angina Coronary Disease- Associated Artery/Lesion type: [place] artery [place] vs. transplanted heart: [place] heart Qualified Code(s): I25.118 - Atherosclerotic heart disease of [place] coronary artery with other forms of angina pectoris (9) HLD (hyperlipidemia): Status: Chronic Code(s): E78.5 - Hyperlipidemia, unspecified Qualifiers: Hyperlipidemia type: mixed hyperlipidemia Qualified Code(s): E78.2 - Mixed hyperlipidemia (10) History of [place] (myocardial infarction): Status: Chronic Code(s): I25.2 - Old myocardial infarction (11) Hypothyroidism: Status: Chronic Code(s): E03.9 - Hypothyroidism, unspecified Qualifiers: Hypothyroidism type: acquired Qualified Code(s): E03.9 - Hypothyroidism, unspecified Meds Home Medications and Allergies Home Medications Medication Instructions Recorded Confirmed Type sennosides 8.6 mg capsule 17.2 mg PO Q8HP PRN Constipation 05/12/20 07/26/23 History tizanidine 4 mg tablet 4 mg PO Q12HP PRN Muscle Spasm 05/12/20 07/26/23 History trazodone 100 mg tablet 100 mg PO HS SLEEP 05/12/20 07/26/23 History gabapentin 100 mg capsule 100 mg PO TID neuropathy #90 caps 04/06/21 07/26/23 Rx acetaminophen 500 mg tablet 500 mg PO Q6HP PRN Mild Pain 06/10/21 07/26/23 History (Scale Score 1-4) buspirone 15 mg tablet 30 mg PO BID Anxiety 05/17/22 07/26/23 History fluticasone furoate 27.5 1 spray intranasal DAILY Allergy 05/17/22 07/26/23 History mcg/actuation nasal Symptoms spray,suspension duloxetine 30 mg capsule,delayed 30 mg PO DAILY Depression 05/22/23 07/26/23 History release esomeprazole magnesium 20 mg 20 mg PO DAILY GERD 06/12/23 07/26/23 History capsule,delayed release isosorbide mononitrate 30 mg 30 mg PO DAILY Chest Pain 06/12/23 07/26/23 History tablet,extended release 24 hr oxcarbazepine 300 mg tablet 300 mg PO BID Anxiety 06/12/23 07/26/23 History ropinirole 0.25 mg tablet 0.25 mg PO BID Restless leg 06/12/23 07/26/23 History spironolactone 25 mg tablet 25 mg PO DAILY Edema 06/12/23 07/26/23 History tiotropium bromide 2.5 1 puff inhalation DAILY Copd 06/12/23 07/26/23 History mcg/actuation mist for inhalation (Spiriva Respimat) bisacodyl 10 mg rectal suppository 10 mg WI DAILYP PRN Constipation 07/26/23 07/26/23 History (Dulcolax (bisacodyl)) brimonidine 0.15 % eye drops 1 drp ophthalmic (eye) BID Glaucoma 07/26/23 07/26/23 History cyanocobalamin (vitamin B-12) 1,000 mcg IM MONTHLY Supplement 07/26/23 07/26/23 History 1,000 mcg/mL injection solution ferrous sulfate 325 mg (65 mg 325 mg PO BID Supplement 07/26/23 07/26/23 History iron) tablet (Iron (ferrous sulfate)) furosemide 20 mg tablet 60 mg PO DAILY Edema 07/26/23 07/26/23 History hydrocodone 5 mg-acetaminophen 325 1 tab PO Q6HP PRN Moderate Pain 07/26/23 07/26/23 History mg tablet (Scale Score 5-6) levothyroxine 50 mcg tablet 50 mcg PO DAILYDM THYROID 07/26/23 07/26/23 History lidocaine 4 % topical patch 1 patch topical BID LOWER BACK PAIN 07/26/23 07/26/23 History lidocaine-prilocaine 2.5 %-2.5 % 1 applic topical Q12HP PRN RIGHT 07/26/23 07/26/23 History topical cream CHEST PAIN melatonin 3 mg tablet 6 mg PO HS Insomnia 07/26/23 07/26/23 History menthol 4 % topical gel (Biofreeze 1 applic topical BID MILD PAIN 07/26/23 07/26/23 History (menthol)) methylcellulose (laxative) 500 mg 1,000 mg PO DAILY Constipation 07/26/23 07/26/23 History tablet (Citrucel) naloxegol 12.5 mg tablet (Movantik) 12.5 mg PO DAILY Constipation 07/26/23 History netarsudil 0.02 %-latanoprost 2 drp ophthalmic (eye) DAILY 07/26/23 07/26/23 History 0.005 % eye drops (Rocklatan) Glaucoma paroxetine HCl 20 mg tablet (Paxil) 20 mg PO DAILY Depression 07/26/23 07/26/23 History polyethylene glycol 3350 17 17 g PO DAILY Constipation 07/26/23 07/26/23 History gram/dose oral powder (Miralax) sodium phosphates 19 gram-7 118 ml WI DAILYP PRN Constipation 07/26/23 07/26/23 History gram/118 mL enema (Fleet Enema) ipratropium 0.5 mg-albuterol 3 mg 3 ml inhalation Q6RT 30 days #180 07/27/23 Rx (2.5 mg base)/3 mL nebulization mL soln latanoprost 0.005 % eye drops 0 drp ophthalmic (eye) HS 30 days 07/27/23 Rx #0 mL melatonin 5 mg tablet 5 mg PO HS 30 days #30 tabs 07/27/23 Rx sucralfate 100 mg/mL oral 1 g (10 mL) PO ACHS 5 days #200 mL 07/27/23 Rx suspension New Prescriptions to Start Prescriptions: ipratropium-albuterol Telly Carballo sucralfaTelly Benoit Allergies Allergy/AdvReac Type Severity Reaction Status Date / Time metoclopramide [From REGLAN] Allergy Unknown Unknown Verified 07/26/23 17:17 allergy reaction Discharge Plan Disposition Patient Disposition: [facility] Condition: Fair Discharge Order Discharge Orders: Discharge Order (Routine); Ordered 07/27/23 Ordered By: Telly Carballo Follow up Plan Follow up with: Ron Strickland MD [Physician] - Enter time for follow up (pulmonary nodules, COPD) Mulugeta Pollard MD [Staff Physician] - Enter time for follow up Prescriptions/Medication Reconciliation: New ipratropium-albuterol 0.5 mg-3 mg(2.5 mg base)/3 mL Solution For Nebulization 3 ml inhalation Q6RT 30 Days Qty: 180 0RF sucralfate 100 mg/mL Suspension 1 g PO ACHS 5 Days Qty: 200 0RF latanoprost 0.005 % Drops 0 drp ophthalmic (eye) HS 30 Days Qty: 0 0RF melatonin 5 mg Tablet 5 mg PO HS 30 Days Qty: 30 0RF Continued buspirone 15 mg tablet 30 mg PO BID fluticasone furoate 27.5 mcg/actuation spray,suspension 1 spray intranasal DAILY Rx Instructions: into each nostril isosorbide mononitrate 30 mg tablet extended release 24 hr 30 mg PO DAILY oxcarbazepine 300 mg tablet 300 mg PO BID spironolactone 25 mg tablet 25 mg PO DAILY esomeprazole magnesium 20 mg capsule,delayed release(DR/EC) 20 mg PO DAILY Spiriva Respimat 2.5 mcg/actuation mist 1 puff inhalation DAILY ropinirole 0.25 mg tablet 0.25 mg PO BID duloxetine 30 mg capsule,delayed release(DR/EC) 30 mg PO DAILY gabapentin 100 mg capsule 100 mg PO TID Qty: 90 5RF tizanidine 4 MG tablet 4 mg PO Q12HP PRN (Reason: Muscle Spasm) sennosides 8.6 MG capsule 17.2 mg PO Q8HP PRN (Reason: Constipation) trazodone 100 MG tablet 100 mg PO HS acetaminophen 500 MG tablet 500 mg PO Q6HP PRN (Reason: Mild Pain (Scale Score 1-4)) lidocaine 4 % Adhesive Patch,Medicated 1 patch TOPICAL BID hydrocodone-acetaminophen 5-325 mg tablet 1 tab PO Q6HP PRN (Reason: Moderate Pain (Scale Score 5-6)) melatonin 3 mg Tablet 6 mg PO HS lidocaine-prilocaine 2.5-2.5 % Cream 1 applic topical Q12HP PRN (Reason: RIGHT CHEST PAIN) levothyroxine 50 mcg Tablet 50 mcg PO DAILYDM bisacodyl [Dulcolax (bisacodyl)] 10 mg Suppository 10 mg WI DAILYP PRN (Reason: Constipation) paroxetine HCl [Paxil] 20 mg Tablet 20 mg PO DAILY cyanocobalamin (vitamin B-12) 1,000 mcg/mL Solution 1,000 mcg IM MONTHLY ferrous sulfate [Iron (ferrous sulfate)] 325 mg (65 mg iron) Tablet 325 mg PO BID Citrucel 500 mg Tablet 1,000 mg PO DAILY Fleet Enema 19-7 gram/118 mL Enema 118 ml WI DAILYP PRN (Reason: Constipation) furosemide 20 mg Tablet 60 mg PO DAILY polyethylene glycol 3350 [Miralax] 17 gram/dose Powder 17 g PO DAILY brimonidine 0.15 % Drops 1 drp OPHTHALMIC (EYE) BID Biofreeze (menthol) 4 % Gel 1 applic TOPICAL BID Movantik 12.5 mg Tablet 12.5 mg PO DAILY Rx Instructions: must be taken on empty stomach; no food 1 hr after or 2-3 hrs before dose Rocklatan 0.02-0.005 % Drops 2 drp OPHTHALMIC (EYE) DAILY Discontinued aspirin 81 mg Tablet,Chewable 81 mg PO DAILY Problem Reconciliation Problems Reviewed?: Yes Patient Discharge Instructions ACTIVITY: Continue current activity DIET: continue same diet Providers Primary Care Provider: Provider,Referral Admit Provider: Telly Carballo Attending Provider: Telly Carballo
[2023-07-27 08:00] VITALS: BP 124/58; PULSE 65; PULSE 70; RESP 18; TEMP 37.4; O2SAT 97
--- NOTE | 2023-07-27 08:37 | SW/DCPLANNER ---
Addendum entered by Zahira Mcgarry 07/27/23 13:44: I have updated Molly w/ [facility] and Anette w/ [facility] that patient has discharged. Addendum entered by Zahira Mcgarry 07/27/23 10:18: Patient information will be faxed to [facility] to follow up w/ patient once she returns to [facility] today: Molly has been updated. Original Note: This patient currently resides at [facility] level of care. I have faxed updated information to Molly at [facility] and notified her that patient will return today.
[2023-07-27] MEDS: DULOXETINE 30MG CAPSULE.DR 30 MG PO (09:06)
[2023-07-27] MEDS: ISOSORBIDE MONO 30MG TAB.ER.24H 30 MG PO (09:06)
[2023-07-27] MEDS: BUSPIRONE HCL 10 MG TABLET 30 MG PO (09:06)
[2023-07-27] MEDS: GABAPENTIN 100MG CAPSULE 100 MG PO ×2 (09:07→12:04)
[2023-07-27] MEDS: PANTOPRAZOLE 40MG VIAL 40 MG IV (09:07)
[2023-07-27] MEDS: ROPINIROLE HCL 0.25 MG TABLET PO (09:07)
[2023-07-27] MEDS: OXcarbazepine 300MG TABLET 300 MG PO (09:07)
[2023-07-27] MEDS: SPIRONOLACTONE 25MG TABLET 25 MG PO (09:07)
[2023-07-27] MEDS: SODIUM CHLORIDE 0.9% 10ML VIAL 10 ML IV (09:08)
--- NOTE | 2023-07-27 11:12 | P.CONCA_ITS ---
History of Present Illness History of Present Illness Consult date: 07/27/23 Requesting physician: Telly Carballo Consult reason: chest pain Chief complaint: Chest pain and bleeding History of present illness: 78-year-old white female established patient of our office with history as outlined in her chart. She is blind, was discharged from hospice for valvular heart failure by [facility] in the past and is currently a SNF patient. Seen was seen in our office recently with worsening dyspnea on exertion and near syncope. She expressed she would like evaluation of her known severe mitral valve disease. She underwent RACHEL yesterday. The procedure was successful but noted ample blood on scope once removed. She underwent stat CT chest and neck which indicate no perforation or active bleeding. She was admitted overnight for observation. This morning she reports mild ongoing tenderness in her throat but blood counts are stable and abdomen is soft. She does report occasional hemoptysis at home. Her CT scan yesterday indicated to right upper lobe spiculated nodules concerning for neoplasm. [facility] Disclaimer: The information contained in this section may have been updated after the patient was seen, as this information can be updated by other users. Medical History Atherosclerotic heart disease of [place] coronary artery without angina pectoris Carotid bruit Dysphagia following cerebral infarction Dyspnea and respiratory abnormality Esophageal stricture Gastro-esophageal reflux disease without esophagitis Hypertension with goal to be determined Hypothyroidism Insomnia, unspecified Iron deficiency anemia, unspecified Low body mass index (BMI) Moderate mitral valve regurgitation Nicotine dependence, unspecified, uncomplicated Other specified anxiety disorders Polyneuropathy, unspecified Preop cardiovascular exam Recurrent falls Renal insufficiency Restless legs syndrome Surgical History H/O bilateral oophorectomy H/O hernia repair H/O: hysterectomy History of left hip replacement History of mandibular surgery Family History Other Family history of glaucoma Family history of myocardial infarction Stomach cancer Social History Smoking Status: Current every day smoker tobacco type: cigarettes packs per day: 1 second hand exposure: No alcohol intake: never substance use type: denies use current occupational status: disabled Travel in the last 8 weeks: Inside the [place] household members: none housing: detention current occupational exposures/hazards: No caffeine: Yes Review of Systems Constitutional Constitutional: Reports fatigue and Reports weakness Eyes Eyes: Denies loss of vision ENT Ears, Nose, Mouth, and Throat: Denies hearing loss and Denies vertigo *Cardiovascular Cardiovascular: Denies dyspnea and Denies syncope Comments: neck soreness *Respiratory Respiratory: Denies cough and Denies dyspnea *Gastrointestinal Gastrointestinal: Denies change in stool character, Denies nausea and Denies vomiting *Musculoskeletal Musculoskeletal: Denies muscle weakness Integumentary/Breasts Skin/Breast: Denies changing lesions *Neurologic Neurologic: Denies loss of vision, Denies syncope, Denies vertigo and Reports weakness Endocrine Endocrine: Reports fatigue Exam Data for Last 24 hours Vital signs and Labs for Last 24 Hours: Temp Pulse Resp BP Pulse Ox O2 Del Method O2 Flow Rate 99.4 F 70 18 124/58 L 97 Nasal Cannula 2 07/27/23 08:00 07/27/23 08:00 07/27/23 08:00 07/27/23 08:00 07/27/23 08:00 07/27/23 08:00 07/27/23 08:00 Laboratory Results - last 24 hr 07/27/23 05:30: WBC 2.5 L, RBC 2.60 L, Hgb 9.6 L D, Hct 27.0 L, MCV 103.9 H, MCH 36.9 H, MCHC 35.6 H, RDW 14.7, Plt Count 119 L, MPV 8.2, Neut % (Auto) 63.6, Lymph % (Auto) 28.2, [place] % (Auto) 6.5, Eos % (Auto) 1.6, Baso % (Auto) 0.1, Neut # (Auto) 1.6 L, Lymph # (Auto) 0.7, [place] # (Auto) 0.2, Eos # (Auto) 0.0, Baso # (Auto) 0.0, Sodium 132 L, Potassium 4.0, Chloride 101, Carbon Dioxide 32 H, Anion Gap 3.0 L, BUN 28 H D, Creatinine 0.90 D, Estimated Creat Clear 39, Estimated GFR 61, Est GFR ( Amer) 73 D, Glucose 74 D, Calcium 8.6, Magnesium 1.9, Total Bilirubin 0.3, AST 25, ALT 14, Alkaline Phosphatase 79, Total Protein 5.7 L, Albumin 3.2 L, Globulin 2.5, Albumin/Globulin Ratio 1.3 I & O for Last 24 hours: Intake & Output 07/24/23 07/25/23 07/26/23 07/27/23 23:59 23:59 23:59 23:59 Intake Total 340 / 520 240 / 240 Output Total 0 / 0 0 / 0 Balance 340 / 520 240 / 240 Weight 114 lb 3 oz 115 lb 4.8 oz Constitutional Constitutional: no acute distress and cooperative Comments: Frail in appearance. Blind *Routine HEENT Exam Comments: Blind *Routine Respiratory Exam Respiratory: Present CTA bilaterally; Absent accessory muscle use, wheezes or crackles *Routine Cardiovascular Exam Cardiovascular: Present RRR, Normal S1 and Normal S2; Absent murmur, gallop or rubs Comments: neck, chest, and abdomen are benign on inspection and palpation aside from chronic firm anterior lymphadenopathy noted on right *Routine Abdominal Exam Abdominal: Present soft; Absent tenderness *Routine Extremities Exam Extremities: Present pulses intact; Absent cyanosis or edema *Routine Skin Exam Skin: Present intact; Absent erythema or wounds *Routine Neurological Exam Neurological: Present alert and oriented X3 Routine Psychiatric Exam Psychiatric: Present cooperative Meds Home Medications and Allergies Home Medications Medication Instructions Recorded Confirmed Type sennosides 8.6 mg capsule 17.2 mg PO Q8HP PRN Constipation 05/12/20 07/26/23 History tizanidine 4 mg tablet 4 mg PO Q12HP PRN Muscle Spasm 05/12/20 07/26/23 History trazodone 100 mg tablet 100 mg PO HS SLEEP 05/12/20 07/26/23 History gabapentin 100 mg capsule 100 mg PO TID neuropathy #90 caps 04/06/21 07/26/23 Rx acetaminophen 500 mg tablet 500 mg PO Q6HP PRN Mild Pain 06/10/21 07/26/23 History (Scale Score 1-4) buspirone 15 mg tablet 30 mg PO BID Anxiety 05/17/22 07/26/23 History fluticasone furoate 27.5 1 spray intranasal DAILY Allergy 05/17/22 07/26/23 History mcg/actuation nasal Symptoms spray,suspension duloxetine 30 mg capsule,delayed 30 mg PO DAILY Depression 05/22/23 07/26/23 History release esomeprazole magnesium 20 mg 20 mg PO DAILY GERD 06/12/23 07/26/23 History capsule,delayed release isosorbide mononitrate 30 mg 30 mg PO DAILY Chest Pain 06/12/23 07/26/23 History tablet,extended release 24 hr oxcarbazepine 300 mg tablet 300 mg PO BID Anxiety 06/12/23 07/26/23 History ropinirole 0.25 mg tablet 0.25 mg PO BID Restless leg 06/12/23 07/26/23 History spironolactone 25 mg tablet 25 mg PO DAILY Edema 06/12/23 07/26/23 History tiotropium bromide 2.5 1 puff inhalation DAILY Copd 06/12/23 07/26/23 History mcg/actuation mist for inhalation (Spiriva Respimat) bisacodyl 10 mg rectal suppository 10 mg OK DAILYP PRN Constipation 07/26/23 07/26/23 History (Dulcolax (bisacodyl)) brimonidine 0.15 % eye drops 1 drp ophthalmic (eye) BID Glaucoma 07/26/23 07/26/23 History cyanocobalamin (vitamin B-12) 1,000 mcg IM MONTHLY Supplement 07/26/23 07/26/23 History 1,000 mcg/mL injection solution ferrous sulfate 325 mg (65 mg 325 mg PO BID Supplement 07/26/23 07/26/23 History iron) tablet (Iron (ferrous sulfate)) furosemide 20 mg tablet 60 mg PO DAILY Edema 07/26/23 07/26/23 History hydrocodone 5 mg-acetaminophen 325 1 tab PO Q6HP PRN Moderate Pain 07/26/23 07/26/23 History mg tablet (Scale Score 5-6) levothyroxine 50 mcg tablet 50 mcg PO DAILYDM THYROID 07/26/23 07/26/23 History lidocaine 4 % topical patch 1 patch topical BID LOWER BACK PAIN 07/26/23 07/26/23 History lidocaine-prilocaine 2.5 %-2.5 % 1 applic topical Q12HP PRN RIGHT 07/26/23 07/26/23 History topical cream CHEST PAIN melatonin 3 mg tablet 6 mg PO HS Insomnia 07/26/23 07/26/23 History menthol 4 % topical gel (Biofreeze 1 applic topical BID MILD PAIN 07/26/23 07/26/23 History (menthol)) methylcellulose (laxative) 500 mg 1,000 mg PO DAILY Constipation 07/26/23 07/26/23 History tablet (Citrucel) naloxegol 12.5 mg tablet (Movantik) 12.5 mg PO DAILY Constipation 07/26/23 07/26/23 History netarsudil 0.02 %-latanoprost 2 drp ophthalmic (eye) DAILY 07/26/23 07/26/23 History 0.005 % eye drops (Rocklatan) Glaucoma paroxetine HCl 20 mg tablet (Paxil) 20 mg PO DAILY Depression 07/26/23 07/26/23 History polyethylene glycol 3350 17 17 g PO DAILY Constipation 07/26/23 07/26/23 History gram/dose oral powder (Miralax) sodium phosphates 19 gram-7 118 ml OK DAILYP PRN Constipation 07/26/23 07/26/23 History gram/118 mL enema (Fleet Enema) ipratropium 0.5 mg-albuterol 3 mg 3 ml inhalation Q6RT 30 days #180 07/27/23 Rx (2.5 mg base)/3 mL nebulization mL soln latanoprost 0.005 % eye drops 0 drp ophthalmic (eye) HS 30 days 07/27/23 Rx #0 mL melatonin 5 mg tablet 5 mg PO HS 30 days #30 tabs 07/27/23 Rx sucralfate 100 mg/mL oral 1 g (10 mL) PO ACHS 5 days #200 mL 07/27/23 Rx suspension New Prescriptions to Start Prescriptions: ipratropium-albuterol Telly Carballo sucralfate Telly Carballo Allergies Allergy/AdvReac Type Severity Reaction Status Date / Time metoclopramide [From REGLAN] Allergy Unknown Unknown Verified 07/26/23 17:17 allergy reaction Assessment and Plan *Assessment and plan (1) Severe mitral valve regurgitation: Status: Chronic Category: Medical Code(s): I34.0 - Nonrheumatic mitral (valve) insufficiency (2) Anemia: Status: Chronic Qualifiers: Anemia type: unspecified type Qualified Code(s): D64.9 - Anemia, unspecified Category: Medical Code(s): D64.9 - Anemia, unspecified (3) COPD (chronic obstructive pulmonary disease): Status: Chronic Qualifiers: COPD type: unspecified COPD Qualified Code(s): J44.9 - Chronic obstructive pulmonary disease, unspecified Category: Medical Code(s): J44.9 - Chronic obstructive pulmonary disease, unspecified (4) CHF (congestive heart failure): Status: Chronic Qualifiers: Heart failure type: end stage Qualified Code(s): I50.84 - End stage heart failure Category: Medical Code(s): I50.9 - Heart failure, unspecified (5) Pulmonary hypertension: Status: Chronic Category: Medical Code(s): I27.20 - Pulmonary hypertension, unspecified (6) Tobacco abuse: Status: Chronic Category: Medical Code(s): Z72.0 - Tobacco use (7) HTN (hypertension): Status: Chronic Qualifiers: Hypertension type: essential hypertension Qualified Code(s): I10 - Essential (primary) hypertension Category: Medical Code(s): I10 - Essential (primary) hypertension (8) CAD (coronary artery disease): Status: Chronic Qualifiers: Associated angina: with other forms of angina Coronary Disease- Associated Artery/Lesion type: [place] artery [place] vs. transplanted heart: [place] heart Qualified Code(s): I25.118 - Atherosclerotic heart disease of [place] coronary artery with other forms of angina pectoris Category: Medical Code(s): I25.10 - Atherosclerotic heart disease of [place] coronary artery without angina pectoris (9) HLD (hyperlipidemia): Status: Chronic Qualifiers: Hyperlipidemia type: mixed hyperlipidemia Qualified Code(s): E78.2 - Mixed hyperlipidemia Category: Medical Code(s): E78.5 - Hyperlipidemia, unspecified (10) History of [place] (myocardial infarction): Status: Chronic Category: Medical Code(s): I25.2 - Old myocardial infarction (11) Hypothyroidism: Status: Chronic Qualifiers: Hypothyroidism type: acquired Qualified Code(s): E03.9 - Hypothyroidism, unspecified Category: Medical Code(s): E03.9 - Hypothyroidism, unspecified Plan Severe MR - not a candidate for surgical intervention or uli-clip at this time - she is well compensated/euvolemic - recommend ongoing fluid status monitoring - her petite size and sedentary lifestyle might allow her to compensate ok with severe MR. It is not necessarily a hospice scenario but she does warrant at [facility] SNF at this time. Multivessel CAD status post 3 prior [place] -CCS equals 0 -Sinus rhythm on EKG without acute ischemic changes -Hold antiplatelets in setting of recent hemoptysis -consider resuming beta-[place] and statins if tolerated, these were previously discontinued I believe due to hospice status Acute throat pain post RACHEL -CT neck and chest indicate no perforation or complication from the procedure. H/H stable -Patient has history of numerous esophageal dilations with esophageal thickening and esophagitis. She likely has acute inflammation from the procedure yesterday but do not suspect any more worrisome etiology at this time -Analgesics per primary service Hemoptysis, mild episodic -stable H/H -Noted at home and during RACHEL -Patient has history of chronic recurring anemia and has new diagnosis spiculated lung nodules noted on CT imaging here which may be the etiology -Patient will be referred to heme-onc outpatient Spiculated lung nodules, right upper lobe -Patient has history of hospice care, she is DNR -Recommend outpatient referral to hematology and pulmonology for management recommendations Visually impaired -Complicates care, she is a detention resident Patient was kept overnight for questionable procedural complication. This appea rs stable and no further inpatient cardiac workup warranted at this time. She needs follow-up in our office 1 to 2 weeks postdischarge. Please advise if we can be of further assistance prior to discharge.
[2023-07-27 12:00] VITALS: BP 151/65; PULSE 70; PULSE 77; RESP 18; TEMP 36.8; O2SAT 99
--- NOTE | 2023-07-27 13:09 | PC.NURSE ---
ok to deaccess chest port per Dr. Carballo for patient discharge
== END 2023-07-27 13:31 ==
LOC: 2ND 15:11
PROVIDERS: Internal Medicine; Admitting Provider Internal Medicine Adolescent Medicine; Visit Provider Internal Medicine Adolescent Medicine
DX: I34.0 Nonrheumatic mitral (valve) insufficiency (principal); D64.9 Anemia, unspecified; J44.9 Chronic obstructive pulmonary disease, unspecified; I50.84 End stage heart failure; I27.20 Pulmonary hypertension, unspecified; F17.210 Nicotine dependence, cigarettes, uncomplicated; I11.0 Hypertensive heart disease with heart failure; I25.118 Atherosclerotic heart disease of native coronary artery with other forms of angina pectoris; E78.2 Mixed hyperlipidemia; I25.2 Old myocardial infarction; E03.9 Hypothyroidism, unspecified; R29.6 Repeated falls; Z79.899 Other long term (current) drug therapy; H54.7 Unspecified visual loss
CPT/HCPCS: G0379; 36415; 70490; 71250; 80048; 80053; 83735; 85025; 85610; 93005; 93270; 93312; 93319; 94640; 94760; G0378; J1642